=== PATIENT | female | born 1940 | race Caucasian/White ===

== ENCOUNTER 2020-02-16 11:28 | Inpatient (IN) | payer MEDICARE, OTHER ==
[2020-02-16] MEDS ORDERED: Sodium Chloride 0.9% 10 ML Syringe FLUSH PRN (12:08)
[2020-02-16] MEDS ORDERED: Ondansetron 4 MG/2 ML SDV IVPUSH ONE ×2 (12:08→14:30)
--- NOTE | 2020-02-16 12:13 | EDM.PDOC ---
ED HPI GENERAL MEDICAL PROBLEM - General Chief Complaint: Abdominal Pain Stated Complaint: DEHYDRATED Time Seen by Provider: 02/16/20 12:00 Source of Information: Reports: Patient History Limitations: Reports: No Limitations - History of Present Illness INITIAL COMMENTS - FREE TEXT/NARRATIVE: Patient is an 79-year-old female who presents with her daughter with complaints of nausea and vomiting. Patient was hospitalized and had surgery to remove her uterus and colon lesions at [facility] on 07 February. Per patient's report, the surgery was unsuccessful. She was discharged on 09 February. Daughter states that she had nausea and vomiting for couple days after surgery. She was okay for 1 day after getting home and then the nausea and vomiting returned on Thursday. She has not been able to keep her medications, food, or liquids down. She often has nausea and vomiting with anesthesia, however this is lasting longer than it normally does. She was discharged with Zofran which she took around 9:00 this morning. She complains of increased weakness, dizziness, and lightheadedness. She has had regular bowel movement since surgery. She does also have blood in her stool, however she states this has been an ongoing issue for her due to her colorectal cancer. She states that the blood in her stool has not worsened in any way. She does have mild lower abdominal pain in the area of the incision. Denies any fever, chills, or dysuria. Middle Abdomen Pain Score (Numeric/FACES): 4 - Related Data Allergies Allergy/AdvReac Type Severity Reaction Status Date / Time shellfish derived Allergy Rash Verified 02/16/20 11:44 Home Meds: Home Meds Acetaminophen 1,000 mg PO Q6HR PRN 02/16/20 [History] Apixaban [Eliquis] 5 mg PO BID 02/16/20 [History] Multivitamin [Daily Keri] 1 each PO DAILY 02/16/20 [History] Omeprazole 20 mg PO DAILY PRN 02/16/20 [History] Sennosides/Docusate Sodium [Sennosides-Docusate Sodium] 1 each PO BID PRN [History] Simethicone 80 mg PO QID PRN 02/16/20 [History] Simvastatin 5 mg PO BEDTIME 02/16/20 [History] traMADol [Ultram] 50 mg PO Q6H PRN 02/16/20 [History] Past Medical History HEENT History: Reports: Hard of Hearing Cardiovascular History: Reports: Blood Clots/VTE/DVT, High Cholesterol Respiratory History: Reports: None Gastrointestinal History: Reports: Chronic Constipation, GERD 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: Musculoskeletal History: Reports: None Neurological History: Reports: None Psychiatric History: Reports: None Endocrine/Metabolic History: Reports: Obesity/BMI 30+ Hematologic History: Reports: Anticoagulation Therapy, Blood Transfusion(s) Immunologic History: Reports: None Oncologic (Cancer) History: Reports: Colon, Ovarian Dermatologic History: Reports: None - Infectious Disease History Infectious Disease History: Reports: None - Past Surgical History GI Surgical History: Reports: Colonoscopy, Other (See Below) Other GI Surgeries/Procedures: Exploratory Laparotomy Female Surgical History: Reports: Other (See Below) Other Female Surgeries/Procedures: Ovaries Removed in 2006 Oncologic Surgical History: Reports: Biopsy of Breast Social & Family History - Tobacco Use Smoking Status *Q: Never Smoker - Caffeine Use Caffeine Use: Reports: Coffee - Recreational Drug Use Recreational Drug Use: No ED ROS GENERAL - Review of Systems Review Of Systems: See Below Constitutional: Reports: Weakness, Decreased Appetite. Denies: Fever, Chills HEENT: Reports: No Symptoms Respiratory: Reports: No Symptoms. Denies: Shortness of Breath, Cough Cardiovascular: Reports: Lightheadedness. Denies: Chest Pain, Dyspnea on Exertion, Syncope Endocrine: Reports: No Symptoms GI/Abdominal: Reports: Nausea, Vomiting. Denies: Abdominal Pain, Diarrhea : Reports: Hematuria. Denies: Dysuria, Flank Pain, Frequency Musculoskeletal: Reports: No Symptoms Skin: Reports: No Symptoms Neurological: Reports: No Symptoms Psychiatric: Reports: No Symptoms Hematologic/Lymphatic: Reports: No Symptoms Immunologic: Reports: No Symptoms ED EXAM, GI/ABD - Physical Exam Exam: See Below Exam Limited By: No Limitations General Appearance: Alert, WD/WN, No Apparent Distress Respiratory/Chest: No Respiratory Distress, Lungs Clear, Normal Breath Sounds, No Accessory Muscle Use, Chest Non-Tender Cardiovascular: Normal Peripheral Pulses, Regular Rate, Rhythm, No Edema, No Gallop, No JVD, No Murmur, No Rub GI/Abdominal Exam: Normal Bowel Sounds, Soft, No Organomegaly, No Distention, No Abnormal Bruit, No Mass, Pelvis Stable, Tender (mild lower abdominal tenderness around incision site), Other (lower abdominal midline incision. Well approximated. No redness, swelling, or drainage present.) Neurological: Alert, Oriented, CN II-XII Intact, Normal Cognition, Normal Gait, Normal Reflexes, No Motor/Sensory Deficits Psychiatric: Normal Affect, Normal Mood Skin Exam: Warm, Dry, Intact, Normal Color, No Rash Course - Vital Signs Last Recorded V/S: Last Vital Signs Temp 97.9 F 02/16/20 11:39 Pulse 88 02/16/20 11:39 Resp 15 02/16/20 11:39 BP 163/82 H 02/16/20 11:39 Pulse Ox 97 02/16/20 11:39 - Orders/Labs/Meds Orders: Active Orders 24 hr Category Date Time Status Patient Status [ADT] Routine ADT 02/16/20 16:01 Ordered Peripheral IV Care [RC] . DIRECTED Care 02/16/20 12:08 Active CULTURE BLOOD [BC] Stat Lab 02/16/20 15:18 Received CULTURE BLOOD [BC] Stat Lab 02/16/20 15:35 Received CULTURE URINE [RM] Stat Lab 02/16/20 14:30 Received LACTIC ACID [CHEM] Stat Lab 02/16/20 15:18 Received Sodium Chloride 0.9% [Normal Saline] 1,000 ml Med 02/16/20 12:15 Active IV ASDIRECTED Sodium Chloride 0.9% [Saline Flush] Med 02/16/20 12:08 Active 10 ml FLUSH ASDIRECTED PRN cefTRIAXone [Rocephin] 1 gm Med 02/16/20 14:45 Active Sodium Chloride 0.9% [Normal Saline] 100 ml IV Q24H Blood Culture x2 Reflex Set [OM.PC] Stat Oth 02/16/20 14:56 Ordered Peripheral IV Insertion Adult [OM.PC] Stat Oth 02/16/20 12:07 Ordered Medication Orders Sodium Chloride (Normal Saline) 1,000 mls @ 999 mls/hr IV ASDIRECTED CLIFF Last Admin: 02/16/20 12:18 Dose: 150 mls/hr Ceftriaxone Sodium 1 gm/ (Sodium Chloride) 100 mls @ 200 mls/hr IV Q24H CLIFF Last Admin: 02/16/20 15:42 Dose: 200 mls/hr Sodium Chloride (Saline Flush) 10 ml FLUSH ASDIRECTED PRN PRN Reason: Keep Vein Open Last Admin: 02/16/20 12:18 Dose: 10 ml Labs: Laboratory Tests 02/16/20 02/16/20 02/16/20 Range/Units 12:30 12:30 12:30 WBC 17.18 H (3.98-10.04) K/mm3 RBC 4.44 (3.98-5.22) M/mm3 Hgb 13.4 (11.2-15.7) gm/dl Hct 42.6 (34.1-44.9) % MCV 95.9 H (79.4-94.8) fl MCH 30.2 (25.6-32.2) pg MCHC 31.5 L (32.2-35.5) g/dl RDW Std Deviation 47.1 H (36.4-46.3) fL Plt Count 424 H (182-369) K/mm3 MPV 9.2 L (9.4-12.3) fl Neut % (Auto) 78.4 H (34.0-71.1) % Lymph % (Auto) 10.9 L (19.3-51.7) % [place] % (Auto) 9.2 (4.7-12.5) % Eos % (Auto) 0.4 L (0.7-5.8) Baso % (Auto) 0.2 (0.1-1.2) % Neut # (Auto) 13.48 H (1.56-6.13) K/mm3 Lymph # (Auto) 1.87 (1.18-3.74) K/mm3 [place] # (Auto) 1.58 H (0.24-0.36) K/mm3 Eos # (Auto) 0.07 (0.04-0.36) K/mm3 Baso # (Auto) 0.03 (0.01-0.08) K/mm3 Manual Slide Review Normal smear Sodium 142 (136-145) mEq/L Potassium 4.8 (3.5-5.1) mEq/L Chloride 104 (98-107) mEq/L Carbon Dioxide 25 (21-32) mEq/L Anion Gap 17.8 H (5-15) BUN 27 H (7-18) mg/dL Creatinine 1.3 H (0.55-1.02) mg/dL Est Cr Clr Drug Dosing 31.06 mL/min Estimated GFR (MDRD) 39 (>60) mL/min BUN/Creatinine Ratio 20.8 H (14-18) Glucose 103 (83-115) mg/dL Calcium 9.0 (8.5-10.1) mg/dL Total Bilirubin 0.6 (0.2-1.0) mg/dL AST 28 (15-37) U/L ALT 36 (14-59) U/L Alkaline Phosphatase 87 (46-116) U/L Troponin I < 0.017 (0.00-0.056) ng/mL C-Reactive Protein 5.3 H* (<1.0) mg/dL Total Protein 6.9 (6.4-8.2) g/dl Albumin 2.8 L (3.4-5.0) g/dl Globulin 4.1 gm/dL Albumin/Globulin Ratio 0.7 L (1-2) Urine Color (Yellow) Urine Appearance (Clear) Urine pH (5.0-8.0) Ur Specific [place] (1.005-1.030) Urine Protein (Negative) Urine Glucose (UA) (Negative) Urine Ketones (Negative) Urine Occult Blood (Negative) Urine Nitrite (Negative) Urine Bilirubin (Negative) Urine Urobilinogen (0.2-1.0) Ur Leukocyte Esterase (Negative) Urine RBC (0-5) /hpf Urine WBC (0-5) /hpf Ur Squamous Epith Cells (0-5) /hpf Urine Bacteria (FEW) /hpf Urine Mucus (FEW) /hpf 02/15/20 Range/Units 14:30 WBC (3.98-10.04) K/mm3 RBC (3.98-5.22) M/mm3 Hgb (11.2-15.7) gm/dl Hct (34.1-44.9) % MCV (79.4-94.8) fl MCH (25.6-32.2) pg MCHC (32.2-35.5) g/dl RDW Std Deviation (36.4-46.3) fL Plt Count (182-369) K/mm3 MPV (9.4-12.3) fl Neut % (Auto) (34.0-71.1) % Lymph % (Auto) (19.3-51.7) % [place] % (Auto) (4.7-12.5) % Eos % (Auto) (0.7-5.8) Baso % (Auto) (0.1-1.2) % Neut # (Auto) (1.56-6.13) K/mm3 Lymph # (Auto) (1.18-3.74) K/mm3 [place] # (Auto) (0.24-0.36) K/mm3 Eos # (Auto) (0.04-0.36) K/mm3 Baso # (Auto) (0.01-0.08) K/mm3 Manual Slide Review Sodium (136-145) mEq/L Potassium (3.5-5.1) mEq/L Chloride (98-107) mEq/L Carbon Dioxide (21-32) mEq/L Anion Gap (5-15) BUN (7-18) mg/dL Creatinine (0.55-1.02) mg/dL Est Cr Clr Drug Dosing mL/min Estimated GFR (MDRD) (>60) mL/min BUN/Creatinine Ratio (14-18) Glucose (83-115) mg/dL Calcium (8.5-10.1) mg/dL Total Bilirubin (0.2-1.0) mg/dL AST (15-37) U/L ALT (14-59) U/L Alkaline Phosphatase (46-116) U/L Troponin I (0.00-0.056) ng/mL C-Reactive Protein (<1.0) mg/dL Total Protein (6.4-8.2) g/dl Albumin (3.4-5.0) g/dl Globulin gm/dL Albumin/Globulin Ratio (1-2) Urine Color Kandi H (Yellow) Urine Appearance Cloudy H (Clear) Urine pH 6.0 (5.0-8.0) Ur Specific [place] > or = 1.030 (1.005-1.030) Urine Protein 2+ H (Negative) Urine Glucose (UA) Negative (Negative) Urine Ketones 2+ H (Negative) Urine Occult Blood 3+ H (Negative) Urine Nitrite Positive H (Negative) Urine Bilirubin 1+ H (Negative) Urine Urobilinogen 1.0 (0.2-1.0) Ur Leukocyte Esterase 1+ H (Negative) Urine RBC 40-50 H (0-5) /hpf Urine WBC >100 H (0-5) /hpf Ur Squamous Epith Cells 5-10 H (0-5) /hpf Urine Bacteria Moderate H (FEW) /hpf Urine Mucus Not seen (FEW) /hpf Meds: Medications Generic Name Dose Route Start Last Admin Trade Name Sanjiv PRN Reason Stop Dose Admin Sodium Chloride 1,000 mls @ 999 mls/hr 02/16/20 12:15 02/16/20 12:18 Normal Saline IV 150 mls/hr ASDIRECTED CLIFF Administration Ceftriaxone Sodium 1 gm/ 100 mls @ 200 mls/hr 02/16/20 14:45 02/16/20 15:42 Sodium Chloride IV 200 mls/hr Q24H CLIFF Administration Sodium Chloride 10 ml 02/16/20 12:08 02/16/20 12:18 Saline Flush FLUSH 10 ml ASDIRECTED PRN Administration Keep Vein Open Discontinued Medications Generic Name Dose Route Start Last Admin Trade Name Sanjiv PRN Reason Stop Dose Admin Al Hydroxide/Mg Hydroxide 30 ml 02/16/20 13:41 02/16/20 13:47 Mag-Al Plus PO 02/16/20 13:42 30 ml ONETIME ONE Administration Famotidine 20 mg 02/16/20 14:32 02/16/20 14:38 Pepcid IVPUSH 02/16/20 14:33 20 mg ONETIME ONE Administration Ondansetron HCl 4 mg 02/16/20 12:08 02/16/20 12:18 Zofran IVPUSH 02/16/20 12:09 4 mg ONETIME ONE Administration Ondansetron HCl 4 mg 02/16/20 14:30 02/16/20 14:38 Zofran IVPUSH 02/16/20 14:31 4 mg ONETIME ONE Administration - Re-Assessments/Exams Free Text/Narrative Re-Assessment/Exam: 02/16/20 1500 Hematology was significant for WBC elevated at 17.18, anion gap 17.8, BUN 27, creatinine 1.3, CRP 5.3. Urinalysis was grossly positive for urinary tract infection. I have ordered blood cultures and a lactic acid. Once he is a complete we will give Rocephin 1 g IV. I will call to speak with the hospitalist regarding admission. 02/16/20 16:[address] Louie. Patient will be admitted as inpatient for urinary tract infection. Departure - Departure Time of Disposition: 16:03 Disposition: Admitted As Inpatient 65 Condition: Fair Clinical Impression: Urinary tract infection Qualifiers: Urinary tract infection type: site unspecified Hematuria presence: with hematuria Qualified Code(s): N39.0 - Urinary tract infection, site not specified ; R31.9 - Hematuria, unspecified - Discharge Information Referrals: Terrie Meng MD [Primary Care Provider] - Forms: ED Department Discharge Sepsis Event Note - Evaluation Sepsis Screening Result: No Definite Risk - Focused Exam Vital Signs: Vital Signs Temp Pulse Resp BP Pulse Ox 02/16/20 11:39 97.9 F 88 15 163/82 H 97 Date Exam was Performed: 02/16/20 Time Exam was Performed: 16:03 - My Orders Last 24 Hours: My Active Orders 02/16/20 12:07 Peripheral IV Insertion Adult [OM.PC] Stat 02/16/20 12:08 Peripheral IV Care [RC] . DIRECTED Sodium Chloride 0.9% [Saline Flush] 10 ml FLUSH ASDIRECTED PRN 02/16/20 12:15 Sodium Chloride 0.9% [Normal Saline] 1,000 ml IV ASDIRECTED 02/16/20 14:30 CULTURE URINE [RM] Stat 02/16/20 14:45 cefTRIAXone [Rocephin] 1 gm Sodium Chloride 0.9% [Normal Saline] 100 ml IV Q24H 02/16/20 14:56 Blood Culture x2 Reflex Set [OM.PC] Stat 02/16/20 15:18 CULTURE BLOOD [BC] Stat LACTIC ACID [CHEM] Stat 02/16/20 15:35 CULTURE BLOOD [BC] Stat 02/16/20 16:01 Patient Status [ADT] Routine - Assessment/Plan Last 24 Hours: My Active Orders 02/16/20 12:07 Peripheral IV Insertion Adult [OM.PC] Stat 02/16/20 12:08 Peripheral IV Care [RC] . DIRECTED Sodium Chloride 0.9% [Saline Flush] 10 ml FLUSH ASDIRECTED PRN 02/16/20 12:15 Sodium Chloride 0.9% [Normal Saline] 1,000 ml IV ASDIRECTED 02/16/20 14:30 CULTURE URINE [RM] Stat 02/16/20 14:45 cefTRIAXone [Rocephin] 1 gm Sodium Chloride 0.9% [Normal Saline] 100 ml IV Q24H 02/16/20 14:56 Blood Culture x2 Reflex Set [OM.PC] Stat 02/16/20 15:18 CULTURE BLOOD [BC] Stat LACTIC ACID [CHEM] Stat 02/16/20 15:35 CULTURE BLOOD [BC] Stat 02/16/20 16:01 Patient Status [ADT] Routine
[2020-02-16] MEDS ORDERED: Sodium Chloride 0.9% 1,000 ML IV SCH ×2 (12:15→16:30)
[2020-02-16] MEDS ORDERED: Aluminum Hydroxide/Magnesium Hydroxide/Simethicone Susp 30 ML Cup PO ONE (13:41)
--- NOTE | 2020-02-16 14:12 | CR ---
Chest: 2 views of the chest were obtained. Comparison: No prior chest imaging. Heart size and mediastinum are normal. Lungs are clear with no acute parenchymal change. Bony structures are grossly intact. Impression: 1. Nothing acute is suspected on 2 view chest x-ray. Diagnostic code #1 This report was dictated in MDT
[2020-02-16] MEDS ORDERED: Famotidine 20 MG/2 ML SDV IVPUSH ONE (14:32)
[2020-02-16] MEDS: cefTRIAXone 1 GM in Sodium Chloride 0.9% 100 ML IV SCH (15:42)
[2020-02-16] MEDS ORDERED: Acetaminophen 325 MG Tab PO PRN (16:14)
--- NOTE | 2020-02-16 16:26 | PCM.HP.2 ---
H&P History of Present Illness - General Date of Service: 02/16/20 Admit Problem/Dx: Admission Diagnosis/Problem Admission Diagnosis/Problem Urinary tract infection Source of Information: Patient, Provider, RN, RN Notes Reviewed History Limitations: Reports: No Limitations - History of Present Illness Initial Comments - Free Text/Narative: Jesi Valencia is a 79 yo female who presents to ED on 02/16/2020 with nausea and vomiting. She states that she feels like she is dehydrated. She recently returned from [facility] in which she had a unsuccessful surgery to remove her uterus and colon lesions. This reportedly occurred on February 07 and she was discharged on February 09. Patient's daughter who accompanies her states that she had nausea and vomiting for couple days after surgery. She had one good day and then her symptoms returned this past Thursday. Reports has not been able to keep any medications food or liquid down. She has history of significant nausea and vomiting with anesthesia however this is been lasting much longer than normal. She has a prescription for p.o. Zofran which she took this morning , does not really helped. She reports additional increased weakness, dizziness , lightheadedness, and lower abdominal pain at her incision site. She reports she is had regular bowel movement since her surgery and states she does have blood in her stool. She reports this is been an ongoing issue with her colorectal cancer but has not worsened in any way. She denies any fever, chills , or urinary issues. In the ED temp was 97.9. Pulse 88. Respirations 15. Blood pressure 163/82. Pulse ox 97%. Labs are obtained with an elevated white count of 17.18. Hemoglobin is good at 13.4. Hematocrit 42.6. Platelets are high at 424,000. She is macrocytic. Neutrophils are elevated at 13.48. Anion gap is noted to be high at 17.8. Creatinine is 1.3. GFR is 39. BUN is 27. Glucose is normal at 103. Troponin is negative. Electrolytes otherwise look normal. CRP is elevated at 5.3. Albumin is low at 2.8. UA is obtained and is strongly positive and concentrated. 2+ protein, 2+ ketones, 3+ occult blood, positive nitrate, 1+ bilirubin, 1+ leukocyte esterase, 50 RBCs, greater than 100 WBCs, 5- 10 squamous epithelial cells, and moderate bacteria are noted. She is given a 1 L fluid bolus and started on 1 g of Rocephin. She is also given 20 mg of Pepcid and IV push Zofran for nausea. Lactic acid is normal at 1.1. Chest x- ray is obtained and shows nothing acute. Blood cultures were obtained and are pending. Urine culture is pending. She carries a history of: prior VTE, HLD, chronic constipation, GERD, obesity, colon and ovarian cancer, S/P oophorectomy in 2006. She was never smoker. Her PCP is Dr. Meng. She subsequently admitted to the medical floor for management of her intractable nausea and vomiting and UTI. Middle Abdomen Pain Score (Numeric/FACES): 4 - Related Data Allergies/Adverse Reactions: Allergies Allergy/AdvReac Type Severity Reaction Status Date / Time shellfish derived Allergy Rash Verified 02/16/20 17:00 Home Medications: Home Meds Acetaminophen 1,000 mg PO Q6HR PRN 02/16/20 [History] Apixaban [Eliquis] 5 mg PO BID 02/16/20 [History] Magnesium Hydroxide [Milk of Magnesia] 30 ml PO BID PRN 02/16/20 [History] Multivitamin [Daily Keri] 1 each PO DAILY 02/16/20 [History] Omeprazole 20 mg PO DAILY PRN 02/16/20 [History] Sennosides/Docusate Sodium [Sennosides-Docusate Sodium] 1 each PO BID PRN [History] Simethicone 80 mg PO QID PRN 02/16/20 [History] Simvastatin 5 mg PO BEDTIME 02/16/20 [History] traMADol [Ultram] 50 mg PO Q6H PRN 02/16/20 [History] Past Medical History HEENT History: Reports: Hard of Hearing Cardiovascular History: Reports: Blood Clots/VTE/DVT, High Cholesterol Respiratory History: Reports: None Gastrointestinal History: Reports: Chronic Constipation, GERD [employer] History: Reports: Musculoskeletal History: Reports: None Neurological History: Reports: None Psychiatric History: Reports: None Endocrine/Metabolic History: Reports: Obesity/BMI 30+ Hematologic History: Reports: Anticoagulation Therapy, Blood Transfusion(s) Immunologic History: Reports: None Oncologic (Cancer) History: Reports: Colon, Ovarian Dermatologic History: Reports: None - Infectious Disease History Infectious Disease History: Reports: None - Past Surgical History GI Surgical History: Reports: Colonoscopy, Other (See Below) Other GI Surgeries/Procedures: Exploratory Laparotomy Female Surgical History: Reports: Other (See Below) Other Female Surgeries/Procedures: Ovaries Removed in 2006 Oncologic Surgical History: Reports: Biopsy of Breast Social & Family History - Tobacco Use Smoking Status *Q: Never Smoker - Caffeine Use Caffeine Use: Reports: Coffee - Recreational Drug Use Recreational Drug Use: No H&P Review of Systems - Review of Systems: Review Of Systems: See Below General: Reports: Malaise, Weakness, Fatigue, Decreased Appetite. Denies: Fever , Chills HEENT: Reports: No Symptoms. Denies: Headaches, Sore Throat Pulmonary: Reports: No Symptoms. Denies: Shortness of Breath, Wheezing, Pleuritic Chest Pain, Cough, Sputum Cardiovascular: Reports: No Symptoms. Denies: Chest Pain, Palpitations, Dyspnea on Exertion, Syncope Gastrointestinal: Reports: Bloody Stool (chronic 2/2 colon cancer ), Nausea, Vomiting. Denies: Abdominal Pain, Constipation, Diarrhea Genitourinary: Reports: Hematuria. Denies: Frequency, Pain, Discharge Musculoskeletal: Reports: No Symptoms Skin: Reports: No Symptoms. Denies: Cyanosis Psychiatric: Reports: No Symptoms. Denies: Confusion Neurological: Reports: No Symptoms. Denies: Pre-Existing Deficit, Trouble Speaking, Difficulty Walking, Gait Disturbance Hematologic/Lymphatic: Reports: No Symptoms Immunologic: Reports: No Symptoms Exam - Exam Exam: See Below - Vital Signs Vital Signs: Last Vital Signs Temp 97.9 F 02/16/20 11:39 Pulse 88 02/16/20 11:39 Resp 15 02/16/20 11:39 BP 163/82 H 02/16/20 11:39 Pulse Ox 97 02/16/20 11:39 Weight: 232 lb - Exam Quality Assessment: DVT Prophylaxis General: Alert, Oriented, Cooperative, Mild Distress (looks uncomfortable ) HEENT: Conjunctiva Clear, EACs Clear, Hearing Intact, Mucosa Moist & [place], Nares Patent, Posterior Pharynx Clear, PERRLA Neck: Supple, Trachea Midline Lungs: Clear to Auscultation, Normal Respiratory Effort Cardiovascular: Regular Rate, Regular Rhythm GI/Abdominal Exam: Normal Bowel Sounds, Soft, No Distention, Tender (around incision site ) (Female) Exam: Deferred Rectal (Female) Exam: Deferred Back Exam: Normal Inspection, Full Range of Motion Extremities: Normal Inspection, Normal Range of Motion, Non-Tender, No Pedal Edema, Normal Capillary Refill Skin: Warm, Dry, Intact, Incision (midline lower abdominen - no signs of infection) Neurological: Cranial Nerves Intact (grossly ) Neuro Extensive - Mental Status: Alert, Oriented x3 - Patient Data Lab Results Last 24 hrs: Laboratory Results - last 24 hr 02/16/20 02/16/20 02/16/20 Range/Units 12:30 12:30 12:30 WBC 17.18 H (3.98-10.04) K/mm3 RBC 4.44 (3.98-5.22) M/mm3 Hgb 13.4 (11.2-15.7) gm/dl Hct 42.6 (34.1-44.9) % MCV 95.9 H (79.4-94.8) fl MCH 30.2 (25.6-32.2) pg MCHC 31.5 L (32.2-35.5) g/dl RDW Std Deviation 47.1 H (36.4-46.3) fL Plt Count 424 H (182-369) K/mm3 MPV 9.2 L (9.4-12.3) fl Neut % (Auto) 78.4 H (34.0-71.1) % Lymph % (Auto) 10.9 L (19.3-51.7) % Wheeler % (Auto) 9.2 (4.7-12.5) % Eos % (Auto) 0.4 L (0.7-5.8) Baso % (Auto) 0.2 (0.1-1.2) % Neut # (Auto) 13.48 H (1.56-6.13) K/mm3 Lymph # (Auto) 1.87 (1.18-3.74) K/mm3 Wheeler # (Auto) 1.58 H (0.24-0.36) K/mm3 Eos # (Auto) 0.07 (0.04-0.36) K/mm3 Baso # (Auto) 0.03 (0.01-0.08) K/mm3 Manual Slide Review Normal smear Sodium 142 (136-145) mEq/L Potassium 4.8 (3.5-5.1) mEq/L Chloride 104 (98-107) mEq/L Carbon Dioxide 25 (21-32) mEq/L Anion Gap 17.8 H (5-15) BUN 27 H (7-18) mg/dL Creatinine 1.3 H (0.55-1.02) mg/dL Est Cr Clr Drug Dosing 31.06 mL/min Estimated GFR (MDRD) 39 (>60) mL/min BUN/Creatinine Ratio 20.8 H (14-18) Glucose 103 (83-115) mg/dL Lactic Acid (0.4-2.0) mmol/L Calcium 9.0 (8.5-10.1) mg/dL Total Bilirubin 0.6 (0.2-1.0) mg/dL AST 28 (15-37) U/L ALT 36 (14-59) U/L Alkaline Phosphatase 87 (46-116) U/L Troponin I < 0.017 (0.00-0.056) ng/mL C-Reactive Protein 5.3 H* (<1.0) mg/dL Total Protein 6.9 (6.4-8.2) g/dl Albumin 2.8 L (3.4-5.0) g/dl Globulin 4.1 gm/dL Albumin/Globulin Ratio 0.7 L (1-2) Urine Color (Yellow) Urine Appearance (Clear) Urine pH (5.0-8.0) Ur Specific Baudette (1.005-1.030) Urine Protein (Negative) Urine Glucose (UA) (Negative) Urine Ketones (Negative) Urine Occult Blood (Negative) Urine Nitrite (Negative) Urine Bilirubin (Negative) Urine Urobilinogen (0.2-1.0) Ur Leukocyte Esterase (Negative) Urine RBC (0-5) /hpf Urine WBC (0-5) /hpf Ur Squamous Epith Cells (0-5) /hpf Urine Bacteria (FEW) /hpf Urine Mucus (FEW) /hpf 02/16/20 02/16/20 Range/Units 14:30 15:18 WBC (3.98-10.04) K/mm3 RBC (3.98-5.22) M/mm3 Hgb (11.2-15.7) gm/dl Hct (34.1-44.9) % MCV (79.4-94.8) fl MCH (25.6-32.2) pg MCHC (32.2-35.5) g/dl RDW Std Deviation (36.4-46.3) fL Plt Count (182-369) K/mm3 MPV (9.4-12.3) fl Neut % (Auto) (34.0-71.1) % Lymph % (Auto) (19.3-51.7) % Wheeler % (Auto) (4.7-12.5) % Eos % (Auto) (0.7-5.8) Baso % (Auto) (0.1-1.2) % Neut # (Auto) (1.56-6.13) K/mm3 Lymph # (Auto) (1.18-3.74) K/mm3 Wheeler # (Auto) (0.24-0.36) K/mm3 Eos # (Auto) (0.04-0.36) K/mm3 Baso # (Auto) (0.01-0.08) K/mm3 Manual Slide Review Sodium (136-145) mEq/L Potassium (3.5-5.1) mEq/L Chloride (98-107) mEq/L Carbon Dioxide (21-32) mEq/L Anion Gap (5-15) BUN (7-18) mg/dL Creatinine (0.55-1.02) mg/dL Est Cr Clr Drug Dosing mL/min Estimated GFR (MDRD) (>60) mL/min BUN/Creatinine Ratio (14-18) Glucose (83-115) mg/dL Lactic Acid 1.1 (0.4-2.0) mmol/L Calcium (8.5-10.1) mg/dL Total Bilirubin (0.2-1.0) mg/dL AST (15-37) U/L ALT (14-59) U/L Alkaline Phosphatase (46-116) U/L Troponin I (0.00-0.056) ng/mL C-Reactive Protein (<1.0) mg/dL Total Protein (6.4-8.2) g/dl Albumin (3.4-5.0) g/dl Globulin gm/dL Albumin/Globulin Ratio (1-2) Urine Color Kandi H (Yellow) Urine Appearance Cloudy H (Clear) Urine pH 6.0 (5.0-8.0) Ur Specific Baudette > or = 1.030 (1.005-1.030) Urine Protein 2+ H (Negative) Urine Glucose (UA) Negative (Negative) Urine Ketones 2+ H (Negative) Urine Occult Blood 3+ H (Negative) Urine Nitrite Positive H (Negative) Urine Bilirubin 1+ H (Negative) Urine Urobilinogen 1.0 (0.2-1.0) Ur Leukocyte Esterase 1+ H (Negative) Urine RBC 40-50 H (0-5) /hpf Urine WBC >100 H (0-5) /hpf Ur Squamous Epith Cells 5-10 H (0-5) /hpf Urine Bacteria Moderate H (FEW) /hpf Urine Mucus Not seen (FEW) /hpf Result Diagrams: 02/16/20 12:30 02/16/20 12:30 Sepsis Event Note - Evaluation Sepsis Screening Result: No Definite Risk - Focused Exam Vital Signs: Vital Signs Temp Pulse Resp BP Pulse Ox 02/16/20 11:39 97.9 F 88 15 163/82 H 97 Date Exam was Performed: 02/16/20 Time Exam was Performed: 18:34 - Problem List (1) Nausea and vomiting SNOMED Code(s): 35496774 ICD Code: R11.2 - NAUSEA WITH VOMITING, UNSPECIFIED Status: Acute Priority: High Current Visit: Yes Qualifiers: Vomiting type: unspecified Vomiting Intractability: intractable Qualified Code(s): R11.2 - Nausea with vomiting, unspecified (2) History of ovarian cancer Status: Chronic Priority: Medium Current Visit: No (3) Colon cancer SNOMED Code(s): 621810935 ICD Code: C18.9 - MALIGNANT NEOPLASM OF COLON, UNSPECIFIED Status: Acute Priority: High Current Visit: Yes Qualifiers: Colon location: unspecified part of colon Qualified Code(s): C18.9 - Malignant neoplasm of colon, unspecified (4) Leukocytosis SNOMED Code(s): 433602483, 330805442 ICD Code: D72.829 - ELEVATED WHITE BLOOD CELL COUNT, UNSPECIFIED Status: Acute Priority: High Current Visit: Yes Qualifiers: Leukocytosis type: unspecified Qualified Code(s): D72.829 - Elevated white blood cell count, unspecified (5) Acute renal injury SNOMED Code(s): 19583438, 97869153 ICD Code: N17.9 - ACUTE KIDNEY FAILURE, UNSPECIFIED Status: Acute Priority: High Current Visit: Yes (6) High anion gap metabolic acidosis SNOMED Code(s): 48777136 ICD Code: E87.2 - ACIDOSIS Status: Acute Priority: High Current Visit: Yes (7) History of venous thromboembolism SNOMED Code(s): 469540010 ICD Code: Z86.718 - PERSONAL HISTORY OF OTHER VENOUS THROMBOSIS AND EMBOLISM Status: Chronic Priority: Medium Current Visit: Yes (8) Chronic anticoagulation SNOMED Code(s): 421397236 ICD Code: Z79.01 - TUB WASHER (CURRENT) USE OF ANTICOAGULANTS Status: Chronic Priority: Low Current Visit: Yes (9) HLD (hyperlipidemia) SNOMED Code(s): 10167497 ICD Code: E78.5 - HYPERLIPIDEMIA, UNSPECIFIED Status: Chronic Priority: Low Current Visit: No Qualifiers: Hyperlipidemia type: unspecified Qualified Code(s): E78.5 - Hyperlipidemia , unspecified (10) GERD (gastroesophageal reflux disease) SNOMED Code(s): 119169222 ICD Code: K21.9 - GASTRO-ESOPHAGEAL REFLUX DISEASE WITHOUT ESOPHAGITIS Status: Chronic Priority: Medium Current Visit: No Qualifiers: Esophagitis presence: esophagitis presence not specified Qualified Code(s) : K21.9 - Gastro-esophageal reflux disease without esophagitis (11) Obesity SNOMED Code(s): 539872159, 556261289 ICD Code: E66.9 - OBESITY, UNSPECIFIED Status: Chronic Priority: Medium Current Visit: No Qualifiers: Obesity type: unspecified obesity type Obesity classification: adult class 2 (BMI 35 - 39.9) Body mass index: BMI 38.0-38.9 (12) Hematochezia SNOMED Code(s): 476007580 ICD Code: K92.1 - MELENA Status: Chronic Priority: Medium Current Visit : Yes (13) Urinary tract infection SNOMED Code(s): 43234950 ICD Code: N39.0 - URINARY TRACT INFECTION, SITE NOT SPECIFIED Status: Acute Priority: High Current Visit: Yes Qualifiers: Urinary tract infection type: site unspecified Hematuria presence: with hematuria Qualified Code(s): N39.0 - Urinary tract infection, site not specified; R31.9 - Hematuria, unspecified (14) S/P laparotomy SNOMED Code(s): 872533094, 998813272, 027040964 ICD Code: Z98.890 - OTHER SPECIFIED POSTPROCEDURAL STATES Status: Acute Priority: Medium Current Visit: Yes (15) Volume depletion SNOMED Code(s): 77067272 ICD Code: E86.9 - VOLUME DEPLETION, UNSPECIFIED Status: Acute Current Visit: Yes Problem List Initiated/Reviewed/Updated: Yes Orders Last 24hrs: Active Orders 24 hr Category Date Time Status Patient Status [ADT] Routine ADT 02/16/20 16:01 Active Height and Weight [RC] DAILY Care 02/16/20 16:14 Active Intake and Output [RC] QSHIFT Care 02/16/20 16:14 Active Oxygen Therapy [RC] PRN Care 02/16/20 16:14 Active Peripheral IV Care [RC] . DIRECTED Care 02/16/20 12:08 Active Pulse Oximetry [RC] PRN Care 02/16/20 16:14 Active Up With Assistance [RC] ASDIRECTED Care 02/16/20 16:14 Active VTE/DVT Education [RC] PER UNIT ROUTINE Care 02/16/20 16:14 Active Vital Signs [RC] Q4H Care 02/16/20 16:14 Active Consult to Case Management/Needle Board Repairer [CONS] Cons 02/16/20 16:14 Active Routine Consult to Electroplating Worker [CONS] Routine Cons 02/16/20 16:14 Active Consult to Spiritual Care [CONS] Routine Cons 02/16/20 16:14 Active OT Evaluation and Treatment [CONS] Routine Cons 02/16/20 16:14 Active PT Evaluation and Treatment [CONS] Routine Cons 02/16/20 16:14 Active Heart Healthy Diet [DIET] Diet 02/16/20 Lunch Active BASIC METABOLIC PANEL,BMP [CHEM] AM Lab 02/17/20 05:11 Ordered BASIC METABOLIC PANEL,BMP [CHEM] AM Lab 02/18/20 05:11 Ordered BASIC METABOLIC PANEL,BMP [CHEM] AM Lab 02/19/20 05:11 Ordered BASIC METABOLIC PANEL,BMP [CHEM] AM Lab 02/20/20 05:11 Ordered CBC WITH AUTO DIFF [HEME] AM Lab 02/17/20 05:11 Ordered CBC WITH AUTO DIFF [HEME] AM Lab 02/18/20 05:11 Ordered CBC WITH AUTO DIFF [HEME] AM Lab 02/19/20 05:11 Ordered CBC WITH AUTO DIFF [HEME] AM Lab 02/20/20 05:11 Ordered CULTURE BLOOD [BC] Stat Lab 02/16/20 15:18 Received CULTURE BLOOD [BC] Stat Lab 02/16/20 15:35 Received CULTURE URINE [RM] Stat Lab 02/16/20 14:30 Received MAGNESIUM [CHEM] AM Lab 02/17/20 05:11 Ordered MAGNESIUM [CHEM] AM Lab 02/18/20 05:11 Ordered MAGNESIUM [CHEM] AM Lab 02/19/20 05:11 Ordered MAGNESIUM [CHEM] AM Lab 02/20/20 05:11 Ordered Acetaminophen [Tylenol] Med 02/16/20 16:14 Active 650 mg PO Q4H PRN Apixaban [Eliquis] Med 02/16/20 21:00 Ordered 5 mg PO BID Docusate Sodium/Sennosides [Senna Plus] Med 02/16/20 16:20 Active 1 tab PO BID PRN Multivitamin Med 02/17/20 09:00 Ordered 1 each PO DAILY Ondansetron [Zofran] Med 02/16/20 16:14 Active 4 mg IV Q6H PRN Simethicone Med 02/16/20 16:20 Ordered 80 mg PO QID PRN Sodium Chloride 0.9% [Normal Saline] 1,000 ml Med 02/16/20 12:15 Active IV ASDIRECTED Sodium Chloride 0.9% [Normal Saline] 1,000 ml Med 02/16/20 16:30 Active IV ASDIRECTED Sodium Chloride 0.9% [Saline Flush] Med 02/16/20 12:08 Active 10 ml FLUSH ASDIRECTED PRN cefTRIAXone [Rocephin] 1 gm Med 02/16/20 14:45 Active Sodium Chloride 0.9% [Normal Saline] 100 ml IV Q24H traMADol [Ultram] Med 02/16/20 16:20 Ordered 50 mg PO Q6H PRN Blood Culture x2 Reflex Set [OM.PC] Stat Oth 02/16/20 14:56 Ordered Peripheral IV Insertion Adult [OM.PC] Stat Oth 02/16/20 12:07 Ordered Medication Orders Acetaminophen (Tylenol) 650 mg PO Q4H PRN PRN Reason: Pain (Mild 1-3)/fever Apixaban (Eliquis) 5 mg PO BID CLIFF Sodium Chloride (Normal Saline) 1,000 mls @ 999 mls/hr IV ASDIRECTED CLIFF Last Admin: 02/16/20 12:18 Dose: 150 mls/hr Ceftriaxone Sodium 1 gm/ (Sodium Chloride) 100 mls @ 200 mls/hr IV Q24H [facility] Last Admin: 02/16/20 15:42 Dose: 200 mls/hr Sodium Chloride (Normal Saline) 1,000 mls @ 75 mls/hr IV ASDIRECTED [facility] Stop: 02/17/20 05:49 Non-Formulary Medication (Multivitamin) 1 each PO DAILY [facility] Ondansetron HCl (Zofran) 4 mg IV Q6H PRN PRN Reason: Nausea/Vomiting Senna/Docusate Sodium (Senna Plus) 1 tab PO BID PRN PRN Reason: Constipation Simethicone (Simethicone) 80 mg PO QID PRN PRN Reason: flatulence Sodium Chloride (Saline Flush) 10 ml FLUSH ASDIRECTED PRN PRN Reason: Keep Vein Open Last Admin: 02/16/20 12:18 Dose: 10 ml Tramadol HCl (Ultram) 50 mg PO Q6H PRN PRN Reason: Pain Assessment/Plan Comment:: I/P: Acute: Urinary tract infection -Reports hematuria -Recently underwent surgery at [facility] - clinton catheter placed during procedure -Denies any fever -WBC 17.18 -CRP 5.3 -UA: Cloudy, concentrated, 2+ protein, 2+ ketones, 3+ occult blood, positive nitrite, 1+ bilirubin, 1+ leukocyte esterase, 40-50 RBC, greater than 100 WBCs, moderate bacteria. -Urine culture pending -Blood cultures pending -Sepsis criteria: -Apparent bacterial infection, No fever, WBC 17.18, No tachypnea, No tachycardia, Lactic acid 1.1 -Does not meet sepsis criteria at this point -Started on Rocephin 1gm in ED - continue -IV fluids as indicated Nausea and vomiting -Reports history of significant post-operative nausea and vomiting -Has had symptoms since return from surgery -Given IV fluids and zofran after discharge with minimal brief improvement of symptoms -Zofran in ED with minimal improvement -Start Phenergan PRN -Scopolamine patch -Monitor electrolytes - good so far -Last BM 02/15/20 S/P laparotomy 2/2 planned colon resection -Performed at [facility] -Daughter reports procedure aborted once she was opened due to significance of neoplasm -Planning chemotherapy in [place] -No signs of infection of surgical site -Continue to monitor Acute kidney injury -Likely 2/2 dehydration from vomiting -BUN 27 -Creatinine 1.3 -eGFR 39 -IV bolus given in ED -IV fluids as ordered Volume depletion -AARTI as above -Concentrated urine -Anion gap 17.8 -IV fluids as indicated Chronic: prior VTE HLD chronic constipation GERD obesity colon Hx/o ovarian cancer S/P oophorectomy in 2006 Plan: Admit to medical floor Routine AM labs Other orders as indicated above Review home medications PT/OT CM/SW for discharge planning Electroplating Worker consult DVT prophylaxis: Home Eliquis Code status: Full Code PCP: Dr. Meng - Mortality Measure Prognosis:: Poor (Overall poor prognosis given colon cancer; Good prognosis for UTI/Nausea episode)
[2020-02-16] MEDS ORDERED: Promethazine 25 MG in Sodium Chloride 0.9% 50 ML IV ONE (17:39)
[2020-02-16] MEDS ORDERED: Promethazine 25 MG in Sodium Chloride 0.9% 50 ML IV PRN (18:32)
[2020-02-16] MEDS ORDERED: Magnesium Hydroxide 400 MG/5 ML Susp 30 ML Cup PO PRN (18:33)
[2020-02-16] MEDS: Apixaban 5 MG Tab PO SCH (20:45)
[2020-02-16] MEDS: Scopolamine 1.5 MG Transdermal Patch TRDERM SCH (20:45)
--- NOTE | 2020-02-17 07:26 | PCM.PN ---
- General Info Date of Service: 02/17/20 Admission Dx/Problem (Free Text): Admission Diagnosis/Problem Admission Diagnosis/Problem Urinary tract infection Subjective Update: Destini is doing well. Her nausea has resolved. She has been up ambulating. No patient concerns. Functional Status: Reports: Pain Controlled, Tolerating Diet, Ambulating, Urinating. Denies: New Symptoms - Review of Systems General: Reports: No Symptoms. Denies: Fever, Weakness, Fatigue, Malaise HEENT: Reports: No Symptoms. Denies: Headaches, Sore Throat Pulmonary: Reports: No Symptoms. Denies: Shortness of Breath, Cough, Sputum Cardiovascular: Reports: No Symptoms. Denies: Chest Pain, Palpitations, Edema Gastrointestinal: Reports: No Symptoms. Denies: Abdominal Pain, Constipation, Diarrhea, Nausea, Vomiting Genitourinary: Reports: No Symptoms. Denies: Pain Musculoskeletal: Reports: No Symptoms Skin: Reports: No Symptoms. Denies: Cyanosis Neurological: Reports: No Symptoms. Denies: Confusion, Difficulty Walking, Gait Disturbance Psychiatric: Reports: No Symptoms - Patient Data Vitals - Most Recent: Last Vital Signs Temp 98.2 F 02/17/20 05:24 Pulse 81 02/17/20 05:24 Resp 20 02/17/20 05:24 BP 119/63 02/17/20 05:24 Pulse Ox 94 L 02/17/20 05:24 Weight - Most Recent: 232 lb 11.2 oz I&O - Last 24 Hours: Intake & Output 02/16/20 02/17/20 02/17/20 22:59 06:59 14:59 Intake Total 1200 Output Total 600 450 Balance -600 750 Lab Results Last 24 Hours: Laboratory Results - last 24 hr 02/16/20 02/16/20 02/16/20 Range/Units 12:30 12:30 12:30 WBC 17.18 H (3.98-10.04) K/mm3 RBC 4.44 (3.98-5.22) M/mm3 Hgb 13.4 (11.2-15.7) gm/dl Hct 42.6 (34.1-44.9) % MCV 95.9 H (79.4-94.8) fl MCH 30.2 (25.6-32.2) pg MCHC 31.5 L (32.2-35.5) g/dl RDW Std Deviation 47.1 H (36.4-46.3) fL Plt Count 424 H (182-369) K/mm3 MPV 9.2 L (9.4-12.3) fl Neut % (Auto) 78.4 H (34.0-71.1) % Lymph % (Auto) 10.9 L (19.3-51.7) % [place] % (Auto) 9.2 (4.7-12.5) % Eos % (Auto) 0.4 L (0.7-5.8) Baso % (Auto) 0.2 (0.1-1.2) % Neut # (Auto) 13.48 H (1.56-6.13) K/mm3 Lymph # (Auto) 1.87 (1.18-3.74) K/mm3 Loving # (Auto) 1.58 H (0.24-0.36) K/mm3 Eos # (Auto) 0.07 (0.04-0.36) K/mm3 Baso # (Auto) 0.03 (0.01-0.08) K/mm3 Manual Slide Review Normal smear Sodium 142 (136-145) mEq/L Potassium 4.8 (3.5-5.1) mEq/L Chloride 104 (98-107) mEq/L Carbon Dioxide 25 (21-32) mEq/L Anion Gap 17.8 H (5-15) BUN 27 H (7-18) mg/dL Creatinine 1.3 H (0.55-1.02) mg/dL Est Cr Clr Drug Dosing 31.06 mL/min Estimated GFR (MDRD) 39 (>60) mL/min BUN/Creatinine Ratio 20.8 H (14-18) Glucose 103 (83-115) mg/dL Lactic Acid (0.4-2.0) mmol/L Calcium 9.0 (8.5-10.1) mg/dL Magnesium (1.8-2.4) mg/dl Total Bilirubin 0.6 (0.2-1.0) mg/dL AST 28 (15-37) U/L ALT 36 (14-59) U/L Alkaline Phosphatase 87 (46-116) U/L Troponin I < 0.017 (0.00-0.056) ng/mL C-Reactive Protein 5.3 H* (<1.0) mg/dL Total Protein 6.9 (6.4-8.2) g/dl Albumin 2.8 L (3.4-5.0) g/dl Globulin 4.1 gm/dL Albumin/Globulin Ratio 0.7 L (1-2) Urine Color (Yellow) Urine Appearance (Clear) Urine pH (5.0-8.0) Ur Specific [place] (1.005-1.030) Urine Protein (Negative) Urine Glucose (UA) (Negative) Urine Ketones (Negative) Urine Occult Blood (Negative) Urine Nitrite (Negative) Urine Bilirubin (Negative) Urine Urobilinogen (0.2-1.0) Ur Leukocyte Esterase (Negative) Urine RBC (0-5) /hpf Urine WBC (0-5) /hpf Ur Squamous Epith Cells (0-5) /hpf Urine Bacteria (FEW) /hpf Urine Mucus (FEW) /hpf 02/16/20 02/16/20 02/17/20 Range/Units 14:30 15:18 04:38 WBC 13.51 H (3.98-10.04) K/mm3 RBC 3.93 L (3.98-5.22) M/mm3 Hgb 11.7 D (11.2-15.7) gm/dl Hct 38.3 (34.1-44.9) % MCV 97.5 H (79.4-94.8) fl MCH 29.8 (25.6-32.2) pg MCHC 30.5 L (32.2-35.5) g/dl RDW Std Deviation 47.8 H (36.4-46.3) fL Plt Count 412 H (182-369) K/mm3 MPV 9.9 (9.4-12.3) fl Neut % (Auto) 69.1 (34.0-71.1) % Lymph % (Auto) 15.8 L (19.3-51.7) % [place] % (Auto) 12.3 (4.7-12.5) % Eos % (Auto) 1.4 (0.7-5.8) Baso % (Auto) 0.4 (0.1-1.2) % Neut # (Auto) 9.35 H (1.56-6.13) K/mm3 Lymph # (Auto) 2.13 (1.18-3.74) K/mm3 Loving # (Auto) 1.66 H (0.24-0.36) K/mm3 Eos # (Auto) 0.19 (0.04-0.36) K/mm3 Baso # (Auto) 0.05 (0.01-0.08) K/mm3 Manual Slide Review Normal smear Sodium (136-145) mEq/L Potassium (3.5-5.1) mEq/L Chloride (98-107) mEq/L Carbon Dioxide (21-32) mEq/L Anion Gap (5-15) BUN (7-18) mg/dL Creatinine (0.55-1.02) mg/dL Est Cr Clr Drug Dosing mL/min Estimated GFR (MDRD) (>60) mL/min BUN/Creatinine Ratio (14-18) Glucose (83-115) mg/dL Lactic Acid 1.1 (0.4-2.0) mmol/L Calcium (8.5-10.1) mg/dL Magnesium (1.8-2.4) mg/dl Total Bilirubin (0.2-1.0) mg/dL AST (15-37) U/L ALT (14-59) U/L Alkaline Phosphatase (46-116) U/L Troponin I (0.00-0.056) ng/mL C-Reactive Protein (<1.0) mg/dL Total Protein (6.4-8.2) g/dl Albumin (3.4-5.0) g/dl Globulin gm/dL Albumin/Globulin Ratio (1-2) Urine Color Kandi H (Yellow) Urine Appearance Cloudy H (Clear) Urine pH 6.0 (5.0-8.0) Ur Specific [place] > or = 1.030 (1.005-1.030) Urine Protein 2+ H (Negative) Urine Glucose (UA) Negative (Negative) Urine Ketones 2+ H (Negative) Urine Occult Blood 3+ H (Negative) Urine Nitrite Positive H (Negative) Urine Bilirubin 1+ H (Negative) Urine Urobilinogen 1.0 (0.2-1.0) Ur Leukocyte Esterase 1+ H (Negative) Urine RBC 40-50 H (0-5) /hpf Urine WBC >100 H (0-5) /hpf Ur Squamous Epith Cells 5-10 H (0-5) /hpf Urine Bacteria Moderate H (FEW) /hpf Urine Mucus Not seen (FEW) /hpf 02/17/20 Range/Units 04:38 WBC (3.98-10.04) K/mm3 RBC (3.98-5.22) M/mm3 Hgb (11.2-15.7) gm/dl Hct (34.1-44.9) % MCV (79.4-94.8) fl MCH (25.6-32.2) pg MCHC (32.2-35.5) g/dl RDW Std Deviation (36.4-46.3) fL Plt Count (182-369) K/mm3 MPV (9.4-12.3) fl Neut % (Auto) (34.0-71.1) % Lymph % (Auto) (19.3-51.7) % [place]oving % (Auto) (4.7-12.5) % Eos % (Auto) (0.7-5.8) Baso % (Auto) (0.1-1.2) % Neut # (Auto) (1.56-6.13) K/mm3 Lymph # (Auto) (1.18-3.74) K/mm3 L[place] # (Auto) (0.24-0.36) K/mm3 Eos # (Auto) (0.04-0.36) K/mm3 Baso # (Auto) (0.01-0.08) K/mm3 Manual Slide Review Sodium 142 (136-145) mEq/L Potassium 4.4 (3.5-5.1) mEq/L Chloride 107 (98-107) mEq/L Carbon Dioxide 24 (21-32) mEq/L Anion Gap 15.4 H (5-15) BUN 27 H (7-18) mg/dL Creatinine 1.2 H (0.55-1.02) mg/dL Est Cr Clr Drug Dosing 33.65 mL/min Estimated GFR (MDRD) 43 (>60) mL/min BUN/Creatinine Ratio 22.5 H (14-18) Glucose 77 L (83-115) mg/dL Lactic Acid (0.4-2.0) mmol/L Calcium 8.4 L (8.5-10.1) mg/dL Magnesium 2.2 (1.8-2.4) mg/dl Total Bilirubin (0.2-1.0) mg/dL AST (15-37) U/L ALT (14-59) U/L Alkaline Phosphatase (46-116) U/L Troponin I (0.00-0.056) ng/mL C-Reactive Protein (<1.0) mg/dL Total Protein (6.4-8.2) g/dl Albumin (3.4-5.0) g/dl Globulin gm/dL Albumin/Globulin Ratio (1-2) Urine Color (Yellow) Urine Appearance (Clear) Urine pH (5.0-8.0) Ur Specific [place] (1.005-1.030) Urine Protein (Negative) Urine Glucose (UA) (Negative) Urine Ketones (Negative) Urine Occult Blood (Negative) Urine Nitrite (Negative) Urine Bilirubin (Negative) Urine Urobilinogen (0.2-1.0) Ur Leukocyte Esterase (Negative) Urine RBC (0-5) /hpf Urine WBC (0-5) /hpf Ur Squamous Epith Cells (0-5) /hpf Urine Bacteria (FEW) /hpf Urine Mucus (FEW) /hpf Arturo Results Last 24 Hours: Microbiology 02/16/20 14:30 Urine Culture - Preliminary Urine, Clean Catch Gram Negative Rods Med Orders - Current: Current Medications Acetaminophen (Tylenol) 650 mg PO Q4H PRN PRN Reason: Pain (Mild 1-3)/fever Apixaban (Eliquis) 5 mg PO BID [facility] Last Admin: 02/16/20 20:45 Dose: 5 mg Famotidine (Pepcid) 20 mg PO DAILY [facility] Ceftriaxone Sodium 1 gm/ (Sodium Chloride) 100 mls @ 200 mls/hr IV Q24H [facility] Last Admin: 02/16/20 15:42 Dose: 200 mls/hr Promethazine HCl 25 mg/ Sodium (Chloride) 51 mls @ 100 mls/hr IV Q6H PRN PRN Reason: Nausea/Vomiting Magnesium Hydroxide (Milk Of Magnesia) 30 ml PO BID PRN PRN Reason: Constipation Miscellaneous Information (Remove Patch) 1 ea TRDERM Q72H [facility] Multivitamins (Thera) 1 each PO DAILY [facility] Ondansetron HCl (Zofran) 4 mg IV Q6H PRN PRN Reason: Nausea/Vomiting Scopolamine (Transderm-Scop) 1.5 mg TRDERM Q72H [facility] Last Admin: 02/16/20 20:45 Dose: 1.5 mg Senna/Docusate Sodium (Senna Plus) 1 tab PO BID PRN PRN Reason: Constipation Simethicone (Simethicone) 80 mg PO QID PRN PRN Reason: flatulence Sodium Chloride (Saline Flush) 10 ml FLUSH ASDIRECTED PRN PRN Reason: Keep Vein Open Last Admin: 02/16/20 12:18 Dose: 10 ml Tramadol HCl (Ultram) 50 mg PO Q6H PRN PRN Reason: Pain Discontinued Medications Al Hydroxide/Mg Hydroxide (Mag-Al Plus) 30 ml PO ONETIME ONE Stop: 02/16/20 13:42 Last Admin: 02/16/20 13:47 Dose: 30 ml Famotidine (Pepcid) 20 mg IVPUSH ONETIME ONE Stop: 02/16/20 14:33 Last Admin: 02/16/20 14:38 Dose: 20 mg Sodium Chloride (Normal Saline) 1,000 mls @ 999 mls/hr IV ASDIRECTED [facility] Last Admin: 02/16/20 12:18 Dose: 150 mls/hr Sodium Chloride (Normal Saline) 1,000 mls @ 75 mls/hr IV ASDIRECTED [facility] Stop: 02/17/20 05:49 Last Admin: 02/16/20 16:47 Dose: 75 mls/hr Promethazine HCl 25 mg/ Sodium (Chloride) 51 mls @ 100 mls/hr IV ONETIME ONE Stop: 02/16/20 18:09 Last Admin: 02/16/20 18:32 Dose: 100 mls/hr Ondansetron HCl (Zofran) 4 mg IVPUSH ONETIME ONE Stop: 02/16/20 12:09 Last Admin: 02/16/20 12:18 Dose: 4 mg Ondansetron HCl (Zofran) 4 mg IVPUSH ONETIME ONE Stop: 02/16/20 14:31 Last Admin: 02/16/20 14:38 Dose: 4 mg - Exam Quality Assessment: DVT Prophylaxis General: Alert, Oriented, Cooperative, No Acute Distress HEENT: Pupils Equal, Pupils Reactive, Mucous Membr. Moist/[place] Neck: Supple, Trachea Midline Lungs: Clear to Auscultation, Normal Respiratory Effort Cardiovascular: Regular Rate, Regular Rhythm GI/Abdominal Exam: Normal Bowel Sounds, Soft, No Distention, Tender (around incision site ) (Female) Exam: Deferred Back Exam: Normal Inspection, Full Range of Motion Extremities: Normal Inspection, Normal Range of Motion, Non-Tender, Normal Capillary Refill Skin: Warm, Dry, Intact Wound/Incisions: Healing Well, No Drainage. No: Erythema Neurological: No New Focal Deficit Psy/Mental Status: Alert, Normal Affect, Normal Mood Sepsis Event Note - Evaluation Sepsis Screening Result: No Definite Risk - Focused Exam Vital Signs: Vital Signs Temp Pulse Resp BP Pulse Ox 02/17/20 05:24 98.2 F 81 20 119/63 94 L 02/17/20 00:09 88 118/69 94 L 02/17/20 00:08 97.7 F 92 20 99/69 94 L 02/16/20 19:30 98.6 F 99 18 148/56 H 98 Date Exam was Performed: 02/17/20 Time Exam was Performed: 12:33 - Problem List & Annotations (1) Nausea and vomiting SNOMED Code(s): 86448123 Code(s): R11.2 - NAUSEA WITH VOMITING, UNSPECIFIED Status: Resolved Priority: High Current Visit: Yes Qualifiers: Vomiting type: unspecified Vomiting Intractability: intractable Qualified Code(s): R11.2 - Nausea with vomiting, unspecified (2) History of ovarian cancer Status: Chronic Priority: Medium Current Visit: No (3) Colon cancer SNOMED Code(s): 005734239 Code(s): C18.9 - MALIGNANT NEOPLASM OF COLON, UNSPECIFIED Status: Acute Priority: High Current Visit: Yes Qualifiers: Colon location: unspecified part of colon Qualified Code(s): C18.9 - Malignant neoplasm of colon, unspecified (4) Leukocytosis SNOMED Code(s): 429271914, 008801605 Code(s): D72.829 - ELEVATED WHITE BLOOD CELL COUNT, UNSPECIFIED Status: Acute Priority: High Current Visit: Yes Qualifiers: Leukocytosis type: unspecified Qualified Code(s): D72.829 - Elevated white blood cell count, unspecified (5) Acute renal injury SNOMED Code(s): 16734064, 86693026 Code(s): N17.9 - ACUTE KIDNEY FAILURE, UNSPECIFIED Status: Acute Priority : High Current Visit: Yes (6) High anion gap metabolic acidosis SNOMED Code(s): 10602065 Code(s): E87.2 - ACIDOSIS Status: Acute Priority: High Current Visit: Yes (7) History of venous thromboembolism SNOMED Code(s): 874034949 Code(s): Z86.718 - PERSONAL HISTORY OF OTHER VENOUS THROMBOSIS AND EMBOLISM Status: Chronic Priority: Medium Current Visit: Yes (8) Chronic anticoagulation SNOMED Code(s): 171731183 Code(s): Z79.01 - CUSTODIAL (CURRENT) USE OF ANTICOAGULANTS Status: Chronic Priority: Low Current Visit: Yes (9) HLD (hyperlipidemia) SNOMED Code(s): 41410691 Code(s): E78.5 - HYPERLIPIDEMIA, UNSPECIFIED Status: Chronic Priority: Low Current Visit: No Qualifiers: Hyperlipidemia type: unspecified Qualified Code(s): E78.5 - Hyperlipidemia , unspecified (10) GERD (gastroesophageal reflux disease) SNOMED Code(s): 814579077 Code(s): K21.9 - GASTRO-ESOPHAGEAL REFLUX DISEASE WITHOUT ESOPHAGITIS Status: Chronic Priority: Medium Current Visit: No Qualifiers: Esophagitis presence: esophagitis presence not specified Qualified Code(s) : K21.9 - Gastro-esophageal reflux disease without esophagitis (11) Obesity SNOMED Code(s): 971001959, 695682146 Code(s): E66.9 - OBESITY, UNSPECIFIED Status: Chronic Priority: Medium Current Visit: No Qualifiers: Obesity type: unspecified obesity type Obesity classification: adult class 2 (BMI 35 - 39.9) Body mass index: BMI 38.0-38.9 (12) Hematochezia SNOMED Code(s): 552195575 Code(s): K92.1 - MELENA Status: Chronic Priority: Medium Current Visit : Yes (13) Urinary tract infection SNOMED Code(s): 36617264 Code(s): N39.0 - URINARY TRACT INFECTION, SITE NOT SPECIFIED Status: Acute Priority: High Current Visit: Yes Qualifiers: Urinary tract infection type: site unspecified Hematuria presence: with hematuria Qualified Code(s): N39.0 - Urinary tract infection, site not specified; R31.9 - Hematuria, unspecified (14) S/P laparotomy SNOMED Code(s): 318154883, 686553793, 071238751 Code(s): Z98.890 - OTHER SPECIFIED POSTPROCEDURAL STATES Status: Acute Priority: Medium Current Visit: Yes (15) Volume depletion SNOMED Code(s): 64180400 Code(s): E86.9 - VOLUME DEPLETION, UNSPECIFIED Status: Acute Current Visit: Yes - Problem List Review Problem List Initiated/Reviewed/Updated: Yes - My Orders Last 24 Hours: My Active Orders 02/16/20 16:14 Oxygen Therapy [RC] PRN Pulse Oximetry [RC] PRN VTE/DVT Education [RC] Vital Signs [RC] Q4HR Consult to Case Management/Hris Specialist [CONS] Routine Consult to Stock Replenisher [CONS] Routine Consult to Spiritual Care [CONS] Routine OT Evaluation and Treatment [CONS] Routine PT Evaluation and Treatment [CONS] Routine Acetaminophen [Tylenol] 650 mg PO Q4H PRN Ondansetron [Zofran] 4 mg IV Q6H PRN 02/16/20 16:20 Docusate Sodium/Sennosides [Senna Plus] 1 tab PO BID PRN Simethicone 80 mg PO QID PRN traMADol [Ultram] 50 mg PO Q6H PRN 02/16/20 18:32 Promethazine [Phenergan] 25 mg Sodium Chloride 0.9% [Normal Saline] 50 ml IV Q6H 02/16/20 18:33 Magnesium Hydroxide [Milk of Magnesia] 30 ml PO BID PRN 02/16/20 20:00 Scopolamine [Transderm-Scop] 1.5 mg TRDERM Q72H 02/16/20 21:00 Apixaban [Eliquis] 5 mg PO BID 02/16/20 Lunch Heart Healthy Diet [DIET] 02/17/20 09:00 Famotidine [Pepcid] 20 mg PO DAILY Multivitamins,Therapeutic [Thera] 1 each PO DAILY 02/18/20 05:11 BASIC METABOLIC PANEL,BMP [CHEM] AM CBC WITH AUTO DIFF [HEME] AM MAGNESIUM [CHEM] AM 02/19/20 05:11 BASIC METABOLIC PANEL,BMP [CHEM] AM CBC WITH AUTO DIFF [HEME] AM MAGNESIUM [CHEM] AM 02/20/20 05:11 BASIC METABOLIC PANEL,BMP [CHEM] AM CBC WITH AUTO DIFF [HEME] AM MAGNESIUM [CHEM] AM - Plan Plan:: I/P: Acute: Urinary tract infection -Reports hematuria -Recently underwent surgery at [facility] - [place] catheter placed during procedure -Denies any fever -WBC 17.18-->13.51 -CRP 5.3 -UA: Cloudy, concentrated, 2+ protein, 2+ ketones, 3+ occult blood, positive nitrite, 1+ bilirubin, 1+ leukocyte esterase, 40-50 RBC, greater than 100 WBCs, moderate bacteria. -Urine culture: Gram negative rods thus far -Blood cultures pending -Sepsis criteria: -Apparent bacterial infection, No fever, WBC 17.18, No tachypnea, No tachycardia, Lactic acid 1.1 -Does not meet sepsis criteria at this point -Started on Rocephin 1gm in ED - continue -IV fluids as indicated S/P Nausea and vomiting -Reports history of significant post-operative nausea and vomiting -Has had symptoms since return from surgery -Given IV fluids and zofran after discharge with minimal brief improvement of symptoms -Zofran in ED with minimal improvement -Start Phenergan PRN -Scopolamine patch -Monitor electrolytes - good so far -Last BM 02/15/20 S/P laparotomy 2/2 planned colon resection -Performed at [facility] -Daughter reports procedure aborted once she was opened due to significance of neoplasm -Planning chemotherapy in [place] -No signs of infection of surgical site -Continue to monitor Acute kidney injury, improving -Likely 2/2 dehydration from vomiting -BUN 27-->27 -Creatinine 1.3-->1.2 -eGFR 39-->43 -IV bolus given in ED -IV fluids as ordered Volume depletion, improving -AARTI as above -Concentrated urine -Anion gap 17.8-->15.4 -IV fluids as indicated Chronic: prior VTE HLD chronic constipation GERD obesity colon Hx/o ovarian cancer S/P oophorectomy in 2006 Plan: Admit to medical floor Routine AM labs Other orders as indicated above Review home medications PT/OT CM/SW for discharge planning Stock Replenisher consult DVT prophylaxis: Home Eliquis Code status: Full Code PCP: Dr. Meng Discharge plan: Likely discharge in 1-2 days pending urine culture and continued response to treatment.
[2020-02-17] MEDS: Multivitamins,Therapeutic Tab PO SCH (08:03)
[2020-02-17] MEDS: Apixaban 5 MG Tab PO SCH ×2 (08:03→20:25)
[2020-02-17] MEDS: Famotidine 20 MG Tab PO SCH (08:03)
[2020-02-17] MEDS: Sodium Chloride 0.9% 1,000 ML IV SCH ×2 (08:09→17:44)
[2020-02-17] MEDS: cefTRIAXone 1 GM in Sodium Chloride 0.9% 100 ML IV SCH (14:58)
[2020-02-18] MEDS: Multivitamins,Therapeutic Tab PO SCH (08:14)
[2020-02-18] MEDS: Apixaban 5 MG Tab PO SCH ×2 (08:14→20:39)
[2020-02-18] MEDS: Famotidine 20 MG Tab PO SCH ×2 (08:14→20:39)
--- NOTE | 2020-02-18 11:50 | PCM.PN ---
- General Info Date of Service: 02/18/20 Admission Dx/Problem (Free Text): Admission Diagnosis/Problem Admission Diagnosis/Problem Urinary tract infection Functional Status: Reports: Pain Controlled, Tolerating Diet, Ambulating, Urinating. Denies: New Symptoms - Review of Systems General: Reports: Weakness. Denies: Fever, Fatigue, Malaise, Chills HEENT: Denies: Headaches, Sore Throat Pulmonary: Denies: Shortness of Breath, Pleuritic Chest Pain, Cough, Sputum, Wheezing Cardiovascular: Denies: Chest Pain, Palpitations, Dyspnea on Exertion Gastrointestinal: Reports: Abdominal Pain (mild from surgical site ), Constipation, Decreased Appetite, Other (Feels bloated ). Denies: Diarrhea, Nausea, Vomiting Genitourinary: Reports: No Symptoms. Denies: Pain Musculoskeletal: Reports: No Symptoms Skin: Reports: No Symptoms Neurological: Reports: Difficulty Walking, Weakness. Denies: Gait Disturbance Psychiatric: Reports: No Symptoms - Patient Data Vitals - Most Recent: Last Vital Signs Temp 97.0 F 02/18/20 08:13 Pulse 91 02/18/20 08:13 Resp 18 02/18/20 08:13 BP 139/54 L 02/18/20 08:13 Pulse Ox 97 02/18/20 08:13 Weight - Most Recent: 235 lb 4.8 oz I&O - Last 24 Hours: Intake & Output 02/17/20 02/18/20 02/18/20 22:59 06:59 14:59 Intake Total 1786 1480 300 Output Total 200 400 Balance 1586 1080 300 Lab Results Last 24 Hours: Laboratory Results - last 24 hr 02/18/20 02/18/20 Range/Units 05:50 05:50 WBC 11.48 H (3.98-10.04) K/mm3 RBC 3.95 L (3.98-5.22) M/mm3 Hgb 11.7 (11.2-15.7) gm/dl Hct 38.3 (34.1-44.9) % MCV 97.0 H (79.4-94.8) fl MCH 29.6 (25.6-32.2) pg MCHC 30.5 L (32.2-35.5) g/dl RDW Std Deviation 47.4 H (36.4-46.3) fL Plt Count 445 H (182-369) K/mm3 MPV 9.6 (9.4-12.3) fl Neut % (Auto) 66.0 (34.0-71.1) % Lymph % (Auto) 16.4 L (19.3-51.7) % Bradford % (Auto) 13.7 H (4.7-12.5) % Eos % (Auto) 2.6 (0.7-5.8) Baso % (Auto) 0.3 (0.1-1.2) % Neut # (Auto) 7.57 H (1.56-6.13) K/mm3 Lymph # (Auto) 1.88 (1.18-3.74) K/mm3 Bradford # (Auto) 1.57 H (0.24-0.36) K/mm3 Eos # (Auto) 0.30 (0.04-0.36) K/mm3 Baso # (Auto) 0.04 (0.01-0.08) K/mm3 Manual Slide Review Normal smear Sodium 142 (136-145) mEq/L Potassium 4.1 (3.5-5.1) mEq/L Chloride 106 (98-107) mEq/L Carbon Dioxide 26 (21-32) mEq/L Anion Gap 14.1 (5-15) BUN 22 H (7-18) mg/dL Creatinine 1.2 H (0.55-1.02) mg/dL Est Cr Clr Drug Dosing 33.65 mL/min Estimated GFR (MDRD) 43 (>60) mL/min BUN/Creatinine Ratio 18.3 H (14-18) Glucose 94 (83-115) mg/dL Calcium 8.7 (8.5-10.1) mg/dL Magnesium 2.1 (1.8-2.4) mg/dl Arturo Results Last 24 Hours: Microbiology 02/16/20 14:30 Urine Culture - Final Urine, Clean Catch Klebsiella Oxytoca 02/16/20 15:18 Aerobic Blood Culture - Preliminary Blood - Venous NO GROWTH AFTER 1 DAY Anaerobic Blood Culture - Preliminary NO GROWTH AFTER 1 DAY 02/16/20 15:35 Aerobic Blood Culture - Preliminary Blood - Venous - Lab Draw NO GROWTH AFTER 1 DAY Anaerobic Blood Culture - Preliminary NO GROWTH AFTER 1 DAY Med Orders - Current: Current Medications Acetaminophen (Tylenol) 650 mg PO Q4H PRN PRN Reason: Pain (Mild 1-3)/fever Last Admin: 02/18/20 05:07 Dose: 650 mg Apixaban (Eliquis) 5 mg PO BID [facility] Last Admin: 02/18/20 08:14 Dose: 5 mg Famotidine (Pepcid) 20 mg PO DAILY [facility] Last Admin: 02/18/20 08:14 Dose: 20 mg Ceftriaxone Sodium 1 gm/ (Sodium Chloride) 100 mls @ 200 mls/hr IV Q24H [facility] Last Admin: 02/17/20 14:58 Dose: 200 mls/hr Promethazine HCl 25 mg/ Sodium (Chloride) 51 mls @ 100 mls/hr IV Q6H PRN PRN Reason: Nausea/Vomiting Sodium Chloride (Normal Saline) 1,000 mls @ 100 mls/hr IV ASDIRECTED [facility] Stop: 02/18/20 17:29 Last Admin: 02/17/20 17:44 Dose: 100 mls/hr Magnesium Hydroxide (Milk Of Magnesia) 30 ml PO BID PRN PRN Reason: Constipation Miscellaneous Information (Remove Patch) 1 ea TRDERM Q72H [facility] Multivitamins (Thera) 1 each PO DAILY [facility] Last Admin: 02/18/20 08:14 Dose: Not Given Ondansetron HCl (Zofran) 4 mg IV Q6H PRN PRN Reason: Nausea/Vomiting Scopolamine (Transderm-Scop) 1.5 mg TRDERM Q72H [facility] Last Admin: 02/16/20 20:45 Dose: 1.5 mg Senna/Docusate Sodium (Senna Plus) 1 tab PO BID PRN PRN Reason: Constipation Last Admin: 02/18/20 05:07 Dose: 1 tab Simethicone (Simethicone) 80 mg PO QID PRN PRN Reason: flatulence Sodium Chloride (Saline Flush) 10 ml FLUSH ASDIRECTED PRN PRN Reason: Keep Vein Open Last Admin: 02/16/20 12:18 Dose: 10 ml Tramadol HCl (Ultram) 50 mg PO Q6H PRN PRN Reason: Pain Discontinued Medications Al Hydroxide/Mg Hydroxide (Mag-Al Plus) 30 ml PO ONETIME ONE Stop: 02/16/20 13:42 Last Admin: 02/16/20 13:47 Dose: 30 ml Famotidine (Pepcid) 20 mg IVPUSH ONETIME ONE Stop: 02/16/20 14:33 Last Admin: 02/16/20 14:38 Dose: 20 mg Sodium Chloride (Normal Saline) 1,000 mls @ 999 mls/hr IV ASDIRECTED [facility] Last Admin: 02/16/20 12:18 Dose: 150 mls/hr Sodium Chloride (Normal Saline) 1,000 mls @ 75 mls/hr IV ASDIRECTED [facility] Stop: 02/17/20 05:49 Last Admin: 02/16/20 16:47 Dose: 75 mls/hr Promethazine HCl 25 mg/ Sodium (Chloride) 51 mls @ 100 mls/hr IV ONETIME ONE Stop: 02/16/20 18:09 Last Admin: 02/16/20 18:32 Dose: 100 mls/hr Ondansetron HCl (Zofran) 4 mg IVPUSH ONETIME ONE Stop: 02/16/20 12:09 Last Admin: 02/16/20 12:18 Dose: 4 mg Ondansetron HCl (Zofran) 4 mg IVPUSH ONETIME ONE Stop: 02/16/20 14:31 Last Admin: 02/16/20 14:38 Dose: 4 mg - Exam Quality Assessment: DVT Prophylaxis General: Alert, Oriented, Cooperative, No Acute Distress HEENT: Pupils Equal, Pupils Reactive, Mucous Membr. Moist/[place] Neck: Supple, Trachea Midline Lungs: Clear to Auscultation, Normal Respiratory Effort Cardiovascular: Regular Rate, Regular Rhythm GI/Abdominal Exam: Normal Bowel Sounds, Soft, Non-Tender, No Distention (Female) Exam: Deferred Back Exam: Normal Inspection, Full Range of Motion Extremities: Normal Inspection, Normal Range of Motion, Non-Tender, Normal Capillary Refill Skin: Warm, Dry, Intact Neurological: No New Focal Deficit Psy/Mental Status: Alert, Normal Affect, Normal Mood Sepsis Event Note - Evaluation Sepsis Screening Result: No Definite Risk - Focused Exam Vital Signs: Vital Signs Temp Pulse Resp BP Pulse Ox 02/18/20 08:13 97.0 F 91 18 139/54 L 97 02/18/20 03:47 97.3 F 83 20 138/82 95 02/18/20 00:04 98.2 F 87 16 117/71 92 L Date Exam was Performed: 02/18/20 Time Exam was Performed: 12:12 - Problem List & Annotations (1) Nausea and vomiting SNOMED Code(s): 06511821 Code(s): R11.2 - NAUSEA WITH VOMITING, UNSPECIFIED Status: Resolved Priority: High Current Visit: Yes Qualifiers: Vomiting type: unspecified Vomiting Intractability: intractable Qualified Code(s): R11.2 - Nausea with vomiting, unspecified (2) History of ovarian cancer Status: Chronic Priority: Medium Current Visit: No (3) Colon cancer SNOMED Code(s): 107889369 Code(s): C18.9 - MALIGNANT NEOPLASM OF COLON, UNSPECIFIED Status: Acute Priority: High Current Visit: Yes Qualifiers: Colon location: unspecified part of colon Qualified Code(s): C18.9 - Malignant neoplasm of colon, unspecified (4) Leukocytosis SNOMED Code(s): 175548346, 097350081 Code(s): D72.829 - ELEVATED WHITE BLOOD CELL COUNT, UNSPECIFIED Status: Acute Priority: High Current Visit: Yes Qualifiers: Leukocytosis type: unspecified Qualified Code(s): D72.829 - Elevated white blood cell count, unspecified (5) Acute renal injury SNOMED Code(s): 75130971, 09171500 Code(s): N17.9 - ACUTE KIDNEY FAILURE, UNSPECIFIED Status: Acute Priority : High Current Visit: Yes (6) High anion gap metabolic acidosis SNOMED Code(s): 03314975 Code(s): E87.2 - ACIDOSIS Status: Acute Priority: High Current Visit: Yes (7) History of venous thromboembolism SNOMED Code(s): 421396076 Code(s): Z86.718 - PERSONAL HISTORY OF OTHER VENOUS THROMBOSIS AND EMBOLISM Status: Chronic Priority: Medium Current Visit: Yes (8) Chronic anticoagulation SNOMED Code(s): 645566153 Code(s): Z79.01 - STORE 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 MERCHANDISER (CURRENT) USE OF ANTICOAGULANTS Status: Chronic Priority: Low Current Visit: Yes (9) HLD (hyperlipidemia) SNOMED Code(s): 88194563 Code(s): E78.5 - HYPERLIPIDEMIA, UNSPECIFIED Status: Chronic Priority: Low Current Visit: No Qualifiers: Hyperlipidemia type: unspecified Qualified Code(s): E78.5 - Hyperlipidemia , unspecified (10) GERD (gastroesophageal reflux disease) SNOMED Code(s): 256245720 Code(s): K21.9 - GASTRO-ESOPHAGEAL REFLUX DISEASE WITHOUT ESOPHAGITIS Status: Chronic Priority: Medium Current Visit: No Qualifiers: Esophagitis presence: esophagitis presence not specified Qualified Code(s) : K21.9 - Gastro-esophageal reflux disease without esophagitis (11) Obesity SNOMED Code(s): 351584008, 203008222 Code(s): E66.9 - OBESITY, UNSPECIFIED Status: Chronic Priority: Medium Current Visit: No Qualifiers: Obesity type: unspecified obesity type Obesity classification: adult class 2 (BMI 35 - 39.9) Body mass index: BMI 38.0-38.9 (12) Hematochezia SNOMED Code(s): 723688998 Code(s): K92.1 - MELENA Status: Chronic Priority: Medium Current Visit : Yes (13) Urinary tract infection SNOMED Code(s): 12645812 Code(s): N39.0 - URINARY TRACT INFECTION, SITE NOT SPECIFIED Status: Acute Priority: High Current Visit: Yes Qualifiers: Urinary tract infection type: site unspecified Hematuria presence: with hematuria Qualified Code(s): N39.0 - Urinary tract infection, site not specified; R31.9 - Hematuria, unspecified (14) S/P laparotomy SNOMED Code(s): 643431309, 603684384, 712936368 Code(s): Z98.890 - OTHER SPECIFIED POSTPROCEDURAL STATES Status: Acute Priority: Medium Current Visit: Yes (15) Volume depletion SNOMED Code(s): 62438682 Code(s): E86.9 - VOLUME DEPLETION, UNSPECIFIED Status: Acute Current Visit: Yes (16) Chronic constipation SNOMED Code(s): 444562247 Code(s): K59.09 - OTHER CONSTIPATION Status: Chronic Priority: High Current Visit: Yes - Problem List Review Problem List Initiated/Reviewed/Updated: Yes - My Orders Last 24 Hours: My Active Orders 02/17/20 Dinner Regular Diet [DIET] 02/19/20 05:11 BASIC METABOLIC PANEL,BMP [CHEM] AM CBC WITH AUTO DIFF [HEME] AM MAGNESIUM [CHEM] AM 02/20/20 05:11 BASIC METABOLIC PANEL,BMP [CHEM] AM CBC WITH AUTO DIFF [HEME] AM MAGNESIUM [CHEM] AM - Plan Plan:: I/P: Acute: Urinary tract infection -Reports hematuria -Recently underwent surgery at [facility] - clinton catheter placed during procedure -Denies any fever -WBC 17.18-->13.51-->11.48 -CRP 5.3 -UA: Cloudy, concentrated, 2+ protein, 2+ ketones, 3+ occult blood, positive nitrite, 1+ bilirubin, 1+ leukocyte esterase, 40-50 RBC, greater than 100 WBCs, moderate bacteria. -Urine culture: Whitney sensitive Klebsiella -Blood cultures negative -Sepsis criteria: -Apparent bacterial infection, No fever, WBC 17.18, No tachypnea, No tachycardia, Lactic acid 1.1 -Does not meet sepsis criteria at this point -Started on Rocephin 1gm in ED - Discontinue and switch to p.o. Omnicef today -IV fluids as indicated S/P Nausea and vomiting -Reports history of significant post-operative nausea and vomiting -Has had symptoms since return from surgery -Given IV fluids and zofran after discharge with minimal brief improvement of symptoms -Zofran in ED with minimal improvement -Start Phenergan PRN -> discontinue and schedule zofran -Scopolamine patch -Monitor electrolytes - good so far S/P laparotomy 2/2 planned colon resection -Performed at [facility] -Daughter reports procedure aborted once she was opened due to significance of neoplasm -Planning chemotherapy in [place] -No signs of infection of surgical site -Continue to monitor Acute kidney injury, improving -Likely 2/2 dehydration from vomiting -BUN 27-->27-->22 -Creatinine 1.3-->1.2-->1.2 -eGFR 39-->43-->1.3 -IV bolus given in ED -IV fluids as ordered Volume depletion, improving -AARTI as above -Concentrated urine -Anion gap 17.8-->15.4-->14.1 -IV fluids as indicated Acute on chronic constipation -Last BM 02/15/20 -Likely exacerbated by prior abdominal surgery -States she feels bloated -Start PO fiber pill -Scheduled senna -PRN simethicone for bloating -Ambulate Chronic: prior VTE HLD chronic constipation GERD obesity colon Hx/o ovarian cancer S/P oophorectomy in 2006 Plan: Admit to medical floor Routine AM labs Other orders as indicated above Review home medications PT/OT CM/SW for discharge planning Record Center Coordinator consult DVT prophylaxis: Home Eliquis Code status: Full Code PCP: Dr. Meng Discharge plan: Likely discharge tomorrow pending continued response to treatment.
[2020-02-18] MEDS: Simethicone 80 MG Tab.Chew PO PRN (12:12)
[2020-02-18] MEDS: Calcium Polycarbophil 625 MG Tab PO SCH (12:12)
[2020-02-18] MEDS: Cefdinir 300 MG Cap PO SCH ×2 (12:12→20:39)
[2020-02-18] MEDS: Ondansetron 4 MG Tab.DIS PO SCH (12:12)
[2020-02-18] MEDS: Melatonin 3 MG Tab PO PRN (20:48)
[2020-02-18] MEDS: traMADol 50 MG Tab PO PRN (20:49)
[2020-02-19] MEDS: Ondansetron 4 MG Tab.DIS PO SCH (00:47)
[2020-02-19] MEDS: Apixaban 5 MG Tab PO SCH (08:45)
[2020-02-19] MEDS: Cefdinir 300 MG Cap PO SCH (08:45)
[2020-02-19] MEDS: Famotidine 20 MG Tab PO SCH (08:45)
[2020-02-19] MEDS: Calcium Polycarbophil 625 MG Tab PO SCH (08:45)
[2020-02-19] MEDS: Multivitamins,Therapeutic Tab PO SCH (08:46)
[2020-02-19] MEDS: Simethicone 80 MG Tab.Chew PO PRN ×2 (08:58→22:37)
--- NOTE | 2020-02-19 09:35 | PCM.PN ---
- General Info Date of Service: 02/19/20 Admission Dx/Problem (Free Text): Admission Diagnosis/Problem Admission Diagnosis/Problem Urinary tract infection Functional Status: Reports: Pain Controlled, Ambulating, Urinating, New Symptoms. Denies: Tolerating Diet (NPO), Incentive Spirometry - Review of Systems General: Reports: Weakness. Denies: Fever, Fatigue, Malaise, Chills HEENT: Reports: No Symptoms. Denies: Headaches, Sore Throat Pulmonary: Reports: No Symptoms. Denies: Shortness of Breath, Cough, Sputum, Wheezing Cardiovascular: Reports: No Symptoms. Denies: Chest Pain, Palpitations, Dyspnea on Exertion Gastrointestinal: Reports: Abdominal Pain (mild), Constipation, Decreased Appetite. Denies: Diarrhea, Flatus, Nausea, Vomiting Genitourinary: Reports: No Symptoms Musculoskeletal: Reports: No Symptoms Skin: Reports: No Symptoms. Denies: Cyanosis Neurological: Reports: No Symptoms. Denies: Confusion Psychiatric: Reports: No Symptoms - Patient Data Vitals - Most Recent: Last Vital Signs Temp 97.9 F 02/19/20 08:43 Pulse 90 02/19/20 08:43 Resp 18 02/19/20 08:43 BP 129/89 02/19/20 08:43 Pulse Ox 95 02/19/20 08:43 Weight - Most Recent: 237 lb I&O - Last 24 Hours: Intake & Output 02/18/20 02/19/20 02/19/20 22:59 06:59 14:59 Intake Total 600 300 Output Total 400 300 Balance 200 0 Lab Results Last 24 Hours: Laboratory Results - last 24 hr 02/19/20 02/19/20 Range/Units 05:35 05:35 WBC 10.96 H (3.98-10.04) K/mm3 RBC 4.02 (3.98-5.22) M/mm3 Hgb 12.0 (11.2-15.7) gm/dl Hct 38.8 (34.1-44.9) % MCV 96.5 H (79.4-94.8) fl MCH 29.9 (25.6-32.2) pg MCHC 30.9 L (32.2-35.5) g/dl RDW Std Deviation 46.6 H (36.4-46.3) fL Plt Count 439 H (182-369) K/mm3 MPV 9.9 (9.4-12.3) fl Neut % (Auto) 61.7 (34.0-71.1) % Lymph % (Auto) 21.4 (19.3-51.7) % [place] % (Auto) 13.2 H (4.7-12.5) % Eos % (Auto) 2.4 (0.7-5.8) Baso % (Auto) 0.3 (0.1-1.2) % Neut # (Auto) 6.77 H (1.56-6.13) K/mm3 Lymph # (Auto) 2.34 (1.18-3.74) K/mm3 [place] # (Auto) 1.45 H (0.24-0.36) K/mm3 Eos # (Auto) 0.26 (0.04-0.36) K/mm3 Baso # (Auto) 0.03 (0.01-0.08) K/mm3 Manual Slide Review Normal smear Sodium 143 (136-145) mEq/L Potassium 4.1 (3.5-5.1) mEq/L Chloride 106 (98-107) mEq/L Carbon Dioxide 24 (21-32) mEq/L Anion Gap 17.1 H (5-15) BUN 20 H (7-18) mg/dL Creatinine 1.2 H (0.55-1.02) mg/dL Est Cr Clr Drug Dosing 33.65 mL/min Estimated GFR (MDRD) 43 (>60) mL/min BUN/Creatinine Ratio 16.7 (14-18) Glucose 99 (83-115) mg/dL Calcium 8.7 (8.5-10.1) mg/dL Magnesium 2.1 (1.8-2.4) mg/dl Arturo Results Last 24 Hours: Microbiology 02/16/20 15:18 Aerobic Blood Culture - Preliminary Blood - Venous NO GROWTH AFTER 2 DAYS Anaerobic Blood Culture - Preliminary NO GROWTH AFTER 2 DAYS 02/16/20 15:35 Aerobic Blood Culture - Preliminary Blood - Venous - Lab Draw NO GROWTH AFTER 2 DAYS Anaerobic Blood Culture - Preliminary NO GROWTH AFTER 2 DAYS 02/16/20 14:30 Urine Culture - Final Urine, Clean Catch Klebsiella Oxytoca Med Orders - Current: Current Medications Acetaminophen (Tylenol) 650 mg PO Q4H PRN PRN Reason: Pain (Mild 1-3)/fever Last Admin: 02/18/20 05:07 Dose: 650 mg Apixaban (Eliquis) 5 mg PO BID [facility] Last Admin: 02/19/20 08:45 Dose: 5 mg Calcium Polycarbophil (Fibercon) 1,250 mg PO DAILY [facility] Last Admin: 02/19/20 08:45 Dose: 1,250 mg Cefdinir (Omnicef) 300 mg PO BID [facility] Last Admin: 02/19/20 08:45 Dose: 300 mg Famotidine (Pepcid) 20 mg PO BID [facility] Last Admin: 02/19/20 08:45 Dose: 20 mg Magnesium Hydroxide (Milk Of Magnesia) 30 ml PO BID PRN PRN Reason: Constipation Last Admin: 02/19/20 05:17 Dose: 30 ml Melatonin (Melatonin) 6 mg PO BEDTIME PRN PRN Reason: Sleep Last Admin: 02/18/20 20:48 Dose: 6 mg Miscellaneous Information (Remove Patch) 1 ea TRDERM Q72H [facility] Multivitamins (Thera) 1 each PO DAILY [facility] Last Admin: 02/19/20 08:46 Dose: Not Given Ondansetron HCl (Zofran) 4 mg IV Q6H PRN PRN Reason: Nausea/Vomiting Ondansetron HCl (Zofran Odt) 4 mg PO Q12H [facility] Last Admin: 02/19/20 00:47 Dose: 4 mg Scopolamine (Transderm-Scop) 1.5 mg TRDERM Q72H [facility] Last Admin: 02/16/20 20:45 Dose: 1.5 mg Senna/Docusate Sodium (Senna Plus) 1 tab PO BID [facility] Last Admin: 02/19/20 08:45 Dose: 1 tab Simethicone (Simethicone) 80 mg PO QID PRN PRN Reason: bloating Last Admin: 02/19/20 08:58 Dose: 80 mg Sodium Chloride (Saline Flush) 10 ml FLUSH ASDIRECTED PRN PRN Reason: Keep Vein Open Last Admin: 02/16/20 12:18 Dose: 10 ml Tramadol HCl (Ultram) 50 mg PO Q6H PRN PRN Reason: Pain Last Admin: 02/18/20 20:49 Dose: 50 mg Discontinued Medications Al Hydroxide/Mg Hydroxide (Mag-Al Plus) 30 ml PO ONETIME ONE Stop: 03/26/20 13:42 Last Admin: 02/16/20 13:47 Dose: 30 ml Famotidine (Pepcid) 20 mg IVPUSH ONETIME ONE Stop: 02/16/20 14:33 Last Admin: 02/16/20 14:38 Dose: 20 mg Famotidine (Pepcid) 20 mg PO DAILY [facility] Last Admin: 02/18/20 08:14 Dose: 20 mg Sodium Chloride (Normal Saline) 1,000 mls @ 999 mls/hr IV ASDIRECTED [facility] Last Admin: 02/16/20 12:18 Dose: 150 mls/hr Ceftriaxone Sodium 1 gm/ (Sodium Chloride) 100 mls @ 200 mls/hr IV Q24H [facility] Last Admin: 02/17/20 14:58 Dose: 200 mls/hr Sodium Chloride (Normal Saline) 1,000 mls @ [facility] Stop: 02/17/20 05:49 Last Admin: 02/16/20 16:47 Dose: 75 mls/hr Promethazine HCl 25 mg/ Sodium (Chloride) 51 mls @ 100 mls/hr IV ONETIME ONE Stop: 02/16/20 18:09 Last Admin: 02/16/20 18:32 Dose: 100 mls/hr Promethazine HCl 25 mg/ Sodium (Chloride) 51 mls @ 100 mls/hr IV Q6H PRN PRN Reason: Nausea/Vomiting Sodium Chloride (Normal Saline) 1,000 mls @ 100 mls/hr IV ASDIRECTED [facility] Stop: 02/18/20 17:29 Last Admin: 02/17/20 17:44 Dose: 100 mls/hr Ondansetron HCl (Zofran) 4 mg IVPUSH ONETIME ONE Stop: 02/16/20 12:09 Last Admin: 02/16/20 12:18 Dose: 4 mg Ondansetron HCl (Zofran) 4 mg IVPUSH ONETIME ONE Stop: 02/16/20 14:31 Last Admin: 02/16/20 14:38 Dose: 4 mg Senna/Docusate Sodium (Senna Plus) 1 tab PO BID PRN PRN Reason: Constipation Last Admin: 02/18/20 05:07 Dose: 1 tab - Exam Quality Assessment: DVT Prophylaxis General: Alert, Oriented, Cooperative, No Acute Distress HEENT: Pupils Equal, Pupils Reactive, Mucous Membr. Moist/[place] Neck: Supple, Trachea Midline Lungs: Clear to Auscultation, Normal Respiratory Effort Cardiovascular: Regular Rate, Regular Rhythm GI/Abdominal Exam: Distended, Tender (Around surgical site and LUQ), Abnormal Bowel Sounds (absent ). No: Rigid (Female) Exam: Deferred Back Exam: Normal Inspection, Full Range of Motion Extremities: Normal Inspection, Normal Range of Motion, Non-Tender, No Pedal Edema, Normal Capillary Refill Skin: Warm, Dry, Intact Wound/Incisions: Healing Well, No Drainage. No: Erythema Neurological: No New Focal Deficit Psy/Mental Status: Alert Sepsis Event Note - Evaluation Sepsis Screening Result: No Definite Risk - Focused Exam Vital Signs: Vital Signs Temp Pulse Resp BP Pulse Ox 02/19/20 08:43 97.9 F 90 18 129/89 95 02/19/20 05:20 97.5 F 91 20 135/80 90 L 02/19/20 00:46 98.1 F 80 18 134/64 93 L Date Exam was Performed: 02/19/20 Time Exam was Performed: 12:27 - Problem List & Annotations (1) Nausea and vomiting SNOMED Code(s): 44733255 Code(s): R11.2 - NAUSEA WITH VOMITING, UNSPECIFIED Status: Resolved Priority: High Current Visit: Yes Qualifiers: Vomiting type: unspecified Vomiting Intractability: intractable Qualified Code(s): R11.2 - Nausea with vomiting, unspecified (2) History of ovarian cancer Status: Chronic Priority: Medium Current Visit: No (3) Colon cancer SNOMED Code(s): 766546277 Code(s): C18.9 - MALIGNANT NEOPLASM OF COLON, UNSPECIFIED Status: Acute Priority: High Current Visit: Yes Qualifiers: Colon location: unspecified part of colon Qualified Code(s): C18.9 - Malignant neoplasm of colon, unspecified (4) Leukocytosis SNOMED Code(s): 243730211, 565818136 Code(s): D72.829 - ELEVATED WHITE BLOOD CELL COUNT, UNSPECIFIED Status: Acute Priority: High Current Visit: Yes Qualifiers: Leukocytosis type: unspecified Qualified Code(s): D72.829 - Elevated white blood cell count, unspecified (5) Acute renal injury SNOMED Code(s): 57068992, 13462489 Code(s): N17.9 - ACUTE KIDNEY FAILURE, UNSPECIFIED Status: Acute Priority : High Current Visit: Yes (6) High anion gap metabolic acidosis SNOMED Code(s): 41251931 Code(s): E87.2 - ACIDOSIS Status: Acute Priority: High Current Visit: Yes (7) History of venous thromboembolism SNOMED Code(s): 935828319 Code(s): Z86.718 - PERSONAL HISTORY OF OTHER VENOUS THROMBOSIS AND EMBOLISM Status: Chronic Priority: Medium Current Visit: Yes (8) Chronic anticoagulation SNOMED Code(s): 370987598 Code(s): Z79.01 - ASSISTED (CURRENT) USE OF ANTICOAGULANTS Status: Chronic Priority: Low Current Visit: Yes (9) HLD (hyperlipidemia) SNOMED Code(s): 08405353 Code(s): E78.5 - HYPERLIPIDEMIA, UNSPECIFIED Status: Chronic Priority: Low Current Visit: No Qualifiers: Hyperlipidemia type: unspecified Qualified Code(s): E78.5 - Hyperlipidemia , unspecified (10) GERD (gastroesophageal reflux disease) SNOMED Code(s): 965060025 Code(s): K21.9 - GASTRO-ESOPHAGEAL REFLUX DISEASE WITHOUT ESOPHAGITIS Status: Chronic Priority: Medium Current Visit: No Qualifiers: Esophagitis presence: esophagitis presence not specified Qualified Code(s) : K21.9 - Gastro-esophageal reflux disease without esophagitis (11) Obesity SNOMED Code(s): 143493397, 386415999 Code(s): E66.9 - OBESITY, UNSPECIFIED Status: Chronic Priority: Medium Current Visit: No Qualifiers: Obesity type: unspecified obesity type Obesity classification: adult class 2 (BMI 35 - 39.9) Body mass index: BMI 38.0-38.9 (12) Hematochezia SNOMED Code(s): 285207423 Code(s): K92.1 - MELENA Status: Chronic Priority: Medium Current Visit : Yes (13) Urinary tract infection SNOMED Code(s): 88989543 Code(s): N39.0 - URINARY TRACT INFECTION, SITE NOT SPECIFIED Status: Acute Priority: High Current Visit: Yes Qualifiers: Urinary tract infection type: site unspecified Hematuria presence: with hematuria Qualified Code(s): N39.0 - Urinary tract infection, site not specified; R31.9 - Hematuria, unspecified (14) S/P laparotomy SNOMED Code(s): 303826239, 293107245, 199217226 Code(s): Z98.890 - OTHER SPECIFIED POSTPROCEDURAL STATES Status: Acute Priority: Medium Current Visit: Yes (15) Volume depletion SNOMED Code(s): 61555867 Code(s): E86.9 - VOLUME DEPLETION, UNSPECIFIED Status: Acute Current Visit: Yes (16) Chronic constipation SNOMED Code(s): 435110087 Code(s): K59.09 - OTHER CONSTIPATION Status: Chronic Priority: High Current Visit: Yes (17) Small bowel obstruction SNOMED Code(s): 526663672 Code(s): K56.609 - UNSP INTESTNL OBST, UNSP TO PARTIAL VERSUS COMPLETE OBST Status: Acute Priority: High Current Visit: Yes - Problem List Review Problem List Initiated/Reviewed/Updated: Yes - My Orders Last 24 Hours: My Active Orders 02/18/20 12:00 Cefdinir [Omnicef] 300 mg PO BID Ondansetron [Zofran ODT] 4 mg PO Q12H calcium polycarbophiL [Fibercon] 1,250 mg PO DAILY 02/18/20 12:11 Ambulate [RC] QID 02/18/20 14:27 Melatonin 6 mg PO BEDTIME PRN 02/18/20 21:00 Docusate Sodium/Sennosides [Senna Plus] 1 tab PO BID Famotidine [Pepcid] 20 mg PO BID 02/19/20 09:33 Abdomen 1V Flat [CR] Stat 02/20/20 05:11 BASIC METABOLIC PANEL,BMP [CHEM] AM CBC WITH AUTO DIFF [HEME] AM MAGNESIUM [CHEM] AM - Plan Plan:: I/P: Acute: SBO/Ileus -Last BM was 02/15/20 -History of chronic constipation, laparotomy on 02/08/20 and discharged on -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 cancer, ovarian primary -Reported N/V prior to coming to ED; Nausea and emesis returned 02/19/20 -Abdominal X-ray shows distended small bowel -NG tube placed -Low intermittent suction -NPO -Ambulate -Dr Barnhart, general surgeon consulted -IV fluids as ordered -Q6hr blood glucose checks Urinary tract infection -Reports hematuria -Recently underwent surgery at [facility] - clinton catheter placed during procedure -Denies any fever -WBC 17.18-->13.51-->11.48 -CRP 5.3 -UA: Cloudy, concentrated, 2+ protein, 2+ ketones, 3+ occult blood, positive nitrite, 1+ bilirubin, 1+ leukocyte esterase, 40-50 RBC, greater than 100 WBCs, moderate bacteria. -Urine culture: Whitney sensitive Klebsiella -Blood cultures negative -Sepsis criteria: -Apparent bacterial infection, No fever, WBC 17.18, No tachypnea, No tachycardia, Lactic acid 1.1 -Does not meet sepsis criteria at this point -Started on Rocephin 1gm in ED - Resume Rocephin today due to SBO -IV fluids as indicated Nausea and vomiting, 2/2 SBO -Reports history of significant post-operative nausea and vomiting -Has had symptoms since return from surgery -Given IV fluids and zofran after discharge with minimal brief improvement of symptoms -Zofran in ED with minimal improvement -Start Phenergan PRN -> discontinue, PRN zofran -Scopolamine patch -Monitor electrolytes - good so far -Vomited 02/19/20 S/P laparotomy 2/2 planned colon resection -Performed at [facility] -Daughter reports procedure aborted once she was opened due to significance of neoplasm -Planning chemotherapy in [place] -No signs of infection of surgical site -Continue to monitor Acute kidney injury, stable -Likely 2/2 dehydration from vomiting -BUN 27-->27-->22-->20 -Creatinine 1.3-->1.2-->1.2 -eGFR 39-->43 -IV bolus given in ED -IV fluids as ordered Volume depletion -AARTI as above -Concentrated urine -Anion gap 17.8-->15.4-->14.1-->17.1 -IV fluids as indicated Chronic: prior VTE HLD chronic constipation GERD obesity colon Hx/o ovarian cancer S/P oophorectomy in 2006 Plan: Admit to medical floor Routine AM labs Other orders as indicated above Review home medications PT/OT CM/SW for discharge planning Script Coordinator consult DVT prophylaxis: Home Eliquis Code status: Full Code PCP: Dr. Taqueria Discharge plan: LOS >96 Hr due to new onset SBO
--- NOTE | 2020-02-19 10:22 | CR ---
Abdomen: Supine view of the abdomen was obtained. Comparison: No prior abdominal imaging is available. Dilated air-filled loops of small bowel are noted within the mid and left upper abdomen. Inferior vena cava filter is noted. Bony structures are osteopenic. Mild scattered degenerative change is noted within the spine. Impression: 1. Dilated air-filled small bowel loops within the left mid and upper abdomen which is suspicious for proximal small bowel obstruction. 2. Other findings which are believed to be nonacute as noted above. Diagnostic code #3 Study was dictated in MDT
[2020-02-19] MEDS: Dextrose 5%-Lactated Ringers 1,000 ML IV SCH ×2 (10:57→18:12)
[2020-02-19] MEDS: cefTRIAXone 1 GM in Sodium Chloride 0.9% 100 ML IV SCH (12:18)
--- NOTE | 2020-02-19 12:33 | PCM.CONS ---
H&P History of Present Illness - General Date of Service: 02/19/20 Admit Problem/Dx: Admission Diagnosis/Problem Admission Diagnosis/Problem Urinary tract infection Source of Information: Patient, Provider - History of Present Illness Initial Comments - Free Text/Narative: The patient is an 79 y/o lady with metastatic ovarian cancer who recently underwent a laparotomy a [facility] for resection of tumor about 11 days ago. The surgery was unsuccessful for any resection, but she did have biopsies done. She had persistent nausea after her surgery at [facility], but she was not sure if this was as a result of anesthesia reaction. She has not had any bowel movement in the last 4 days. She has no history of any bowel obstructions. The patient presented to the hospital 3 days ago and began treatment for a UTI. She was improving with the nausea but worsened again. She then had an NGT placed. She has had a small amount of output since that time. Middle Abdomen Pain Score (Numeric/FACES): 4 - Related Data Allergies/Adverse Reactions: Allergies Allergy/AdvReac Type Severity Reaction Status Date / Time shellfish derived Allergy Rash Verified 02/16/20 17:00 Home Medications: Home Meds Acetaminophen 1,000 mg PO Q6HR PRN 02/16/20 [History] Apixaban [Eliquis] 5 mg PO BID 02/16/20 [History] Magnesium Hydroxide [Milk of Magnesia] 30 ml PO BID PRN 02/16/20 [History] Multivitamin [Daily Keri] 1 each PO DAILY 02/16/20 [History] Omeprazole 20 mg PO DAILY PRN 02/16/20 [History] Sennosides/Docusate Sodium [Sennosides-Docusate Sodium] 1 each PO BID PRN [History] Simethicone 80 mg PO QID PRN 02/16/20 [History] Simvastatin 5 mg PO BEDTIME 02/16/20 [History] traMADol [Ultram] 50 mg PO Q6H PRN 02/16/20 [History] Past Medical History HEENT History: Reports: Hard of Hearing Cardiovascular History: Reports: Blood Clots/VTE/DVT, High Cholesterol Respiratory History: Reports: None Gastrointestinal History: Reports: Chronic Constipation, GERD [employer] History: Reports: Musculoskeletal History: Reports: None Neurological History: Reports: None Psychiatric History: Reports: None Endocrine/Metabolic History: Reports: Obesity/BMI 30+ Hematologic History: Reports: Anticoagulation Therapy, Blood Transfusion(s) Immunologic History: Reports: None Oncologic (Cancer) History: Reports: Colon, Ovarian Dermatologic History: Reports: None - Infectious Disease History Infectious Disease History: Reports: None - Past Surgical History GI Surgical History: Reports: Colonoscopy, Other (See Below) Other GI Surgeries/Procedures: Exploratory Laparotomy Female Surgical History: Reports: Other (See Below) Other Female Surgeries/Procedures: Ovaries Removed in 2006 Oncologic Surgical History: Reports: Biopsy of Breast Social & Family History - Family History Oncologic: Reports: Ovarian (sister) - Tobacco Use Smoking Status *Q: Never Smoker Years of Tobacco use: 20 Packs/Tins Daily: 1 Used Tobacco, but Quit: Yes Month/Year Tobacco Last Used: Nov 1979 Second Hand Smoke Exposure: No - Caffeine Use Caffeine Use: Reports: Coffee - Recreational Drug Use Recreational Drug Use: No H&P Review of Systems - Review of Systems: Review Of Systems: See Below General: Reports: Malaise, Weakness, Fatigue. Denies: Fever, Chills HEENT: Reports: No Symptoms Pulmonary: Reports: No Symptoms Cardiovascular: Reports: No Symptoms Gastrointestinal: Reports: Bloody Stool, Nausea, Vomiting. Denies: Abdominal Pain Genitourinary: Reports: No Symptoms Musculoskeletal: Reports: No Symptoms Skin: Reports: Bruising (on abdomen) Hematologic/Lymphatic: Reports: No Symptoms Immunologic: Reports: No Symptoms Exam - Exam Exam: See Below - Vital Signs Vital Signs: Last Vital Signs Temp 36.6 C 02/19/20 08:43 Pulse 90 02/19/20 08:43 Resp 18 02/19/20 08:43 BP 129/89 02/19/20 08:43 Pulse Ox 95 02/19/20 08:43 Weight: 107.501 kg - Exam Quality Assessment: No: Supplemental Oxygen General: Alert, Oriented HEENT: Conjunctiva Clear, EOMI, Other (NGT in place) Neck: Supple Lungs: Clear to Auscultation, Normal Respiratory Effort Cardiovascular: Regular Rate, Regular Rhythm GI/Abdominal Exam: Soft, Distended (mild), Tender (in LUQ), Other (firm in LUQ) Extremities: Normal Inspection, No Pedal Edema Peripheral Pulses: 2+: Dorsalis Pedis (L), Dorsalis Pedis (R) Skin: Warm, Dry, Intact Neurological: Cranial Nerves Intact Neuro Extensive - Mental Status: Normal Mood/Affect - Patient Data Lab Results Last 24 hrs: Laboratory Results - last 24 hr 02/19/20 02/19/20 Range/Units 05:35 05:35 WBC 10.96 H (3.98-10.04) K/mm3 RBC 4.02 (3.98-5.22) M/mm3 Hgb 12.0 (11.2-15.7) gm/dl Hct 38.8 (34.1-44.9) % MCV 96.5 H (79.4-94.8) fl MCH 29.9 (25.6-32.2) pg MCHC 30.9 L (32.2-35.5) g/dl RDW Std Deviation 46.6 H (36.4-46.3) fL Plt Count 439 H (182-369) K/mm3 MPV 9.9 (9.4-12.3) fl Neut % (Auto) 61.7 (34.0-71.1) % Lymph % (Auto) 21.4 (19.3-51.7) % [place] % (Auto) 13.2 H (4.7-12.5) % Eos % (Auto) 2.4 (0.7-5.8) Baso % (Auto) 0.3 (0.1-1.2) % Neut # (Auto) 6.77 H (1.56-6.13) K/mm3 Lymph # (Auto) 2.34 (1.18-3.74) K/mm3 [place] # (Auto) 1.45 H (0.24-0.36) K/mm3 Eos # (Auto) 0.26 (0.04-0.36) K/mm3 Baso # (Auto) 0.03 (0.01-0.08) K/mm3 Manual Slide Review Normal smear Sodium 143 (136-145) mEq/L Potassium 4.1 (3.5-5.1) mEq/L Chloride 106 (98-107) mEq/L Carbon Dioxide 24 (21-32) mEq/L Anion Gap 17.1 H (5-15) BUN 20 H (7-18) mg/dL Creatinine 1.2 H (0.55-1.02) mg/dL Est Cr Clr Drug Dosing 33.65 mL/min Estimated GFR (MDRD) 43 (>60) mL/min BUN/Creatinine Ratio 16.7 (14-18) Glucose 99 (83-115) mg/dL Calcium 8.7 (8.5-10.1) mg/dL Magnesium 2.1 (1.8-2.4) mg/dl Result Diagrams: 02/19/20 05:35 02/19/20 05:35 Arturo Results Last 24 hrs: Microbiology 02/16/20 15:18 Aerobic Blood Culture - Preliminary Blood - Venous NO GROWTH AFTER 2 DAYS Anaerobic Blood Culture - Preliminary NO GROWTH AFTER 2 DAYS 02/16/20 15:35 Aerobic Blood Culture - Preliminary Blood - Venous - Lab Draw NO GROWTH AFTER 2 DAYS Anaerobic Blood Culture - Preliminary NO GROWTH AFTER 2 DAYS 02/16/20 14:30 Urine Culture - Final Urine, Clean Catch Klebsiella Oxytoca Sepsis Event Note - Evaluation Sepsis Screening Result: No Definite Risk - Focused Exam Vital Signs: Vital Signs Temp Pulse Resp BP Pulse Ox 02/19/20 08:43 36.6 C 90 18 129/89 95 02/19/20 05:20 36.4 C 91 20 135/80 90 L 02/19/20 00:46 36.7 C 80 18 134/64 93 L Date Exam was Performed: 02/19/20 Time Exam was Performed: 13:17 *Q Meaningful Use (ADM) - VTE Risk Assess *Q Each Risk Factor Represents 2 Points: Malignancy (present or previous), Major surgery greater than 45 minutes Total Score 2 Point Risk Factors: 4 Each Risk Factor Represents 3 Points: Age 75 Years or Greater, History of DVT/PE Total Score 3 Point Risk Factors: 6 Consult PN Assessment/Plan POD#: other (11) (1) S/P laparotomy SNOMED Code(s): 782550024, 901958216, 488762838 Code(s): Z98.890 - OTHER SPECIFIED POSTPROCEDURAL STATES Priority: Medium Current Visit: Yes (2) Small bowel obstruction SNOMED Code(s): 981722983 Code(s): K56.609 - UNSP INTESTNL OBST, UNSP TO PARTIAL VERSUS COMPLETE OBST Priority: High Current Visit: Yes (3) Urinary tract infection SNOMED Code(s): 32979122 Code(s): N39.0 - URINARY TRACT INFECTION, SITE NOT SPECIFIED Priority: High Current Visit: Yes Qualifiers: Urinary tract infection type: site unspecified Hematuria presence: with hematuria Qualified Code(s): N39.0 - Urinary tract infection, site not specified; R31.9 - Hematuria, unspecified Problem List Initiated/Reviewed/Updated: Yes My Orders Last 24 Hours: 79 y/o lady [place] NGT in place for postoperative SBO vs. malignant obstruction vs. ileus. Pt voiced desire to avoid more surgery if possible. - Continue NGT to LIS. May have lozenges for comfort - encourage ambulation 2-3 x per day (or more as pt desires) - Monitor daily BMP, mg and phos - AROBF - GI Ppx while NGT in place - medical management per primary Will follow Cindy Estrella MD General surgery Requesting Provider: PATRIC Levine Date Consult Requested: 02/19/20 Patient History Reviewed: Yes Admission H&P Reviewed: Yes Notified Requestor: Yes
[2020-02-19] MEDS ORDERED: Benzocaine/Cetylpyridinium/Menthol Lozenge MUCMEM PRN (13:28)
[2020-02-19] MEDS: REMOVE SCOPOLAMINE TRDERM SCH (20:00)
[2020-02-19] MEDS: Scopolamine 1.5 MG Transdermal Patch TRDERM SCH (20:00)
[2020-02-19] MEDS: Enoxaparin 120 MG/0.8 ML Syringe SUBCUT SCH (20:47)
[2020-02-19] MEDS: Melatonin 3 MG Tab PO PRN (20:51)
[2020-02-19] MEDS: traMADol 50 MG Tab PO PRN (20:52)
[2020-02-19] MEDS: Ondansetron 4 MG/2 ML SDV IV PRN (23:02)
[2020-02-20] MEDS: Dextrose 5%-Lactated Ringers 1,000 ML IV SCH ×2 (01:21→16:52)
[2020-02-20] MEDS ORDERED: Famotidine 20 MG/2 ML SDV IVPUSH SCH (09:00)
[2020-02-20] MEDS: Enoxaparin 120 MG/0.8 ML Syringe SUBCUT SCH ×2 (10:32→20:15)
[2020-02-20] MEDS: Famotidine 20 MG/2 ML SDV IVPUSH SCH (10:35)
--- NOTE | 2020-02-20 10:59 | PCM.CONSN ---
- General Info Date of Service: 02/20/20 Subjective Update: The patient reports no specific complaints this morning. Her nausea has resolved. No flatus or bowel movement - Patient Data Vitals - Most Recent: Last Vital Signs Temp 36.9 C 02/20/20 09:16 Pulse 86 02/20/20 09:16 Resp 20 02/20/20 09:16 BP 127/68 02/20/20 09:16 Pulse Ox 92 L 02/20/20 09:16 Weight - Most Recent: 108 kg I&O - Last 24 Hours: Intake & Output 02/19/20 02/20/20 02/20/20 22:59 06:59 14:59 Intake Total 755 1304 Output Total 1200 350 Balance -445 954 Lab Results Last 24 Hours: Laboratory Results - last 24 hr 02/19/20 02/19/20 02/19/20 Range/Units 12:59 18:23 23:47 WBC (3.98-10.04) K/mm3 RBC (3.98-5.22) M/mm3 Hgb (11.2-15.7) gm/dl Hct (34.1-44.9) % MCV (79.4-94.8) fl MCH (25.6-32.2) pg MCHC (32.2-35.5) g/dl RDW Std Deviation (36.4-46.3) fL Plt Count (182-369) K/mm3 MPV (9.4-12.3) fl Neut % (Auto) (34.0-71.1) % Lymph % (Auto) (19.3-51.7) % [place] % (Auto) (4.7-12.5) % Eos % (Auto) (0.7-5.8) Baso % (Auto) (0.1-1.2) % Neut # (Auto) (1.56-6.13) K/mm3 Lymph # (Auto) (1.18-3.74) K/mm3 [place] # (Auto) (0.24-0.36) K/mm3 Eos # (Auto) (0.04-0.36) K/mm3 Baso # (Auto) (0.01-0.08) K/mm3 Manual Slide Review Sodium (136-145) mEq/L Potassium (3.5-5.1) mEq/L Chloride (98-107) mEq/L Carbon Dioxide (21-32) mEq/L Anion Gap (5-15) BUN (7-18) mg/dL Creatinine (0.55-1.02) mg/dL Est Cr Clr Drug Dosing mL/min Estimated GFR (MDRD) (>60) mL/min BUN/Creatinine Ratio (14-18) Glucose (83-115) mg/dL POC Glucose 111 H 133 H 148 H (83-110) mg/dL Calcium (8.5-10.1) mg/dL Phosphorus (2.6-4.7) mg/dL Magnesium (1.8-2.4) mg/dl Total Bilirubin (0.2-1.0) mg/dL AST (15-37) U/L ALT (14-59) U/L Alkaline Phosphatase (46-116) U/L Total Protein (6.4-8.2) g/dl Albumin (3.4-5.0) g/dl Globulin gm/dL Albumin/Globulin Ratio (1-2) 02/20/20 02/20/20 02/20/20 Range/Units 05:40 05:40 05:40 WBC 10.69 H (3.98-10.04) K/mm3 RBC 3.94 L (3.98-5.22) M/mm3 Hgb 11.9 (11.2-15.7) gm/dl Hct 38.0 (34.1-44.9) % MCV 96.4 H (79.4-94.8) fl MCH 30.2 (25.6-32.2) pg MCHC 31.3 L (32.2-35.5) g/dl RDW Std Deviation 46.8 H (36.4-46.3) fL Plt Count 430 H (182-369) K/mm3 MPV 9.9 (9.4-12.3) fl Neut % (Auto) 68.0 (34.0-71.1) % Lymph % (Auto) 15.5 L (19.3-51.7) % [place] % (Auto) 13.4 H (4.7-12.5) % Eos % (Auto) 1.6 (0.7-5.8) Baso % (Auto) 0.5 (0.1-1.2) % Neut # (Auto) 7.27 H (1.56-6.13) K/mm3 Lymph # (Auto) 1.66 (1.18-3.74) K/mm3 [place] # (Auto) 1.43 H (0.24-0.36) K/mm3 Eos # (Auto) 0.17 (0.04-0.36) K/mm3 Baso # (Auto) 0.05 (0.01-0.08) K/mm3 Manual Slide Review Abnormal smear Sodium 143 (136-145) mEq/L Potassium 4.4 (3.5-5.1) mEq/L Chloride 106 (98-107) mEq/L Carbon Dioxide 27 (21-32) mEq/L Anion Gap 14.4 (5-15) BUN 16 (7-18) mg/dL Creatinine 1.2 H (0.55-1.02) mg/dL Est Cr Clr Drug Dosing 33.65 mL/min Estimated GFR (MDRD) 43 (>60) mL/min BUN/Creatinine Ratio 13.3 L (14-18) Glucose 112 (83-115) mg/dL POC Glucose (83-110) mg/dL Calcium 9.1 (8.5-10.1) mg/dL Phosphorus 4.2 (2.6-4.7) mg/dL Magnesium 2.1 (1.8-2.4) mg/dl Total Bilirubin 0.7 (0.2-1.0) mg/dL AST 180 H (15-37) U/L ALT 133 H (14-59) U/L Alkaline Phosphatase 95 (46-116) U/L Total Protein 6.3 L (6.4-8.2) g/dl Albumin 2.5 L (3.4-5.0) g/dl Globulin 3.8 gm/dL Albumin/Globulin Ratio 0.7 L (1-2) 02/19/ Range/Units 06:35 WBC (3.98-10.04) K/mm3 RBC (3.98-5.22) M/mm3 Hgb (11.2-15.7) gm/dl Hct (34.1-44.9) % MCV (79.4-94.8) fl MCH (25.6-32.2) pg MCHC (32.2-35.5) g/dl RDW Std Deviation (36.4-46.3) fL Plt Count (182-369) K/mm3 MPV (9.4-12.3) fl Neut % (Auto) (34.0-71.1) % Lymph % (Auto) (19.3-51.7) % [place] % (Auto) (4.7-12.5) % Eos % (Auto) (0.7-5.8) Baso % (Auto) (0.1-1.2) % Neut # (Auto) (1.56-6.13) K/mm3 Lymph # (Auto) (1.18-3.74) K/mm3 [place] # (Auto) (0.24-0.36) K/mm3 Eos # (Auto) (0.04-0.36) K/mm3 Baso # (Auto) (0.01-0.08) K/mm3 Manual Slide Review Sodium (136-145) mEq/L Potassium (3.5-5.1) mEq/L Chloride (98-107) mEq/L Carbon Dioxide (21-32) mEq/L Anion Gap (5-15) BUN (7-18) mg/dL Creatinine (0.55-1.02) mg/dL Est Cr Clr Drug Dosing mL/min Estimated GFR (MDRD) (>60) mL/min BUN/Creatinine Ratio (14-18) Glucose (83-115) mg/dL POC Glucose 100 (83-110) mg/dL Calcium (8.5-10.1) mg/dL Phosphorus (2.6-4.7) mg/dL Magnesium (1.8-2.4) mg/dl Total Bilirubin (0.2-1.0) mg/dL AST (15-37) U/L ALT (14-59) U/L Alkaline Phosphatase (46-116) U/L Total Protein (6.4-8.2) g/dl Albumin (3.4-5.0) g/dl Globulin gm/dL Albumin/Globulin Ratio (1-2) Arturo Results Last 24 Hours: Microbiology 02/16/20 15:18 Aerobic Blood Culture - Preliminary Blood - Venous NO GROWTH AFTER 3 DAYS Anaerobic Blood Culture - Preliminary NO GROWTH AFTER 3 DAYS 02/16/20 15:35 Aerobic Blood Culture - Preliminary Blood - Venous - Lab Draw NO GROWTH AFTER 3 DAYS Anaerobic Blood Culture - Preliminary NO GROWTH AFTER 3 DAYS Med Orders - Current: Current Medications Acetaminophen (Tylenol) 650 mg PO Q4H PRN PRN Reason: Pain (Mild 1-3)/fever Last Admin: 02/18/20 05:07 Dose: 650 mg Benzocaine/Menthol (Cepacol Sore Throat) 1 lozenge MUCMEM Q2HR PRN PRN Reason: Sore Throat Enoxaparin Sodium (Lovenox) 110 mg SUBCUT Q12H [facility] Last Admin: 02/20/20 10:32 Dose: 110 mg Famotidine (Pepcid) 20 mg IVPUSH DAILY [facility] Last Admin: 02/20/20 10:35 Dose: 20 mg Dextrose/Lactated Ringer's (Dextrose 5%-Lactated Ringers) 1,000 mls @ 150 mls/ hr IV ASDIRECTED [facility] Last Admin: 02/20/20 01:21 Dose: 150 mls/hr Ceftriaxone Sodium 1 gm/ (Sodium Chloride) 100 mls @ 200 mls/hr IV Q24H [facility] Last Admin: 02/19/20 12:18 Dose: 200 mls/hr Magnesium Hydroxide (Milk Of Magnesia) 30 ml PO BID PRN PRN Reason: Constipation Last Admin: 02/19/20 05:17 Dose: 30 ml Melatonin (Melatonin) 6 mg PO BEDTIME PRN PRN Reason: Sleep Last Admin: 02/19/20 20:51 Dose: 6 mg Miscellaneous Information (Remove Patch) 1 ea TRDERM Q72H [facility] Last Admin: 02/19/20 20:00 Dose: 1 ea Ondansetron HCl (Zofran) 4 mg IV Q6H PRN PRN Reason: Nausea/Vomiting Last Admin: 02/19/20 23:02 Dose: 4 mg Scopolamine (Transderm-Scop) 1.5 mg TRDERM Q72H [facility] Last Admin: 02/19/20 20:00 Dose: 1.5 mg Senna/Docusate Sodium (Senna Plus) 1 tab PO BID [facility] Last Admin: 02/20/20 10:30 Dose: 1 tab Simethicone (Simethicone) 80 mg PO QID PRN PRN Reason: bloating Last Admin: 02/19/20 22:37 Dose: 80 mg Sodium Chloride (Saline Flush) 10 ml FLUSH ASDIRECTED PRN PRN Reason: Keep Vein Open Last Admin: 02/16/20 12:18 Dose: 10 ml Tramadol HCl (Ultram) 50 mg PO Q6H PRN PRN Reason: Pain Last Admin: 02/19/20 20:52 Dose: 50 mg Discontinued Medications Al Hydroxide/Mg Hydroxide (Mag-Al Plus) 30 ml PO ONETIME ONE Stop: 02/16/20 13:42 Last Admin: 02/16/20 13:47 Dose: 30 ml Apixaban (Eliquis) 5 mg PO BID [facility] Last Admin: 02/19/20 08:45 Dose: 5 mg Calcium Polycarbophil (Fibercon) 1,250 mg PO DAILY [facility] Last Admin: 02/19/20 08:45 Dose: 1,250 mg Cefdinir (Omnicef) 300 mg PO BID [facility] Last Admin: 02/19/20 08:45 Dose: 300 mg Famotidine (Pepcid) 20 mg IVPUSH ONETIME ONE Stop: 02/16/20 14:33 Last Admin: 02/16/20 14:38 Dose: 20 mg Famotidine (Pepcid) 20 mg PO DAILY [facility] Last Admin: 02/18/20 08:14 Dose: 20 mg Famotidine (Pepcid) 20 mg PO BID [facility] Last Admin: 02/19/20 08:45 Dose: 20 mg Famotidine (Pepcid) 20 mg IVPUSH DAILY [facility] Sodium Chloride (Normal Saline) 1,000 mls @ 999 mls/hr IV ASDIRECTED [facility] Last Admin: 02/16/20 12:18 Dose: 150 mls/hr Ceftriaxone Sodium 1 gm/ (Sodium Chloride) 100 mls @ 200 mls/hr IV Q24H [facility] Last Admin: 02/17/20 14:58 Dose: 200 mls/hr Sodium Chloride (Normal Saline) 1,000 mls @ 75 mls/hr IV ASDIRECTED [facility] Stop: 02/17/20 05:49 Last Admin: 02/16/20 16:47 Dose: 75 mls/hr Promethazine HCl 25 mg/ Sodium (Chloride) 51 mls @ 100 mls/hr IV ONETIME ONE Stop: 02/16/20 18:09 Last Admin: 02/16/20 18:32 Dose: 100 mls/hr Promethazine HCl 25 mg/ Sodium (Chloride) 51 mls @ 100 mls/hr IV Q6H PRN PRN Reason: Nausea/Vomiting Sodium Chloride (Normal Saline) 1,000 mls @ 100 mls/hr IV ASDIRECTED [facility] Stop: 02/18/20 17:29 Last Admin: 02/17/20 17:44 Dose: 100 mls/hr Multivitamins (Thera) 1 each PO DAILY [facility] Last Admin: 02/19/20 08:46 Dose: Not Given Ondansetron HCl (Zofran) 4 mg IVPUSH ONETIME ONE Stop: 02/16/20 12:09 Last Admin: 02/16/20 12:18 Dose: 4 mg Ondansetron HCl (Zofran) 4 mg IVPUSH ONETIME ONE Stop: 02/16/20 14:31 Last Admin: 02/16/20 14:38 Dose: 4 mg Ondansetron HCl (Zofran Odt) 4 mg PO Q12H [facility] Last Admin: 02/19/20 00:47 Dose: 4 mg Senna/Docusate Sodium (Senna Plus) 1 tab PO BID PRN PRN Reason: Constipation Last Admin: 02/18/20 05:07 Dose: 1 tab - Exam Quality Assessment: No: Supplemental Oxygen General: Alert Lungs: Normal Respiratory Effort GI/Abdominal Exam: Soft, Non-Tender, Other (mild firmness in the LUQ) Sepsis Event Note - Evaluation Sepsis Screening Result: No Definite Risk - Focused Exam Vital Signs: Vital Signs Temp Pulse Resp BP Pulse Ox 02/20/20 09:16 36.9 C 86 20 127/68 92 L 02/20/20 03:14 36.7 C 88 18 138/68 95 02/19/20 23:43 36.6 C 86 16 134/60 96 Date Exam was Performed: 02/20/20 Time Exam was Performed: 10:56 Consult PN Assessment/Plan (1) S/P laparotomy SNOMED Code(s): 998559508, 317030842, 590308259 Code(s): Z98.890 - OTHER SPECIFIED POSTPROCEDURAL STATES Priority: Medium Current Visit: Yes (2) Small bowel obstruction SNOMED Code(s): 990463331 Code(s): K56.609 - UNSP INTESTNL OBST, UNSP TO PARTIAL VERSUS COMPLETE OBST Priority: High Current Visit: Yes (3) Urinary tract infection SNOMED Code(s): 83143296 Code(s): N39.0 - URINARY TRACT INFECTION, SITE NOT SPECIFIED Priority: High Current Visit: Yes Qualifiers: Urinary tract infection type: site unspecified Hematuria presence: with hematuria Qualified Code(s): N39.0 - Urinary tract infection, site not specified; R31.9 - Hematuria, unspecified Problem List Initiated/Reviewed/Updated: Yes My Orders Last 24 Hours: My Active Orders 02/19/20 13:28 Benzocaine/Cetylpyrd/Menthol [Cepacol Sore Throat] 1 lozenge MUCMEM Q2HR PRN 02/21/20 05:11 PHOSPHORUS [CHEM] AM 02/22/20 05:11 PHOSPHORUS [CHEM] AM 02/23/20 05:11 PHOSPHORUS [CHEM] AM Plan: - continue NGT to LIS - Daily BMP, Mg, Phos - ambulate TID - AROBF - medical management per primary Cindy Estrella MD General surgery
[2020-02-20] MEDS: Calcium Polycarbophil 625 MG Tab PO SCH (11:01)
[2020-02-20] MEDS: cefTRIAXone 1 GM in Sodium Chloride 0.9% 100 ML IV SCH (11:40)
--- NOTE | 2020-02-20 12:40 | PCM.PN ---
- General Info Date of Service: 02/20/20 Admission Dx/Problem (Free Text): Admission Diagnosis/Problem Admission Diagnosis/Problem Urinary tract infection Functional Status: Reports: Pain Controlled, Tolerating Diet, Ambulating, Urinating. Denies: New Symptoms - Review of Systems General: Denies: Fever, Weakness, Fatigue, Malaise, Chills HEENT: Reports: No Symptoms. Denies: Headaches, Sore Throat Pulmonary: Reports: No Symptoms. Denies: Shortness of Breath, Pleuritic Chest Pain, Cough, Sputum, Hemoptysis, Wheezing Cardiovascular: Reports: No Symptoms. Denies: Chest Pain, Palpitations, Dyspnea on Exertion Gastrointestinal: Reports: Constipation, Decreased Appetite. Denies: Abdominal Pain, Diarrhea, Flatus, Nausea, Vomiting Genitourinary: Reports: No Symptoms. Denies: Pain Musculoskeletal: Reports: No Symptoms Skin: Reports: No Symptoms Neurological: Reports: No Symptoms. Denies: Confusion Psychiatric: Reports: No Symptoms - Patient Data Vitals - Most Recent: Last Vital Signs Temp 98.4 F 02/20/20 09:16 Pulse 86 02/20/20 09:16 Resp 20 02/20/20 09:16 BP 127/68 02/20/20 09:16 Pulse Ox 92 L 02/20/20 09:16 Weight - Most Recent: 238 lb 1.6 oz I&O - Last 24 Hours: Intake & Output 02/19/20 02/20/20 02/20/20 22:59 06:59 14:59 Intake Total 755 1304 Output Total 1200 350 Balance -445 954 Lab Results Last 24 Hours: Laboratory Results - last 24 hr 02/19/20 02/19/20 02/19/20 Range/Units 12:59 18:23 23:47 WBC (3.98-10.04) K/mm3 RBC (3.98-5.22) M/mm3 Hgb (11.2-15.7) gm/dl Hct (34.1-44.9) % MCV (79.4-94.8) fl MCH (25.6-32.2) pg MCHC (32.2-35.5) g/dl RDW Std Deviation (36.4-46.3) fL Plt Count (182-369) K/mm3 MPV (9.4-12.3) fl Neut % (Auto) (34.0-71.1) % Lymph % (Auto) (19.3-51.7) % [place] % (Auto) (4.7-12.5) % Eos % (Auto) (0.7-5.8) Baso % (Auto) (0.1-1.2) % Neut # (Auto) (1.56-6.13) K/mm3 Lymph # (Auto) (1.18-3.74) K/mm3 [place] # (Auto) (0.24-0.36) K/mm3 Eos # (Auto) (0.04-0.36) K/mm3 Baso # (Auto) (0.01-0.08) K/mm3 Manual Slide Review Sodium (136-145) mEq/L Potassium (3.5-5.1) mEq/L Chloride (98-107) mEq/L Carbon Dioxide (21-32) mEq/L Anion Gap (5-15) BUN (7-18) mg/dL Creatinine (0.55-1.02) mg/dL Est Cr Clr Drug Dosing mL/min Estimated GFR (MDRD) (>60) mL/min BUN/Creatinine Ratio (14-18) Glucose (83-115) mg/dL POC Glucose 111 H 133 H 148 H (83-110) mg/dL Calcium (8.5-10.1) mg/dL Phosphorus (2.6-4.7) mg/dL Magnesium (1.8-2.4) mg/dl Total Bilirubin (0.2-1.0) mg/dL AST (15-37) U/L ALT (14-59) U/L Alkaline Phosphatase (46-116) U/L Total Protein (6.4-8.2) g/dl Albumin (3.4-5.0) g/dl Globulin gm/dL Albumin/Globulin Ratio (1-2) 02/20/20 02/20/20 02/20/20 Range/Units 05:40 05:40 05:40 WBC 10.69 H (3.98-10.04) K/mm3 RBC 3.94 L (3.98-5.22) M/mm3 Hgb 11.9 (11.2-15.7) gm/dl Hct 38.0 (34.1-44.9) % MCV 96.4 H (79.4-94.8) fl MCH 30.2 (25.6-32.2) pg MCHC 31.3 L (32.2-35.5) g/dl RDW Std Deviation 46.8 H (36.4-46.3) fL Plt Count 430 H (182-369) K/mm3 MPV 9.9 (9.4-12.3) fl Neut % (Auto) 68.0 (34.0-71.1) % Lymph % (Auto) 15.5 L (19.3-51.7) % [place] % (Auto) 13.4 H (4.7-12.5) % Eos % (Auto) 1.6 (0.7-5.8) Baso % (Auto) 0.5 (0.1-1.2) % Neut # (Auto) 7.27 H (1.56-6.13) K/mm3 Lymph # (Auto) 1.66 (1.18-3.74) K/mm3 [place] # (Auto) 1.43 H (0.24-0.36) K/mm3 Eos # (Auto) 0.17 (0.04-0.36) K/mm3 Baso # (Auto) 0.05 (0.01-0.08) K/mm3 Manual Slide Review Abnormal smear Sodium 143 (136-145) mEq/L Potassium 4.4 (3.5-5.1) mEq/L Chloride 106 (98-107) mEq/L Carbon Dioxide 27 (21-32) mEq/L Anion Gap 14.4 (5-15) BUN 16 (7-18) mg/dL Creatinine 1.2 H (0.55-1.02) mg/dL Est Cr Clr Drug Dosing 33.65 mL/min Estimated GFR (MDRD) 43 (>60) mL/min BUN/Creatinine Ratio 13.3 L (14-18) Glucose 112 (83-115) mg/dL POC Glucose (83-110) mg/dL Calcium 9.1 (8.5-10.1) mg/dL Phosphorus 4.2 (2.6-4.7) mg/dL Magnesium 2.1 (1.8-2.4) mg/dl Total Bilirubin 0.7 (0.2-1.0) mg/dL AST 180 H (15-37) U/L ALT 133 H (14-59) U/L Alkaline Phosphatase 95 (46-116) U/L Total Protein 6.3 L (6.4-8.2) g/dl Albumin 2.5 L (3.4-5.0) g/dl Globulin 3.8 gm/dL Albumin/Globulin Ratio 0.7 L (1-2) 30/20 Range/Units 06:35 WBC (3.98-10.04) K/mm3 RBC (3.98-5.22) M/mm3 Hgb (11.2-15.7) gm/dl Hct (34.1-44.9) % MCV (79.4-94.8) fl MCH (25.6-32.2) pg MCHC (32.2-35.5) g/dl RDW Std Deviation (36.4-46.3) fL Plt Count (182-369) K/mm3 MPV (9.4-12.3) fl Neut % (Auto) (34.0-71.1) % Lymph % (Auto) (19.3-51.7) % [place] % (Auto) (4.7-12.5) % Eos % (Auto) (0.7-5.8) Baso % (Auto) (0.1-1.2) % Neut # (Auto) (1.56-6.13) K/mm3 Lymph # (Auto) (1.18-3.74) K/mm3 [place] # (Auto) (0.24-0.36) K/mm3 Eos # (Auto) (0.04-0.36) K/mm3 Baso # (Auto) (0.01-0.08) K/mm3 Manual Slide Review Sodium (136-145) mEq/L Potassium (3.5-5.1) mEq/L Chloride (98-107) mEq/L Carbon Dioxide (21-32) mEq/L Anion Gap (5-15) BUN (7-18) mg/dL Creatinine (0.55-1.02) mg/dL Est Cr Clr Drug Dosing mL/min Estimated GFR (MDRD) (>60) mL/min BUN/Creatinine Ratio (14-18) Glucose (83-115) mg/dL POC Glucose 100 (83-110) mg/dL Calcium (8.5-10.1) mg/dL Phosphorus (2.6-4.7) mg/dL Magnesium (1.8-2.4) mg/dl Total Bilirubin (0.2-1.0) mg/dL AST (15-37) U/L ALT (14-59) U/L Alkaline Phosphatase (46-116) U/L Total Protein (6.4-8.2) g/dl Albumin (3.4-5.0) g/dl Globulin gm/dL Albumin/Globulin Ratio (1-2) Arturo Results Last 24 Hours: Microbiology 02/16/20 15:18 Aerobic Blood Culture - Preliminary Blood - Venous NO GROWTH AFTER 3 DAYS Anaerobic Blood Culture - Preliminary NO GROWTH AFTER 3 DAYS 02/16/20 15:35 Aerobic Blood Culture - Preliminary Blood - Venous - Lab Draw NO GROWTH AFTER 3 DAYS Anaerobic Blood Culture - Preliminary NO GROWTH AFTER 3 DAYS Med Orders - Current: Current Medications Acetaminophen (Tylenol) 650 mg PO Q4H PRN PRN Reason: Pain (Mild 1-3)/fever Last Admin: 02/18/20 05:07 Dose: 650 mg Benzocaine/Menthol (Cepacol Sore Throat) 1 lozenge MUCMEM Q2HR PRN PRN Reason: Sore Throat Enoxaparin Sodium (Lovenox) 110 mg SUBCUT Q12H [facility] Last Admin: 02/20/20 10:32 Dose: 110 mg Famotidine (Pepcid) 20 mg IVPUSH DAILY [facility] Last Admin: 02/20/20 10:35 Dose: 20 mg Dextrose/Lactated Ringer's (Dextrose 5%-Lactated Ringers) 1,000 mls @ 150 mls/ hr IV ASDIRECTED [facility] Last Admin: 02/20/20 01:21 Dose: 150 mls/hr Ceftriaxone Sodium 1 gm/ (Sodium Chloride) 100 mls @ 200 mls/hr IV Q24H [facility] Last Admin: 02/20/20 11:40 Dose: 200 mls/hr Magnesium Hydroxide (Milk Of Magnesia) 30 ml PO BID PRN PRN Reason: Constipation Last Admin: 02/19/20 05:17 Dose: 30 ml Melatonin (Melatonin) 6 mg PO BEDTIME PRN PRN Reason: Sleep Last Admin: 02/19/20 20:51 Dose: 6 mg Miscellaneous Information (Remove Patch) 1 ea TRDERM Q72H [facility] Last Admin: 02/19/20 20:00 Dose: 1 ea Ondansetron HCl (Zofran) 4 mg IV Q6H PRN PRN Reason: Nausea/Vomiting Last Admin: 02/19/20 23:02 Dose: 4 mg Scopolamine (Transderm-Scop) 1.5 mg TRDERM Q72H [facility] Last Admin: 02/19/20 20:00 Dose: 1.5 mg Senna/Docusate Sodium (Senna Plus) 1 tab PO BID [facility] Last Admin: 02/20/20 10:30 Dose: 1 tab Simethicone (Simethicone) 80 mg PO QID PRN PRN Reason: bloating Last Admin: 02/19/20 22:37 Dose: 80 mg Sodium Chloride (Saline Flush) 10 ml FLUSH ASDIRECTED PRN PRN Reason: Keep Vein Open Last Admin: 02/16/20 12:18 Dose: 10 ml Tramadol HCl (Ultram) 50 mg PO Q6H PRN PRN Reason: Pain Last Admin: 02/19/20 20:52 Dose: 50 mg Discontinued Medications Al Hydroxide/Mg Hydroxide (Mag-Al Plus) 30 ml PO ONETIME ONE Stop: 02/16/20 13:42 Last Admin: 02/16/20 13:47 Dose: 30 ml Apixaban (Eliquis) 5 mg PO BID [facility] Last Admin: 02/19/20 08:45 Dose: 5 mg Calcium Polycarbophil (Fibercon) 1,250 mg PO DAILY [facility] Last Admin: 02/20/20 11:01 Dose: Not Given Cefdinir (Omnicef) 300 mg PO BID [facility] Last Admin: 02/19/20 08:45 Dose: 300 mg Famotidine (Pepcid) 20 mg IVPUSH ONETIME ONE Stop: 02/16/20 14:33 Last Admin: 02/16/20 14:38 Dose: 20 mg Famotidine (Pepcid) 20 mg PO DAILY [facility] Last Admin: 02/18/20 08:14 Dose: 20 mg Famotidine (Pepcid) 20 mg PO BID [facility] Last Admin: 02/19/20 08:45 Dose: 20 mg Famotidine (Pepcid) 20 mg IVPUSH DAILY [facility] Sodium Chloride (Normal Saline) 1,000 mls @ 999 mls/hr IV ASDIRECTED [facility] Last Admin: 02/16/20 12:18 Dose: 150 mls/hr Ceftriaxone Sodium 1 gm/ (Sodium Chloride) 100 mls @ 200 mls/hr IV Q24H [facility] Last Admin: 02/17/20 14:58 Dose: 200 mls/hr Sodium Chloride (Normal Saline) 1,000 mls @ 75 mls/hr IV ASDIRECTED [facility] Stop: 02/17/20 05:49 Last Admin: 02/16/20 16:47 Dose: 75 mls/hr Promethazine HCl 25 mg/ Sodium (Chloride) 51 mls @ 100 mls/hr IV ONETIME ONE Stop: 02/16/20 18:09 Last Admin: 02/16/20 18:32 Dose: 100 mls/hr Promethazine HCl 25 mg/ Sodium (Chloride) 51 mls @ 100 mls/hr IV Q6H PRN PRN Reason: Nausea/Vomiting Sodium Chloride (Normal Saline) 1,000 mls @ 100 mls/hr IV ASDIRECTED [facility] Stop: 02/18/20 17:29 Last Admin: 02/17/20 17:44 Dose: 100 mls/hr Multivitamins (Thera) 1 each PO DAILY [facility] Last Admin: 02/19/20 08:46 Dose: Not Given Ondansetron HCl (Zofran) 4 mg IVPUSH ONETIME ONE Stop: 02/16/20 12:09 Last Admin: 02/16/20 12:18 Dose: 4 mg Ondansetron HCl (Zofran) 4 mg IVPUSH ONETIME ONE Stop: 02/16/20 14:31 Last Admin: 02/16/20 14:38 Dose: 4 mg Ondansetron HCl (Zofran Odt) 4 mg PO Q12H [facility] Last Admin: 02/19/20 00:47 Dose: 4 mg Senna/Docusate Sodium (Senna Plus) 1 tab PO BID PRN PRN Reason: Constipation Last Admin: 02/18/20 05:07 Dose: 1 tab - Exam Quality Assessment: DVT Prophylaxis General: Alert, Oriented, Cooperative, No Acute Distress HEENT: Pupils Equal, Pupils Reactive, Mucous Membr. Moist/[place] Neck: Supple, Trachea Midline Lungs: Clear to Auscultation, Normal Respiratory Effort Cardiovascular: Regular Rate, Regular Rhythm GI/Abdominal Exam: Soft, No Distention, Tender (LUQ - mild tenderness ), Abnormal Bowel Sounds (weak but present) (Female) Exam: Deferred Back Exam: Normal Inspection, Full Range of Motion Extremities: Normal Inspection, Normal Range of Motion, Non-Tender, No Pedal Edema, Normal Capillary Refill Peripheral Pulses: 2+: Radial (L), Radial (R), Dorsalis Pedis (L), Dorsalis Pedis (R) Skin: Warm, Dry, Intact Neurological: No New Focal Deficit Psy/Mental Status: Alert, Normal Affect, Normal Mood Sepsis Event Note - Evaluation Sepsis Screening Result: No Definite Risk - Focused Exam Vital Signs: Vital Signs Temp Pulse Resp BP Pulse Ox 02/20/20 09:16 98.4 F 86 20 127/68 92 L 02/20/20 03:14 98.1 F 88 18 138/68 95 Date Exam was Performed: 02/20/20 Time Exam was Performed: 12:37 - Problem List & Annotations (1) Nausea and vomiting SNOMED Code(s): 47924227 Code(s): R11.2 - NAUSEA WITH VOMITING, UNSPECIFIED Status: Resolved Priority: High Current Visit: Yes Qualifiers: Vomiting type: unspecified Vomiting Intractability: intractable Qualified Code(s): R11.2 - Nausea with vomiting, unspecified (2) History of ovarian cancer Status: Chronic Priority: Medium Current Visit: No (3) Colon cancer SNOMED Code(s): 322751374 Code(s): C18.9 - MALIGNANT NEOPLASM OF COLON, UNSPECIFIED Status: Acute Priority: High Current Visit: Yes Qualifiers: Colon location: unspecified part of colon Qualified Code(s): C18.9 - Malignant neoplasm of colon, unspecified (4) Leukocytosis SNOMED Code(s): 060670721, 107465751 Code(s): D72.829 - ELEVATED WHITE BLOOD CELL COUNT, UNSPECIFIED Status: Acute Priority: High Current Visit: Yes Qualifiers: Leukocytosis type: unspecified Qualified Code(s): D72.829 - Elevated white blood cell count, unspecified (5) Acute renal injury SNOMED Code(s): 32207216, 72275078 Code(s): N17.9 - ACUTE KIDNEY FAILURE, UNSPECIFIED Status: Acute Priority : High Current Visit: Yes (6) High anion gap metabolic acidosis SNOMED Code(s): 34418399 Code(s): E87.2 - ACIDOSIS Status: Acute Priority: High Current Visit: Yes (7) History of venous thromboembolism SNOMED Code(s): 873486435 Code(s): Z86.718 - PERSONAL HISTORY OF OTHER VENOUS THROMBOSIS AND EMBOLISM Status: Chronic Priority: Medium Current Visit: Yes (8) Chronic anticoagulation SNOMED Code(s): 438150999 Code(s): Z79.01 - [employer] (CURRENT) USE OF ANTICOAGULANTS Status: Chronic Priority: Low Current Visit: Yes (9) HLD (hyperlipidemia) SNOMED Code(s): 37352994 Code(s): E78.5 - HYPERLIPIDEMIA, UNSPECIFIED Status: Chronic Priority: Low Current Visit: No Qualifiers: Hyperlipidemia type: unspecified Qualified Code(s): E78.5 - Hyperlipidemia , unspecified (10) GERD (gastroesophageal reflux disease) SNOMED Code(s): 113078876 Code(s): K21.9 - GASTRO-ESOPHAGEAL REFLUX DISEASE WITHOUT ESOPHAGITIS Status: Chronic Priority: Medium Current Visit: No Qualifiers: Esophagitis presence: esophagitis presence not specified Qualified Code(s) : K21.9 - Gastro-esophageal reflux disease without esophagitis (11) Obesity SNOMED Code(s): 273393885, 051830991 Code(s): E66.9 - OBESITY, UNSPECIFIED Status: Chronic Priority: Medium Current Visit: No Qualifiers: Obesity type: unspecified obesity type Obesity classification: adult class 2 (BMI 35 - 39.9) Body mass index: BMI 38.0-38.9 (12) Hematochezia SNOMED Code(s): 516132555 Code(s): K92.1 - MELENA Status: Chronic Priority: Medium Current Visit : Yes (13) Urinary tract infection SNOMED Code(s): 82975805 Code(s): N39.0 - URINARY TRACT INFECTION, SITE NOT SPECIFIED Status: Acute Priority: High Current Visit: Yes Qualifiers: Urinary tract infection type: site unspecified Hematuria presence: with hematuria Qualified Code(s): N39.0 - Urinary tract infection, site not specified; R31.9 - Hematuria, unspecified (14) S/P laparotomy SNOMED Code(s): 134371200, 287984811, 554164168 Code(s): Z98.890 - OTHER SPECIFIED POSTPROCEDURAL STATES Status: Acute Priority: Medium Current Visit: Yes (15) Volume depletion SNOMED Code(s): 93379958 Code(s): E86.9 - VOLUME DEPLETION, UNSPECIFIED Status: Acute Current Visit: Yes (16) Chronic constipation SNOMED Code(s): 698425590 Code(s): K59.09 - OTHER CONSTIPATION Status: Chronic Priority: High Current Visit: Yes (17) Small bowel obstruction SNOMED Code(s): 244709295 Code(s): K56.609 - UNSP INTESTNL OBST, UNSP TO PARTIAL VERSUS COMPLETE OBST Status: Acute Priority: High Current Visit: Yes - Problem List Review Problem List Initiated/Reviewed/Updated: Yes - My Orders Last 24 Hours: My Active Orders 02/19/20 11:41 Blood Glucose Check, Bedside [RC] Q6HR 02/19/20 21:00 Enoxaparin [Lovenox] 110 mg SUBCUT Q12H 02/20/20 09:00 Famotidine [Pepcid] 20 mg IVPUSH DAILY 02/21/20 05:11 CBC WITH AUTO DIFF [HEME] AM CMP [COMPREHENSIVE METABOLIC PN,CMP] [CHEM] AM MAGNESIUM [CHEM] AM 02/22/20 05:11 CBC WITH AUTO DIFF [HEME] AM CMP [COMPREHENSIVE METABOLIC PN,CMP] [CHEM] AM MAGNESIUM [CHEM] AM 02/23/20 05:11 CBC WITH AUTO DIFF [HEME] AM CMP [COMPREHENSIVE METABOLIC PN,CMP] [CHEM] AM MAGNESIUM [CHEM] AM - Plan Plan:: I/P: Acute: SBO/Ileus -Last BM was 02/15/20 -History of chronic constipation, laparotomy on 02/08/20 and discharged on -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 cancer, ovarian primary -Reported N/V prior to coming to ED; Nausea and emesis returned 02/19/20 -Abdominal X-ray shows distended small bowel -NG tube placed -Low intermittent suction -NPO -Ambulate -Dr Barnhart, general surgeon consulted -IV fluids as ordered -Q6hr blood glucose checks Urinary tract infection -Reports hematuria -Recently underwent surgery at [facility] - clinton catheter placed during procedure -Denies any fever -WBC 17.18-->13.51-->11.48-->10.69 -CRP 5.3 -UA: Cloudy, concentrated, 2+ protein, 2+ ketones, 3+ occult blood, positive nitrite, 1+ bilirubin, 1+ leukocyte esterase, 40-50 RBC, greater than 100 WBCs, moderate bacteria. -Urine culture: Whitney sensitive Klebsiella -Blood cultures negative -Sepsis criteria: -Apparent bacterial infection, No fever, WBC 17.18, No tachypnea, No tachycardia, Lactic acid 1.1 -Does not meet sepsis criteria at this point -Started on Rocephin 1gm in ED - Resume Rocephin today due to SBO -IV fluids as indicated Nausea and vomiting, 2/2 SBO -Reports history of significant post-operative nausea and vomiting -Has had symptoms since return from surgery -Given IV fluids and zofran after discharge with minimal brief improvement of symptoms -Zofran in ED with minimal improvement -Start Phenergan PRN -> discontinue, PRN zofran -Scopolamine patch -Monitor electrolytes - good so far -Vomited 02/19/20 S/P laparotomy 2/2 planned colon resection -Performed at [facility] -Daughter reports procedure aborted once she was opened due to significance of neoplasm -Planning chemotherapy in [place] -No signs of infection of surgical site -Continue to monitor Acute kidney injury, stable -Likely 2/2 dehydration from vomiting -BUN 27-->27-->22-->20-->16 -Creatinine 1.3-->1.2-->1.2-->1.2 -eGFR 39-->43-->43-->43 -IV bolus given in ED -IV fluids as ordered Volume depletion -AARTI as above -Concentrated urine -Anion gap 17.8-->15.4-->14.1-->17.1-->14.4 -IV fluids as indicated Chronic: prior VTE HLD chronic constipation GERD obesity colon Hx/o ovarian cancer S/P oophorectomy in 2006 Plan: Admit to medical floor Routine AM labs Other orders as indicated above Review home medications PT/OT CM/SW for discharge planning Taxicab Dispatcher consult DVT prophylaxis: Home Eliquis Code status: Full Code PCP: Dr. Meng Discharge plan: LOS >96 Hr due to new onset SBO
[2020-02-20] MEDS: traMADol 50 MG Tab PO PRN (20:31)
[2020-02-20] MEDS: Melatonin 3 MG Tab PO PRN (20:32)
[2020-02-21] MEDS: Dextrose 5%-Lactated Ringers 1,000 ML IV SCH ×3 (00:41→18:49)
[2020-02-21] MEDS: traMADol 50 MG Tab PO PRN (02:07)
[2020-02-21] MEDS: Enoxaparin 120 MG/0.8 ML Syringe SUBCUT SCH ×2 (08:14→20:58)
[2020-02-21] MEDS: Famotidine 20 MG/2 ML SDV IVPUSH SCH (08:18)
--- NOTE | 2020-02-21 09:46 | PCM.PN ---
- General Info Date of Service: 02/21/20 Admission Dx/Problem (Free Text): Admission Diagnosis/Problem Admission Diagnosis/Problem Urinary tract infection Functional Status: Reports: Pain Controlled, Ambulating, Urinating. Denies: Tolerating Diet (NPO), New Symptoms - Review of Systems General: Reports: No Symptoms. Denies: Fever, Weakness, Fatigue, Malaise, Chills HEENT: Reports: No Symptoms. Denies: Headaches, Sore Throat Pulmonary: Reports: No Symptoms. Denies: Shortness of Breath, Cough, Sputum Cardiovascular: Reports: No Symptoms. Denies: Chest Pain, Palpitations, Dyspnea on Exertion Gastrointestinal: Reports: Other (Feels much less "Bloated" today ). Denies: Abdominal Pain, Constipation, Diarrhea, Flatus, Nausea, Vomiting Genitourinary: Reports: No Symptoms. Denies: Pain Musculoskeletal: Reports: No Symptoms Skin: Reports: No Symptoms. Denies: Cyanosis Neurological: Reports: No Symptoms. Denies: Confusion Psychiatric: Reports: No Symptoms - Patient Data Vitals - Most Recent: Last Vital Signs Temp 98.2 F 02/21/20 05:34 Pulse 80 02/21/20 05:34 Resp 16 02/21/20 05:34 BP 114/57 L 02/21/20 05:34 Pulse Ox 92 L 02/21/20 05:34 Weight - Most Recent: 240 lb 1.6 oz I&O - Last 24 Hours: Intake & Output 02/20/20 02/21/20 02/21/20 22:59 06:59 14:59 Intake Total 1077 1600 Output Total 400 1000 Balance 677 600 Lab Results Last 24 Hours: Laboratory Results - last 24 hr 02/20/20 02/20/20 02/20/20 Range/Units 13:23 18:20 22:59 WBC (3.98-10.04) K/mm3 RBC (3.98-5.22) M/mm3 Hgb (11.2-15.7) gm/dl Hct (34.1-44.9) % MCV (79.4-94.8) fl MCH (25.6-32.2) pg MCHC (32.2-35.5) g/dl RDW Std Deviation (36.4-46.3) fL Plt Count (182-369) K/mm3 MPV (9.4-12.3) fl Neut % (Auto) (34.0-71.1) % Lymph % (Auto) (19.3-51.7) % Cherry % (Auto) (4.7-12.5) % Eos % (Auto) (0.7-5.8) Baso % (Auto) (0.1-1.2) % Neut # (Auto) (1.56-6.13) K/mm3 Lymph # (Auto) (1.18-3.74) K/mm3 Cherry # (Auto) (0.24-0.36) K/mm3 Eos # (Auto) (0.04-0.36) K/mm3 Baso # (Auto) (0.01-0.08) K/mm3 Sodium (136-145) mEq/L Potassium (3.5-5.1) mEq/L Chloride (98-107) mEq/L Carbon Dioxide (21-32) mEq/L Anion Gap (5-15) BUN (7-18) mg/dL Creatinine (0.55-1.02) mg/dL Est Cr Clr Drug Dosing mL/min Estimated GFR (MDRD) (>60) mL/min BUN/Creatinine Ratio (14-18) Glucose (83-115) mg/dL POC Glucose 106 124 H 123 H (83-110) mg/dL Calcium (8.5-10.1) mg/dL Phosphorus (2.6-4.7) mg/dL Magnesium (1.8-2.4) mg/dl Total Bilirubin (0.2-1.0) mg/dL AST (15-37) U/L ALT (14-59) U/L Alkaline Phosphatase (46-116) U/L Total Protein (6.4-8.2) g/dl Albumin (3.4-5.0) g/dl Globulin gm/dL Albumin/Globulin Ratio (1-2) 02/21/20 02/21/20 02/21/20 Range/Units 05:30 05:30 05:30 WBC 11.14 H (3.98-10.04) K/mm3 RBC 3.61 L (3.98-5.22) M/mm3 Hgb 10.6 L (11.2-15.7) gm/dl Hct 35.0 (34.1-44.9) % MCV 97.0 H (79.4-94.8) fl MCH 29.4 (25.6-32.2) pg MCHC 30.3 L (32.2-35.5) g/dl RDW Std Deviation 46.8 H (36.4-46.3) fL Plt Count 399 H (182-369) K/mm3 MPV 9.9 (9.4-12.3) fl Neut % (Auto) 68.9 (34.0-71.1) % Lymph % (Auto) 15.6 L (19.3-51.7) % Cherry % (Auto) 12.3 (4.7-12.5) % Eos % (Auto) 2.2 (0.7-5.8) Baso % (Auto) 0.4 (0.1-1.2) % Neut # (Auto) 7.67 H (1.56-6.13) K/mm3 Lymph # (Auto) 1.74 (1.18-3.74) K/mm3 Cherry # (Auto) 1.37 H (0.24-0.36) K/mm3 Eos # (Auto) 0.25 (0.04-0.36) K/mm3 Baso # (Auto) 0.04 (0.01-0.08) K/mm3 Sodium 144 (136-145) mEq/L Potassium 4.0 (3.5-5.1) mEq/L Chloride 109 H (98-107) mEq/L Carbon Dioxide 26 (21-32) mEq/L Anion Gap 13.0 (5-15) BUN 16 (7-18) mg/dL Creatinine 1.1 H (0.55-1.02) mg/dL Est Cr Clr Drug Dosing 36.70 mL/min Estimated GFR (MDRD) 48 (>60) mL/min BUN/Creatinine Ratio 14.5 (14-18) Glucose 123 H (83-115) mg/dL POC Glucose 132 H (83-110) mg/dL Calcium 8.9 (8.5-10.1) mg/dL Phosphorus 3.5 (2.6-4.7) mg/dL Magnesium 2.1 (1.8-2.4) mg/dl Total Bilirubin 0.3 (0.2-1.0) mg/dL AST 96 H (15-37) U/L ALT 124 H (14-59) U/L Alkaline Phosphatase 92 (46-116) U/L Total Protein 5.4 L (6.4-8.2) g/dl Albumin 2.2 L (3.4-5.0) g/dl Globulin 3.2 gm/dL Albumin/Globulin Ratio 0.7 L (1-2) Arturo Results Last 24 Hours: Microbiology 02/16/20 15:18 Aerobic Blood Culture - Preliminary Blood - Venous Gram Variable Bacilli Anaerobic Blood Culture - Preliminary NO GROWTH AFTER 4 DAYS 02/16/20 15:35 Aerobic Blood Culture - Preliminary Blood - Venous - Lab Draw NO GROWTH AFTER 4 DAYS Anaerobic Blood Culture - Preliminary NO GROWTH AFTER 4 DAYS Med Orders - Current: Current Medications Acetaminophen (Tylenol) 650 mg PO Q4H PRN PRN Reason: Pain (Mild 1-3)/fever Last Admin: 02/18/20 05:07 Dose: 650 mg Benzocaine/Menthol (Cepacol Sore Throat) 1 lozenge MUCMEM Q2HR PRN PRN Reason: Sore Throat Enoxaparin Sodium (Lovenox) 110 mg SUBCUT Q12H [facility] Last Admin: 02/21/20 08:14 Dose: 110 mg Famotidine (Pepcid) 20 mg IVPUSH DAILY [facility] Last Admin: 02/21/20 08:18 Dose: 20 mg Dextrose/Lactated Ringer's (Dextrose 5%-Lactated Ringers) 1,000 mls @ 150 mls/ hr IV ASDIRECTED [facility] Last Admin: 02/21/20 07:30 Dose: 150 mls/hr Ceftriaxone Sodium 1 gm/ (Sodium Chloride) 100 mls @ 200 mls/hr IV Q24H [facility] Last Admin: 02/20/20 11:40 Dose: 200 mls/hr Magnesium Hydroxide (Milk Of Magnesia) 30 ml PO BID PRN PRN Reason: Constipation Last Admin: 02/19/20 05:17 Dose: 30 ml Melatonin (Melatonin) 6 mg PO BEDTIME PRN PRN Reason: Sleep Last Admin: 02/19/20 20:51 Dose: 6 mg Miscellaneous Information (Remove Patch) 1 ea TRDERM Q72H [facility] Last Admin: 02/19/20 20:00 Dose: 1 ea Ondansetron HCl (Zofran) 4 mg IV Q6H PRN PRN Reason: Nausea/Vomiting Last Admin: 02/19/20 23:02 Dose: 4 mg Scopolamine (Transderm-Scop) 1.5 mg TRDERM Q72H [facility] Last Admin: 02/19/20 20:00 Dose: 1.5 mg Senna/Docusate Sodium (Senna Plus) 1 tab PO BID [facility] Last Admin: 02/21/20 08:13 Dose: 1 tab Simethicone (Simethicone) 80 mg PO QID PRN PRN Reason: bloating Last Admin: 02/19/20 22:37 Dose: 80 mg Sodium Chloride (Saline Flush) 10 ml FLUSH ASDIRECTED PRN PRN Reason: Keep Vein Open Last Admin: 02/16/20 12:18 Dose: 10 ml Tramadol HCl (Ultram) 50 mg PO Q6H PRN PRN Reason: Pain Last Admin: 02/21/20 02:07 Dose: 50 mg Discontinued Medications Al Hydroxide/Mg Hydroxide (Mag-Al Plus) 30 ml PO ONETIME ONE Stop: 02/16/20 13:42 Last Admin: 02/16/20 13:47 Dose: 30 ml Apixaban (Eliquis) 5 mg PO BID [facility] Last Admin: 02/19/20 08:45 Dose: 5 mg Calcium Polycarbophil (Fibercon) 1,250 mg PO DAILY [facility] Last Admin: 02/20/20 11:01 Dose: Not Given Cefdinir (Omnicef) 300 mg PO BID [facility] Last Admin: 02/19/20 08:45 Dose: 300 mg Famotidine (Pepcid) 20 mg IVPUSH ONETIME ONE Stop: 02/16/20 14:33 Last Admin: 02/16/20 14:38 Dose: 20 mg Famotidine (Pepcid) 20 mg PO DAILY [facility] Last Admin: 02/18/20 08:14 Dose: 20 mg Famotidine (Pepcid) 20 mg PO BID [facility] Last Admin: 02/19/20 08:45 Dose: 20 mg Famotidine (Pepcid) 20 mg IVPUSH DAILY [facility] Sodium Chloride (Normal Saline) 1,000 mls @ 999 mls/hr IV ASDIRECTED [facility] Last Admin: 02/16/20 12:18 Dose: 150 mls/hr Ceftriaxone Sodium 1 gm/ (Sodium Chloride) 100 mls @ 200 mls/hr IV Q24H [facility] Last Admin: 02/17/20 14:58 Dose: 200 mls/hr Sodium Chloride (Normal Saline) 1,000 mls @ 75 mls/hr IV ASDIRECTED [facility] Stop: 02/17/20 05:49 Last Admin: 02/16/20 16:47 Dose: 75 mls/hr Promethazine HCl 25 mg/ Sodium (Chloride) 51 mls @ 100 mls/hr IV ONETIME ONE Stop: 02/16/20 18:09 Last Admin: 02/16/20 18:32 Dose: 100 mls/hr Promethazine HCl 25 mg/ Sodium (Chloride) 51 mls @ 100 mls/hr IV Q6H PRN PRN Reason: Nausea/Vomiting Sodium Chloride (Normal Saline) 1,000 mls @ 100 mls/hr IV ASDIRECTED [facility] Stop: 02/18/20 17:29 Last Admin: 02/17/20 17:44 Dose: 100 mls/hr Multivitamins (Thera) 1 each PO DAILY [facility] Last Admin: 02/19/20 08:46 Dose: Not Given Ondansetron HCl (Zofran) 4 mg IVPUSH ONETIME ONE Stop: 02/16/20 12:09 Last Admin: 02/16/20 12:18 Dose: 4 mg Ondansetron HCl (Zofran) 4 mg IVPUSH ONETIME ONE Stop: 02/16/20 14:31 Last Admin: 02/16/20 14:38 Dose: 4 mg Ondansetron HCl (Zofran Odt) 4 mg PO Q12H [facility] Last Admin: 02/19/20 00:47 Dose: 4 mg Senna/Docusate Sodium (Senna Plus) 1 tab PO BID PRN PRN Reason: Constipation Last Admin: 02/18/20 05:07 Dose: 1 tab - Exam Quality Assessment: DVT Prophylaxis General: Alert, Oriented, Cooperative, No Acute Distress HEENT: Pupils Equal, Pupils Reactive, Mucous Membr. Moist/[place] Neck: Supple, Trachea Midline Lungs: Clear to Auscultation, Normal Respiratory Effort Cardiovascular: Regular Rate, Regular Rhythm GI/Abdominal Exam: Soft, Non-Tender, No Distention, Abnormal Bowel Sounds ( hypoactive but present ) (Female) Exam: Deferred Back Exam: Normal Inspection, Full Range of Motion Extremities: Normal Inspection, Normal Range of Motion, Non-Tender, No Pedal Edema, Normal Capillary Refill Peripheral Pulses: 2+: Radial (L), Radial (R), Dorsalis Pedis (L), Dorsalis Pedis (R) Skin: Warm, Dry, Intact Neurological: No New Focal Deficit Psy/Mental Status: Alert, Normal Affect, Normal Mood Sepsis Event Note - Evaluation Sepsis Screening Result: No Definite Risk - Focused Exam Vital Signs: Vital Signs Temp Pulse Resp BP Pulse Ox 02/21/20 05:34 98.2 F 80 16 114/57 L 92 L 02/21/20 00:43 97.9 F 77 20 123/69 93 L Date Exam was Performed: 02/21/20 Time Exam was Performed: 16:27 - Problem List & Annotations (1) Nausea and vomiting SNOMED Code(s): 94853739 Code(s): R11.2 - NAUSEA WITH VOMITING, UNSPECIFIED Status: Resolved Priority: High Current Visit: Yes Qualifiers: Vomiting type: unspecified Vomiting Intractability: intractable Qualified Code(s): R11.2 - Nausea with vomiting, unspecified (2) History of ovarian cancer Status: Chronic Priority: Medium Current Visit: No (3) Colon cancer SNOMED Code(s): 537924691 Code(s): C18.9 - MALIGNANT NEOPLASM OF COLON, UNSPECIFIED Status: Acute Priority: High Current Visit: Yes Qualifiers: Colon location: unspecified part of colon Qualified Code(s): C18.9 - Malignant neoplasm of colon, unspecified (4) Leukocytosis SNOMED Code(s): 998674281, 719504775 Code(s): D72.829 - ELEVATED WHITE BLOOD CELL COUNT, UNSPECIFIED Status: Acute Priority: High Current Visit: Yes Qualifiers: Leukocytosis type: unspecified Qualified Code(s): D72.829 - Elevated white blood cell count, unspecified (5) Acute renal injury SNOMED Code(s): 67022694, 32683861 Code(s): N17.9 - ACUTE KIDNEY FAILURE, UNSPECIFIED Status: Acute Priority : High Current Visit: Yes (6) High anion gap metabolic acidosis SNOMED Code(s): 34821407 Code(s): E87.2 - ACIDOSIS Status: Acute Priority: High Current Visit: Yes (7) History of venous thromboembolism SNOMED Code(s): 052891205 Code(s): Z86.718 - PERSONAL HISTORY OF OTHER VENOUS THROMBOSIS AND EMBOLISM Status: Chronic Priority: Medium Current Visit: Yes (8) Chronic anticoagulation SNOMED Code(s): 806610807 Code(s): Z79.01 - REVIT DRAFTER (CURRENT) USE OF ANTICOAGULANTS Status: Chronic Priority: Low Current Visit: Yes (9) HLD (hyperlipidemia) SNOMED Code(s): 49432778 Code(s): E78.5 - HYPERLIPIDEMIA, UNSPECIFIED Status: Chronic Priority: Low Current Visit: No Qualifiers: Hyperlipidemia type: unspecified Qualified Code(s): E78.5 - Hyperlipidemia , unspecified (10) GERD (gastroesophageal reflux disease) SNOMED Code(s): 392638463 Code(s): K21.9 - GASTRO-ESOPHAGEAL REFLUX DISEASE WITHOUT ESOPHAGITIS Status: Chronic Priority: Medium Current Visit: No Qualifiers: Esophagitis presence: esophagitis presence not specified Qualified Code(s) : K21.9 - Gastro-esophageal reflux disease without esophagitis (11) Obesity SNOMED Code(s): 580222405, 776930452 Code(s): E66.9 - OBESITY, UNSPECIFIED Status: Chronic Priority: Medium Current Visit: No Qualifiers: Obesity type: unspecified obesity type Obesity classification: adult class 2 (BMI 35 - 39.9) Body mass index: BMI 38.0-38.9 (12) Hematochezia SNOMED Code(s): 056380785 Code(s): K92.1 - MELENA Status: Chronic Priority: Medium Current Visit : Yes (13) Urinary tract infection SNOMED Code(s): 41923537 Code(s): N39.0 - URINARY TRACT INFECTION, SITE NOT SPECIFIED Status: Acute Priority: High Current Visit: Yes Qualifiers: Urinary tract infection type: site unspecified Hematuria presence: with hematuria Qualified Code(s): N39.0 - Urinary tract infection, site not specified; R31.9 - Hematuria, unspecified (14) S/P laparotomy SNOMED Code(s): 253439756, 846346750, 510321441 Code(s): Z98.890 - OTHER SPECIFIED POSTPROCEDURAL STATES Status: Acute Priority: Medium Current Visit: Yes (15) Volume depletion SNOMED Code(s): 666952858 Code(s): E86.9 - VOLUME DEPLETION, UNSPECIFIED Status: Acute Current Visit: Yes (16) Chronic constipation SNOMED Code(s): 797832951 Code(s): K59.09 - OTHER CONSTIPATION Status: Chronic Priority: High Current Visit: Yes (17) Small bowel obstruction SNOMED Code(s): 237157690 Code(s): K56.609 - UNSP INTESTNL OBST, UNSP TO PARTIAL VERSUS COMPLETE OBST Status: Acute Priority: High Current Visit: Yes - Problem List Review Problem List Initiated/Reviewed/Updated: Yes - My Orders Last 24 Hours: My Active Orders 02/20/20 09:00 Famotidine [Pepcid] 20 mg IVPUSH DAILY 02/22/20 05:11 CMP [COMPREHENSIVE METABOLIC PN,CMP] [CHEM] AM - Plan Plan:: I/P: Acute: SBO/Ileus -Last BM was 02/15/20 -History of chronic constipation, laparotomy on 02/08/20 and discharged on -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 cancer, ovarian primary -Reported N/V prior to coming to ED; Nausea and emesis returned 02/19/20 -Abdominal X-ray shows distended small bowel -NG tube placed -Low intermittent suction -NPO -Ambulate -Dr Barnhart, general surgeon consulted -IV fluids as ordered -Q6hr blood glucose checks Urinary tract infection -Reports hematuria -Recently underwent surgery at [facility] - clinton catheter placed during procedure -Denies any fever -WBC 17.18-->13.51-->11.48-->10.69-->11.14 -CRP 5.3 -UA: Cloudy, concentrated, 2+ protein, 2+ ketones, 3+ occult blood, positive nitrite, 1+ bilirubin, 1+ leukocyte esterase, 40-50 RBC, greater than 100 WBCs, moderate bacteria. -Urine culture: Whitney sensitive Klebsiella -Blood cultures negative -Sepsis criteria: -Apparent bacterial infection, No fever, WBC 17.18, No tachypnea, No tachycardia, Lactic acid 1.1 -Does not meet sepsis criteria at this point -Started on Rocephin 1gm in ED - Resume Rocephin today due to SBO -IV fluids as indicated Nausea and vomiting, 2/2 SBO -Reports history of significant post-operative nausea and vomiting -Has had symptoms since return from surgery -Given IV fluids and zofran after discharge with minimal brief improvement of symptoms -Zofran in ED with minimal improvement -Start Phenergan PRN -> discontinue, PRN zofran -Scopolamine patch -Monitor electrolytes - good so far -Vomited 02/19/20 S/P laparotomy 2/2 planned colon resection -[facility]formed [facility] -Daughter reports procedure aborted once she was opened due to significance of neoplasm -Planning chemotherapy in [place] -No signs of infection of surgical site -Continue to monitor Acute kidney injury, stable -Likely 2/2 dehydration from vomiting -BUN 27-->27-->22-->20-->16-->16 -Creatinine 1.3-->1.2-->1.2-->1.2-->1.1 -eGFR 39-->43-->43-->43-->48 -IV bolus given in ED -IV fluids as ordered Volume depletion -AARTI as above -Concentrated urine -Anion gap 17.8-->15.4-->14.1-->17.1-->14.4-->13 -IV fluids as indicated Chronic: prior VTE HLD chronic constipation GERD obesity colon Hx/o ovarian cancer S/P oophorectomy in 2006 Plan: Admit to medical floor Routine AM labs Other orders as indicated above Review home medications PT/OT CM/SW for discharge planning Utility Worker consult DVT prophylaxis: Home Eliquis Code status: Full Code PCP: Dr. Meng Discharge plan: LOS >96 Hr due to new onset SBO Dr. Louie discussed case with patients [facility] surgeon. He suggested medical management and if unable to resolve symptoms, patient would be a very poor surgical candidate. He suggested palliative care if medical management fails.
[2020-02-21] MEDS: Lactated Ringers 1,000 ML IV SCH ×2 (11:35→17:32)
--- NOTE | 2020-02-21 13:11 | PCM.CONSN ---
- General Info Date of Service: 02/21/20 Subjective Update: The patient reports having an episode of emesis last night after taking her medications. The nausea is resolved. Pain is improved. No flatus or bowel movement - Patient Data Vitals - Most Recent: Last Vital Signs Temp 37.0 C 02/21/20 11:52 Pulse 81 02/21/20 11:52 Resp 18 02/21/20 11:52 BP 118/59 L 02/21/20 11:52 Pulse Ox 95 02/21/20 11:52 Weight - Most Recent: 108.908 kg I&O - Last 24 Hours: Intake & Output 02/20/20 02/21/20 02/21/20 22:59 06:59 14:59 Intake Total 1077 1600 Output Total 400 1000 Balance 677 600 Lab Results Last 24 Hours: Laboratory Results - last 24 hr 02/20/20 02/20/20 02/20/20 Range/Units 13:23 18:20 22:59 WBC (3.98-10.04) K/mm3 RBC (3.98-5.22) M/mm3 Hgb (11.2-15.7) gm/dl Hct (34.1-44.9) % MCV (79.4-94.8) fl MCH (25.6-32.2) pg MCHC (32.2-35.5) g/dl RDW Std Deviation (36.4-46.3) fL Plt Count (182-369) K/mm3 MPV (9.4-12.3) fl Neut % (Auto) (34.0-71.1) % Lymph % (Auto) (19.3-51.7) % Mchenry % (Auto) (4.7-12.5) % Eos % (Auto) (0.7-5.8) Baso % (Auto) (0.1-1.2) % Neut # (Auto) (1.56-6.13) K/mm3 Lymph # (Auto) (1.18-3.74) K/mm3 Mchenry # (Auto) (0.24-0.36) K/mm3 Eos # (Auto) (0.04-0.36) K/mm3 Baso # (Auto) (0.01-0.08) K/mm3 Sodium (136-145) mEq/L Potassium (3.5-5.1) mEq/L Chloride (98-107) mEq/L Carbon Dioxide (21-32) mEq/L Anion Gap (5-15) BUN (7-18) mg/dL Creatinine (0.55-1.02) mg/dL Est Cr Clr Drug Dosing mL/min Estimated GFR (MDRD) (>60) mL/min BUN/Creatinine Ratio (14-18) Glucose (83-115) mg/dL POC Glucose 106 124 H 123 H (83-110) mg/dL Calcium (8.5-10.1) mg/dL Phosphorus (2.6-4.7) mg/dL Magnesium (1.8-2.4) mg/dl Total Bilirubin (0.2-1.0) mg/dL AST (15-37) U/L ALT (14-59) U/L Alkaline Phosphatase (46-116) U/L Total Protein (6.4-8.2) g/dl Albumin (3.4-5.0) g/dl Globulin gm/dL Albumin/Globulin Ratio (1-2) 02/21/20 02/21/20 02/21/20 Range/Units 05:30 05:30 05:30 WBC 11.14 H (3.98-10.04) K/mm3 RBC 3.61 L (3.98-5.22) M/mm3 Hgb 10.6 L (11.2-15.7) gm/dl Hct 35.0 (34.1-44.9) % MCV 97.0 H (79.4-94.8) fl MCH 29.4 (25.6-32.2) pg MCHC 30.3 L (32.2-35.5) g/dl RDW Std Deviation 46.8 H (36.4-46.3) fL Plt Count 399 H (182-369) K/mm3 MPV 9.9 (9.4-12.3) fl Neut % (Auto) 68.9 (34.0-71.1) % Lymph % (Auto) 15.6 L (19.3-51.7) % Mchenry % (Auto) 12.3 (4.7-12.5) % Eos % (Auto) 2.2 (0.7-5.8) Baso % (Auto) 0.4 (0.1-1.2) % Neut # (Auto) 7.67 H (1.56-6.13) K/mm3 Lymph # (Auto) 1.74 (1.18-3.74) K/mm3 Mchenry # (Auto) 1.37 H (0.24-0.36) K/mm3 Eos # (Auto) 0.25 (0.04-0.36) K/mm3 Baso # (Auto) 0.04 (0.01-0.08) K/mm3 Sodium 144 (136-145) mEq/L Potassium 4.0 (3.5-5.1) mEq/L Chloride 109 H (98-107) mEq/L Carbon Dioxide 26 (21-32) mEq/L Anion Gap 13.0 (5-15) BUN 16 (7-18) mg/dL Creatinine 1.1 H (0.55-1.02) mg/dL Est Cr Clr Drug Dosing 36.70 mL/min Estimated GFR (MDRD) 48 (>60) mL/min BUN/Creatinine Ratio 14.5 (14-18) Glucose 123 H (83-115) mg/dL POC Glucose 132 H (83-110) mg/dL Calcium 8.9 (8.5-10.1) mg/dL Phosphorus 3.5 (2.6-4.7) mg/dL Magnesium 2.1 (1.8-2.4) mg/dl Total Bilirubin 0.3 (0.2-1.0) mg/dL AST 96 H (15-37) U/L ALT 124 H (14-59) U/L Alkaline Phosphatase 92 (46-116) U/L Total Protein 5.4 L (6.4-8.2) g/dl Albumin 2.2 L (3.4-5.0) g/dl Globulin 3.2 gm/dL Albumin/Globulin Ratio 0.7 L (1-2) 02/21/20 Range/Units 11:39 WBC (3.98-10.04) K/mm3 RBC (3.98-5.22) M/mm3 Hgb (11.2-15.7) gm/dl Hct (34.1-44.9) % MCV (79.4-94.8) fl MCH (25.6-32.2) pg MCHC (32.2-35.5) g/dl RDW Std Deviation (36.4-46.3) fL Plt Count (182-369) K/mm3 MPV (9.4-12.3) fl Neut % (Auto) (34.0-71.1) % Lymph % (Auto) (19.3-51.7) % Mchenry % (Auto) (4.7-12.5) % Eos % (Auto) (0.7-5.8) Baso % (Auto) (0.1-1.2) % Neut # (Auto) (1.56-6.13) K/mm3 Lymph # (Auto) (1.18-3.74) K/mm3 Mchenry # (Auto) (0.24-0.36) K/mm3 Eos # (Auto) (0.04-0.36) K/mm3 Baso # (Auto) (0.01-0.08) K/mm3 Sodium (136-145) mEq/L Potassium (3.5-5.1) mEq/L Chloride (98-107) mEq/L Carbon Dioxide (21-32) mEq/L Anion Gap (5-15) BUN (7-18) mg/dL Creatinine (0.55-1.02) mg/dL Est Cr Clr Drug Dosing mL/min Estimated GFR (MDRD) (>60) mL/min BUN/Creatinine Ratio (14-18) Glucose (83-115) mg/dL POC Glucose 117 H (83-110) mg/dL Calcium (8.5-10.1) mg/dL Phosphorus (2.6-4.7) mg/dL Magnesium (1.8-2.4) mg/dl Total Bilirubin (0.2-1.0) mg/dL AST (15-37) U/L ALT (14-59) U/L Alkaline Phosphatase (46-116) U/L Total Protein (6.4-8.2) g/dl Albumin (3.4-5.0) g/dl Globulin gm/dL Albumin/Globulin Ratio (1-2) Arturo Results Last 24 Hours: Microbiology 02/16/20 15:18 Aerobic Blood Culture - Preliminary Blood - Venous Gram Variable Bacilli Anaerobic Blood Culture - Preliminary NO GROWTH AFTER 4 DAYS 02/16/20 15:35 Aerobic Blood Culture - Preliminary Blood - Venous - Lab Draw NO GROWTH AFTER 4 DAYS Anaerobic Blood Culture - Preliminary NO GROWTH AFTER 4 DAYS Med Orders - Current: Current Medications Acetaminophen (Tylenol) 650 mg PO Q4H PRN PRN Reason: Pain (Mild 1-3)/fever Last Admin: 02/18/20 05:07 Dose: 650 mg Benzocaine/Menthol (Cepacol Sore Throat) 1 lozenge MUCMEM Q2HR PRN PRN Reason: Sore Throat Enoxaparin Sodium (Lovenox) 110 mg SUBCUT Q12H [facility] Last Admin: 02/21/20 08:14 Dose: 110 mg Famotidine (Pepcid) 20 mg IVPUSH DAILY [facility] Last Admin: 02/21/20 08:18 Dose: 20 mg Lactated Ringer's (Ringers, Lactated) 1,000 mls @ 150 mls/hr IV ASDIRECTED [facility] Last Admin: 02/21/20 11:35 Dose: 150 mls/hr Magnesium Hydroxide (Milk Of Magnesia) 30 ml PO BID PRN PRN Reason: Constipation Last Admin: 02/19/20 05:17 Dose: 30 ml Melatonin (Melatonin) 6 mg PO BEDTIME PRN PRN Reason: Sleep Last Admin: 02/19/20 20:51 Dose: 6 mg Miscellaneous Information (Remove Patch) 1 ea TRDERM Q72H [facility] Last Admin: 02/19/20 20:00 Dose: 1 ea Ondansetron HCl (Zofran) 4 mg IV Q6H PRN PRN Reason: Nausea/Vomiting Last Admin: 02/19/20 23:02 Dose: 4 mg Scopolamine (Transderm-Scop) 1.5 mg TRDERM Q72H [facility] Last Admin: 02/19/20 20:00 Dose: 1.5 mg Senna/Docusate Sodium (Senna Plus) 1 tab PO BID [facility] Last Admin: 02/21/20 08:13 Dose: 1 tab Simethicone (Simethicone) 80 mg PO QID PRN PRN Reason: bloating Last Admin: 02/19/20 22:37 Dose: 80 mg Sodium Chloride (Saline Flush) 10 ml FLUSH ASDIRECTED PRN PRN Reason: Keep Vein Open Last Admin: 02/16/20 12:18 Dose: 10 ml Tramadol HCl (Ultram) 50 mg PO Q6H PRN PRN Reason: Pain Last Admin: 02/21/20 02:07 Dose: 50 mg Discontinued Medications Al Hydroxide/Mg Hydroxide (Mag-Al Plus) 30 ml PO ONETIME ONE Stop: 02/16/20 13:42 Last Admin: 02/16/20 13:47 Dose: 30 ml Apixaban (Eliquis) 5 mg PO BID [facility] Last Admin: 02/19/20 08:45 Dose: 5 mg Calcium Polycarbophil (Fibercon) 1,250 mg PO DAILY [facility] Last Admin: 02/20/20 11:01 Dose: Not Given Cefdinir (Omnicef) 300 mg PO BID [facility] Last Admin: 02/19/20 08:45 Dose: 300 mg Famotidine (Pepcid) 20 mg IVPUSH ONETIME ONE Stop: 02/16/20 14:33 Last Admin: 02/16/20 14:38 Dose: 20 mg Famotidine (Pepcid) 20 mg PO DAILY [facility] Last Admin: 02/18/20 08:14 Dose: 20 mg Famotidine (Pepcid) 20 mg PO BID [facility] Last Admin: 02/19/20 08:45 Dose: 20 mg Famotidine (Pepcid) 20 mg IVPUSH DAILY [facility] Sodium Chloride (Normal Saline) 1,000 mls @ 999 mls/hr IV ASDIRECTED [facility] Last Admin: 02/16/20 12:18 Dose: 150 mls/hr Ceftriaxone Sodium 1 gm/ (Sodium Chloride) 100 mls @ 200 mls/hr IV Q24H [facility] Last Admin: 02/17/20 14:58 Dose: 200 mls/hr Sodium Chloride (Normal Saline) 1,000 mls @ 75 mls/hr IV ASDIRECTED [facility] Stop: 02/17/20 05:49 Last Admin: 02/16/20 16:47 Dose: 75 mls/hr Promethazine HCl 25 mg/ Sodium (Chloride) 51 mls @ 100 mls/hr IV ONETIME ONE Stop: 02/16/20 18:09 Last Admin: 02/16/20 18:32 Dose: 100 mls/hr Promethazine HCl 25 mg/ Sodium (Chloride) 51 mls @ 100 mls/hr IV Q6H PRN PRN Reason: Nausea/Vomiting Sodium Chloride (Normal Saline) 1,000 mls @ 100 mls/hr IV ASDIRECTED [facility] Stop: 02/18/20 17:29 Last Admin: 02/17/20 17:44 Dose: 100 mls/hr Dextrose/Lactated Ringer's (Dextrose 5%-Lactated Ringers) 1,000 mls @ 150 mls/ hr IV ASDIRECTED [facility] Last Admin: 02/21/20 07:30 Dose: 150 mls/hr Ceftriaxone Sodium 1 gm/ (Sodium Chloride) 100 mls @ 200 mls/hr IV Q24H [facility] Last Admin: 02/20/20 11:40 Dose: 200 mls/hr Multivitamins (Thera) 1 each PO DAILY [facility] Last Admin: 02/19/20 08:46 Dose: Not Given Ondansetron HCl (Zofran) 4 mg IVPUSH ONETIME ONE Stop: 02/16/20 12:09 Last Admin: 02/16/20 12:18 Dose: 4 mg Ondansetron HCl (Zofran) 4 mg IVPUSH ONETIME ONE Stop: 02/16/20 14:31 Last Admin: 02/16/20 14:38 Dose: 4 mg Ondansetron HCl (Zofran Odt) 4 mg PO Q12H [facility] Last Admin: 02/19/20 00:47 Dose: 4 mg Senna/Docusate Sodium (Senna Plus) 1 tab PO BID PRN PRN Reason: Constipation Last Admin: 02/18/20 05:07 Dose: 1 tab - Exam Quality Assessment: No: Supplemental Oxygen General: Alert, Oriented HEENT: EOMI Lungs: Normal Respiratory Effort GI/Abdominal Exam: Soft, Non-Tender, Other (decreased firmness in LUQ) Sepsis Event Note - Evaluation Sepsis Screening Result: No Definite Risk - Focused Exam Vital Signs: Vital Signs Temp Temp Pulse Pulse Resp BP BP 02/21/20 11:52 37.0 C 81 18 118/59 L 02/21/20 11:50 37.0 C 81 18 118/59 L 02/21/20 08:24 36.7 C 84 20 126/71 02/21/20 05:34 36.8 C 80 16 114/57 L Pulse Ox 02/21/20 11:52 95 02/21/20 11:50 95 02/21/20 08:24 93 L 02/21/20 05:34 92 L Date Exam was Performed: 02/21/20 Time Exam was Performed: 16:41 Consult PN Assessment/Plan (1) S/P laparotomy SNOMED Code(s): 593999831, 146951088, 602715967 Code(s): Z98.890 - OTHER SPECIFIED POSTPROCEDURAL STATES Priority: Medium Current Visit: Yes (2) Small bowel obstruction SNOMED Code(s): 351453390 Code(s): K56.609 - UNSP INTESTNL OBST, UNSP TO PARTIAL VERSUS COMPLETE OBST Priority: High Current Visit: Yes (3) Urinary tract infection SNOMED Code(s): 81652124 Code(s): N39.0 - URINARY TRACT INFECTION, SITE NOT SPECIFIED Priority: High Current Visit: Yes Qualifiers: Urinary tract infection type: site unspecified Hematuria presence: with hematuria Qualified Code(s): N39.0 - Urinary tract infection, site not specified; R31.9 - Hematuria, unspecified Problem List Initiated/Reviewed/Updated: Yes My Orders Last 24 Hours: My Active Orders 02/22/20 05:11 PHOSPHORUS [CHEM] AM 02/23/20 05:11 PHOSPHORUS [CHEM] AM Plan: - continue NGT to LIS. Pt is a very poor surgical candidate at this time. The current window after surgery is such that she will have dense adhesions not amenable to adhesiolysis with a high risk of enterotomy and complication. - Daily BMP, Mg, Phos - ambulate TID - AROBF - If NGT is in place tomorrow, consider supplementing with TPN since pt will be on HOD 8. Recommend PICC for administration of TPN if pt should need this. - medical management per primary If patient desires only palliation, may be a candidate for venting gastrostomy tube if the SBO does not resolve. We will need records from [facility] about intraoperative findings to make this determination. Cindy Estrella MD General surgery
[2020-02-21] MEDS ORDERED: Benzocaine 20% Oral Spray 59.2 ML Canister MUCMEM PRN (14:48)
[2020-02-21] MEDS ORDERED: 50% Dextrose in Water 50 ML Syringe IVPUSH PRN (19:47)
[2020-02-21] MEDS: Simethicone 80 MG Tab.Chew PO PRN (20:54)
[2020-02-21] MEDS: Melatonin 3 MG Tab PO PRN (20:54)
[2020-02-22] MEDS: Dextrose 5%-Lactated Ringers 1,000 ML IV SCH ×4 (00:27→20:52)
--- NOTE | 2020-02-22 08:29 | PCM.PN ---
- General Info Date of Service: 02/22/20 Admission Dx/Problem (Free Text): Admission Diagnosis/Problem Admission Diagnosis/Problem Urinary tract infection Subjective Update: Jesi continues to do ok. She is pain free. Functional Status: Reports: Pain Controlled, Ambulating, Urinating. Denies: Tolerating Diet (NPO), New Symptoms - Review of Systems General: Reports: No Symptoms. Denies: Fever, Weakness, Fatigue, Malaise, Chills HEENT: Reports: No Symptoms. Denies: Headaches, Sore Throat Pulmonary: Reports: No Symptoms. Denies: Shortness of Breath, Cough, Sputum, Hemoptysis, Wheezing Cardiovascular: Reports: No Symptoms. Denies: Chest Pain, Palpitations Gastrointestinal: Reports: Constipation, Other (refusing bowel regimine ). Denies: Abdominal Pain, Diarrhea, Nausea, Vomiting Genitourinary: Reports: No Symptoms. Denies: Pain Musculoskeletal: Reports: No Symptoms Skin: Reports: No Symptoms. Denies: Cyanosis Neurological: Reports: No Symptoms. Denies: Confusion, Difficulty Walking, Gait Disturbance Psychiatric: Reports: No Symptoms - Patient Data Vitals - Most Recent: Last Vital Signs Temp 97.9 F 02/22/20 05:50 Pulse 73 02/22/20 05:50 Resp 20 02/22/20 05:50 BP 113/67 02/22/20 05:50 Pulse Ox 96 02/22/20 05:50 Weight - Most Recent: 244 lb 1.6 oz I&O - Last 24 Hours: Intake & Output 02/21/20 02/22/20 02/22/20 22:59 06:59 14:59 Intake Total 1634 1869 Output Total 850 950 Balance 784 919 Lab Results Last 24 Hours: Laboratory Results - last 24 hr 02/21/20 02/21/20 02/21/20 Range/Units 11:39 17:31 18:28 Sodium (136-145) mEq/L Potassium (3.5-5.1) mEq/L Chloride (98-107) mEq/L Carbon Dioxide (21-32) mEq/L Anion Gap (5-15) BUN (7-18) mg/dL Creatinine (0.55-1.02) mg/dL Est Cr Clr Drug Dosing mL/min Estimated GFR (MDRD) (>60) mL/min BUN/Creatinine Ratio (14-18) Glucose (83-115) mg/dL POC Glucose 117 H 83 90 (83-110) mg/dL Calcium (8.5-10.1) mg/dL Phosphorus (2.6-4.7) mg/dL Total Bilirubin (0.2-1.0) mg/dL AST (15-37) U/L ALT (14-59) U/L Alkaline Phosphatase (46-116) U/L Total Protein (6.4-8.2) g/dl Albumin (3.4-5.0) g/dl Globulin gm/dL Albumin/Globulin Ratio (1-2) 02/22/20 02/22/20 Range/Units 00:19 05:32 Sodium 145 (136-145) mEq/L Potassium 4.0 (3.5-5.1) mEq/L Chloride 109 H (98-107) mEq/L Carbon Dioxide 29 (21-32) mEq/L Anion Gap 11.0 (5-15) BUN 12 (7-18) mg/dL Creatinine 1.1 H (0.55-1.02) mg/dL Est Cr Clr Drug Dosing 36.70 mL/min Estimated GFR (MDRD) 48 (>60) mL/min BUN/Creatinine Ratio 10.9 L (14-18) Glucose 109 (83-115) mg/dL POC Glucose 107 (83-110) mg/dL Calcium 8.8 (8.5-10.1) mg/dL Phosphorus 3.3 (2.6-4.7) mg/dL Total Bilirubin 0.3 (0.2-1.0) mg/dL AST 53 H (15-37) U/L ALT 90 H (14-59) U/L Alkaline Phosphatase 89 (46-116) U/L Total Protein 5.7 L (6.4-8.2) g/dl Albumin 2.2 L (3.4-5.0) g/dl Globulin 3.5 gm/dL Albumin/Globulin Ratio 0.6 L (1-2) Arturo Results Last 24 Hours: Microbiology 02/16/20 15:18 Aerobic Blood Culture - Preliminary Blood - Venous Gram Variable Bacilli Anaerobic Blood Culture - Preliminary NO GROWTH AFTER 5 DAYS 02/16/20 15:35 Aerobic Blood Culture - Preliminary Blood - Venous - Lab Draw NO GROWTH AFTER 5 DAYS Anaerobic Blood Culture - Preliminary NO GROWTH AFTER 5 DAYS Med Orders - Current: Current Medications Acetaminophen (Tylenol) 650 mg PO Q4H PRN PRN Reason: Pain (Mild 1-3)/fever Last Admin: 02/18/20 05:07 Dose: 650 mg Benzocaine (Hurricaine 20% [place]) 0 ml MUCMEM Q2H PRN PRN Reason: Sore Throat Last Admin: 02/21/20 15:19 Dose: 1 spray Benzocaine/Menthol (Cepacol Sore Throat) 1 lozenge MUCMEM Q2HR PRN PRN Reason: Sore Throat Dextrose/Water (Dextrose 50% In Water) 50 ml IVPUSH ASDIRECTED PRN PRN Reason: Hypoglycemia Enoxaparin Sodium (Lovenox) 110 mg SUBCUT Q12H [facility] Last Admin: 02/21/20 20:58 Dose: 110 mg Famotidine (Pepcid) 20 mg IVPUSH DAILY [facility] Last Admin: 02/21/20 08:18 Dose: 20 mg Dextrose/Lactated Ringer's (Dextrose 5%-Lactated Ringers) 1,000 mls @ 150 mls/ hr IV ASDIRECTED [facility] Last Admin: 02/22/20 06:58 Dose: 150 mls/hr Magnesium Hydroxide (Milk Of Magnesia) 30 ml PO BID PRN PRN Reason: Constipation Last Admin: 02/19/20 05:17 Dose: 30 ml Melatonin (Melatonin) 6 mg PO BEDTIME PRN PRN Reason: Sleep Last Admin: 02/21/20 20:54 Dose: 6 mg Miscellaneous Information (Remove Patch) 1 ea TRDERM Q72H [facility] Last Admin: 02/19/20 20:00 Dose: 1 ea Ondansetron HCl (Zofran) 4 mg IV Q6H PRN PRN Reason: Nausea/Vomiting Last Admin: 02/19/20 23:02 Dose: 4 mg Scopolamine (Transderm-Scop) 1.5 mg TRDERM Q72H [facility] Last Admin: 02/19/20 20:00 Dose: 1.5 mg Senna/Docusate Sodium (Senna Plus) 1 tab PO BID [facility] Last Admin: 02/21/20 20:54 Dose: 1 tab Simethicone (Simethicone) 80 mg PO QID PRN PRN Reason: bloating Last Admin: 02/21/20 20:54 Dose: 80 mg Sodium Chloride (Saline Flush) 10 ml FLUSH ASDIRECTED PRN PRN Reason: Keep Vein Open Last Admin: 02/16/20 12:18 Dose: 10 ml Tramadol HCl (Ultram) 50 mg PO Q6H PRN PRN Reason: Pain Last Admin: 02/21/20 02:07 Dose: 50 mg Discontinued Medications Al Hydroxide/Mg Hydroxide (Mag-Al Plus) 30 ml PO ONETIME ONE Stop: 02/16/20 13:42 Last Admin: 02/16/20 13:47 Dose: 30 ml Apixaban (Eliquis) 5 mg PO BID [facility] Last Admin: 02/19/20 08:45 Dose: 5 mg Calcium Polycarbophil (Fibercon) 1,250 mg PO DAILY [facility] Last Admin: 02/20/20 11:01 Dose: Not Given Cefdinir (Omnicef) 300 mg PO BID [facility] Last Admin: 02/19/20 08:45 Dose: 300 mg Famotidine (Pepcid) 20 mg IVPUSH ONETIME ONE Stop: 02/16/20 14:33 Last Admin: 02/16/20 14:38 Dose: 20 mg Famotidine (Pepcid) 20 mg PO DAILY [facility] Last Admin: 02/18/20 08:14 Dose: 20 mg Famotidine (Pepcid) 20 mg PO BID [facility] Last Admin: 02/19/20 08:45 Dose: 20 mg Famotidine (Pepcid) 20 mg IVPUSH DAILY [facility] Sodium Chloride (Normal Saline) 1,000 mls @ 999 mls/hr IV ASDIRECTED [facility] Last Admin: 02/16/20 12:18 Dose: 150 mls/hr Ceftriaxone Sodium 1 gm/ (Sodium Chloride) 100 mls @ 200 mls/hr IV Q24H [facility] Last Admin: 02/17/20 14:58 Dose: 200 mls/hr Sodium Chloride (Normal Saline) 1,000 mls @ 75 mls/hr IV ASDIRECTED [facility] Stop: 02/17/20 05:49 Last Admin: 02/16/20 16:47 Dose: 75 mls/hr Promethazine HCl 25 mg/ Sodium (Chloride) 51 mls @ 100 mls/hr IV ONETIME ONE Stop: 02/16/20 18:09 Last Admin: 02/16/20 18:32 Dose: 100 mls/hr Promethazine HCl 25 mg/ Sodium (Chloride) 51 mls @ 100 mls/hr IV Q6H PRN PRN Reason: Nausea/Vomiting Sodium Chloride (Normal Saline) 1,000 mls @ 100 mls/hr IV ASDIRECTED [facility] Stop: 02/18/20 17:29 Last Admin: 02/17/20 17:44 Dose: 100 mls/hr Dextrose/Lactated Ringer's (Dextrose 5%-Lactated Ringers) 1,000 mls @ 150 mls/ hr IV ASDIRECTED [facility] Last Admin: 02/21/20 07:30 Dose: 150 mls/hr Ceftriaxone Sodium 1 gm/ (Sodium Chloride) 100 mls @ 200 mls/hr IV Q24H [facility] Last Admin: 02/20/20 11:40 Dose: 200 mls/hr Lactated Ringer's (Ringers, Lactated) 1,000 mls @ [facility] Admin: 02/21/20 17:32 Dose: 150 mls/hr Multivitamins (Thera) 1 each PO DAILY [facility] Last Admin: 02/19/20 08:46 Dose: Not Given Ondansetron HCl (Zofran) 4 mg IVPUSH ONETIME ONE Stop: 02/16/20 12:09 Last Admin: 02/16/20 12:18 Dose: 4 mg Ondansetron HCl (Zofran) 4 mg IVPUSH ONETIME ONE Stop: 02/16/20 14:31 Last Admin: 02/16/20 14:38 Dose: 4 mg Ondansetron HCl (Zofran Odt) 4 mg PO Q12H [facility] Last Admin: 02/19/20 00:47 Dose: 4 mg Senna/Docusate Sodium (Senna Plus) 1 tab PO BID PRN PRN Reason: Constipation Last Admin: 02/18/20 05:07 Dose: 1 tab - Exam Quality Assessment: DVT Prophylaxis General: Alert, Oriented, Cooperative, No Acute Distress HEENT: Pupils Equal, Pupils Reactive, Mucous Membr. Moist/[place] Neck: Supple, Trachea Midline Lungs: Clear to Auscultation, Normal Respiratory Effort Cardiovascular: Regular Rate, Regular Rhythm GI/Abdominal Exam: Non-Tender, No Distention, Abnormal Bowel Sounds (Absent ) (Female) Exam: Deferred Back Exam: Normal Inspection, Full Range of Motion Extremities: Normal Inspection, Normal Range of Motion, Non-Tender, No Pedal Edema, Normal Capillary Refill Peripheral Pulses: 2+: Radial (L), Radial (R), Dorsalis Pedis (L), Dorsalis Pedis (R) Skin: Warm, Dry, Intact Wound/Incisions: Healing Well. No: Erythema Neurological: No New Focal Deficit Psy/Mental Status: Alert Sepsis Event Note - Evaluation Sepsis Screening Result: No Definite Risk - Focused Exam Vital Signs: Vital Signs Temp Pulse Resp BP Pulse Ox 02/22/20 05:50 97.9 F 73 20 113/67 96 02/22/20 00:23 98.1 F 80 18 119/69 96 Date Exam was Performed: 02/22/20 Time Exam was Performed: 14:49 - Problem List & Annotations (1) Nausea and vomiting SNOMED Code(s): 23395920 Code(s): R11.2 - NAUSEA WITH VOMITING, UNSPECIFIED Status: Resolved Priority: High Current Visit: Yes Qualifiers: Vomiting type: unspecified Vomiting Intractability: intractable Qualified Code(s): R11.2 - Nausea with vomiting, unspecified (2) History of ovarian cancer Status: Chronic Priority: Medium Current Visit: No (3) Colon cancer SNOMED Code(s): 980663543 Code(s): C18.9 - MALIGNANT NEOPLASM OF COLON, UNSPECIFIED Status: Acute Priority: High Current Visit: Yes Qualifiers: Colon location: unspecified part of colon Qualified Code(s): C18.9 - Malignant neoplasm of colon, unspecified (4) Leukocytosis SNOMED Code(s): 118685476, 395928103 Code(s): D72.829 - ELEVATED WHITE BLOOD CELL COUNT, UNSPECIFIED Status: Acute Priority: High Current Visit: Yes Qualifiers: Leukocytosis type: unspecified Qualified Code(s): D72.829 - Elevated white blood cell count, unspecified (5) Acute renal injury SNOMED Code(s): 28455815, 42461521 Code(s): N17.9 - ACUTE KIDNEY FAILURE, UNSPECIFIED Status: Acute Priority : High Current Visit: Yes (6) High anion gap metabolic acidosis SNOMED Code(s): 88983726 Code(s): E87.2 - ACIDOSIS Status: Acute Priority: High Current Visit: Yes (7) History of venous thromboembolism SNOMED Code(s): 458122063 Code(s): Z86.718 - PERSONAL HISTORY OF OTHER VENOUS THROMBOSIS AND EMBOLISM Status: Chronic Priority: Medium Current Visit: Yes (8) Chronic anticoagulation SNOMED Code(s): 539358353 Code(s): Z79.01 - MEDIA RELATIONS DIRECTOR (CURRENT) USE OF ANTICOAGULANTS Status: Chronic Priority: Low Current Visit: Yes (9) HLD (hyperlipidemia) SNOMED Code(s): 06281115 Code(s): E78.5 - HYPERLIPIDEMIA, UNSPECIFIED Status: Chronic Priority: Low Current Visit: No Qualifiers: Hyperlipidemia type: unspecified Qualified Code(s): E78.5 - Hyperlipidemia , unspecified (10) GERD (gastroesophageal reflux disease) SNOMED Code(s): 597389562 Code(s): K21.9 - GASTRO-ESOPHAGEAL REFLUX DISEASE WITHOUT ESOPHAGITIS Status: Chronic Priority: Medium Current Visit: No Qualifiers: Esophagitis presence: esophagitis presence not specified Qualified Code(s) : K21.9 - Gastro-esophageal reflux disease without esophagitis (11) Obesity SNOMED Code(s): 803425894, 883205301 Code(s): E66.9 - OBESITY, UNSPECIFIED Status: Chronic Priority: Medium Current Visit: No Qualifiers: Obesity type: unspecified obesity type Obesity classification: adult class 2 (BMI 35 - 39.9) Body mass index: BMI 38.0-38.9 (12) Hematochezia SNOMED Code(s): 859816497 Code(s): K92.1 - MELENA Status: Chronic Priority: Medium Current Visit : Yes (13) Urinary tract infection SNOMED Code(s): 13324422 Code(s): N39.0 - URINARY TRACT INFECTION, SITE NOT SPECIFIED Status: Acute Priority: High Current Visit: Yes Qualifiers: Urinary tract infection type: site unspecified Hematuria presence: with hematuria Qualified Code(s): N39.0 - Urinary tract infection, site not specified; R31.9 - Hematuria, unspecified (14) S/P laparotomy SNOMED Code(s): 153044663, 788065951, 086748738 Code(s): Z98.890 - OTHER SPECIFIED POSTPROCEDURAL STATES Status: Acute Priority: Medium Current Visit: Yes (15) Volume depletion SNOMED Code(s): 886425676 Code(s): E86.9 - VOLUME DEPLETION, UNSPECIFIED Status: Acute Current Visit: Yes (16) Chronic constipation SNOMED Code(s): 740136966 Code(s): K59.09 - OTHER CONSTIPATION Status: Chronic Priority: High Current Visit: Yes (17) Small bowel obstruction SNOMED Code(s): 294586343 Code(s): K56.609 - UNSP INTESTNL OBST, UNSP TO PARTIAL VERSUS COMPLETE OBST Status: Acute Priority: High Current Visit: Yes - Problem List Review Problem List Initiated/Reviewed/Updated: Yes - My Orders Last 24 Hours: My Active Orders 02/21/20 14:48 Benzocaine [Hurricaine 20% [place]] 0 ml MUCMEM Q2H PRN 02/21/20 18:45 Dextrose 5%-Lactated Ringers 1,000 ml IV ASDIRECTED - Plan Plan:: I/P: Acute: SBO/Ileus -Last BM was 02/15/20 -History of chronic constipation, laparotomy on 02/08/20 and discharged on -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 cancer, ovarian primary -Reported N/V prior to coming to ED; Nausea and emesis returned 02/19/20 -Abdominal X-ray shows distended small bowel -NG tube placed -Low intermittent suction -NPO -Ambulate -Dr Barnhart, general surgeon consulted -> Signed off due to nothing surgical to offer -IV fluids as ordered -Q6hr blood glucose checks -Scheduled Phenergan x3 doses -Consider starting TPN Urinary tract infection -Reports hematuria -Recently underwent surgery at [facility] - cl[place] catheter placed during procedure -Denies any fever -WBC 17.18-->13.51-->11.48-->10.69-->11.14 -CRP 5.3 -UA: Cloudy, concentrated, 2+ protein, 2+ ketones, 3+ occult blood, positive nitrite, 1+ bilirubin, 1+ leukocyte esterase, 40-50 RBC, greater than 100 WBCs, moderate bacteria. -Urine culture: Whitney sensitive Klebsiella -Blood cultures negative -Sepsis criteria: -Apparent bacterial infection, No fever, WBC 17.18, No tachypnea, No tachycardia, Lactic acid 1.1 -Does not meet sepsis criteria at this point -Started on Rocephin 1gm in ED - Briefly switched to PO then resumed Rocephin due to SBO -IV fluids as indicated Nausea and vomiting, 2/2 SBO -Reports history of significant post-operative nausea and vomiting -Has had symptoms since return from surgery -Given IV fluids and zofran after discharge with minimal brief improvement of symptoms -Zofran in ED with minimal improvement -Start Phenergan PRN -> discontinue, PRN zofran -Scopolamine patch -Monitor electrolytes - good so far -Vomited 02/19/20 S/P laparotomy 2/2 planned colon resection -Performed at [facility] -Daughter reports procedure aborted once she was opened due to significance of neoplasm -Planning chemotherapy in [place] -No signs of infection of surgical site -Continue to monitor Acute kidney injury, stable -Likely 2/2 dehydration from vomiting -BUN 27-->27-->22-->20-->16-->16-->12 -Creatinine 1.3-->1.2-->1.2-->1.2-->1.1-->1.1 -eGFR 39-->43-->43-->43-->48-->48 -IV bolus given in ED -IV fluids as ordered Volume depletion -AARTI as above -Concentrated urine -Anion gap 17.8-->15.4-->14.1-->17.1-->14.4-->13-->11 -IV fluids as indicated Chronic: prior VTE HLD chronic constipation GERD obesity colon Hx/o ovarian cancer S/P oophorectomy in 2006 Plan: Admit to medical floor Routine AM labs Other orders as indicated above Review home medications PT/OT CM/SW for discharge planning 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 Meng Discharge plan: LOS >96 Hr due to new onset SBO Dr. Louie discussed case with patients [facility] surgeon and patients oncologist in [place]. They suggested medical management and if unable to resolve symptoms, patient would be a very poor surgical candidate. Also suggested patient would not be candidate for chemotherapy. Suggested palliative care if medical management fails. Discussed this with family. Also discussed TPN supplementation. Patient and family will discuss these options and let us know plan.
[2020-02-22] MEDS ORDERED: Metoclopramide 10 MG/2 ML SDV IVPUSH SCH (09:15)
[2020-02-22] MEDS: Famotidine 20 MG/2 ML SDV IVPUSH SCH (09:25)
[2020-02-22] MEDS: Enoxaparin 120 MG/0.8 ML Syringe SUBCUT SCH ×2 (09:26→20:53)
[2020-02-22] MEDS: Metoclopramide 10 MG/2 ML SDV IVPUSH SCH ×3 (12:12→23:15)
[2020-02-22] MEDS: Bisacodyl 10 MG Supp RECTAL ONE ×2 (12:12→16:35)
--- NOTE | 2020-02-22 12:36 | PCM.CONSN ---
- General Info Date of Service: 02/22/20 Subjective Update: Pt reports not having any nausea or any more episodes of vomiting. No flatus or bowel movement - Patient Data Vitals - Most Recent: Last Vital Signs Temp 36.8 C 02/22/20 08:52 Pulse 80 02/22/20 08:52 Resp 20 02/22/20 08:52 BP 137/66 02/22/20 08:52 Pulse Ox 95 02/22/20 08:52 Weight - Most Recent: 110.722 kg I&O - Last 24 Hours: Intake & Output 02/21/20 02/22/20 02/22/20 22:59 06:59 14:59 Intake Total 1634 1869 Output Total 850 950 Balance 784 919 Lab Results Last 24 Hours: Laboratory Results - last 24 hr 02/21/20 02/21/20 02/22/20 Range/Units 17:31 18:28 00:19 Sodium (136-145) mEq/L Potassium (3.5-5.1) mEq/L Chloride (98-107) mEq/L Carbon Dioxide (21-32) mEq/L Anion Gap (5-15) BUN (7-18) mg/dL Creatinine (0.55-1.02) mg/dL Est Cr Clr Drug Dosing mL/min Estimated GFR (MDRD) (>60) mL/min BUN/Creatinine Ratio (14-18) Glucose (83-115) mg/dL POC Glucose 83 90 107 (83-110) mg/dL Calcium (8.5-10.1) mg/dL Phosphorus (2.6-4.7) mg/dL Total Bilirubin (0.2-1.0) mg/dL AST (15-37) U/L ALT (14-59) U/L Alkaline Phosphatase (46-116) U/L Total Protein (6.4-8.2) g/dl Albumin (3.4-5.0) g/dl Globulin gm/dL Albumin/Globulin Ratio (1-2) 02/22/20 Range/Units 05:32 Sodium 145 (136-145) mEq/L Potassium 4.0 (3.5-5.1) mEq/L Chloride 109 H (98-107) mEq/L Carbon Dioxide 29 (21-32) mEq/L Anion Gap 11.0 (5-15) BUN 12 (7-18) mg/dL Creatinine 1.1 H (0.55-1.02) mg/dL Est Cr Clr Drug Dosing 36.70 mL/min Estimated GFR (MDRD) 48 (>60) mL/min BUN/Creatinine Ratio 10.9 L (14-18) Glucose 109 (83-115) mg/dL POC Glucose (83-110) mg/dL Calcium 8.8 (8.5-10.1) mg/dL Phosphorus 3.3 (2.6-4.7) mg/dL Total Bilirubin 0.3 (0.2-1.0) mg/dL AST 53 H (15-37) U/L ALT 90 H (14-59) U/L Alkaline Phosphatase 89 (46-116) U/L Total Protein 5.7 L (6.4-8.2) g/dl Albumin 2.2 L (3.4-5.0) g/dl Globulin 3.5 gm/dL Albumin/Globulin Ratio 0.6 L (1-2) Arturo Results Last 24 Hours: Microbiology 02/16/20 15:18 Aerobic Blood Culture - Preliminary Blood - Venous Probable Capnocytophaga Specie Anaerobic Blood Culture - Preliminary NO GROWTH AFTER 5 DAYS 02/16/20 15:35 Aerobic Blood Culture - Preliminary Blood - Venous - Lab Draw NO GROWTH AFTER 5 DAYS Anaerobic Blood Culture - Preliminary NO GROWTH AFTER 5 DAYS Med Orders - Current: Current Medications Acetaminophen (Tylenol) 650 mg PO Q4H PRN PRN Reason: Pain (Mild 1-3)/fever Last Admin: 02/18/20 05:07 Dose: 650 mg Benzocaine (Hurricaine 20% [place]) 0 ml MUCMEM Q2H PRN PRN Reason: Sore Throat Last Admin: 02/21/20 15:19 Dose: 1 spray Benzocaine/Menthol (Cepacol Sore Throat) 1 lozenge MUCMEM Q2HR PRN PRN Reason: Sore Throat Dextrose/Water (Dextrose 50% In Water) 50 ml IVPUSH ASDIRECTED PRN PRN Reason: Hypoglycemia Enoxaparin Sodium (Lovenox) 110 mg SUBCUT Q12H [facility] Last Admin: 02/22/20 09:26 Dose: 110 mg Famotidine (Pepcid) 20 mg IVPUSH DAILY [facility] Last Admin: 04/01/20 09:25 Dose: 20 mg Dextrose/Lactated Ringer's (Dextrose 5%-Lactated Ringers) 1,000 mls @ 150 mls/ hr IV ASDIRECTED [facility] Last Admin: 02/22/20 06:58 Dose: 150 mls/hr Magnesium Hydroxide (Milk Of Magnesia) 30 ml PO BID PRN PRN Reason: Constipation Last Admin: 02/19/20 05:17 Dose: 30 ml Melatonin (Melatonin) 6 mg PO BEDTIME PRN PRN Reason: Sleep Last Admin: 02/21/20 20:54 Dose: 6 mg Metoclopramide HCl (Reglan) 10 mg IVPUSH Q6H [facility] Stop: 02/22/20 23:01 Last Admin: 02/22/20 12:12 Dose: 10 mg Miscellaneous Information (Remove Patch) 1 ea TRDERM Q72H [facility] Last Admin: 02/19/20 20:00 Dose: 1 ea Ondansetron HCl (Zofran) 4 mg IV Q6H PRN PRN Reason: Nausea/Vomiting Last Admin: 02/19/20 23:02 Dose: 4 mg Scopolamine (Transderm-Scop) 1.5 mg TRDERM Q72H [facility] Last Admin: 02/19/20 20:00 Dose: 1.5 mg Senna/Docusate Sodium (Senna Plus) 1 tab PO BID [facility] Last Admin: 02/22/20 09:26 Dose: Not Given Simethicone (Simethicone) 80 mg PO QID PRN PRN Reason: bloating Last Admin: 02/21/20 20:54 Dose: 80 mg Sodium Chloride (Saline Flush) 10 ml FLUSH ASDIRECTED PRN PRN Reason: Keep Vein Open Last Admin: 02/16/20 12:18 Dose: 10 ml Tramadol HCl (Ultram) 50 mg PO Q6H PRN PRN Reason: Pain Last Admin: 02/21/20 02:07 Dose: 50 mg Discontinued Medications Al Hydroxide/Mg Hydroxide (Mag-Al Plus) 30 ml PO ONETIME ONE Stop: 02/16/20 13:42 Last Admin: 02/16/20 13:47 Dose: 30 ml Apixaban (Eliquis) 5 mg PO BID [facility] Last Admin: 02/19/20 08:45 Dose: 5 mg Bisacodyl (Dulcolax) 10 mg RECTAL ONETIME ONE Stop: 02/22/20 11:55 Calcium Polycarbophil (Fibercon) 1,250 mg PO DAILY [facility] Last Admin: 02/20/20 11:01 Dose: Not Given Cefdinir (Omnicef) 300 mg PO BID [facility] Last Admin: 02/19/20 08:45 Dose: 300 mg Famotidine (Pepcid) 20 mg IVPUSH ONETIME ONE Stop: 02/16/20 14:33 Last Admin: 02/16/20 14:38 Dose: 20 mg Famotidine (Pepcid) 20 mg PO DAILY [facility] Last Admin: 02/18/20 08:14 Dose: 20 mg Famotidine (Pepcid) 20 mg PO BID [facility] Last Admin: 02/19/20 08:45 Dose: 20 mg Famotidine (Pepcid) 20 mg IVPUSH DAILY [facility] Sodium Chloride (Normal Saline) 1,000 mls @ 999 mls[facility] Last Admin: 02/16/20 12:18 Dose: 150 mls/hr Ceftriaxone Sodium 1 gm/ (Sodium Chloride) 100 mls @ 200 mls/hr IV Q24H [facility] Last Admin: 02/17/20 14:58 Dose: 200 mls/hr Sodium Chloride (Normal Saline) 1,000 mls @ 75 mls/hr IV ASDIRECTED [facility] Stop: 02/17/20 05:49 Last Admin: 02/16/20 16:47 Dose: 75 mls/hr Promethazine HCl 25 mg/ Sodium (Chloride) 51 mls @ 100 mls/hr IV ONETIME ONE Stop: 02/16/20 18:09 Last Admin: 02/16/20 18:32 Dose: 100 mls/hr Promethazine HCl 25 mg/ Sodium (Chloride) 51 mls @ 100 mls/hr IV Q6H PRN PRN Reason: Nausea/Vomiting Sodium Chloride (Normal Saline) 1,000 mls @ 100 mls/hr IV ASDIRECTED [facility] Stop: 02/18/20 17:29 Last Admin: 02/17/20 17:44 Dose: 100 mls/hr Dextrose/Lactated Ringer's (Dextrose 5%-Lactated Ringers) 1,000 mls @ 150 mls/ hr IV ASDIRECTED [facility] Last Admin: 02/21/20 07:30 Dose: 150 mls/hr Ceftriaxone Sodium 1 gm/ (Sodium Chloride) 100 mls @ 200 mls/hr IV Q24H [facility] Last Admin: 02/20/20 11:40 Dose: 200 mls/hr Lactated Ringer's (Ringers, Lactated) 1,000 mls @ 150 mls/hr IV ASDIRECTED [facility] Last Admin: 02/21/20 17:32 Dose: 150 mls/hr Metoclopramide HCl (Reglan) 10 mg IVPUSH Q6H [facility] Stop: 02/22/20 21:16 Last Admin: 02/22/20 12:12 Dose: Not Given Multivitamins (Thera) 1 each PO DAILY [facility] Last Admin: 02/19/20 08:46 Dose: Not Given Ondansetron HCl (Zofran) 4 mg IVPUSH ONETIME ONE Stop: 02/16/20 12:09 Last Admin: 02/16/20 12:18 Dose: 4 mg Ondansetron HCl (Zofran) 4 mg IVPUSH ONETIME ONE Stop: 02/16/20 14:31 Last Admin: 02/16/20 14:38 Dose: 4 mg Ondansetron HCl (Zofran Odt) 4 mg PO Q12H [facility] Last Admin: 02/19/20 00:47 Dose: 4 mg Senna/Docusate Sodium (Senna Plus) 1 tab PO BID PRN PRN Reason: Constipation Last Admin: 02/18/20 05:07 Dose: 1 tab - Exam Quality Assessment: No: Supplemental Oxygen General: Alert, Oriented HEENT: Other (NGT in place) Neck: Supple Lungs: Normal Respiratory Effort Sepsis Event Note - Evaluation Sepsis Screening Result: No Definite Risk - Focused Exam Vital Signs: Vital Signs Temp Pulse Resp BP Pulse Ox 02/22/20 08:52 36.8 C 80 20 137/66 95 02/22/20 05:50 36.6 C 73 20 113/67 96 Date Exam was Performed: 02/22/20 Time Exam was Performed: 12:30 Consult PN Assessment/Plan (1) S/P laparotomy SNOMED Code(s): 862760483, 563964719, 243290050 Code(s): Z98.890 - OTHER SPECIFIED POSTPROCEDURAL STATES Priority: Medium Current Visit: Yes (2) Small bowel obstruction SNOMED Code(s): 403777229 Code(s): K56.609 - UNSP INTESTNL OBST, UNSP TO PARTIAL VERSUS COMPLETE OBST Priority: High Current Visit: Yes (3) Urinary tract infection SNOMED Code(s): 85014204 Code(s): N39.0 - URINARY TRACT INFECTION, SITE NOT SPECIFIED Priority: High Current Visit: Yes Qualifiers: Urinary tract infection type: site unspecified Hematuria presence: with hematuria Qualified Code(s): N39.0 - Urinary tract infection, site not specified; R31.9 - Hematuria, unspecified Problem List Initiated/Reviewed/Updated: Yes My Orders Last 24 Hours: My Active Orders 02/23/20 05:11 PHOSPHORUS [CHEM] AM Plan: - continue NGT to LIS. Pt is a very poor surgical candidate at this time. The current window after surgery is such that she will have dense adhesions not amenable to adhesiolysis with a high risk of enterotomy and complication. Also discussed with Dr. Louie surgical findings from the surgeon at [facility]. per the report, pt has tumor studding throughout the abdomen and no further surgical options are available at this time. Also no further chemotherapy options. I discussed the possibility of a venting gastrostomy placed percutaneously, but that this has risks if the abdomen is frozen with tumor. Pt and family do not wish for her to have any more surgery since she has significant nausea and vomiting from the anesthetic and surgical procedures. - Daily BMP, Mg, Phos while in the hospital - ambulate TID - AROBF - medical management per primary Pt is not sure what her goals are at this time. Would like to discuss with family. Since she is not desiring surgery, will sign off. Please call back with any new surgical questions or concerns. Cindy Estrella MD General surgery
[2020-02-22] MEDS: traMADol 50 MG Tab PO PRN (20:55)
[2020-02-22] MEDS: REMOVE SCOPOLAMINE TRDERM SCH (20:56)
[2020-02-22] MEDS: Melatonin 3 MG Tab PO PRN (20:58)
[2020-02-22] MEDS: Scopolamine 1.5 MG Transdermal Patch TRDERM SCH (20:58)
[2020-02-23] MEDS ORDERED: Furosemide 20 MG/2 ML VIAL IVPUSH ONE (08:02)
[2020-02-23] MEDS ORDERED: Bisacodyl 10 MG Supp RECTAL ONE (08:17)
--- NOTE | 2020-02-23 08:30 | CR ---
Abdomen: Supine view of the abdomen was obtained. Comparison: Prior abdominal x-ray of 02/19/20. Gas dilated small bowel loops are seen within the upper abdomen. Nasogastric tube is in place with tip lying within the expected region of the stomach. Bony structures are grossly intact. Inferior vena cava filter is noted. Impression: 1. Continuing gas dilated loops of small bowel within the upper abdomen. No change is appreciated from previous study. 2. Nasogastric tube is noted. Diagnostic code #3 Study was dictated in MDT
[2020-02-23] MEDS: Enoxaparin 120 MG/0.8 ML Syringe SUBCUT SCH ×2 (08:32→21:05)
[2020-02-23] MEDS: Famotidine 20 MG/2 ML SDV IVPUSH SCH (08:37)
[2020-02-23] MEDS: Dextrose 5%-Lactated Ringers 1,000 ML IV SCH (12:12)
--- NOTE | 2020-02-23 15:43 | PCM.PN ---
- General Info Date of Service: 02/23/20 Subjective Update: Slept OK No complaints - Patient Data Vitals - Most Recent: Last Vital Signs Temp 97.9 F 02/23/20 12:17 Pulse 86 02/23/20 12:17 Resp 16 02/23/20 12:17 BP 134/68 02/23/20 12:17 Pulse Ox 97 02/23/20 12:17 Weight - Most Recent: 112.763 kg - Exam Physical Findings Comments:: General: Alert, Oriented, Cooperative, No Acute Distress HEENT: Pupils Equal, Pupils Reactive, Mucous Membr. Moist/[place] Neck: Supple, Trachea Midline Lungs: Clear to Auscultation, Normal Respiratory Effort Cardiovascular: Regular Rate, Regular Rhythm GI/Abdominal Exam: Non-Tender, No Distention, Abnormal Bowel Sounds (Absent ) (Female) Exam: Deferred Back Exam: Normal Inspection, Full Range of Motion Extremities: Normal Inspection, Normal Range of Motion, Non-Tender, No Pedal Edema, Normal Capillary Refill Peripheral Pulses: 2+: Radial (L), Radial (R), Dorsalis Pedis (L), Dorsalis Pedis (R) Skin: Warm, Dry, Intact Wound/Incisions: Healing Well. No: Erythema Neurological: No New Focal Deficit Psy/Mental Status: Alert Sepsis Event Note - Evaluation Sepsis Screening Result: No Definite Risk - Focused Exam Vital Signs: Vital Signs Temp Pulse Resp BP Pulse Ox 02/23/20 12:17 97.9 F 86 16 134/68 97 02/23/20 08:29 98.1 F 82 18 116/60 94 L 02/23/20 04:18 98.1 F 76 18 108/59 L 97 Date Exam was Performed: 02/24/20 Time Exam was Performed: 13:09 - Problem List & Annotations (1) Ovarian cancer SNOMED Code(s): 845601540 Code(s): C56.9 - MALIGNANT NEOPLASM OF UNSPECIFIED OVARY Status: Acute Current Visit: Yes (2) Acute renal injury SNOMED Code(s): 22908463, 17305572 Code(s): N17.9 - ACUTE KIDNEY FAILURE, UNSPECIFIED Status: Acute Priority : High Current Visit: Yes (3) Chronic anticoagulation SNOMED Code(s): 800136170 Code(s): Z79.01 - PROFESSOR OF ART HISTORY (CURRENT) USE OF ANTICOAGULANTS Status: Chronic Priority: Low Current Visit: Yes (4) Chronic constipation SNOMED Code(s): 739748030 Code(s): K59.09 - OTHER CONSTIPATION Status: Chronic Priority: High Current Visit: Yes (5) Colon cancer SNOMED Code(s): 472042874 Code(s): C18.9 - MALIGNANT NEOPLASM OF COLON, UNSPECIFIED Status: Acute Priority: High Current Visit: Yes Qualifiers: Colon location: unspecified part of colon Qualified Code(s): C18.9 - Malignant neoplasm of colon, unspecified (6) GERD (gastroesophageal reflux disease) SNOMED Code(s): 349201059 Code(s): K21.9 - GASTRO-ESOPHAGEAL REFLUX DISEASE WITHOUT ESOPHAGITIS Status: Chronic Priority: Medium Current Visit: No Qualifiers: Esophagitis presence: esophagitis presence not specified Qualified Code(s) : K21.9 - Gastro-esophageal reflux disease without esophagitis (7) Hematochezia SNOMED Code(s): 433388900 Code(s): K92.1 - MELENA Status: Chronic Priority: Medium Current Visit : Yes (8) High anion gap metabolic acidosis SNOMED Code(s): 24367125 Code(s): E87.2 - ACIDOSIS Status: Acute Priority: High Current Visit: Yes (9) History of ovarian cancer Status: Chronic Priority: Medium Current Visit: No (10) History of venous thromboembolism SNOMED Code(s): 902585617 Code(s): Z86.718 - PERSONAL HISTORY OF OTHER VENOUS THROMBOSIS AND EMBOLISM Status: Chronic Priority: Medium Current Visit: Yes (11) HLD (hyperlipidemia) SNOMED Code(s): 63611597 Code(s): E78.5 - HYPERLIPIDEMIA, UNSPECIFIED Status: Chronic Priority: Low Current Visit: No Qualifiers: Hyperlipidemia type: unspecified Qualified Code(s): E78.5 - Hyperlipidemia , unspecified (12) Leukocytosis SNOMED Code(s): 126329769, 622928948 Code(s): D72.829 - ELEVATED WHITE BLOOD CELL COUNT, UNSPECIFIED Status: Acute Priority: High Current Visit: Yes Qualifiers: Leukocytosis type: unspecified Qualified Code(s): D72.829 - Elevated white blood cell count, unspecified (13) Nausea and vomiting SNOMED Code(s): 94770491 Code(s): R11.2 - NAUSEA WITH VOMITING, UNSPECIFIED Status: Resolved Priority: High Current Visit: Yes Qualifiers: Vomiting type: unspecified Vomiting Intractability: intractable Qualified Code(s): R11.2 - Nausea with vomiting, unspecified (14) Obesity SNOMED Code(s): 325726329, 288255698 Code(s): E66.9 - OBESITY, UNSPECIFIED Status: Chronic Priority: Medium Current Visit: No Qualifiers: Obesity type: unspecified obesity type Obesity classification: adult class 2 (BMI 35 - 39.9) Body mass index: BMI 38.0-38.9 (15) S/P laparotomy SNOMED Code(s): 673686075, 051505426, 940240850 Code(s): Z98.890 - OTHER SPECIFIED POSTPROCEDURAL STATES Status: Acute Priority: Medium Current Visit: Yes (16) Small bowel obstruction SNOMED Code(s): 589105826 Code(s): K56.609 - UNSP INTESTNL OBST, UNSP TO PARTIAL VERSUS COMPLETE OBST Status: Acute Priority: High Current Visit: Yes (17) Urinary tract infection SNOMED Code(s): 37420229 Code(s): N39.0 - URINARY TRACT INFECTION, SITE NOT SPECIFIED Status: Acute Priority: High Current Visit: Yes Qualifiers: Urinary tract infection type: site unspecified Hematuria presence: with hematuria Qualified Code(s): N39.0 - Urinary tract infection, site not specified; R31.9 - Hematuria, unspecified (18) Volume depletion SNOMED Code(s): 844832764 Code(s): E86.9 - VOLUME DEPLETION, UNSPECIFIED Status: Acute Current Visit: Yes - Problem List Review Problem List Initiated/Reviewed/Updated: Yes - Plan Plan:: I/P: Acute: SBO/Ileus -Last BM was 02/15/20 -History of chronic constipation, laparotomy on 02/08/20 and discharged on -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 cancer, ovarian primary -Reported N/V prior to coming to ED; Nausea and emesis returned 02/19/20 -Abdominal X-ray shows distended small bowel -NG tube placed at low intermittent suction on admission --> output 1,703mL in 24 hours -NPO day 4 -Ambulate -Dr Barnhart, general surgeon consulted -> Signed off due to nothing surgical to offer -IV fluids as ordered -Q6hr blood glucose checks -Scheduled Phenergan x3 doses --> resolved nausea -Consider starting TPN, pending discussion with family -Start Octreotide Urinary tract infection--> completed treatment -Reports hematuria on admission --> Recently underwent surgery at [facility] - clinton catheter placed during procedure -Denies any fever, Tmax 98.4 -Pathologic UA + Leukocytosis on admission + elevated CRP --> No sepsis criteria on admission -Urine culture: Whitney sensitive Klebsiella--> completed treatment -Blood cultures negative -Started on Rocephin, completed 5 days Nausea and vomiting, 2/2 SBO -Reports history of significant post-operative nausea and vomiting since surgery -IVF and zofran--> minimal improvement--> TID phenergan resolved symptoms -Scopolamine patch -Monitor electrolytes - good so far -Vomited 02/19/20 S/P laparotomy 2/2 planned colon resection -Performed at [facility] -Daughter reports procedure aborted once she was opened due to significance of neoplasm -Planning chemotherapy in [place] -No signs of infection of surgical site -Continue to monitor Acute kidney injury, stable -Likely 2/2 dehydration from vomiting -BUN 27-->27-->22-->20-->16-->16-->12 -Creatinine 1.3-->1.2-->1.2-->1.2-->1.1-->1.1 -eGFR 39-->43-->43-->43-->48-->48 -IV bolus given in ED -IV fluids as ordered Volume depletion -AARTI as above -Concentrated urine -Anion gap 17.8-->15.4-->14.1-->17.1-->14.4-->13-->11 -IV fluids as indicated Chronic: prior VTE HLD chronic constipation GERD obesity colon Hx/o ovarian cancer S/P oophorectomy in 2006 Plan: Admit to medical floor Routine AM labs Other orders as indicated above Review home medications PT/OT CM/SW for discharge planning Membership Correspondent consult DVT prophylaxis: Home Eliquis Code status: Full Code PCP: Dr. Meng Discharge plan: LOS >96 Hr due to new onset SBO Dr. Louie discussed case with patients [facility] surgeon and patients oncologist in [place]. They suggested medical management and if unable to resolve symptoms, patient would be a very poor surgical candidate. Also suggested patient would not be candidate for chemotherapy. Suggested palliative care if medical management fails. Discussed this with family. Also discussed TPN supplementation. Patient and family will discuss these options and let us know plan.
[2020-02-23] MEDS: traMADol 50 MG Tab PO PRN (21:06)
[2020-02-23] MEDS: Melatonin 3 MG Tab PO PRN (21:06)
[2020-02-24] MEDS: Dextrose 5%-Lactated Ringers 1,000 ML IV SCH (05:16)
[2020-02-24] MEDS: Enoxaparin 120 MG/0.8 ML Syringe SUBCUT SCH ×2 (08:49→20:53)
[2020-02-24] MEDS: Famotidine 20 MG/2 ML SDV IVPUSH SCH (08:49)
[2020-02-24] MEDS ORDERED: Furosemide 40 MG/4 ML VIAL IVPUSH ONE (10:15)
--- NOTE | 2020-02-24 19:37 | PCM.PN ---
- General Info Date of Service: 02/24/20 Admission Dx/Problem (Free Text): Admission Diagnosis/Problem Admission Diagnosis/Problem Urinary tract infection 79 year old female admitted on 02/16/2020 with complaints of abdominal pain after she was hospitalized and had surgery to remove her uterus and colon lesions at [facility] on 02/08/2020 Subjective Update: She slept well through the night She is NPO She has a NG tube placed She is walking with a walker as tolerated x1 assist Discussed that she is allowed to have ice chips Explained octreotide to her since she was refusing because she didn't understand it Discussed getting labs of CMP, Mag, and Phos Functional Status: Reports: Pain Controlled - Review of Systems General: Reports: Weakness HEENT: Reports: No Symptoms, Glasses Pulmonary: Reports: No Symptoms Cardiovascular: Reports: No Symptoms Gastrointestinal: Reports: No Symptoms Genitourinary: Reports: No Symptoms Musculoskeletal: Reports: No Symptoms Skin: Reports: No Symptoms Neurological: Reports: Weakness Psychiatric: Reports: No Symptoms - Patient Data Vitals - Most Recent: Last Vital Signs Temp 97.9 F 02/24/20 15:40 Pulse 97 02/24/20 15:40 Resp 16 02/24/20 15:40 BP 119/93 H 02/24/20 15:40 Pulse Ox 96 02/24/20 16:00 Weight - Most Recent: 112.763 kg I&O - Last 24 Hours: Intake & Output 02/24/20 02/24/20 02/24/20 06:59 14:59 22:59 Intake Total 703 467 Output Total 1050 Balance 703 -583 Lab Results Last 24 Hours: Laboratory Results - last 24 hr 02/23/20 02/24/20 02/24/20 Range/Units 23:22 05:29 10:53 POC Glucose 99 96 105 (83-110) mg/dL Arturo Results Last 24 Hours: Microbiology 02/16/20 15:18 Aerobic Blood Culture - Preliminary Blood - Venous Probable Capnocytophaga Specie Anaerobic Blood Culture - Final NO GROWTH AFTER 7 DAYS 02/16/20 15:35 Aerobic Blood Culture - Final Blood - Venous - Lab Draw NO GROWTH AFTER 7 DAYS Anaerobic Blood Culture - Final NO GROWTH AFTER 7 DAYS Med Orders - Current: Current Medications Acetaminophen (Tylenol) 650 mg PO Q4H PRN PRN Reason: Pain (Mild 1-3)/fever Last Admin: 02/18/20 05:07 Dose: 650 mg Benzocaine (Hurricaine 20% [place]) 0 ml MUCMEM Q2H PRN PRN Reason: Sore Throat Last Admin: 02/21/20 15:19 Dose: 1 spray Benzocaine/Menthol (Cepacol Sore Throat) 1 lozenge MUCMEM Q2HR PRN PRN Reason: Sore Throat Dextrose/Water (Dextrose 50% In Water) 50 ml IVPUSH ASDIRECTED PRN PRN Reason: Hypoglycemia Enoxaparin Sodium (Lovenox) 110 mg SUBCUT Q12H [facility] Last Admin: 02/24/20 08:49 Dose: 110 mg Dextrose/Lactated Ringer's (Dextrose 5%-Lactated Ringers) 1,000 mls @ 50 mls/ hr IV ASDIRECTED [facility] Last Admin: 02/24/20 05:16 Dose: 50 mls/hr Magnesium Hydroxide (Milk Of Magnesia) 30 ml PO BID PRN PRN Reason: Constipation Last Admin: 02/19/20 05:17 Dose: 30 ml Melatonin (Melatonin) 6 mg PO BEDTIME PRN PRN Reason: Sleep Last Admin: 02/23/20 21:06 Dose: 6 mg Miscellaneous Information (Remove Patch) 1 ea TRDERM Q72H [facility] Last Admin: 02/22/20 20:56 Dose: Not Given Octreotide Acetate (Octreotide) 100 mcg SUBCUT TID [facility] Last Admin: 02/24/20 15:46 Dose: 100 mcg Ondansetron HCl (Zofran) 4 mg IV Q6H PRN PRN Reason: Nausea/Vomiting Last Admin: 02/19/20 23:02 Dose: 4 mg Scopolamine (Transderm-Scop) 1.5 mg TRDERM Q72H [facility] Last Admin: 02/22/20 20:58 Dose: 1.5 mg Senna/Docusate Sodium (Senna Plus) 1 tab PO BID [facility] Last Admin: 02/24/20 08:49 Dose: 1 tab Simethicone (Simethicone) 80 mg PO QID PRN PRN Reason: bloating Last Admin: 02/21/20 20:54 Dose: 80 mg Sodium Chloride (Saline Flush) 10 ml FLUSH ASDIRECTED PRN PRN Reason: Keep Vein Open Last Admin: 02/16/20 12:18 Dose: 10 ml Tramadol HCl (Ultram) 50 mg PO Q6H PRN PRN Reason: Pain Last Admin: 02/23/20 21:06 Dose: 50 mg Discontinued Medications Al Hydroxide/Mg Hydroxide (Mag-Al Plus) 30 ml PO ONETIME ONE Stop: 02/16/20 13:42 Last Admin: 02/16/20 13:47 Dose: 30 ml Apixaban (Eliquis) 5 mg PO BID [facility] Last Admin: 02/19/20 08:45 Dose: 5 mg Bisacodyl (Dulcolax) 10 mg RECTAL ONETIME ONE Stop: 02/22/20 11:55 Last Admin: 02/22/20 16:35 Dose: Not Given Bisacodyl (Dulcolax) 10 mg RECTAL ONETIME ONE Stop: 02/23/20 08:18 Last Admin: 02/23/20 09:58 Dose: 10 mg Calcium Polycarbophil (Fibercon) 1,250 mg PO DAILY [facility] Last Admin: 02/20/20 11:01 Dose: Not Given Cefdinir (Omnicef) 300 mg PO BID [facility] Last Admin: 02/19/20 08:45 Dose: 300 mg Famotidine (Pepcid) 20 mg IVPUSH ONETIME ONE Stop: 02/16/20 14:33 Last Admin: 02/16/20 14:38 Dose: 20 mg Famotidine (Pepcid) 20 mg PO DAILY [facility] Last Admin: 02/18/20 08:14 Dose: 20 mg Famotidine (Pepcid) 20 mg PO BID [facility] Last Admin: 02/19/20 08:45 Dose: 20 mg Famotidine (Pepcid) 20 mg IVPUSH DAILY [facility] Famotidine (Pepcid) 20 mg IVPUSH DAILY [facility] Last Admin: 02/24/20 08:49 Dose: 20 mg Furosemide (Lasix) 20 mg IVPUSH NOW ONE Stop: 02/23/20 08:03 Last Admin: 02/23/20 08:34 Dose: 10 mg Furosemide (Lasix) 40 mg IVPUSH NOW ONE Stop: 02/24/20 10:16 Last Admin: 02/24/20 10:38 Dose: 40 mg Sodium Chloride (Normal Saline) 1,000 mls @ 999 mls/hr IV ASDIRECTED [facility] Last Admin: 02/16/20 12:18 Dose: 150 mls/hr Ceftriaxone Sodium 1 gm/ (Sodium Chloride) 100 mls @ 200 mls/hr IV Q24H [facility] Last Admin: 02/17/20 14:58 Dose: 200 mls/hr Sodium Chloride (Normal Saline) 1,000 mls @ 75 mls/hr IV ASDIRECTED [facility] Stop: 02/17/20 05:49 Last Admin: 02/16/20 16:47 Dose: 75 mls/hr Promethazine HCl 25 mg/ Sodium (Chloride) 51 mls @ 100 mls/hr IV ONETIME ONE Stop: 02/16/20 18:09 Last Admin: 02/16/20 18:32 Dose: 100 mls/hr Promethazine HCl 25 mg/ Sodium (Chloride) 51 mls @ 100 mls/hr IV Q6H PRN PRN Reason: Nausea/Vomiting Sodium Chloride (Normal Saline) 1,000 mls @ 100 mls/hr IV ASDIRECTED [facility] Stop: 02/18/20 17:29 Last Admin: 02/17/20 17:44 Dose: 100 mls/hr Dextrose/Lactated Ringer's (Dextrose 5%-Lactated Ringers) 1,000 mls @ 150 mls/ hr IV ASDIRECTED [facility] Last Admin: 02/21/20 07:30 Dose: 150 mls/hr Ceftriaxone Sodium 1 gm/ (Sodium Chloride) 100 mls @ 200 mls/hr IV Q24H [facility] Last Admin: 02/20/20 11:40 Dose: 200 mls/hr Lactated Ringer's (Ringers, Lactated) 1,000 mls @ 150 mls/hr IV ASDIRECTED [facility] Last Admin: 02/21/20 17:32 Dose: 150 mls/hr Dextrose/Lactated Ringer's (Dextrose 5%-Lactated Ringers) 1,000 mls @ 150 mls/ hr IV ASDIRECTED [facility] Last Admin: 02/22/20 20:52 Dose: 150 mls/hr Metoclopramide HCl (Reglan) 10 mg IVPUSH Q6H [facility] Stop: 02/22/20 21:16 Last Admin: 02/22/20 12:12 Dose: Not Given Metoclopramide HCl (Reglan) 10 mg IVPUSH Q6H [facility] Stop: 02/22/20 23:01 Last Admin: 02/22/20 23:15 Dose: 10 mg Multivitamins (Thera) 1 each PO DAILY [facility] Last Admin: 02/19/20 08:46 Dose: Not Given Ondansetron HCl (Zofran) 4 mg IVPUSH ONETIME ONE Stop: 02/16/20 12:09 Last Admin: 02/16/20 12:18 Dose: 4 mg Ondansetron HCl (Zofran) 4 mg IVPUSH ONETIME ONE Stop: 02/16/20 14:31 Last Admin: 02/16/20 14:38 Dose: 4 mg Ondansetron HCl (Zofran Odt) 4 mg PO Q12H [facility] Last Admin: 02/19/20 00:47 Dose: 4 mg Senna/Docusate Sodium (Senna Plus) 1 tab PO BID PRN PRN Reason: Constipation Last Admin: 02/18/20 05:07 Dose: 1 tab - Exam General: Alert, Oriented HEENT: Pupils Equal, Pupils Reactive, EOMI, Mucous Membr. Moist/[place] Neck: Supple Lungs: Clear to Auscultation, Normal Respiratory Effort Cardiovascular: Regular Rate, Regular Rhythm GI/Abdominal Exam: Soft, Non-Tender, No Organomegaly, No Distention, No Abnormal Bruit, No Mass, Pelvis Stable, Abnormal Bowel Sounds (no bowel sounds) (Female) Exam: Normal External Exam, Normal Speculum Exam, Normal Bimanual Exam Back Exam: Normal Inspection, Full Range of Motion Extremities: Normal Inspection, Normal Range of Motion, Non-Tender, No Pedal Edema, Normal Capillary Refill Skin: Warm, Dry, Intact Wound/Incisions: Healing Well Neurological: No New Focal Deficit Psy/Mental Status: Alert, Normal Affect, Normal Mood Sepsis Event Note - Evaluation Sepsis Screening Result: No Definite Risk - Focused Exam Vital Signs: Vital Signs Temp Temp Pulse Pulse Resp BP BP 02/24/20 16:00 02/24/20 15:40 97.9 F 97 16 119/93 H 02/24/20 13:23 98.2 F 93 16 108/62 02/24/20 12:00 97 F 87 16 117/48 L 02/24/20 07:09 97.0 F 84 16 126/60 Pulse Ox Pulse Ox 02/24/20 16:00 96 96 02/24/20 15:40 96 02/24/20 13:23 90 L 02/24/20 12:00 92 L 02/24/20 07:09 95 Date Exam was Performed: 02/24/20 Time Exam was Performed: 19:32 - Problem List & Annotations (1) Ovarian cancer SNOMED Code(s): 090944505 Code(s): C56.9 - MALIGNANT NEOPLASM OF UNSPECIFIED OVARY Status: Acute Priority: High Current Visit: Yes Onset Date: 02/21/20 Qualifiers: Laterality: unspecified laterality Qualified Code(s): C56.9 - Malignant neoplasm of unspecified ovary (2) S/P laparotomy SNOMED Code(s): 783415423, 291578311, 298590054 Code(s): Z98.890 - OTHER SPECIFIED POSTPROCEDURAL STATES Status: Acute Priority: Medium Current Visit: Yes Onset Date: 02/21/20 Annotation/ Comment:: ileus not resolving and will start octreotide and cont reglan today (3) Small bowel obstruction SNOMED Code(s): 814345911 Code(s): K56.609 - UNSP INTESTNL OBST, UNSP TO PARTIAL VERSUS COMPLETE OBST Status: Acute Priority: High Current Visit: Yes Onset Date: Annotation/Comment:: discussed with herself and family and minimal abd pain and cont cons. treatment add octreotide.n.g and iv both decreased / i/os neg 1000 (4) Urinary tract infection SNOMED Code(s): 10013209 Code(s): N39.0 - URINARY TRACT INFECTION, SITE NOT SPECIFIED Status: Acute Priority: Low Current Visit: Yes Onset Date: 02/21/20 Qualifiers: Urinary tract infection type: site unspecified Hematuria presence: with hematuria Qualified Code(s): N39.0 - Urinary tract infection, site not specified; R31.9 - Hematuria, unspecified Annotation/Comment:: klebsiella on day 3 treatment - Problem List Review Problem List Initiated/Reviewed/Updated: Yes - My Orders Last 24 Hours: My Active Orders 02/25/20 05:00 CMP [COMPREHENSIVE METABOLIC PN,CMP] [CHEM] Routine MAGNESIUM [CHEM] Routine PHOSPHORUS [CHEM] Routine - Assessment Assessment:: 02/24/2020 She slept well through the night She is NPO She has a NG tube placed She is walking with a walker as tolerated x1 assist Discussed that she is allowed to have ice chips Explained octreotide to her since she was refusing because she didn't understand it Discussed getting labs of CMP, Mag, and Phos - Plan Plan:: 02/24/2020 She slept well through the night She is NPO She has a NG tube placed She is walking with a walker as tolerated x1 assist Discussed that she is allowed to have ice chips Explained octreotide to her since she was refusing because she didn't understand it Discussed getting labs of CMP, Mag, and Phos
[2020-02-24] MEDS: Melatonin 3 MG Tab PO PRN (20:56)
[2020-02-24] MEDS: traMADol 50 MG Tab PO PRN (20:56)
[2020-02-25] MEDS: Dextrose 5%-Lactated Ringers 1,000 ML IV SCH (02:56)
[2020-02-25] MEDS: Enoxaparin 120 MG/0.8 ML Syringe SUBCUT SCH ×2 (09:03→20:28)
--- NOTE | 2020-02-25 13:27 | PCM.PN ---
- General Info Date of Service: 02/25/20 Admission Dx/Problem (Free Text): Admission Diagnosis/Problem Admission Diagnosis/Problem Urinary tract infection 79 year old female admitted on 02/16/2020 with complaints of abdominal pain after she was hospitalized and had surgery to remove her uterus and colon lesions at [facility] on 02/08/2020 Subjective Update: 02/25/20 afebrile vss ng output 250 cc last 12 hours. no abd pain unless moving and achey .passing little gas . no b.m p.e. unchanged and no tenderness and clear greenish fluid in n.g. tube . lab mild elavation of lfts with stable creatinine. cbc unchanged. kub persistant ileus partially resolved. no air fluid levels . minimal tenderness or none. assess: 1) ileus continues but slow improvement over 6 days of n.g suction. will clamp tube every 2 hours and see if she tolerates. on octratide and reglan and tolerating well. 2)ovarian cancer widely metastatic and patient desires to go home . home suction devices being sought by family . 3) npo x 6 days and will need to consider tpn for chronic nutrition needs and she is discussing that with family . would need a waqar cath placed and she is not sure she wants to do that or tpn. supportive care and hospice brought up as options as well .]\chemo therapy options discussed over phone with oncology and they do not think she can tolerate but would see her back to discuss in further detail . no plans for chemo emergantly as she has incision to heal up . functionally doing well and incision looks good / abd pain minmal and walking and control of bowels and bladder good. no signs infection or cardiac issues but she is obese. boh Functional Status: Reports: Pain Controlled - Review of Systems General: Reports: No Symptoms HEENT: Reports: No Symptoms Pulmonary: Reports: No Symptoms Cardiovascular: Reports: No Symptoms Gastrointestinal: Reports: No Symptoms, Abdominal Pain, Decreased Appetite, Nausea, Vomiting Genitourinary: Reports: No Symptoms Musculoskeletal: Reports: No Symptoms Skin: Reports: No Symptoms Neurological: Reports: No Symptoms Psychiatric: Reports: No Symptoms - Patient Data Vitals - Most Recent: Last Vital Signs Temp 36.8 C 02/25/20 12:04 Pulse 74 02/25/20 12:04 Resp 18 02/25/20 12:04 BP 97/66 02/25/20 12:04 Pulse Ox 95 02/25/20 12:04 Weight - Most Recent: 111.402 kg I&O - Last 24 Hours: Intake & Output 02/24/20 02/25/20 02/25/20 22:59 06:59 14:59 Intake Total 467 658 Output Total 1050 650 Balance -583 8 Lab Results Last 24 Hours: Laboratory Results - last 24 hr 02/24/20 02/24/20 02/25/20 Range/Units 18:37 23:40 05:07 Sodium 146 H (136-145) mEq/L Potassium 3.8 (3.5-5.1) mEq/L Chloride 108 H (98-107) mEq/L Carbon Dioxide 28 (21-32) mEq/L Anion Gap 13.8 (5-15) BUN 11 (7-18) mg/dL Creatinine 1.2 H (0.55-1.02) mg/dL Est Cr Clr Drug Dosing 33.65 mL/min Estimated GFR (MDRD) 43 (>60) mL/min BUN/Creatinine Ratio 9.2 L (14-18) Glucose 126 H (83-115) mg/dL POC Glucose 127 H 146 H (83-110) mg/dL Calcium 8.3 L (8.5-10.1) mg/dL Phosphorus 3.8 (2.6-4.7) mg/dL Magnesium 1.9 (1.8-2.4) mg/dl Total Bilirubin 0.4 (0.2-1.0) mg/dL AST 47 H (15-37) U/L ALT 65 H (14-59) U/L Alkaline Phosphatase 97 (46-116) U/L Total Protein 6.2 L (6.4-8.2) g/dl Albumin 2.3 L (3.4-5.0) g/dl Globulin 3.9 gm/dL Albumin/Globulin Ratio 0.6 L (1-2) 02/25/20 02/25/20 Range/Units 06:38 12:36 Sodium (136-145) mEq/L Potassium (3.5-5.1) mEq/L Chloride (98-107) mEq/L Carbon Dioxide (21-32) mEq/L Anion Gap (5-15) BUN (7-18) mg/dL Creatinine (0.55-1.02) mg/dL Est Cr Clr Drug Dosing mL/min Estimated GFR (MDRD) (>60) mL/min BUN/Creatinine Ratio (14-18) Glucose (83-115) mg/dL POC Glucose 129 H 132 H (83-110) mg/dL Calcium (8.5-10.1) mg/dL Phosphorus (2.6-4.7) mg/dL Magnesium (1.8-2.4) mg/dl Total Bilirubin (0.2-1.0) mg/dL AST (15-37) U/L ALT (14-59) U/L Alkaline Phosphatase (46-116) U/L Total Protein (6.4-8.2) g/dl Albumin (3.4-5.0) g/dl Globulin gm/dL Albumin/Globulin Ratio (1-2) Med Orders - Current: Current Medications Acetaminophen (Tylenol) 650 mg PO Q4H PRN PRN Reason: Pain (Mild 1-3)/fever Last Admin: 02/18/20 05:07 Dose: 650 mg Benzocaine (Hurricaine 20% [place]) 0 ml MUCMEM Q2H PRN PRN Reason: Sore Throat Last Admin: 02/21/20 15:19 Dose: 1 spray Benzocaine/Menthol (Cepacol Sore Throat) 1 lozenge MUCMEM Q2HR PRN PRN Reason: Sore Throat Dextrose/Water (Dextrose 50% In Water) 50 ml IVPUSH ASDIRECTED PRN PRN Reason: Hypoglycemia Enoxaparin Sodium (Lovenox) 110 mg SUBCUT Q12H [facility] Last Admin: 02/25/20 09:03 Dose: 110 mg Dextrose/Lactated Ringer's (Dextrose 5%-Lactated Ringers) 1,000 mls @ 50 mls/ hr IV ASDIRECTED [facility] Last Admin: 02/25/20 02:56 Dose: 50 mls/hr Magnesium Hydroxide (Milk Of Magnesia) 30 ml PO BID PRN PRN Reason: Constipation Last Admin: 02/19/20 05:17 Dose: 30 ml Melatonin (Melatonin) 6 mg PO BEDTIME PRN PRN Reason: Sleep Last Admin: 02/24/20 20:56 Dose: 6 mg Miscellaneous Information (Remove Patch) 1 ea TRDERM Q72H [facility] Last Admin: 02/22/20 20:56 Dose: Not Given Octreotide Acetate (Octreotide) 100 mcg SUBCUT TID [facility] Last Admin: 02/25/20 09:02 Dose: 100 mcg Ondansetron HCl (Zofran) 4 mg IV Q6H PRN PRN Reason: Nausea/Vomiting Last Admin: 02/19/20 23:02 Dose: 4 mg Scopolamine (Transderm-Scop) 1.5 mg TRDERM Q72H [facility] Last Admin: 02/22/20 20:58 Dose: 1.5 mg Senna/Docusate Sodium (Senna Plus) 1 tab PO BID [facility] Last Admin: 02/25/20 09:02 Dose: 1 tab Simethicone (Simethicone) 80 mg PO QID PRN PRN Reason: bloating Last Admin: 02/21/20 20:54 Dose: 80 mg Sodium Chloride (Saline Flush) 10 ml FLUSH ASDIRECTED PRN PRN Reason: Keep Vein Open Last Admin: 02/16/20 12:18 Dose: 10 ml Tramadol HCl (Ultram) 50 mg PO Q6H PRN PRN Reason: Pain Last Admin: 02/24/20 20:56 Dose: 50 mg Discontinued Medications Al Hydroxide/Mg Hydroxide (Mag-Al Plus) 30 ml PO ONETIME ONE Stop: 02/16/20 13:42 Last Admin: 02/16/20 13:47 Dose: 30 ml Apixaban (Eliquis) 5 mg PO BID [facility] Last Admin: 02/19/20 08:45 Dose: 5 mg Bisacodyl (Dulcolax) 10 mg RECTAL ONETIME ONE Stop: 02/22/20 11:55 Last Admin: 02/22/20 16:35 Dose: Not Given Bisacodyl (Dulcolax) 10 mg RECTAL ONETIME ONE Stop: 02/23/20 08:18 Last Admin: 02/23/20 09:58 Dose: 10 mg Calcium Polycarbophil (Fibercon) 1,250 mg PO DAILY [facility] Last Admin: 02/20/20 11:01 Dose: Not Given Cefdinir (Omnicef) 300 mg PO BID [facility] Last Admin: 02/19/20 08:45 Dose: 300 mg Famotidine (Pepcid) 20 mg IVPUSH ONETIME ONE Stop: 02/16/20 14:33 Last Admin: 02/16/20 14:38 Dose: 20 mg Famotidine (Pepcid) 20 mg PO DAILY [facility] Last Admin: 02/18/20 08:14 Dose: 20 mg Famotidine (Pepcid) 20 mg PO BID [facility] Last Admin: 02/19/20 08:45 Dose: 20 mg Famotidine (Pepcid) 20 mg IVPUSH DAILY [facility] Famotidine (Pepcid) 20 mg IVPUSH DAILY [facility] Last Admin: 02/24/20 08:49 Dose: 20 mg Furosemide (Lasix) 20 mg IVPUSH NOW ONE Stop: 02/23/20 08:03 Last Admin: 02/23/20 08:34 Dose: 10 mg Furosemide (Lasix) 40 mg IVPUSH NOW ONE Stop: 02/24/20 10:16 Last Admin: 02/24/20 10:38 Dose: 40 mg Sodium Chloride (Normal Saline) 1,000 mls @ 999 [facility] Last Admin: 02/16/20 12:18 Dose: 150 mls/hr Ceftriaxone Sodium 1 gm/ (Sodium Chloride) 100 mls @ 200 mls/hr IV Q24H [facility] Last Admin: 02/17/20 14:58 Dose: 200 mls/hr Sodium Chloride (Normal Saline) 1,000 mls @ 75 mls/hr IV ASDIRECTED [facility] Stop: 02/17/20 05:49 Last Admin: 02/16/20 16:47 Dose: 75 mls/hr Promethazine HCl 25 mg/ Sodium (Chloride) 51 mls @ 100 mls/hr IV ONETIME ONE Stop: 02/16/20 18:09 Last Admin: 02/16/20 18:32 Dose: 100 mls/hr Promethazine HCl 25 mg/ Sodium (Chloride) 51 mls @ 100 mls/hr IV Q6H PRN PRN Reason: Nausea/Vomiting Sodium Chloride (Normal Saline) 1,000 mls @ 100 mls/hr IV ASDIRECTED [facility] Stop: 02/18/20 17:29 Last Admin: 02/17/20 17:44 Dose: 100 mls/hr Dextrose/Lactated Ringer's (Dextrose 5%-Lactated Ringers) 1,000 mls @ 150 mls/ hr IV ASDIRECTED [facility] Last Admin: 02/21/20 07:30 Dose: 150 mls/hr Ceftriaxone Sodium 1 gm/ (Sodium Chloride) 100 mls @ 200 mls/hr IV Q24H [facility] Last Admin: 02/20/20 11:40 Dose: 200 mls/hr Lactated Ringer's (Ringers, Lactated) 1,000 mls @ 150 mls/hr IV ASDIRECTED [facility] Last Admin: 02/21/20 17:32 Dose: 150 mls/hr Dextrose/Lactated Ringer's (Dextrose 5%-Lactated Ringers) 1,000 mls @ 150 mls/ hr IV ASDIRECTED [facility] Last Admin: 02/22/20 20:52 Dose: 150 mls/hr Metoclopramide HCl (Reglan) 10 mg IVPUSH Q6H [facility] Stop: 02/22/20 21:16 Last Admin: 02/22/20 12:12 Dose: Not Given Metoclopramide HCl (Reglan) 10 mg IVPUSH Q6H [facility] Stop: 02/22/20 23:01 Last Admin: 02/22/20 23:15 Dose: 10 mg Multivitamins (Thera) 1 each PO DAILY [facility] Last Admin: 02/19/20 08:46 Dose: Not Given Ondansetron HCl (Zofran) 4 mg IVPUSH ONETIME ONE Stop: 02/16/20 12:09 Last Admin: 02/16/20 12:18 Dose: 4 mg Ondansetron HCl (Zofran) 4 mg IVPUSH ONETIME ONE Stop: 02/16/20 14:31 Last Admin: 02/16/20 14:38 Dose: 4 mg Ondansetron HCl (Zofran Odt) 4 mg PO Q12H [facility] Last Admin: 02/19/20 00:47 Dose: 4 mg Senna/Docusate Sodium (Senna Plus) 1 tab PO BID PRN PRN Reason: Constipation Last Admin: 02/18/20 05:07 Dose: 1 tab - Exam General: Alert, Oriented HEENT: Pupils Equal, Pupils Reactive, EOMI, Mucous Membr. Moist/[place] Neck: Supple Lungs: Clear to Auscultation, Normal Respiratory Effort Cardiovascular: Regular Rate, Regular Rhythm GI/Abdominal Exam: Normal Bowel Sounds, Soft, Non-Tender, No Organomegaly, No Distention, No Abnormal Bruit, No Mass, Pelvis Stable (Female) Exam: Normal External Exam, Normal Speculum Exam, Normal Bimanual Exam Back Exam: Normal Inspection, Full Range of Motion Extremities: Normal Inspection, Normal Range of Motion, Non-Tender, No Pedal Edema, Normal Capillary Refill Skin: Warm, Dry, Intact Wound/Incisions: Healing Well Neurological: No New Focal Deficit Psy/Mental Status: Alert, Normal Affect, Normal Mood Sepsis Event Note - Evaluation Sepsis Screening Result: No Definite Risk - Focused Exam Vital Signs: Vital Signs Temp Pulse Resp BP Pulse Ox 02/25/20 12:04 36.8 C 74 18 97/66 95 02/25/20 07:58 37.0 C 79 18 121/80 90 L 02/25/20 05:02 37.0 C 78 18 110/68 91 L Date Exam was Performed: 02/25/20 Time Exam was Performed: 13:14 - Problem List & Annotations (1) Ovarian cancer SNOMED Code(s): 718425249 Code(s): C56.9 - MALIGNANT NEOPLASM OF UNSPECIFIED OVARY Status: Acute Priority: High Current Visit: Yes Onset Date: 02/21/20 Qualifiers: Laterality: unspecified laterality Qualified Code(s): C56.9 - Malignant neoplasm of unspecified ovary (2) S/P laparotomy SNOMED Code(s): 135796679, 238765594, 607826393 Code(s): Z98.890 - OTHER SPECIFIED POSTPROCEDURAL STATES Status: Acute Priority: Medium Current Visit: Yes Onset Date: 02/21/20 Annotation/ Comment:: ileus not resolving and will start octreotide and cont reglan today . 02/25/20 doing well tolerating meds but little improvemtn other than n.g output less. (3) Small bowel obstruction SNOMED Code(s): 608879056 Code(s): K56.609 - UNSP INTESTNL OBST, UNSP TO PARTIAL VERSUS COMPLETE OBST Status: Acute Priority: High Current Visit: Yes Onset Date: Annotation/Comment:: discussed with herself and family and minimal abd pain and cont cons. treatment add octreotide.n.g and iv both decreased / i/os neg 1000 (4) Urinary tract infection SNOMED Code(s): 94433871 Code(s): N39.0 - URINARY TRACT INFECTION, SITE NOT SPECIFIED Status: Acute Priority: Low Current Visit: Yes Onset Date: 02/21/20 Qualifiers: Urinary tract infection type: site unspecified Hematuria presence: with hematuria Qualified Code(s): N39.0 - Urinary tract infection, site not specified; R31.9 - Hematuria, unspecified Annotation/Comment:: klebsiella on day 3 treatment. 02/25/20 day 4 and no symptoms .no catheter - Problem List Review Problem List Initiated/Reviewed/Updated: Yes - My Orders Last 24 Hours: My Active Orders 02/25/20 12:55 Communication Order [RC] ASDIRECTED - Assessment Assessment:: 02/24/2020 She slept well through the night She is NPO She has a NG tube placed She is walking with a walker as tolerated x1 assist Discussed that she is allowed to have ice chips Explained octreotide to her since she was refusing because she didn't understand it Discussed getting labs of CMP, Mag, and Phos02/25/20 afebrile vss ng output 250 cc last 12 hours. no abd pain unless moving and achey .passing little gas . no b.m p.e. unchanged and no tenderness and clear greenish fluid in n.g. tube . lab mild elavation of lfts with stable creatinine. cbc unchanged. kub persistant ileus partially resolved. no air fluid levels . minimal tenderness or none. assess: 1) ileus continues but slow improvement over 6 days of n.g suction. will clamp tube every 2 hours and see if she tolerates. on octratide and reglan and tolerating well. 2)ovarian cancer widely metastatic and patient desires to go home . home suction devices being sought by family . 3) npo x 6 days and will need to consider tpn for chronic nutrition needs and she is discussing that with family . would need a waqar cath placed and she is not sure she wants to do that or tpn. supportive care and hospice brought up as options as well .]\chemo therapy options discussed over phone with oncology and they do not think she can tolerate but would see her back to discuss in further detail . no plans for chemo emergantly as she has incision to heal up . functionally doing well and incision looks good / abd pain minmal and walking and control of bowels and bladder good. no signs infection or cardiac issues but she is obese. boh - Plan Plan:: 02/24/2020 She slept well through the night She is NPO She has a NG tube placed She is walking with a walker as tolerated x1 assist Discussed that she is allowed to have ice chips Explained octreotide to her since she was refusing because she didn't understand it Discussed getting labs of CMP, Mag, and Phos02/25/20 afebrile vss ng output 250 cc last 12 hours. no abd pain unless moving and achey .passing little gas . no b.m p.e. unchanged and no tenderness and clear greenish fluid in n.g. tube . lab mild elavation of lfts with stable creatinine. cbc unchanged. kub persistant ileus partially resolved. no air fluid levels . minimal tenderness or none. assess: 1) ileus continues but slow improvement over 6 days of n.g suction. will clamp tube every 2 hours and see if she tolerates. on octratide and reglan and tolerating well. 2)ovarian cancer widely metastatic and patient desires to go home . home suction devices being sought by family . 3) npo x 6 days and will need to consider tpn for chronic nutrition needs and she is discussing that with family . would need a waqar cath placed and she is not sure she wants to do that or tpn. supportive care and hospice brought up as options as well .]\chemo therapy options discussed over phone with oncology and they do not think she can tolerate but would see her back to discuss in further detail . no plans for chemo emergantly as she has incision to heal up . functionally doing well and incision looks good / abd pain minmal and walking and control of bowels and bladder good. no signs infection or cardiac issues but she is obese. boh
[2020-02-25] MEDS ORDERED: Dextrose 5%-0.45% NaCl 1,000 ML IV SCH (19:45)
[2020-02-25] MEDS ORDERED: Potassium Chloride 100 ML IV SCH (20:15)
[2020-02-25] MEDS: Scopolamine 1.5 MG Transdermal Patch TRDERM SCH (20:27)
[2020-02-25] MEDS: Melatonin 3 MG Tab PO PRN (20:38)
[2020-02-25] MEDS: traMADol 50 MG Tab PO PRN (20:38)
[2020-02-25] MEDS ORDERED: POTASSIUM CHLORIDE IV SCH ×6 (23:02→23:30)
[2020-02-25] MEDS ORDERED: DEXTROSE 10% IV SCH ×6 (23:02→23:30)
[2020-02-25] MEDS ORDERED: SODIUM CHLORIDE IV SCH ×6 (23:02→23:30)
[2020-02-25] MEDS ORDERED: [UNRECOGNIZED DRUG - OTHER] IV SCH ×6 (23:02→23:30)
[2020-02-25] MEDS: REMOVE SCOPOLAMINE TRDERM SCH (23:44)
[2020-02-25] MEDS: [UNRECOGNIZED DRUG - OTHER] IV SCH ×3 (23:44)
[2020-02-25] MEDS: DEXTROSE 10% IV SCH ×3 (23:44)
[2020-02-25] MEDS: POTASSIUM CHLORIDE IV SCH ×3 (23:44)
[2020-02-25] MEDS: SODIUM CHLORIDE IV SCH ×3 (23:44)
[2020-02-26] MEDS: Enoxaparin 120 MG/0.8 ML Syringe SUBCUT SCH ×2 (08:24→20:47)
[2020-02-26] MEDS: SODIUM CHLORIDE IV SCH ×3 (10:27)
[2020-02-26] MEDS: POTASSIUM CHLORIDE IV SCH ×3 (10:27)
[2020-02-26] MEDS: [UNRECOGNIZED DRUG - OTHER] IV SCH ×3 (10:27)
[2020-02-26] MEDS: DEXTROSE 10% IV SCH ×3 (10:27)
[2020-02-26] MEDS ORDERED: Insulin Glarg,Human.Rec.Analog 100 Unit/ML SUBCUT SCH (11:00)
[2020-02-26] MEDS: Ondansetron 4 MG/2 ML SDV IV PRN (12:10)
--- NOTE | 2020-02-26 13:57 | PCM.PN ---
- General Info Date of Service: 02/26/20 Admission Dx/Problem (Free Text): Admission Diagnosis/Problem Admission Diagnosis/Problem Urinary tract infection 79 year old female admitted on 02/16/2020 with complaints of abdominal pain after she was hospitalized and had surgery to remove her uterus and colon lesions at [facility] on 02/08/2020 Subjective Update: 02/25/20 afebrile vss ng output 250 cc last 12 hours. no abd pain unless moving and achey .passing little gas . no b.m p.e. unchanged and no tenderness and clear greenish fluid in n.g. tube . lab mild elavation of lfts with stable creatinine. cbc unchanged. kub persistant ileus partially resolved. no air fluid levels . minimal tenderness or none. assess: 1) ileus continues but slow improvement over 6 days of n.g suction. will clamp tube every 2 hours and see if she tolerates. on octreotide and reglan and tolerating well. 2)ovarian cancer widely metastatic and patient desires to go home . home suction devices being sought by family . 3) npo x 6 days and will need to consider tpn for chronic nutrition needs and she is discussing that with family . would need a waqar cath placed and she is not sure she wants to do that or tpn. supportive care and hospice brought up as options as well .]\chemo therapy options discussed over phone with oncology and they do not think she can tolerate but would see her back to discuss in further detail . no plans for chemo emergantly as she has incision to heal up . functionally doing well and incision looks good / abd pain minmal and walking and control of bowels and bladder good. no signs infection or cardiac issues but she is obese. boh 02/26/20 afebrile vss/ vomiting this am with grossly greenish chochlate colored emisis. suction turned back on and immediately felt better. on octreotide and reglan p.o . n.g output 550 before emesis/ i/os balanced . b.s elavated 160. p.e. unchanged other than low b.s heard . no tenderness . ambulating well and will try to maximize reglan and trial of rectal tube discussed . she agrees . taking tramadol p.o and known to slow gastric empting, but sbo obstruction considered main problem. pain control good and will try to decrease dose further lab positive aenerobic bact. 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 suspected pathologic mouth organism and rarely a contaminant. kleibsiella in urine treated with rocephin x one dose on 02/18 . surgical consult recommends pic line instead of central line at this time. oncology o.p. follow up with detailed discussion about chemo options pending resolution of ileus . discussed with family and options for home n.g . suctioning intermittantly not known , but consulting home health and family willing in order to get her home. boh Functional Status: Reports: Pain Controlled - Review of Systems General: Reports: No Symptoms HEENT: Reports: No Symptoms Pulmonary: Reports: No Symptoms Cardiovascular: Reports: No Symptoms Gastrointestinal: Reports: No Symptoms, Abdominal Pain, Constipation, Vomiting, Other (obstruction) Genitourinary: Reports: No Symptoms Musculoskeletal: Reports: No Symptoms Skin: Reports: No Symptoms Neurological: Reports: No Symptoms Psychiatric: Reports: No Symptoms - Patient Data Vitals - Most Recent: Last Vital Signs Temp 36.4 C 02/26/20 12:16 Pulse 84 02/26/20 12:16 Resp 16 02/26/20 12:16 BP 135/71 02/26/20 12:16 Pulse Ox 96 02/26/20 12:16 Weight - Most Recent: 112.037 kg I&O - Last 24 Hours: Intake & Output 02/25/20 02/26/20 02/26/20 22:59 06:59 14:59 Intake Total 568 940 Output Total 320 450 Balance 248 490 Lab Results Last 24 Hours: Laboratory Results - last 24 hr 02/25/20 02/25/20 02/26/20 Range/Units 18:03 23:54 05:50 WBC 9.43 (3.98-10.04) K/mm3 RBC 3.95 L (3.98-5.22) M/mm3 Hgb 11.7 (11.2-15.7) gm/dl Hct 38.6 (34.1-44.9) % MCV 97.7 H (79.4-94.8) fl MCH 29.6 (25.6-32.2) pg MCHC 30.3 L (32.2-35.5) g/dl RDW Std Deviation 47.0 H (36.4-46.3) fL Plt Count 419 H (182-369) K/mm3 MPV 10.7 (9.4-12.3) fl Neut % (Auto) 56.7 (34.0-71.1) % Lymph % (Auto) 24.0 (19.3-51.7) % [place] % (Auto) 14.8 H (4.7-12.5) % Eos % (Auto) 3.8 (0.7-5.8) Baso % (Auto) 0.4 (0.1-1.2) % Neut # (Auto) 5.34 (1.56-6.13) K/mm3 Lymph # (Auto) 2.26 (1.18-3.74) K/mm3 [place] # (Auto) 1.40 H (0.24-0.36) K/mm3 Eos # (Auto) 0.36 (0.04-0.36) K/mm3 Baso # (Auto) 0.04 (0.01-0.08) K/mm3 Sodium (136-145) mEq/L Potassium (3.5-5.1) mEq/L Chloride (98-107) mEq/L Carbon Dioxide (21-32) mEq/L Anion Gap (5-15) BUN (7-18) mg/dL Creatinine (0.55-1.02) mg/dL Est Cr Clr Drug Dosing mL/min Estimated GFR (MDRD) (>60) mL/min BUN/Creatinine Ratio (14-18) Glucose (83-115) mg/dL POC Glucose 131 H 127 H (83-110) mg/dL Calcium (8.5-10.1) mg/dL Phosphorus (2.6-4.7) mg/dL Magnesium (1.8-2.4) mg/dl Total Bilirubin (0.2-1.0) mg/dL AST (15-37) U/L ALT (14-59) U/L Alkaline Phosphatase (46-116) U/L Total Protein (6.4-8.2) g/dl Albumin (3.4-5.0) g/dl Globulin gm/dL Albumin/Globulin Ratio (1-2) 02/26/20 02/26/20 02/26/20 Range/Units 05:50 06:14 12:03 WBC (3.98-10.04) K/mm3 RBC (3.98-5.22) M/mm3 Hgb (11.2-15.7) gm/dl Hct (34.1-44.9) % MCV (79.4-94.8) fl MCH (25.6-32.2) pg MCHC (32.2-35.5) g/dl RDW Std Deviation (36.4-46.3) fL Plt Count (182-369) K/mm3 MPV (9.4-12.3) fl Neut % (Auto) (34.0-71.1) % Lymph % (Auto) (19.3-51.7) % [place] % (Auto) (4.7-12.5) % Eos % (Auto) (0.7-5.8) Baso % (Auto) (0.1-1.2) % Neut # (Auto) (1.56-6.13) K/mm3 Lymph # (Auto) (1.18-3.74) K/mm3 [place] # (Auto) (0.24-0.36) K/mm3 Eos # (Auto) (0.04-0.36) K/mm3 Baso # (Auto) (0.01-0.08) K/mm3 Sodium 146 H (136-145) mEq/L Potassium 3.8 (3.5-5.1) mEq/L Chloride 109 H (98-107) mEq/L Carbon Dioxide 27 (21-32) mEq/L Anion Gap 13.8 (5-15) BUN 12 (7-18) mg/dL Creatinine 1.2 H (0.55-1.02) mg/dL Est Cr Clr Drug Dosing 33.65 mL/min Estimated GFR (MDRD) 43 (>60) mL/min BUN/Creatinine Ratio 10.0 L (14-18) Glucose 161 H (83-115) mg/dL POC Glucose 163 H 172 H (83-110) mg/dL Calcium 8.5 (8.5-10.1) mg/dL Phosphorus 3.0 (2.6-4.7) mg/dL Magnesium 1.9 (1.8-2.4) mg/dl Total Bilirubin 0.3 (0.2-1.0) mg/dL AST 40 H (15-37) U/L ALT 58 (14-59) U/L Alkaline Phosphatase 104 (46-116) U/L Total Protein 6.2 L (6.4-8.2) g/dl Albumin 2.5 L (3.4-5.0) g/dl Globulin 3.7 gm/dL Albumin/Globulin Ratio 0.7 L (1-2) Med Orders - Current: Current Medications Acetaminophen (Tylenol) 650 mg PO Q4H PRN PRN Reason: Pain (Mild 1-3)/fever Last Admin: 02/18/20 05:07 Dose: 650 mg Benzocaine (Hurricaine 20% [place]) 0 ml MUCMEM Q2H PRN PRN Reason: Sore Throat Last Admin: 02/21/20 15:19 Dose: 1 spray Benzocaine/Menthol (Cepacol Sore Throat) 1 lozenge MUCMEM Q2HR PRN PRN Reason: Sore Throat Dextrose/Water (Dextrose 50% In Water) 50 ml IVPUSH ASDIRECTED PRN PRN Reason: Hypoglycemia Enoxaparin Sodium (Lovenox) 110 mg SUBCUT Q12H [facility] Last Admin: 02/26/20 08:24 Dose: 110 mg Sodium Chloride 76.8 meq/Potassium Chloride 20 meq/Dextrose/Water 1,029.2 mls @ 100 mls/hr IV .[id number] [facility] Last Admin: 02/26/20 10:27 Dose: 100 mls/hr Insulin Glargine (Lantus) 25 unit SUBCUT DAILY [facility] Last Admin: 02/26/20 12:00 Dose: 25 units Magnesium Hydroxide (Milk Of Magnesia) 30 ml PO BID PRN PRN Reason: Constipation Last Admin: 02/19/20 05:17 Dose: 30 ml Melatonin (Melatonin) 6 mg PO BEDTIME PRN PRN Reason: Sleep Last Admin: 02/25/20 20:38 Dose: 6 mg Miscellaneous Information (Remove Patch) 1 ea TRDERM Q72H [facility] Last Admin: 02/25/20 23:44 Dose: 1 ea Octreotide Acetate (Octreotide) 100 mcg SUBCUT TID [facility] Last Admin: 02/26/20 08:24 Dose: 100 mcg Ondansetron HCl (Zofran) 4 mg IV Q6H PRN PRN Reason: Nausea/Vomiting Last Admin: 02/26/20 12:10 Dose: 4 mg Scopolamine (Transderm-Scop) 1.5 mg TRDERM Q72H [facility] Last Admin: 02/25/20 20:27 Dose: 1.5 mg Senna/Docusate Sodium (Senna Plus) 1 tab PO BID [facility] Last Admin: 02/26/20 08:24 Dose: 1 tab Simethicone (Simethicone) 80 mg PO QID PRN PRN Reason: bloating Last Admin: 02/21/20 20:54 Dose: 80 mg Sodium Chloride (Saline Flush) 10 ml FLUSH ASDIRECTED PRN PRN Reason: Keep Vein Open Last Admin: 02/16/20 12:18 Dose: 10 ml Tramadol HCl (Ultram) 50 mg PO Q6H PRN PRN Reason: Pain Last Admin: 02/25/20 20:38 Dose: 50 mg Discontinued Medications Al Hydroxide/Mg Hydroxide (Mag-Al Plus) 30 ml PO ONETIME ONE Stop: 02/16/20 13:42 Last Admin: 02/16/20 13:47 Dose: 30 ml Apixaban (Eliquis) 5 mg PO BID [facility] Last Admin: 02/19/20 08:45 Dose: 5 mg Bisacodyl (Dulcolax) 10 mg RECTAL ONETIME ONE Stop: 02/22/20 11:55 Last Admin: 02/22/20 16:35 Dose: Not Given Bisacodyl (Dulcolax) 10 mg RECTAL ONETIME ONE Stop: 02/23/20 08:18 Last Admin: 02/23/20 09:58 Dose: 10 mg Calcium Polycarbophil (Fibercon) 1,250 mg PO DAILY [facility] Last Admin: 02/20/20 11:01 Dose: Not Given Cefdinir (Omnicef) 300 mg PO BID [facility] Last Admin: 02/19/20 08:45 Dose: 300 mg Famotidine (Pepcid) 20 mg IVPUSH ONETIME ONE Stop: 02/16/20 14:33 Last Admin: 02/16/20 14:38 Dose: 20 mg Famotidine (Pepcid) 20 mg PO DAILY [facility] Last Admin: 02/18/20 08:14 Dose: 20 mg Famotidine (Pepcid) 20 mg PO BID [facility] Last Admin: 02/19/20 08:45 Dose: 20 mg Famotidine (Pepcid) 20 mg IVPUSH DAILY [facility] Famotidine (Pepcid) 20 mg IVPUSH DAILY [facility] Last Admin: 02/24/20 08:49 Dose: 20 mg Furosemide (Lasix) 20 mg IVPUSH NOW ONE Stop: 02/23/20 08:03 Last Admin: 02/23/20 08:34 Dose: 10 mg Furosemide (Lasix) 40 mg IVPUSH NOW ONE Stop: 02/24/20 10:16 Last Admin: 02/24/20 10:38 Dose: 40 mg Sodium Chloride (Normal Saline) 1,000 mls @ 999 mls/hr IV ASDIRECTED [facility] Last Admin: 02/16/20 12:18 Dose: 150 mls/hr Ceftriaxone Sodium 1 gm/ (Sodium Chloride) 100 mls @ 200 mls/hr IV Q24H [facility] Last Admin: 02/17/20 14:58 Dose: 200 mls/hr Sodium Chloride (Normal Saline) 1,000 mls @ 75 mls/hr IV ASDIRECTED [facility] Stop: 02/17/20 05:49 Last Admin: 02/16/20 16:47 Dose: 75 mls/hr Promethazine HCl 25 mg/ Sodium (Chloride) 51 mls @ 100 mls/hr IV ONETIME ONE Stop: 02/16/20 18:09 Last Admin: 02/16/20 18:32 Dose: 100 mls/hr Promethazine HCl 25 mg/ Sodium (Chloride) 51 mls @ 100 mls/hr IV Q6H PRN PRN Reason: Nausea/Vomiting Sodium Chloride (Normal Saline) 1,000 mls @ 100 mls/hr IV ASDIRECTED [facility] Stop: 02/18/20 17:29 Last Admin: 02/17/20 17:44 Dose: 100 mls/hr Dextrose/Lactated Ringer's (Dextrose 5%-Lactated Ringers) 1,000 mls @ 150 mls/ hr IV ASDIRECTED [facility] Last Admin: 02/21/20 07:30 Dose: 150 mls/hr Ceftriaxone Sodium 1 gm/ (Sodium Chloride) 100 mls @ 200 mls/hr IV Q24H [facility] Last Admin: 02/20/20 11:40 Dose: 200 mls/hr Lactated Ringer's (Ringers, Lactated) 1,000 mls @ 150 mls/hr IV ASDIRECTED [facility] Last Admin: 02/21/20 17:32 Dose: 150 mls/hr Dextrose/Lactated Ringer's (Dextrose 5%-Lactated Ringers) 1,000 mls @ 150 mls/ hr IV ASDIRECTED [facility] Last Admin: 02/22/20 20:52 Dose: 150 mls/hr Dextrose/Lactated Ringer's (Dextrose 5%-Lactated Ringers) 1,000 mls @ 50 mls/ hr IV ASDIRECTED [facility] Last Admin: 02/25/20 02:56 Dose: 50 mls/hr Sodium Chloride 38.4 meq/ (Dextrose/Water) 509.6 mls @ 80 mls/hr IV ASDIRECTED [facility] Sodium Chloride 76.8 meq/Potassium Chloride 20 meq/Dextrose/Water 1,029.2 mls @ 100 mls/hr IV ASDIRECTED [facility] Metoclopramide HCl (Reglan) 10 mg IVPUSH Q6H [facility] Stop: 02/22/20 21:16 Last Admin: 02/22/20 12:12 Dose: Not Given Metoclopramide HCl (Reglan) 10 mg IVPUSH Q6H [facility] Stop: 02/22/20 23:01 Last Admin: 02/22/20 23:15 Dose: 10 mg Multivitamins (Thera) 1 each PO DAILY [facility] Last Admin: 02/19/20 08:46 Dose: Not Given Ondansetron HCl (Zofran) 4 mg IVPUSH ONETIME ONE Stop: 02/16/20 12:09 Last Admin: 02/16/20 12:18 Dose: 4 mg Ondansetron HCl (Zofran) 4 mg IVPUSH ONETIME ONE Stop: 02/16/20 14:31 Last Admin: 02/16/20 14:38 Dose: 4 mg Ondansetron HCl (Zofran Odt) 4 mg PO Q12H [facility] Last Admin: 02/19/20 00:47 Dose: 4 mg Pharmacy Consult (Consult To Pharmacy) 1 each .XX ASDIRECTED [facility] Senna/Docusate Sodium (Senna Plus) 1 tab PO BID PRN PRN Reason: Constipation Last Admin: 02/18/20 05:07 Dose: 1 tab Comments:: pos blood culture form 02/17/20 - Exam General: Alert, Oriented HEENT: Pupils Equal, Pupils Reactive, EOMI, Mucous Membr. Moist/[place] Neck: Supple Lungs: Clear to Auscultation, Normal Respiratory Effort Cardiovascular: Regular Rate, Regular Rhythm GI/Abdominal Exam: Normal Bowel Sounds, Soft, Non-Tender, No Organomegaly, No Distention, No Abnormal Bruit, No Mass, Pelvis Stable (Female) Exam: Normal External Exam, Normal Speculum Exam, Normal Bimanual Exam Back Exam: Normal Inspection, Full Range of Motion Extremities: Normal Inspection, Normal Range of Motion, Non-Tender, No Pedal Edema, Normal Capillary Refill Skin: Warm, Dry, Intact Wound/Incisions: Healing Well Neurological: No New Focal Deficit Psy/Mental Status: Alert, Normal Affect, Normal Mood Sepsis Event Note - Evaluation Sepsis Screening Result: No Definite Risk - Focused Exam Vital Signs: Vital Signs Temp Pulse Resp BP Pulse Ox 02/26/20 12:16 36.4 C 84 16 135/71 96 02/26/20 08:25 36.6 C 79 16 126/56 L 93 L 02/26/20 03:32 36.8 C 73 20 111/63 94 L Date Exam was Performed: 02/26/20 Time Exam was Performed: 14:21 - Problem List & Annotations (1) Ovarian cancer SNOMED Code(s): 496831552 Code(s): C56.9 - MALIGNANT NEOPLASM OF UNSPECIFIED OVARY Status: Acute Priority: High Current Visit: Yes Onset Date: 02/21/20 Qualifiers: Laterality: unspecified laterality Qualified Code(s): C56.9 - Malignant neoplasm of unspecified ovary (2) S/P laparotomy SNOMED Code(s): 817162849, 141134829, 540202793 Code(s): Z98.890 - OTHER SPECIFIED POSTPROCEDURAL STATES Status: Acute Priority: Medium Current Visit: Yes Onset Date: 02/21/20 Annotation/ Comment:: ileus not resolving and will start octreotide and cont reglan today . 02/25/20 doing well tolerating meds but little improvemtn other than n.g output less. 02/26/20 obstruction not resolving but will increase reglan and try rectal tube. decrease tramidol (3) Small bowel obstruction SNOMED Code(s): 058065216 Code(s): K56.609 - UNSP INTESTNL OBST, UNSP TO PARTIAL VERSUS COMPLETE OBST Status: Acute Priority: High Current Visit: Yes Onset Date: Annotation/Comment:: discussed with herself and family and minimal abd pain and cont cons. treatment add octreotide.n.g and iv both decreased / i/os neg 1000 (4) Urinary tract infection SNOMED Code(s): 25251707 Code(s): N39.0 - URINARY TRACT INFECTION, SITE NOT SPECIFIED Status: Acute Priority: Low Current Visit: Yes Onset Date: 02/21/20 Qualifiers: Urinary tract infection type: site unspecified Hematuria presence: with hematuria Qualified Code(s): N39.0 - Urinary tract infection, site not specified; R31.9 - Hematuria, unspecified Annotation/Comment:: klebsiella treated with single dose rocephin and not continued . 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 on blood culture 11/24. will reculture and consider emperic antibiotic treatment - Problem List Review Problem List Initiated/Reviewed/Updated: Yes - My Orders Last 24 Hours: My Active Orders 02/25/20 12:55 Communication Order [RC] ASDIRECTED 02/25/20 19:31 Consult to Physician [CONS] Routine 02/25/20 19:32 Notify Provider Consults [RC] ASDIRECTED 02/25/20 19:39 POC Glucose [Blood Glucose Check, Bedside] [RC] QID 02/25/20 23:30 Dextrose 10% in Water 1,000 ml Sodium Chloride 23.4% 76.8 meq Potassium Chloride 20 meq IV 100 mls/hr 02/26/20 11:00 Insulin Glarg,Human.Rec.Analog [LantUS] 25 unit SUBCUT DAILY 02/26/20 13:00 Rectal Tube Insertion [OM.PC] Routine 02/26/20 13:34 CULTURE BLOOD [BC] Stat CULTURE BLOOD [BC] Stat Blood Culture x2 Reflex Set [OM.PC] Stat - Assessment Assessment:: 02/24/2020 She slept well through the night She is NPO She has a NG tube placed She is walking with a walker as tolerated x1 assist Discussed that she is allowed to have ice chips Explained octreotide to her since she was refusing because she didn't understand it Discussed getting labs of CMP, Mag, and Phos02/25/20 afebrile vss ng output 250 cc last 12 hours. no abd pain unless moving and achey .passing little gas . no b.m p.e. unchanged and no tenderness and clear greenish fluid in n.g. tube . lab mild elavation of lfts with stable creatinine. cbc unchanged. kub persistant ileus partially resolved. no air fluid levels . minimal tenderness or none. assess: 1) ileus continues but slow improvement over 6 days of n.g suction. will clamp tube every 2 hours and see if she tolerates. on octratide and reglan and tolerating well. 2)ovarian cancer widely metastatic and patient desires to go home . home suction devices being sought by family . 3) npo x 6 days and will need to consider tpn for chronic nutrition needs and she is discussing that with family . would need a waqar cath placed and she is not sure she wants to do that or tpn. supportive care and hospice brought up as options as well .]\chemo therapy options discussed over phone with oncology and they do not think she can tolerate but would see her back to discuss in further detail . no plans for chemo emergantly as she has incision to heal up . functionally doing well and incision looks good / abd pain minmal and walking and control of bowels and bladder good. no signs infection or cardiac issues but she is obese. boh - Plan Plan:: 02/24/2020 She slept well through the night She is NPO She has a NG tube placed She is walking with a walker as tolerated x1 assist Discussed that she is allowed to have ice chips Explained octreotide to her since she was refusing because she didn't understand it Discussed getting labs of CMP, Mag, and Phos4/03/12 afebrile vss ng output 250 cc last 12 hours. no abd pain unless moving and achey .passing little gas . no b.m p.e. unchanged and no tenderness and clear greenish fluid in n.g. tube . lab mild elavation of lfts with stable creatinine. cbc unchanged. kub persistant ileus partially resolved. no air fluid levels . minimal tenderness or none. assess: 1) ileus continues but slow improvement over 6 days of n.g suction. will clamp tube every 2 hours and see if she tolerates. on octratide and reglan and tolerating well. 2)ovarian cancer widely metastatic and patient desires to go home . home suction devices being sought by family . 3) npo x 6 days and will need to consider tpn for chronic nutrition needs and she is discussing that with family . would need a waqar cath placed and she is not sure she wants to do that or tpn. supportive care and hospice brought up as options as well .]\chemo therapy options discussed over phone with oncology and they do not think she can tolerate but would see her back to discuss in further detail . no plans for chemo emergantly as she has incision to heal up . functionally doing well and incision looks good / abd pain minmal and walking and control of bowels and bladder good. no signs infection or cardiac issues but she is obese. boh
[2020-02-26] MEDS ORDERED: cefTRIAXone 2 GM in Sodium Chloride 0.9% 100 ML IV SCH ×2 (14:00→14:30)
[2020-02-26] MEDS ORDERED: Metoclopramide 10 MG Tab PO SCH (14:00)
[2020-02-26] MEDS ORDERED: Ondansetron 4 MG/2 ML SDV IVPUSH ONE (14:59)
[2020-02-26] MEDS ORDERED: Promethazine 50 MG in Sodium Chloride 0.9% 50 ML IV SCH (16:45)
[2020-02-26] MEDS ORDERED: LORazepam 2 MG/ML SDV IVPUSH ONE ×2 (18:03→20:00)
--- NOTE | 2020-02-26 18:29 | PCM.SN ---
- Free Text/Narrative Note: p.m note called because of decreased arousal and increased confusion . has been started on phenergan i.v one hour ago sec to continued nausea and vomiting. patient alerta nd confused and minimal rt eye droop without fascial droop. speech clear yes /no but is picking at lines and wants to move around. lung sounds mildly congested and occasional wheeze. no jvd. cor rate 135 . abd silent b.s . minimal tenderness . ng brackish output 140 cc in past 2 hours. 3 emisis since this noon time. i.v d10 1/4 n.s. at 100 cc hour . pupils equal and reactive. pulses good. edema 2plus. no pronator drift and no weakness . assess : 1) adverse reaction to high dose phenergan or interaction with reglan . 2)somatomedin not able to reverse ileus . 3) continued retching a nd nausea . increasing edema . 4) plan: lab ativan and reassess. hold meds for ileus. boh
[2020-02-26] MEDS: Dextrose 5%-0.45% NaCl 1,000 ML IV SCH (19:25)
--- NOTE | 2020-02-26 19:38 | CR ---
Abdomen: Supine portable view of the abdomen was obtained. Comparison: Prior abdominal x-ray of 02/23/20. Several loops of slightly prominent small bowel gas noted within the upper abdomen. Findings are minimally improved from previous exam. Previous nasogastric tube is again seen. Scattered degenerative change is noted within the spine. Impression: 1. Slightly prominent gas-filled small bowel loops of the upper abdomen which is minimally improved from previous exam. 2. Stable nasogastric tube. 3. Other findings believed to be incidental. Diagnostic code #3 This report was dictated in MDT
[2020-02-26] MEDS ORDERED: Dexamethasone 4 MG/ML SDV IVPUSH ONE (21:09)
[2020-02-26] MEDS ORDERED: LORazepam 2 MG/ML SDV IVPUSH PRN (21:11)
[2020-02-26] MEDS ORDERED: Promethazine 12.5 MG in Sodium Chloride 0.9% 50 ML IV PRN (21:13)
[2020-02-27] MEDS: Morphine 2 MG/ML Syringe IVPUSH PRN ×2 (00:19→04:17)
[2020-02-27] MEDS: Dextrose 5%-0.45% NaCl 1,000 ML IV SCH ×2 (02:18→08:58)
--- NOTE | 2020-02-27 08:56 | PCM.PN ---
- General Info Date of Service: 02/27/20 Admission Dx/Problem (Free Text): Admission Diagnosis/Problem Admission Diagnosis/Problem Urinary tract infection 79 year old female admitted on 02/16/2020 with complaints of abdominal pain after she was hospitalized and had surgery to remove her uterus and colon lesions at [facility] on 02/08/2020 Functional Status: Reports: Pain Controlled, Ambulating, Urinating. Denies: Tolerating Diet (NPO with pleasure feeds ), New Symptoms - Review of Systems General: Reports: No Symptoms, Weakness, Fatigue. Denies: Fever, Malaise, Chills HEENT: Reports: Sore Throat (2/2 NG tube ). Denies: Headaches Pulmonary: Reports: No Symptoms. Denies: Shortness of Breath, Pleuritic Chest Pain, Cough, Sputum, Wheezing Cardiovascular: Reports: No Symptoms Gastrointestinal: Reports: Constipation, Decreased Appetite. Denies: Abdominal Pain, Diarrhea, Flatus, Nausea, Vomiting Genitourinary: Reports: No Symptoms. Denies: Pain Musculoskeletal: Reports: No Symptoms Skin: Reports: No Symptoms. Denies: Cyanosis Neurological: Reports: No Symptoms. Denies: Confusion, Difficulty Walking, Gait Disturbance Psychiatric: Reports: No Symptoms - Patient Data Vitals - Most Recent: Last Vital Signs Temp 98.1 F 02/27/20 07:31 Pulse 98 02/27/20 07:38 Resp 20 02/27/20 07:31 BP 121/51 L 02/27/20 07:31 Pulse Ox 97 02/27/20 07:38 Weight - Most Recent: 248 lb I&O - Last 24 Hours: Intake & Output 02/26/20 02/27/20 02/27/20 22:59 06:59 14:59 Intake Total 1220 1411 Output Total 1050 1800 Balance 170 -389 Lab Results Last 24 Hours: Laboratory Results - last 24 hr 02/26/20 02/26/20 02/26/20 Range/Units 12:03 17:13 17:51 WBC (3.98-10.04) K/mm3 RBC (3.98-5.22) M/mm3 Hgb (11.2-15.7) gm/dl Hct (34.1-44.9) % MCV (79.4-94.8) fl MCH (25.6-32.2) pg MCHC (32.2-35.5) g/dl RDW Std Deviation (36.4-46.3) fL Plt Count (182-369) K/mm3 MPV (9.4-12.3) fl Neut % (Auto) (34.0-71.1) % Lymph % (Auto) (19.3-51.7) % [place] % (Auto) (4.7-12.5) % Eos % (Auto) (0.7-5.8) Baso % (Auto) (0.1-1.2) % Neut # (Auto) (1.56-6.13) K/mm3 Lymph # (Auto) (1.18-3.74) K/mm3 [place] # (Auto) (0.24-0.36) K/mm3 Eos # (Auto) (0.04-0.36) K/mm3 Baso # (Auto) (0.01-0.08) K/mm3 Manual Slide Review Sodium (136-145) mEq/L Potassium (3.5-5.1) mEq/L Chloride (98-107) mEq/L Carbon Dioxide (21-32) mEq/L Anion Gap (5-15) BUN (7-18) mg/dL Creatinine (0.55-1.02) mg/dL Est Cr Clr Drug Dosing mL/min Estimated GFR (MDRD) (>60) mL/min BUN/Creatinine Ratio (14-18) Glucose (83-115) mg/dL POC Glucose 172 H 158 H 165 H (83-110) mg/dL Calcium (8.5-10.1) mg/dL Total Bilirubin (0.2-1.0) mg/dL AST (15-37) U/L ALT (14-59) U/L Alkaline Phosphatase (46-116) U/L Total Protein (6.4-8.2) g/dl Albumin (3.4-5.0) g/dl Globulin gm/dL Albumin/Globulin Ratio (1-2) Amylase (20-160) U/L 02/26/20 02/26/20 02/27/20 Range/Units 18:16 18:16 00:37 WBC 13.08 H (3.98-10.04) K/mm3 RBC 4.26 (3.98-5.22) M/mm3 Hgb 12.7 (11.2-15.7) gm/dl Hct 41.6 (34.1-44.9) % MCV 97.7 H (79.4-94.8) fl MCH 29.8 (25.6-32.2) pg MCHC 30.5 L (32.2-35.5) g/dl RDW Std Deviation 47.2 H (36.4-46.3) fL Plt Count 397 H (182-369) K/mm3 MPV 10.0 (9.4-12.3) fl Neut % (Auto) 74.3 H (34.0-71.1) % Lymph % (Auto) 10.0 L (19.3-51.7) % [place] % (Auto) 15.1 H (4.7-12.5) % Eos % (Auto) 0.2 L (0.7-5.8) Baso % (Auto) 0.2 (0.1-1.2) % Neut # (Auto) 9.73 H (1.56-6.13) K/mm3 Lymph # (Auto) 1.31 (1.18-3.74) K/mm3 [place] # (Auto) 1.98 H (0.24-0.36) K/mm3 Eos # (Auto) 0.02 L (0.04-0.36) K/mm3 Baso # (Auto) 0.02 (0.01-0.08) K/mm3 Manual Slide Review Normal smear Sodium 145 (136-145) mEq/L Potassium 4.2 (3.5-5.1) mEq/L Chloride 108 H (98-107) mEq/L Carbon Dioxide 27 (21-32) mEq/L Anion Gap 14.2 (5-15) BUN 14 (7-18) mg/dL Creatinine 1.2 H (0.55-1.02) mg/dL Est Cr Clr Drug Dosing 33.65 mL/min Estimated GFR (MDRD) 43 (>60) mL/min BUN/Creatinine Ratio 11.7 L (14-18) Glucose 171 H (83-115) mg/dL POC Glucose 144 H (83-110) mg/dL Calcium 8.5 (8.5-10.1) mg/dL Total Bilirubin 0.3 (0.2-1.0) mg/dL AST 61 H (15-37) U/L ALT 67 H (14-59) U/L Alkaline Phosphatase 112 (46-116) U/L Total Protein 6.3 L (6.4-8.2) g/dl Albumin 2.5 L (3.4-5.0) g/dl Globulin 3.8 gm/dL Albumin/Globulin Ratio 0.7 L (1-2) Amylase 33 (20-160) U/L 02/27/20 Range/Units 06:12 WBC (3.98-10.04) K/mm3 RBC (3.98-5.22) M/mm3 Hgb (11.2-15.7) gm/dl Hct (34.1-44.9) % MCV (79.4-94.8) fl MCH (25.6-32.2) pg MCHC (32.2-35.5) g/dl RDW Std Deviation (36.4-46.3) fL Plt Count (182-369) K/mm3 MPV (9.4-12.3) fl Neut % (Auto) (34.0-71.1) % Lymph % (Auto) (19.3-51.7) % [place] % (Auto) (4.7-12.5) % Eos % (Auto) (0.7-5.8) Baso % (Auto) (0.1-1.2) % Neut # (Auto) (1.56-6.13) K/mm3 Lymph # (Auto) (1.18-3.74) K/mm3 [place] # (Auto) (0.24-0.36) K/mm3 Eos # (Auto) (0.04-0.36) K/mm3 Baso # (Auto) (0.01-0.08) K/mm3 Manual Slide Review Sodium (136-145) mEq/L Potassium (3.5-5.1) mEq/L Chloride (98-107) mEq/L Carbon Dioxide (21-32) mEq/L Anion Gap (5-15) BUN (7-18) mg/dL Creatinine (0.55-1.02) mg/dL Est Cr Clr Drug Dosing mL/min Estimated GFR (MDRD) (>60) mL/min BUN/Creatinine Ratio (14-18) Glucose (83-115) mg/dL POC Glucose 156 H (83-110) mg/dL Calcium (8.5-10.1) mg/dL Total Bilirubin (0.2-1.0) mg/dL AST (15-37) U/L ALT (14-59) U/L Alkaline Phosphatase (46-116) U/L Total Protein (6.4-8.2) g/dl Albumin (3.4-5.0) g/dl Globulin gm/dL Albumin/Globulin Ratio (1-2) Amylase (20-160) U/L Med Orders - Current: Current Medications Dextrose/Water (Dextrose 50% In Water) 50 ml IVPUSH ASDIRECTED PRN PRN Reason: Hypoglycemia Dextrose/Sodium Chloride (Dextrose 5%-1/2 Ns) 1,000 mls @ 150 mls/hr IV ASDIRECTED [facility] Last Admin: 02/27/20 02:18 Dose: 150 mls/hr Promethazine HCl 12.5 mg/ (Sodium Chloride) 50.5 mls @ 100 mls/hr IV Q4H PRN PRN Reason: Nausea Miscellaneous Information (Remove Patch) 1 ea TRDERM Q72H [facility] Last Admin: 02/25/20 23:44 Dose: 1 ea Morphine Sulfate (Morphine) 2 mg IVPUSH Q4H PRN PRN Reason: Pain Last Admin: 02/27/20 04:17 Dose: 2 mg Scopolamine (Transderm-Scop) 1.5 mg TRDERM Q72H [facility] Last Admin: 02/25/20 20:27 Dose: 1.5 mg Sodium Chloride (Saline Flush) 10 ml FLUSH ASDIRECTED PRN PRN Reason: Keep Vein Open Last Admin: 02/16/20 12:18 Dose: 10 ml Discontinued Medications Acetaminophen (Tylenol) 650 mg PO Q4H PRN PRN Reason: Pain (Mild 1-3)/fever Last Admin: 02/18/20 05:07 Dose: 650 mg Al Hydroxide/Mg Hydroxide (Mag-Al Plus) 30 ml PO ONETIME ONE Stop: 02/16/20 13:42 Last Admin: 02/16/20 13:47 Dose: 30 ml Apixaban (Eliquis) 5 mg PO BID [facility] Last Admin: 02/19/20 08:45 Dose: 5 mg Benzocaine (Hurricaine 20% [place]) 0 ml MUCMEM Q2H PRN PRN Reason: Sore Throat Last Admin: 02/21/20 15:19 Dose: 1 spray Benzocaine/Menthol (Cepacol Sore Throat) 1 lozenge MUCMEM Q2HR PRN PRN Reason: Sore Throat Bisacodyl (Dulcolax) 10 mg RECTAL ONETIME ONE Stop: 02/22/20 11:55 Last Admin: 02/22/20 16:35 Dose: Not Given Bisacodyl (Dulcolax) 10 mg RECTAL ONETIME ONE Stop: 02/23/20 08:18 Last Admin: 02/23/20 09:58 Dose: 10 mg Calcium Polycarbophil (Fibercon) 1,250 mg PO DAILY [facility] Last Admin: 02/20/20 11:01 Dose: Not Given Cefdinir (Omnicef) 300 mg PO BID [facility] Last Admin: 02/19/20 08:45 Dose: 300 mg Dexamethasone (Dexamethasone) 2 mg IVPUSH ONETIME ONE Stop: 02/26/20 21:10 Last Admin: 02/27/20 07:45 Dose: Not Given Enoxaparin Sodium (Lovenox) 110 mg SUBCUT Q12H [facility] Last Admin: 02/26/20 20:47 Dose: 110 mg Famotidine (Pepcid) 20 mg IVPUSH ONETIME ONE Stop: 02/16/20 14:33 Last Admin: 02/16/20 14:38 Dose: 20 mg Famotidine (Pepcid) 20 mg PO DAILY [facility] Last Admin: 02/18/20 08:14 Dose: 20 mg Famotidine (Pepcid) 20 mg PO BID [facility] Last Admin: 02/19/20 08:45 Dose: 20 mg Famotidine (Pepcid) 20 mg IVPUSH DAILY [facility] Famotidine (Pepcid) 20 mg IVPUSH DAILY [facility] Last Admin: 02/24/20 08:49 Dose: 20 mg Furosemide (Lasix) 20 mg IVPUSH NOW ONE Stop: 02/23/20 08:03 Last Admin: 02/23/20 08:34 Dose: 10 mg Furosemide (Lasix) 40 mg IVPUSH NOW ONE Stop: 02/24/20 10:16 Last Admin: 02/24/20 10:38 Dose: 40 mg Sodium Chloride (Normal Saline) 1,000 mls @ 999 mls/hr IV ASDIRECTED [facility] Last Admin: 02/16/20 12:18 Dose: 150 mls/hr Ceftriaxone Sodium 1 gm/ (Sodium Chloride) 100 mls @ 200 mls/hr IV Q24H [facility] Last Admin: 02/17/20 14:58 Dose: 200 mls/hr Sodium Chloride (Normal Saline) 1,000 mls @ 75 mls/hr IV ASDIRECTED [facility] Stop: 02/17/20 05:49 Last Admin: 02/16/20 16:47 Dose: 75 mls/hr Promethazine HCl 25 mg/ Sodium (Chloride) 51 mls @ 100 mls/hr IV ONETIME ONE Stop: 02/16/20 18:09 Last Admin: 02/16/20 18:32 Dose: 100 mls/hr Promethazine HCl 25 mg/ Sodium (Chloride) 51 mls @ 100 mls/hr IV Q6H PRN PRN Reason: Nausea/Vomiting Sodium Chloride (Normal Saline) 1,000 mls @ [facility] Stop: 02/18/20 17:29 Last Admin: 02/17/20 17:44 Dose: 100 mls/hr Dextrose/Lactated Ringer's (Dextrose 5%-Lactated Ringers) 1,000 mls @ 150 mls/ hr IV ASDIRECTED [facility] Last Admin: 02/21/20 07:30 Dose: 150 mls/hr Ceftriaxone Sodium 1 gm/ (Sodium Chloride) 100 mls @ 200 mls/hr IV Q24H [facility] Last Admin: 02/20/20 11:40 Dose: 200 mls/hr Lactated Ringer's (Ringers, Lactated) 1,000 mls @ 150 mls/hr IV ASDIRECTED [facility] Last Admin: 02/21/20 17:32 Dose: 150 mls/hr Dextrose/Lactated Ringer's (Dextrose 5%-Lactated Ringers) 1,000 mls @ 150 mls/ hr IV ASDIRECTED [facility] Last Admin: 02/22/20 20:52 Dose: 150 mls/hr Dextrose/Lactated Ringer's (Dextrose 5%-Lactated Ringers) 1,000 mls @ 50 mls/ hr IV ASDIRECTED [facility] Last Admin: 02/25/20 02:56 Dose: 50 mls/hr Sodium Chloride 38.4 meq/ (Dextrose/Water) 509.6 mls @ 80 mls/hr IV ASDIRECTED [facility] Sodium Chloride 76.8 meq/Potassium Chloride 20 meq/Dextrose/Water 1,029.2 mls @ 100 mls/hr IV ASDIRECTED [facility] Sodium Chloride 76.8 meq/Potassium Chloride 20 meq/Dextrose/Water 1,029.2 mls @ 100 mls/hr IV .[id number] [facility] Last Admin: 02/26/20 10:27 Dose: 100 mls/hr Ceftriaxone Sodium 2 gm/ (Sodium Chloride) 100 mls @ 200 mls/hr IV Q24H [facility] Last Admin: 02/26/20 15:04 Dose: Not Given Ceftriaxone Sodium 2 gm/ (Sodium Chloride) 100 mls @ 200 mls/hr IV Q24H [facility] Last Admin: 02/26/20 14:53 Dose: 200 mls/hr Promethazine HCl 50 mg/ Sodium (Chloride) 52 mls @ 100 mls/hr IV Q6H [facility] Stop: 02/27/20 16:45 Last Admin: 02/26/20 17:04 Dose: 100 mls/hr Insulin Glargine (Lantus) 25 unit SUBCUT DAILY [facility] Last Admin: 02/26/20 12:00 Dose: 25 units Lorazepam (Ativan) 0.5 mg IVPUSH ONETIME ONE Stop: 02/26/20 18:04 Last Admin: 02/26/20 18:00 Dose: Not Given Lorazepam (Ativan) 0.5 mg IVPUSH ONETIME ONE Stop: 02/26/20 20:01 Last Admin: 02/26/20 20:50 Dose: 0.5 mg Lorazepam (Ativan) 0.5 mg IVPUSH Q4H PRN PRN Reason: restlessness Magnesium Hydroxide (Milk Of Magnesia) 30 ml PO BID PRN PRN Reason: Constipation Last Admin: 02/19/20 05:17 Dose: 30 ml Melatonin (Melatonin) 6 mg PO BEDTIME PRN PRN Reason: Sleep Last Admin: 02/25/20 20:38 Dose: 6 mg Metoclopramide HCl (Reglan) 10 mg IVPUSH Q6H [facility] Stop: 02/22/20 21:16 Last Admin: 02/22/20 12:12 Dose: Not Given Metoclopramide HCl (Reglan) 10 mg IVPUSH Q6H [facility] Stop: 02/22/20 23:01 Last Admin: 02/22/20 23:15 Dose: 10 mg Metoclopramide HCl (Reglan) 10 mg PO Q8H [facility] Last Admin: 02/26/20 14:52 Dose: 10 mg Multivitamins (Thera) 1 each PO DAILY [facility] Last Admin: 02/19/20 08:46 Dose: Not Given Octreotide Acetate (Octreotide) 100 mcg SUBCUT TID [facility] Last Admin: 02/26/20 08:24 Dose: 100 mcg Octreotide Acetate (Octreotide) 100 mcg SUBCUT QID [facility] Last Admin: 02/26/20 20:49 Dose: 100 mcg Ondansetron HCl (Zofran) 4 mg IVPUSH ONETIME ONE Stop: 02/16/20 12:09 Last Admin: 02/16/20 12:18 Dose: 4 mg Ondansetron HCl (Zofran) 4 mg IVPUSH ONETIME ONE Stop: 02/16/20 14:31 Last Admin: 02/16/20 14:38 Dose: 4 mg Ondansetron HCl (Zofran) 4 mg IV Q6H PRN PRN Reason: Nausea/Vomiting Last Admin: 02/26/20 12:10 Dose: 4 mg Ondansetron HCl (Zofran Odt) 4 mg PO Q12H [facility] Last Admin: 02/19/20 00:47 Dose: 4 mg Ondansetron HCl (Zofran) 4 mg IVPUSH ONETIME ONE Stop: 02/26/20 15:00 Last Admin: 02/26/20 15:13 Dose: 4 mg Pharmacy Consult (Consult To Pharmacy) 1 each .XX ASDIRECTED [facility] Senna/Docusate Sodium (Senna Plus) 1 tab PO BID PRN PRN Reason: Constipation Last Admin: 02/18/20 05:07 Dose: 1 tab Senna/Docusate Sodium (Senna Plus) 1 tab PO BID [facility] Last Admin: 02/27/20 07:44 Dose: Not Given Simethicone (Simethicone) 80 mg PO QID PRN PRN Reason: bloating Last Admin: 02/21/20 20:54 Dose: 80 mg Tramadol HCl (Ultram) 50 mg PO Q6H PRN PRN Reason: Pain Last Admin: 02/25/20 20:38 Dose: 50 mg - Exam Quality Assessment: Urine Catheter. No: DVT Prophylaxis General: Alert, Oriented, Cooperative, No Acute Distress HEENT: Pupils Equal, Pupils Reactive, Mucous Membr. Moist/[place] Neck: Supple, Trachea Midline Lungs: Clear to Auscultation, Normal Respiratory Effort, Decreased Breath Sounds Cardiovascular: Regular Rate, Regular Rhythm GI/Abdominal Exam: Soft, Non-Tender, No Distention, Abnormal Bowel Sounds ( Absent ) (Female) Exam: Deferred Extremities: Normal Inspection, Normal Range of Motion, Non-Tender, No Pedal Edema, Normal Capillary Refill Skin: Warm, Dry, Intact Wound/Incisions: Healing Well. No: Erythema Neurological: No New Focal Deficit Psy/Mental Status: Alert Sepsis Event Note - Evaluation Sepsis Screening Result: No Definite Risk - Focused Exam Vital Signs: Vital Signs Temp Pulse Pulse Resp BP Pulse Ox 02/27/20 07:38 98 97 02/27/20 07:31 98.1 F 20 121/51 L 02/27/20 03:16 99.0 F 104 H 22 H 126/80 100 Date Exam was Performed: 02/27/20 Time Exam was Performed: 18:08 - Problem List & Annotations (1) Nausea and vomiting SNOMED Code(s): 76247609 Code(s): R11.2 - NAUSEA WITH VOMITING, UNSPECIFIED Status: Resolved Priority: High Current Visit: Yes Qualifiers: Vomiting type: unspecified Vomiting Intractability: intractable Qualified Code(s): R11.2 - Nausea with vomiting, unspecified (2) History of ovarian cancer Status: Chronic Priority: Medium Current Visit: No (3) Colon cancer SNOMED Code(s): 999531441 Code(s): C18.9 - MALIGNANT NEOPLASM OF COLON, UNSPECIFIED Status: Acute Priority: High Current Visit: Yes Qualifiers: Colon location: unspecified part of colon Qualified Code(s): C18.9 - Malignant neoplasm of colon, unspecified (4) Leukocytosis SNOMED Code(s): 263179710, 831728955 Code(s): D72.829 - ELEVATED WHITE BLOOD CELL COUNT, UNSPECIFIED Status: Acute Priority: High Current Visit: Yes Qualifiers: Leukocytosis type: unspecified Qualified Code(s): D72.829 - Elevated white blood cell count, unspecified (5) Acute renal injury SNOMED Code(s): 45410957, 83008332 Code(s): N17.9 - ACUTE KIDNEY FAILURE, UNSPECIFIED Status: Acute Priority : High Current Visit: Yes (6) High anion gap metabolic acidosis SNOMED Code(s): 27784949 Code(s): E87.2 - ACIDOSIS Status: Acute Priority: High Current Visit: Yes (7) History of venous thromboembolism SNOMED Code(s): 681195273 Code(s): Z86.718 - PERSONAL HISTORY OF OTHER VENOUS THROMBOSIS AND EMBOLISM Status: Chronic Priority: Medium Current Visit: Yes (8) Chronic anticoagulation SNOMED Code(s): 958846245 Code(s): Z79.01 - DIRECTOR BANKING (CURRENT) USE OF ANTICOAGULANTS Status: Chronic Priority: Low Current Visit: Yes (9) HLD (hyperlipidemia) SNOMED Code(s): 05486274 Code(s): E78.5 - HYPERLIPIDEMIA, UNSPECIFIED Status: Chronic Priority: Low Current Visit: No Qualifiers: Hyperlipidemia type: unspecified Qualified Code(s): E78.5 - Hyperlipidemia , unspecified (10) GERD (gastroesophageal reflux disease) SNOMED Code(s): 249385548 Code(s): K21.9 - GASTRO-ESOPHAGEAL REFLUX DISEASE WITHOUT ESOPHAGITIS Status: Chronic Priority: Medium Current Visit: No Qualifiers: Esophagitis presence: esophagitis presence not specified Qualified Code(s) : K21.9 - Gastro-esophageal reflux disease without esophagitis (11) Obesity SNOMED Code(s): 029220491, 449454910 Code(s): E66.9 - OBESITY, UNSPECIFIED Status: Chronic Priority: Medium Current Visit: No Qualifiers: Obesity type: unspecified obesity type Obesity classification: adult class 2 (BMI 35 - 39.9) Body mass index: BMI 38.0-38.9 (12) Hematochezia SNOMED Code(s): 548540576 Code(s): K92.1 - MELENA Status: Chronic Priority: Medium Current Visit : Yes (13) Urinary tract infection SNOMED Code(s): 33910842 Code(s): N39.0 - URINARY TRACT INFECTION, SITE NOT SPECIFIED Status: Acute Priority: Low Current Visit: Yes Onset Date: 02/21/20 Qualifiers: Urinary tract infection type: site unspecified Hematuria presence: with hematuria Qualified Code(s): N39.0 - Urinary tract infection, site not specified; R31.9 - Hematuria, unspecified Annotation/Comment:: klebsiella treated with single dose rocephin and not continued . 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 on blood culture 11/24. will reculture and consider emperic antibiotic treatment (14) S/P laparotomy SNOMED Code(s): 254950703, 084051846, 437671690 Code(s): Z98.890 - OTHER SPECIFIED POSTPROCEDURAL STATES Status: Acute Priority: Medium Current Visit: Yes Onset Date: 02/21/20 Annotation/ Comment:: ileus not resolving and will start octreotide and cont reglan today . 02/25/20 doing well tolerating meds but little improvemtn other than n.g output less. 02/26/20 obstruction not resolving but will increase reglan and try rectal tube. decrease tramidol (15) Volume depletion SNOMED Code(s): 318562983 Code(s): E86.9 - VOLUME DEPLETION, UNSPECIFIED Status: Acute Current Visit: Yes (16) Chronic constipation SNOMED Code(s): 763354063 Code(s): K59.09 - OTHER CONSTIPATION Status: Chronic Priority: High Current Visit: Yes (17) Small bowel obstruction SNOMED Code(s): 927634596 Code(s): K56.609 - UNSP INTESTNL OBST, UNSP TO PARTIAL VERSUS COMPLETE OBST Status: Acute Priority: High Current Visit: Yes Onset Date: Annotation/Comment:: discussed with herself and family and minimal abd pain and cont cons. treatment add octreotide.n.g and iv both decreased / i/os neg 1000 (18) Ovarian cancer SNOMED Code(s): 224843362 Code(s): C56.9 - MALIGNANT NEOPLASM OF UNSPECIFIED OVARY Status: Acute Priority: High Current Visit: Yes Onset Date: 02/21/20 Qualifiers: Laterality: unspecified laterality Qualified Code(s): C56.9 - Malignant neoplasm of unspecified ovary - Problem List Review Problem List Initiated/Reviewed/Updated: Yes - Plan Plan:: 02/24/2020 She slept well through the night She is NPO She has a NG tube placed She is walking with a walker as tolerated x1 assist Discussed that she is allowed to have ice chips Explained octreotide to her since she was refusing because she didn't understand it Discussed getting labs of CMP, Mag, and Phos02/25/20 afebrile vss ng output 250 cc last 12 hours. no abd pain unless moving and achey .passing little gas . no b.m p.e. unchanged and no tenderness and clear greenish fluid in n.g. tube . lab mild elavation of lfts with stable creatinine. cbc unchanged. kub persistant ileus partially resolved. no air fluid levels . minimal tenderness or none. assess: 1) ileus continues but slow improvement over 6 days of n.g suction. will clamp tube every 2 hours and see if she tolerates. on octratide and reglan and tolerating well. 2)ovarian cancer widely metastatic and patient desires to go home . home suction devices being sought by family . 3) npo x 6 days and will need to consider tpn for chronic nutrition needs and she is discussing that with family . would need a waqar cath placed and she is not sure she wants to do that or tpn. supportive care and hospice brought up as options as well .]\chemo therapy options discussed over phone with oncology and they do not think she can tolerate but would see her back to discuss in further detail . no plans for chemo emergantly as she has incision to heal up . functionally doing well and incision looks good / abd pain minmal and walking and control of bowels and bladder good. no signs infection or cardiac issues but she is obese. 02/25/20 afebrile vss ng output 250 cc last 12 hours. no abd pain unless moving and achey .passing little gas . no b.m p.e. unchanged and no tenderness and clear greenish fluid in n.g. tube . lab mild elavation of lfts with stable creatinine. cbc unchanged. kub persistant ileus partially resolved. no air fluid levels . minimal tenderness or none. assess: 1) ileus continues but slow improvement over 6 days of n.g suction. will clamp tube every 2 hours and see if she tolerates. on octreotide and reglan and tolerating well. 2)ovarian cancer widely metastatic and patient desires to go home . home suction devices being sought by family . 3) npo x 6 days and will need to consider tpn for chronic nutrition needs and she is discussing that with family . would need a waqar cath placed and she is not sure she wants to do that or tpn. supportive care and hospice brought up as options as well .]\chemo therapy options discussed over phone with oncology and they do not think she can tolerate but would see her back to discuss in further detail . no plans for chemo emergantly as she has incision to heal up . functionally doing well and incision looks good / abd pain minmal and walking and control of bowels and bladder good. no signs infection or cardiac issues but she is obese. [facility] 02/26/20 afebrile vss/ vomiting this am with grossly greenish chochlate colored emisis. suction turned back on and immediately felt better. on octreotide and reglan p.o . n.g output 550 before emesis/ i/os balanced . b.s elavated 160. p.e. unchanged other than low b.s heard . no tenderness . ambulating well and will try to maximize reglan and trial of rectal tube discussed . she agrees . taking tramadol p.o and known to slow gastric empting, but sbo obstruction considered main problem. pain control good and will try to decrease dose further lab positive aenerobic bact. 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 suspected pathologic mouth organism and rarely a contaminant. kleibsiella in urine treated with rocephin x one dose on 02/18 . surgical consult recommends pic line instead of central line at this time. oncology o.p. follow up with detailed discussion about chemo options pending resolution of ileus . discussed with family and options for home n.g . suctioning intermittantly not known , but consulting home health and family willing in order to get her home. [facility] 02/27/20 History of ovarian cancer with Mets On comfort care at this point Vomiting resolved NPO--> advanced to pleasure feeds Bowel sounds wax and wane Abdominal x-ray today shows no real improvement 1100ml output through NG tube Ambulating Rectal tube placed and removed yesterday after patient discomfort Home health unable to care for NG tube at home [facility] no way for home suctioning Family wants patient to return home, however after last night they admit they cannot possibly take care of her Repeat blood cultures negative x1 day Mental status improved Last BM was 01/14/20 Plan: 1) Continue NG tube 2) Discontinued lovenox 3) Pleasure feeds but caution with plugging NG tube 4) Consider PICC line/TNP/Lipids - family will discuss and get back to us 5) Stop abx while on comfort care 6) Resume octreotide 7) Confirmed with patient and family comfort care status, No lab draws, No further surgical procedures, Meds to keep comfortable 8) Family and patient agree to explore placement. Will need ability for NG tube and possibly TPN/Lipids. SW aware and looking into options
[2020-02-27] MEDS ORDERED: Metoclopramide 10 MG/2 ML SDV IVPUSH PRN (10:26)
[2020-02-27] MEDS ORDERED: Acetaminophen 325 MG Tab PO PRN (10:26)
[2020-02-27] MEDS ORDERED: Haloperidol Lactate 5 MG/ML SDV IVPUSH PRN (10:26)
[2020-02-27] MEDS ORDERED: Metoclopramide 10 MG Tab PO PRN (10:26)
[2020-02-27] MEDS ORDERED: Carboxymethylcellulose Sodium 1% Ophth Gel 15 ML Bottle EYEBOTH PRN (10:26)
[2020-02-27] MEDS ORDERED: Haloperidol 1 MG Tab PO PRN (10:26)
[2020-02-27] MEDS ORDERED: LORazepam 2 MG/ML SDV SUBCUT PRN (10:26)
[2020-02-27] MEDS ORDERED: LORazepam 1 MG Tab PO PRN (10:26)
[2020-02-27] MEDS ORDERED: Albuterol 0.083% 2.5 MG/3 ML Neb Soln NEB PRN (10:26)
[2020-02-27] MEDS ORDERED: Morphine 2 MG/ML Syringe SUBCUT PRN (10:26)
[2020-02-27] MEDS ORDERED: LORazepam 2 MG/ML SDV IVPUSH PRN (10:26)
--- NOTE | 2020-02-27 10:26 | CR ---
Chest: AP view of the chest was obtained. Comparison: Prior chest x-ray of 02/16/20. Central lung markings slightly increased possibly due to mild bronchitis. Slight atelectasis is also felt to be present within the left lung base. Lungs otherwise are clear. Nasogastric tube courses through the mediastinum. Tip lies below the inferior edge of the film. Bony structures are grossly intact. Impression: 1. Mild atelectasis within the left lung base. 2. Mild increased central lung markings most likely due to bronchitis. Diagnostic code #3 This report was dictated in [facility]
--- NOTE | 2020-02-27 10:26 | CR ---
Abdomen: Supine view of the abdomen was obtained. Comparison: Prior abdominal x-ray of 02/26/20. Slightly dilated air-filled loop of small bowel within the upper abdomen. Findings continue to show minimal improvement. Tip of nasogastric tube lies within the stomach. Inferior vena cava filter is noted. Slight degenerative change scattered within the spine. Impression: 1. Slightly dilated loops of small bowel within the upper abdomen. Findings continue to minimally improved. 2. Stable position of nasogastric tube. Diagnostic code #3 This report was dictated in MDT
[2020-02-27] MEDS ORDERED: Haloperidol 0.5 MG Tab PO PRN (11:00)
[2020-02-27] MEDS ORDERED: cefTRIAXone 2 GM in Sodium Chloride 0.9% 100 ML IV SCH (15:00)
[2020-02-28] MEDS: Morphine 2 MG/ML Syringe IVPUSH PRN (02:24)
[2020-02-28] MEDS ORDERED: Benzocaine/Cetylpyridinium/Menthol Lozenge MUCMEM PRN (07:38)
--- NOTE | 2020-02-28 07:57 | PCM.PN ---
- General Info Date of Service: 02/28/20 Admission Dx/Problem (Free Text): Admission Diagnosis/Problem Admission Diagnosis/Problem Urinary tract infection 79 year old female admitted on 02/16/2020 with complaints of abdominal pain after she was hospitalized and had surgery to remove her uterus and colon lesions at [facility] on 02/08/2020 Functional Status: Reports: Pain Controlled, Ambulating, Urinating. Denies: Tolerating Diet (NPO), New Symptoms - Review of Systems General: Reports: Fatigue. Denies: Fever, Weakness, Malaise, Chills HEENT: Reports: No Symptoms, Sore Throat (2/2 NG Tube ), Other (NG Tube in place to LIS). Denies: Headaches Pulmonary: Reports: No Symptoms. Denies: Shortness of Breath, Pleuritic Chest Pain, Cough, Wheezing Cardiovascular: Reports: No Symptoms. Denies: Chest Pain, Palpitations, Dyspnea on Exertion Gastrointestinal: Reports: Constipation, Decreased Appetite. Denies: Abdominal Pain, Diarrhea, Flatus, Nausea, Vomiting Genitourinary: Reports: No Symptoms. Denies: Pain Musculoskeletal: Reports: No Symptoms Skin: Reports: No Symptoms. Denies: Cyanosis Neurological: Denies: Confusion, Pre-Existing Deficit, Difficulty Walking, Gait Disturbance Psychiatric: Reports: No Symptoms - Patient Data Vitals - Most Recent: Last Vital Signs Temp 98.1 F 02/27/20 20:08 Pulse 92 02/27/20 20:08 Resp 20 02/27/20 20:08 BP 133/72 02/27/20 20:08 Pulse Ox 95 02/27/20 20:08 Weight - Most Recent: 248 lb 3.2 oz I&O - Last 24 Hours: Intake & Output 02/27/20 02/28/20 02/28/20 22:59 06:59 14:59 Intake Total 665 60 Output Total 1400 1000 Balance -575 940 Lab Results Last 24 Hours: Laboratory Results - last 24 hr 02/27/20 02/27/20 02/28/20 Range/Units 09:26 09:26 00:10 WBC 6.85 (3.98-10.04) K/mm3 RBC 4.10 (3.98-5.22) M/mm3 Hgb 12.1 (11.2-15.7) gm/dl Hct 39.7 (34.1-44.9) % MCV 96.8 H (79.4-94.8) fl MCH 29.5 (25.6-32.2) pg MCHC 30.5 L (32.2-35.5) g/dl RDW Std Deviation 46.8 H (36.4-46.3) fL Plt Count 374 H (182-369) K/mm3 MPV 10.3 (9.4-12.3) fl Neut % (Auto) 62.3 (34.0-71.1) % Lymph % (Auto) 16.4 L (19.3-51.7) % Warren % (Auto) 20.0 H (4.7-12.5) % Eos % (Auto) 0.9 (0.7-5.8) Baso % (Auto) 0.3 (0.1-1.2) % Neut # (Auto) 4.27 (1.56-6.13) K/mm3 Lymph # (Auto) 1.12 L (1.18-3.74) K/mm3 Warren # (Auto) 1.37 H (0.24-0.36) K/mm3 Eos # (Auto) 0.06 (0.04-0.36) K/mm3 Baso # (Auto) 0.02 (0.01-0.08) K/mm3 Sodium 143 (136-145) mEq/L Potassium 3.8 (3.5-5.1) mEq/L Chloride 107 (98-107) mEq/L Carbon Dioxide 27 (21-32) mEq/L Anion Gap 12.8 (5-15) BUN 19 H (7-18) mg/dL Creatinine 1.3 H (0.55-1.02) mg/dL Est Cr Clr Drug Dosing 31.06 mL/min Estimated GFR (MDRD) 39 (>60) mL/min BUN/Creatinine Ratio 14.6 (14-18) Glucose 140 H (83-115) mg/dL POC Glucose 83 (83-110) mg/dL Calcium 8.1 L (8.5-10.1) mg/dL Phosphorus 2.9 (2.6-4.7) mg/dL Magnesium 1.8 (1.8-2.4) mg/dl Total Bilirubin 0.3 (0.2-1.0) mg/dL AST 43 H (15-37) U/L ALT 61 H (14-59) U/L Alkaline Phosphatase 101 (46-116) U/L Total Protein 5.9 L (6.4-8.2) g/dl Albumin 2.2 L (3.4-5.0) g/dl Globulin 3.7 gm/dL Albumin/Globulin Ratio 0.6 L (1-2) 02/28/20 Range/Units 05:39 WBC (3.98-10.04) K/mm3 RBC (3.98-5.22) M/mm3 Hgb (11.2-15.7) gm/dl Hct (34.1-44.9) % MCV (79.4-94.8) fl MCH (25.6-32.2) pg MCHC (32.2-35.5) g/dl RDW Std Deviation (36.4-46.3) fL Plt Count (182-369) K/mm3 MPV (9.4-12.3) fl Neut % (Auto) (34.0-71.1) % Lymph % (Auto) (19.3-51.7) % Warren % (Auto) (4.7-12.5) % Eos % (Auto) (0.7-5.8) Baso % (Auto) (0.1-1.2) % Neut # (Auto) (1.56-6.13) K/mm3 Lymph # (Auto) (1.18-3.74) K/mm3 Warren # (Auto) (0.24-0.36) K/mm3 Eos # (Auto) (0.04-0.36) K/mm3 Baso # (Auto) (0.01-0.08) K/mm3 Sodium (136-145) mEq/L Potassium (3.5-5.1) mEq/L Chloride (98-107) mEq/L Carbon Dioxide (21-32) mEq/L Anion Gap (5-15) BUN (7-18) mg/dL Creatinine (0.55-1.02) mg/dL Est Cr Clr Drug Dosing mL/min Estimated GFR (MDRD) (>60) mL/min BUN/Creatinine Ratio (14-18) Glucose (83-115) mg/dL POC Glucose 80 L (83-110) mg/dL Calcium (8.5-10.1) mg/dL Phosphorus (2.6-4.7) mg/dL Magnesium (1.8-2.4) mg/dl Total Bilirubin (0.2-1.0) mg/dL AST (15-37) U/L ALT (14-59) U/L Alkaline Phosphatase (46-116) U/L Total Protein (6.4-8.2) g/dl Albumin (3.4-5.0) g/dl Globulin gm/dL Albumin/Globulin Ratio (1-2) Arturo Results Last 24 Hours: Microbiology 02/26/20 13:48 Aerobic Blood Culture - Preliminary Blood - Venous - Lab Draw NO GROWTH AFTER 1 DAY Anaerobic Blood Culture - Preliminary NO GROWTH AFTER 1 DAY 02/26/20 14:03 Aerobic Blood Culture - Preliminary Blood - Venous NO GROWTH AFTER 1 DAY Anaerobic Blood Culture - Preliminary NO GROWTH AFTER 1 DAY Med Orders - Current: Current Medications Acetaminophen (Tylenol) 650 mg PO Q4H PRN PRN Reason: Pain/Fever Albuterol (Proventil Neb Soln) 2.5 mg NEB Q15M PRN PRN Reason: Shortness of Breath Artificial Tears (Refresh Liquigel 1%) 1 - 2 ml EYEBOTH QID PRN; Protocol PRN Reason: Dry Eyes Benzocaine/Menthol (Cepacol Sore Throat) 1 lozenge MUCMEM Q2H PRN PRN Reason: Sore throat Dextrose/Water (Dextrose 50% In Water) 50 ml IVPUSH ASDIRECTED PRN PRN Reason: Hypoglycemia Haloperidol (Haldol) 1 mg PO Q1H PRN PRN Reason: delirium or restlessness Haloperidol Lactate (Haldol) 1 mg IVPUSH Q1H PRN PRN Reason: delirium or restlessness Metoclopramide HCl (Reglan) 10 mg PO Q6H PRN PRN Reason: Nausea Metoclopramide HCl (Reglan) 10 mg IVPUSH Q6H PRN PRN Reason: Nausea Miscellaneous Information (Remove Patch) 1 ea TRDERM Q72H [facility] Last Admin: 02/25/20 23:44 Dose: 1 ea Morphine Sulfate (Morphine) 2 mg SUBCUT Q30M PRN PRN Reason: Pain or Shortness of breath Morphine Sulfate (Morphine) 2 mg IVPUSH Q30M PRN PRN Reason: Pain or Shortness of breath Last Admin: 02/28/20 02:24 Dose: 2 mg Octreotide Acetate (Octreotide) 100 mcg SUBCUT QID [facility] Last Admin: 02/27/20 20:11 Dose: 100 mcg Scopolamine (Transderm-Scop) 1.5 mg TRDERM Q72H [facility] Last Admin: 02/25/20 20:27 Dose: 1.5 mg Sodium Chloride (Saline Flush) 10 ml FLUSH ASDIRECTED PRN PRN Reason: Keep Vein Open Last Admin: 02/16/20 12:18 Dose: 10 ml Discontinued Medications Acetaminophen (Tylenol) 650 mg PO Q4H PRN PRN Reason: Pain (Mild 1-3)/fever Last Admin: 02/18/20 05:07 Dose: 650 mg Al Hydroxide/Mg Hydroxide (Mag-Al Plus) 30 ml PO ONETIME ONE Stop: 02/16/20 13:42 Last Admin: 02/16/20 13:47 Dose: 30 ml Apixaban (Eliquis) 5 mg PO BID [facility] Last Admin: 02/19/20 08:45 Dose: 5 mg Benzocaine (Hurricaine 20% [place]) 0 ml MUCMEM Q2H PRN PRN Reason: Sore Throat Last Admin: 02/21/20 15:19 Dose: 1 spray Benzocaine/Menthol (Cepacol Sore Throat) 1 lozenge MUCMEM Q2HR PRN PRN Reason: Sore Throat Bisacodyl (Dulcolax) 10 mg RECTAL ONETIME ONE Stop: 02/22/20 11:55 Last Admin: 02/22/20 16:35 Dose: Not Given Bisacodyl (Dulcolax) 10 mg RECTAL ONETIME ONE Stop: 02/23/20 08:18 Last Admin: 02/23/20 09:58 Dose: 10 mg Calcium Polycarbophil (Fibercon) 1,250 mg PO DAILY [facility] Last Admin: 02/20/20 11:01 Dose: Not Given Cefdinir (Omnicef) 300 mg PO BID [facility] Last Admin: 02/19/20 08:45 Dose: 300 mg Dexamethasone (Dexamethasone) 2 mg IVPUSH ONETIME ONE Stop: 02/26/20 21:10 Last Admin: 02/27/20 07:45 Dose: Not Given Enoxaparin Sodium (Lovenox) 110 mg SUBCUT Q12H [facility] Last Admin: 02/26/20 20:47 Dose: 110 mg Famotidine (Pepcid) 20 mg IVPUSH ONETIME ONE Stop: 02/16/20 14:33 Last Admin: 02/16/20 14:38 Dose: 20 mg Famotidine (Pepcid) 20 mg PO DAILY [facility] Last Admin: 02/18/20 08:14 Dose: 20 mg Famotidine (Pepcid) 20 mg PO BID [facility] Last Admin: 02/19/20 08:45 Dose: 20 mg Famotidine (Pepcid) 20 mg IVPUSH DAILY [facility] Famotidine (Pepcid) 20 mg IVPUSH DAILY [facility] Last Admin: 02/24/20 08:49 Dose: 20 mg Furosemide (Lasix) 20 mg IVPUSH NOW ONE Stop: 02/23/20 08:03 Last Admin: 02/23/20 08:34 Dose: 10 mg Furosemide (Lasix) 40 mg IVPUSH NOW ONE Stop: 02/24/20 10:16 Last Admin: 02/24/20 10:38 Dose: 40 mg Haloperidol (Haldol) 1 mg PO Q1H PRN PRN Reason: delirium or restlessness Sodium Chloride (Normal Saline) 1,000 mls @ 999 [facility]ls[facility] Admin: 02/16/20 12:18 Dose: 150 mls/hr Ceftriaxone Sodium 1 gm/ (Sodium Chloride) 100 mls @ 200 mls/hr IV Q24H [facility] Last Admin: 02/17/20 14:58 Dose: 200 mls/hr Sodium Chloride (Normal Saline) 1,000 mls @ 75 mls[facility]hr [facility] Stop: 02/17/20 05:49 Last Admin: 02/16/20 16:47 Dose: 75 mls/hr Promethazine HCl 25 mg/ Sodium (Chloride) 51 mls @ 100 mls/hr IV ONETIME ONE Stop: 02/16/20 18:09 Last Admin: 02/16/20 18:32 Dose: 100 mls/hr Promethazine HCl 25 mg/ Sodium (Chloride) 51 mls @ 100 mls/hr IV Q6H PRN PRN Reason: Nausea/Vomiting Sodium Chloride (Normal Saline) 1,000 mls @ 100 mls[facility] Stop: 02/18/20 17:29 Last Admin: 02/17/20 17:44 Dose: 100 mls/hr Dextrose/Lactated Ringer's (Dextrose 5%-Lactated Ringers) 1,000 mls @ 150 mls/ hr IV ASDIRECTED [place] Last Admin: 02/21/20 07:30 Dose: 150 mls/hr Ceftriaxone Sodium 1 gm/ (Sodium Chloride) 100 mls @ 200 mls/hr IV Q24H [facility] Last Admin: 02/20/20 11:40 Dose: 200 mls/hr Lactated Ringer's (Ringers, Lactated) 1,000 mls @ 150 mls/hr IV ASDIRECTED [facility] Last Admin: 02/21/20 17:32 Dose: 150 mls/hr Dextrose/Lactated Ringer's (Dextrose 5%-Lactated Ringers) 1,000 mls @ 150 mls/ hr IV ASDIRECTED [facility] Last Admin: 02/22/20 20:52 Dose: 150 mls/hr Dextrose/Lactated Ringer's (Dextrose 5%-Lactated Ringers) 1,000 mls @ 50 mls/ hr IV ASDIRECTED [facility] Last Admin: 02/25/20 02:56 Dose: 50 mls/hr Sodium Chloride 38.4 meq/ (Dextrose/Water) 509.6 mls @ 80 mls/hr IV ASDIRECTED [facility] Sodium Chloride 76.8 meq/Potassium Chloride 20 meq/Dextrose/Water 1,029.2 mls @ 100 mls/hr IV ASDIRECTED [facility] Sodium Chloride 76.8 meq/Potassium Chloride 20 meq/Dextrose/Water 1,029.2 mls @ 100 mls/hr IV .[id number] [facility] Last Admin: 02/26/20 10:27 Dose: 100 mls/hr Ceftriaxone Sodium 2 gm/ (Sodium Chloride) 100 mls @ 200 mls/hr IV Q24H [facility] Last Admin: 02/26/20 15:04 Dose: Not Given Ceftriaxone Sodium 2 gm/ (Sodium Chloride) 100 mls @ 200 mls/hr IV Q24H [facility] Last Admin: 02/26/20 14:53 Dose: 200 mls/hr Promethazine HCl 50 mg/ Sodium (Chloride) 52 mls @ 100 mls/hr IV Q6H [facility] Stop: 02/27/20 16:45 Last Admin: 02/26/20 17:04 Dose: 100 mls/hr Dextrose/Sodium Chloride (Dextrose 5%-1/2 Ns) 1,000 mls @ 150 mls/hr IV ASDIRECTED [facility] Last Admin: 02/27/20 08:58 Dose: 150 mls/hr Promethazine HCl 12.5 mg/ (Sodium Chloride) 50.5 mls @ 100 mls/hr IV Q4H PRN PRN Reason: Nausea Ceftriaxone Sodium 2 gm/ (Sodium Chloride) 100 mls @ 200 mls/hr IV Q24H [facility] Insulin Glargine (Lantus) 25 unit SUBCUT DAILY [facility] Last Admin: 02/26/20 12:00 Dose: 25 units Lorazepam (Ativan) 0.5 mg IVPUSH ONETIME ONE Stop: 02/26/20 18:04 Last Admin: 02/26/20 18:00 Dose: Not Given Lorazepam (Ativan) 0.5 mg IVPUSH ONETIME ONE Stop: 02/26/20 20:01 Last Admin: 02/26/20 20:50 Dose: 0.5 mg Lorazepam (Ativan) 0.5 mg IVPUSH Q4H PRN PRN Reason: restlessness Lorazepam (Ativan) 1 mg SUBCUT Q30M PRN PRN Reason: Anxiety Lorazepam (Ativan) 1 mg IVPUSH Q15M PRN PRN Reason: Anxiety Lorazepam (Ativan) 1 mg PO Q30M PRN PRN Reason: Anxiety Magnesium Hydroxide (Milk Of Magnesia) 30 ml PO BID PRN PRN Reason: Constipation Last Admin: 02/19/20 05:17 Dose: 30 ml Melatonin (Melatonin) 6 mg PO BEDTIME PRN PRN Reason: Sleep Last Admin: 02/25/20 20:38 Dose: 6 mg Metoclopramide HCl (Reglan) 10 mg IVPUSH Q6H [facility] Stop: 02/22/20 21:16 Last Admin: 02/22/20 12:12 Dose: Not Given Metoclopramide HCl (Reglan) 10 mg IVPUSH Q6H [facility] Stop: 02/22/20 23:01 Last Admin: 02/22/20 23:15 Dose: 10 mg Metoclopramide HCl (Reglan) 10 mg PO Q8H [facility] Last Admin: 02/26/20 14:52 Dose: 10 mg Morphine Sulfate (Morphine) 2 mg IVPUSH Q4H PRN PRN Reason: Pain Last Admin: 02/27/20 04:17 Dose: 2 mg Multivitamins (Thera) 1 each PO DAILY [facility] Last Admin: 02/19/20 08:46 Dose: Not Given Octreotide Acetate (Octreotide) 100 mcg SUBCUT TID [facility] Last Admin: 02/26/20 08:24 Dose: 100 mcg Octreotide Acetate (Octreotide) 100 mcg SUBCUT QID [facility] Last Admin: 02/26/20 20:49 Dose: 100 mcg Ondansetron HCl (Zofran) 4 mg IVPUSH ONETIME ONE Stop: 02/16/20 12:09 Last Admin: 02/16/20 12:18 Dose: 4 mg Ondansetron HCl (Zofran) 4 mg IVPUSH ONETIME ONE Stop: 02/16/20 14:31 Last Admin: 02/16/20 14:38 Dose: 4 mg Ondansetron HCl (Zofran) 4 mg IV Q6H PRN PRN Reason: Nausea/Vomiting Last Admin: 02/26/20 12:10 Dose: 4 mg Ondansetron HCl (Zofran Odt) 4 mg PO Q12H [facility] Last Admin: 02/19/20 00:47 Dose: 4 mg Ondansetron HCl (Zofran) 4 mg IVPUSH ONETIME ONE Stop: 02/26/20 15:00 Last Admin: 02/26/20 15:13 Dose: 4 mg Pharmacy Consult (Consult To Pharmacy) 1 each .XX ASDIRECTED [facility] Senna/Docusate Sodium (Senna Plus) 1 tab PO BID PRN PRN Reason: Constipation Last Admin: 02/18/20 05:07 Dose: 1 tab Senna/Docusate Sodium (Senna Plus) 1 tab PO BID [facility] Last Admin: 02/27/20 07:44 Dose: Not Given Simethicone (Simethicone) 80 mg PO QID PRN PRN Reason: bloating Last Admin: 02/21/20 20:54 Dose: 80 mg Tramadol HCl (Ultram) 50 mg PO Q6H PRN PRN Reason: Pain Last Admin: 02/25/20 20:38 Dose: 50 mg - Exam Quality Assessment: Supplemental Oxygen, Urine Catheter, DVT Prophylaxis General: Alert, Oriented, Cooperative, No Acute Distress HEENT: Pupils Equal, Pupils Reactive, Mucous Membr. Moist/Momence Neck: Supple, Trachea Midline Lungs: Clear to Auscultation, Normal Respiratory Effort Cardiovascular: Regular Rate, Regular Rhythm GI/Abdominal Exam: Soft, Non-Tender, No Distention, Abnormal Bowel Sounds ( Absent ) (Female) Exam: Deferred Extremities: Normal Inspection, Normal Range of Motion, Pedal Edema (1+) Skin: Warm, Dry, Intact Wound/Incisions: Healing Well. No: Erythema Neurological: No New Focal Deficit Psy/Mental Status: Alert Sepsis Event Note - Evaluation Sepsis Screening Result: No Definite Risk - Focused Exam Vital Signs: Vital Signs Temp Pulse Resp BP Pulse Ox 02/27/20 20:08 98.1 F 92 20 133/72 95 Date Exam was Performed: 02/28/20 Time Exam was Performed: 14:33 - Problem List & Annotations (1) Nausea and vomiting SNOMED Code(s): 62219691 Code(s): R11.2 - NAUSEA WITH VOMITING, UNSPECIFIED Status: Resolved Priority: High Current Visit: Yes Qualifiers: Vomiting type: unspecified Vomiting Intractability: intractable Qualified Code(s): R11.2 - Nausea with vomiting, unspecified (2) History of ovarian cancer Status: Chronic Priority: Medium Current Visit: No (3) Colon cancer SNOMED Code(s): 331132765 Code(s): C18.9 - MALIGNANT NEOPLASM OF COLON, UNSPECIFIED Status: Acute Priority: High Current Visit: Yes Qualifiers: Colon location: unspecified part of colon Qualified Code(s): C18.9 - Malignant neoplasm of colon, unspecified (4) Leukocytosis SNOMED Code(s): 205565965, 948569254 Code(s): D72.829 - ELEVATED WHITE BLOOD CELL COUNT, UNSPECIFIED Status: Acute Priority: High Current Visit: Yes Qualifiers: Leukocytosis type: unspecified Qualified Code(s): D72.829 - Elevated white blood cell count, unspecified (5) Acute renal injury SNOMED Code(s): 32516537, 95350012 Code(s): N17.9 - ACUTE KIDNEY FAILURE, UNSPECIFIED Status: Acute Priority : High Current Visit: Yes (6) High anion gap metabolic acidosis SNOMED Code(s): 43108600 Code(s): E87.2 - ACIDOSIS Status: Acute Priority: High Current Visit: Yes (7) History of venous thromboembolism SNOMED Code(s): 883568060 Code(s): Z86.718 - PERSONAL HISTORY OF OTHER VENOUS THROMBOSIS AND EMBOLISM Status: Chronic Priority: Medium Current Visit: Yes (8) Chronic anticoagulation SNOMED Code(s): 495074025 Code(s): Z79.01 - FORENSIC NURSE (CURRENT) USE OF ANTICOAGULANTS Status: Chronic Priority: Low Current Visit: Yes (9) HLD (hyperlipidemia) SNOMED Code(s): 51201427 Code(s): E78.5 - HYPERLIPIDEMIA, UNSPECIFIED Status: Chronic Priority: Low Current Visit: No Qualifiers: Hyperlipidemia type: unspecified Qualified Code(s): E78.5 - Hyperlipidemia , unspecified (10) GERD (gastroesophageal reflux disease) SNOMED Code(s): 470036288 Code(s): K21.9 - GASTRO-ESOPHAGEAL REFLUX DISEASE WITHOUT ESOPHAGITIS Status: Chronic Priority: Medium Current Visit: No Qualifiers: Esophagitis presence: esophagitis presence not specified Qualified Code(s) : K21.9 - Gastro-esophageal reflux disease without esophagitis (11) Obesity SNOMED Code(s): 414619708, 043670937 Code(s): E66.9 - OBESITY, UNSPECIFIED Status: Chronic Priority: Medium Current Visit: No Qualifiers: Obesity type: unspecified obesity type Obesity classification: adult class 2 (BMI 35 - 39.9) Body mass index: BMI 38.0-38.9 (12) Hematochezia SNOMED Code(s): 749536703 Code(s): K92.1 - MELENA Status: Chronic Priority: Medium Current Visit : Yes (13) Urinary tract infection SNOMED Code(s): 10855369 Code(s): N39.0 - URINARY TRACT INFECTION, SITE NOT SPECIFIED Status: Acute Priority: Low Current Visit: Yes Onset Date: 02/21/20 Qualifiers: Urinary tract infection type: site unspecified Hematuria presence: with hematuria Qualified Code(s): N39.0 - Urinary tract infection, site not specified; R31.9 - Hematuria, unspecified Annotation/Comment:: klebsiella treated with single dose rocephin and not continued . 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 on blood culture 11/24. will reculture and consider emperic antibiotic treatment (14) S/P laparotomy SNOMED Code(s): 180182463, 810741223, 291495092 Code(s): Z98.890 - OTHER SPECIFIED POSTPROCEDURAL STATES Status: Acute Priority: Medium Current Visit: Yes Onset Date: 02/21/20 Annotation/ Comment:: ileus not resolving and will start octreotide and cont reglan today . 02/25/20 doing well tolerating meds but little improvemtn other than n.g output less. 02/26/20 obstruction not resolving but will increase reglan and try rectal tube. decrease tramidol (15) Volume depletion SNOMED Code(s): 013616402 Code(s): E86.9 - VOLUME DEPLETION, UNSPECIFIED Status: Acute Current Visit: Yes (16) Chronic constipation SNOMED Code(s): 751325694 Code(s): K59.09 - OTHER CONSTIPATION Status: Chronic Priority: High Current Visit: Yes (17) Small bowel obstruction SNOMED Code(s): 982142987 Code(s): K56.609 - UNSP INTESTNL OBST, UNSP TO PARTIAL VERSUS COMPLETE OBST Status: Acute Priority: High Current Visit: Yes Onset Date: Annotation/Comment:: discussed with herself and family and minimal abd pain and cont cons. treatment add octreotide.n.g and iv both decreased / i/os neg 1000 (18) Ovarian cancer SNOMED Code(s): 852206210 Code(s): C56.9 - MALIGNANT NEOPLASM OF UNSPECIFIED OVARY Status: Acute Priority: High Current Visit: Yes Onset Date: 02/21/20 Qualifiers: Laterality: unspecified laterality Qualified Code(s): C56.9 - Malignant neoplasm of unspecified ovary (19) Need for comfort care SNOMED Code(s): 197641018, 852255703 Code(s): SDE1497 - Status: Acute Priority: High Current Visit: Yes - Problem List Review Problem List Initiated/Reviewed/Updated: Yes - My Orders Last 24 Hours: My Active Orders 02/28/20 07:38 Benzocaine/Cetylpyrd/Menthol [Cepacol Sore Throat] 1 lozenge MUCMEM Q2H PRN - Assessment Assessment:: 02/24/2020 She slept well through the night She is NPO She has a NG tube placed She is walking with a walker as tolerated x1 assist Discussed that she is allowed to have ice chips Explained octreotide to her since she was refusing because she didn't understand it Discussed getting labs of CMP, Mag, and Phos4/20 afebrile vss ng output 250 cc last 12 hours. no abd pain unless moving and achey .passing little gas . no b.m p.e. unchanged and no tenderness and clear greenish fluid in n.g. tube . lab mild elavation of lfts with stable creatinine. cbc unchanged. kub persistant ileus partially resolved. no air fluid levels . minimal tenderness or none. assess: 1) ileus continues but slow improvement over 6 days of n.g suction. will clamp tube every 2 hours and see if she tolerates. on octratide and reglan and tolerating well. 2)ovarian cancer widely metastatic and patient desires to go home . home suction devices being sought by family . 3) npo x 6 days and will need to consider tpn for chronic nutrition needs and she is discussing that with family . would need a waqar cath placed and she is not sure she wants to do that or tpn. supportive care and hospice brought up as options as well .]\chemo therapy options discussed over phone with oncology and they do not think she can tolerate but would see her back to discuss in further detail . no plans for chemo emergantly as she has incision to heal up . functionally doing well and incision looks good / abd pain minmal and walking and control of bowels and bladder good. no signs infection or cardiac issues but she is obese. boh - Plan Plan:: 02/24/2020 She slept well through the night She is NPO She has a NG tube placed She is walking with a walker as tolerated x1 assist Discussed that she is allowed to have ice chips Explained octreotide to her since she was refusing because she didn't understand it Discussed getting labs of CMP, Mag, and Phos4/20 afebrile vss ng output 250 cc last 12 hours. no abd pain unless moving and achey .passing little gas . no b.m p.e. unchanged and no tenderness and clear greenish fluid in n.g. tube . lab mild elavation of lfts with stable creatinine. cbc unchanged. kub persistant ileus partially resolved. no air fluid levels . minimal tenderness or none. assess: 1) ileus continues but slow improvement over 6 days of n.g suction. will clamp tube every 2 hours and see if she tolerates. on octratide and reglan and tolerating well. 2)ovarian cancer widely metastatic and patient desires to go home . home suction devices being sought by family . 3) npo x 6 days and will need to consider tpn for chronic nutrition needs and she is discussing that with family . would need a waqar cath placed and she is not sure she wants to do that or tpn. supportive care and hospice brought up as options as well .]\chemo therapy options discussed over phone with oncology and they do not think she can tolerate but would see her back to discuss in further detail . no plans for chemo emergantly as she has incision to heal up . functionally doing well and incision looks good / abd pain minmal and walking and control of bowels and bladder good. no signs infection or cardiac issues but she is obese. 02/25/20 afebrile vss ng output 250 cc last 12 hours. no abd pain unless moving and achey .passing little gas . no b.m p.e. unchanged and no tenderness and clear greenish fluid in n.g. tube . lab mild elavation of lfts with stable creatinine. cbc unchanged. kub persistant ileus partially resolved. no air fluid levels . minimal tenderness or none. assess: 1) ileus continues but slow improvement over 6 days of n.g suction. will clamp tube every 2 hours and see if she tolerates. on octreotide and reglan and tolerating well. 2)ovarian cancer widely metastatic and patient desires to go home . home suction devices being sought by family . 3) npo x 6 days and will need to consider tpn for chronic nutrition needs and she is discussing that with family . would need a waqar cath placed and she is not sure she wants to do that or tpn. supportive care and hospice brought up as options as well .]\chemo therapy options discussed over phone with oncology and they do not think she can tolerate but would see her back to discuss in further detail . no plans for chemo emergantly as she has incision to heal up . functionally doing well and incision looks good / abd pain minmal and walking and control of bowels and bladder good. no signs infection or cardiac issues but she is obese. boh 02/26/20 afebrile vss/ vomiting this am with grossly greenish chochlate colored emisis. suction turned back on and immediately felt better. on octreotide and reglan p.o . n.g output 550 before emesis/ i/os balanced . b.s elavated 160. p.e. unchanged other than low b.s heard . no tenderness . ambulating well and will try to maximize reglan and trial of rectal tube discussed . she agrees . taking tramadol p.o and known to slow gastric empting, but sbo obstruction considered main problem. pain control good and will try to decrease dose further lab positive aenerobic bact. 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 suspected pathologic mouth organism and rarely a contaminant. kleibsiella in urine treated with rocephin x one dose on 02/18 . surgical consult recommends pic line instead of central line at this time. oncology o.p. follow up with detailed discussion about chemo options pending resolution of ileus . discussed with family and options for home n.g . suctioning intermittantly not known , but consulting home health and family willing in order to get her home. boh 02/27/20 History of ovarian cancer with Mets On comfort care at this point Vomiting resolved NPO--> advanced to pleasure feeds Bowel sounds wax and wane Abdominal x-ray today shows no real improvement 1100ml output through NG tube Ambulating Rectal tube placed and removed yesterday after patient discomfort Home health unable to care for NG tube at home [facility] reports no way for home suctioning Family wants patient to return home, however after last night they admit they cannot possibly take care of her Repeat blood cultures negative x1 day Mental status improved Last BM was 01/14/20 Plan: 1) Continue NG tube 2) Discontinued lovenox 3) Pleasure feeds but caution with plugging NG tube 4) Consider PICC line/TNP/Lipids - family will discuss and get back to us 5) Stop abx while on comfort care 6) Resume octreotide 7) Confirmed with patient and family comfort care status, No lab draws, No further surgical procedures, Meds to keep comfortable 8) Family and patient agree to explore placement. Will need ability for NG tube and possibly TPN/Lipids. SW aware and looking into options Discussed plan with patient and family - wished for us to discuss with Dr. Altamirano, Oncology with [facility] again Dr. Altamirano contacted. Agrees nothing more to offer patient. Believes risk outweigh benefits of chemotherapy. Recommends comfort care or Hospice. Discussed TPN/Lipids with patient and family. All are in agreement they do not want at this point Absent bowel sounds No nausea or vomiting Continued normal mental status No BMs or Flatus Plan: 1) Continue NG tube to LIS 2) Continue Lovenox 3) QShift vital signs 4) Continue Octreotide for secretion control 5) Home lozenges for throat irritation from NG tube 6) Family would like placement at [facility] - SW working on this 7) Patient requesting clinton catheter remain for comfort care - Nursing OK to remove if patient changes mind 8) No parenteral feeding per patient 9) Discharge on comfort care once placement arranged
[2020-02-28] MEDS: Scopolamine 1.5 MG Transdermal Patch TRDERM SCH (20:52)
[2020-02-28] MEDS: REMOVE SCOPOLAMINE TRDERM SCH (20:53)
[2020-02-29] MEDS: Morphine 2 MG/ML Syringe IVPUSH PRN (01:16)
--- NOTE | 2020-02-29 12:39 | PCM.PN ---
- General Info Date of Service: 02/29/20 Admission Dx/Problem (Free Text): Admission Diagnosis/Problem Admission Diagnosis/Problem Urinary tract infection 79 year old female admitted on 02/16/2020 with complaints of abdominal pain after she was hospitalized and had surgery to remove her uterus and colon lesions at [facility] on 02/08/2020 Functional Status: Reports: Pain Controlled, Urinating. Denies: Tolerating Diet (NPO), Ambulating, New Symptoms - Review of Systems General: Reports: Weakness, Fatigue, Malaise. Denies: Fever, Chills HEENT: Reports: No Symptoms. Denies: Headaches, Sore Throat Pulmonary: Reports: No Symptoms. Denies: Shortness of Breath, Pleuritic Chest Pain, Cough, Sputum, Wheezing Cardiovascular: Reports: No Symptoms. Denies: Chest Pain, Palpitations Gastrointestinal: Reports: Constipation, Decreased Appetite. Denies: Abdominal Pain, Diarrhea, Flatus, Nausea, Vomiting Genitourinary: Reports: No Symptoms. Denies: Pain Musculoskeletal: Reports: No Symptoms Skin: Reports: No Symptoms. Denies: Cyanosis Neurological: Reports: No Symptoms. Denies: Confusion Psychiatric: Reports: No Symptoms - Patient Data Vitals - Most Recent: Last Vital Signs Temp 97.5 F 02/29/20 09:27 Pulse 79 02/29/20 09:27 Resp 16 02/29/20 09:27 BP 116/48 L 02/29/20 09:27 Pulse Ox 96 02/29/20 09:27 Weight - Most Recent: 248 lb 3.2 oz I&O - Last 24 Hours: Intake & Output 02/28/20 02/29/20 02/29/20 22:59 06:59 14:59 Intake Total 60 140 Output Total 425 650 Balance -365 -510 Arturo Results Last 24 Hours: Microbiology 02/16/20 15:18 Aerobic Blood Culture - Final Blood - Venous Capnoctyophaga Gingivalis Anaerobic Blood Culture - Final NO GROWTH AFTER 7 DAYS 02/26/20 13:48 Aerobic Blood Culture - Preliminary Blood - Venous - Lab Draw NO GROWTH AFTER 2 DAYS Anaerobic Blood Culture - Preliminary NO GROWTH AFTER 2 DAYS 02/26/20 14:03 Aerobic Blood Culture - Preliminary Blood - Venous NO GROWTH AFTER 2 DAYS Anaerobic Blood Culture - Preliminary NO GROWTH AFTER 2 DAYS Med Orders - Current: Current Medications Acetaminophen (Tylenol) 650 mg PO Q4H PRN PRN Reason: Pain/Fever Albuterol (Proventil Neb Soln) 2.5 mg NEB Q15M PRN PRN Reason: Shortness of Breath Artificial Tears (Refresh Liquigel 1%) 1 - 2 ml EYEBOTH QID PRN; Protocol PRN Reason: Dry Eyes Benzocaine/Menthol (Cepacol Sore Throat) 1 lozenge MUCMEM Q2H PRN PRN Reason: Sore throat Haloperidol (Haldol) 1 mg PO Q1H PRN PRN Reason: delirium or restlessness Haloperidol Lactate (Haldol) 1 mg IVPUSH Q1H PRN PRN Reason: delirium or restlessness Metoclopramide HCl (Reglan) 10 mg PO Q6H PRN PRN Reason: Nausea Metoclopramide HCl (Reglan) 10 mg IVPUSH Q6H PRN PRN Reason: Nausea Miscellaneous Information (Remove Patch) 1 ea TRDERM Q72H [facility] Last Admin: 02/28/20 20:53 Dose: Not Given Morphine Sulfate (Morphine) 2 mg SUBCUT Q30M PRN PRN Reason: Pain or Shortness of breath Morphine Sulfate (Morphine) 2 mg IVPUSH Q30M PRN PRN Reason: Pain or Shortness of breath Last Admin: 02/29/20 01:16 Dose: 2 mg Octreotide Acetate (Octreotide) 100 mcg SUBCUT QID [facility] Last Admin: 02/29/20 09:28 Dose: 100 mcg Scopolamine (Transderm-Scop) 1.5 mg TRDERM Q72H [facility] Last Admin: 02/28/20 20:52 Dose: 1.5 mg Sodium Chloride (Saline Flush) 10 ml FLUSH ASDIRECTED PRN PRN Reason: Keep Vein Open Last Admin: 02/16/20 12:18 Dose: 10 ml Discontinued Medications Acetaminophen (Tylenol) 650 mg PO Q4H PRN PRN Reason: Pain (Mild 1-3)/fever Last Admin: 02/18/20 05:07 Dose: 650 mg Al Hydroxide/Mg Hydroxide (Mag-Al Plus) 30 ml PO ONETIME ONE Stop: 02/16/20 13:42 Last Admin: 02/16/20 13:47 Dose: 30 ml Apixaban (Eliquis) 5 mg PO BID [facility] Last Admin: 02/19/20 08:45 Dose: 5 mg Benzocaine (Hurricaine 20% [place]) 0 ml MUCMEM Q2H PRN PRN Reason: Sore Throat Last Admin: 02/21/20 15:19 Dose: 1 spray Benzocaine/Menthol (Cepacol Sore Throat) 1 lozenge MUCMEM Q2HR PRN PRN Reason: Sore Throat Bisacodyl (Dulcolax) 10 mg RECTAL ONETIME ONE Stop: 02/22/20 11:55 Last Admin: 02/22/20 16:35 Dose: Not Given Bisacodyl (Dulcolax) 10 mg RECTAL ONETIME ONE Stop: 02/23/20 08:18 Last Admin: 02/23/20 09:58 Dose: 10 mg Calcium Polycarbophil (Fibercon) 1,250 mg PO DAILY [facility] Last Admin: 02/20/20 11:01 Dose: Not Given Cefdinir (Omnicef) 300 mg PO BID [facility] Last Admin: 02/19/20 08:45 Dose: 300 mg Dexamethasone (Dexamethasone) 2 mg IVPUSH ONETIME ONE Stop: 02/26/20 21:10 Last Admin: 02/27/20 07:45 Dose: Not Given Dextrose/Water (Dextrose 50% In Water) 50 ml IVPUSH ASDIRECTED PRN PRN Reason: Hypoglycemia Enoxaparin Sodium (Lovenox) 110 mg SUBCUT Q12H [facility] Last Admin: 02/26/20 20:47 Dose: 110 mg Famotidine (Pepcid) 20 mg IVPUSH ONETIME ONE Stop: 02/16/20 14:33 Last Admin: 02/16/20 14:38 Dose: 20 mg Famotidine (Pepcid) 20 mg PO DAILY [facility] Last Admin: 02/18/20 08:14 Dose: 20 mg Famotidine (Pepcid) 20 mg PO BID [facility] Last Admin: 02/19/20 08:45 Dose: 20 mg Famotidine (Pepcid) 20 mg IVPUSH DAILY [facility] Famotidine (Pepcid) 20 mg IVPUSH DAILY [facility] Last Admin: 02/24/20 08:49 Dose: 20 mg Furosemide (Lasix) 20 mg IVPUSH NOW ONE Stop: 02/23/20 08:03 Last Admin: 02/23/20 08:34 Dose: 10 mg Furosemide (Lasix) 40 mg IVPUSH NOW ONE Stop: 02/24/20 10:16 Last Admin: 02/24/20 10:38 Dose: 40 mg Haloperidol (Haldol) 1 mg PO Q1H PRN PRN Reason: delirium or restlessness Sodium Chloride (Normal Saline) 1,000 mls @ 999 [facility]ls[facility] Last Admin: 02/16/20 12:18 Dose: 150 mls/hr Ceftriaxone Sodium 1 gm/ (Sodium Chloride) 100 mls @ 200 mls/hr IV Q24H [facility] Last Admin: 02/17/20 14:58 Dose: 200 mls/hr Sodium Chloride (Normal Saline) 1,000 mls @ 75 mls[facility]hr [facility] Stop: 02/17/20 05:49 Last Admin: 02/16/20 16:47 Dose: 75 mls/hr Promethazine HCl 25 mg/ Sodium (Chloride) 51 mls @ 100 mls/hr IV ONETIME ONE Stop: 02/16/20 18:09 Last Admin: 02/16/20 18:32 Dose: 100 mls/hr Promethazine HCl 25 mg/ Sodium (Chloride) 51 mls @ 100 mls/hr IV Q6H PRN PRN Reason: Nausea/Vomiting Sodium Chloride (Normal Saline) 1,000 mls @ 100 mls[facility]hr [facility] Stop: 02/18/20 17:29 Last Admin: 02/17/20 17:44 Dose: 100 mls/hr Dextrose/Lactated Ringer's (Dextrose 5%-Lactated Ringers) 1,000 mls @ 150 [facility]ls[facility] Last Admin: 02/21/20 07:30 Dose: 150 mls/hr Ceftriaxone Sodium 1 gm/ (Sodium Chloride) 100 mls @ 200 mls/hr IV Q24H [facility] Last Admin: 02/20/20 11:40 Dose: 200 mls/hr Lactated Ringer's (Ringers, Lactated) 1,000 mls @ 150 [facility]ls[facility] Last Admin: 02/21/20 17:32 Dose: 150 mls/hr Dextrose/Lactated Ringer's (Dextrose 5%-Lactated Ringers) 1,000 mls @ 150 mls/ [facility] Last Admin: 02/22/20 20:52 Dose: 150 mls/hr Dextrose/Lactated Ringer's (Dextrose 5%-Lactated Ringers) 1,000 mls @ 50 mls/ hr IV ASDIRECTED [facility] Last Admin: 02/25/20 02:56 Dose: 50 mls/hr Sodium Chloride 38.4 meq/ (Dextrose/Water) 509.6 mls @ 80 mls/hr IV ASDIRECTED [facility] Sodium Chloride 76.8 meq/Potassium Chloride 20 meq/Dextrose/Water 1,029.2 mls @ 100 mls/hr IV ASDIRECTED [facility] Sodium Chloride 76.8 meq/Potassium Chloride 20 meq/Dextrose/Water 1,029.2 mls @ 100 mls/hr IV .[id number] [facility] Last Admin: 02/26/20 10:27 Dose: 100 mls/hr Ceftriaxone Sodium 2 gm/ (Sodium Chloride) 100 mls @ 200 mls/hr IV Q24H [facility] Last Admin: 02/26/20 15:04 Dose: Not Given Ceftriaxone Sodium 2 gm/ (Sodium Chloride) 100 mls @ 200 mls/hr IV Q24H [facility] Last Admin: 02/26/20 14:53 Dose: 200 mls/hr Promethazine HCl 50 mg/ Sodium (Chloride) 52 mls @ 100 mls/hr IV Q6H [facility] Stop: 02/27/20 16:45 Last Admin: 02/26/20 17:04 Dose: 100 mls/hr Dextrose/Sodium Chloride (Dextrose 5%-1/2 Ns) 1,000 mls @ 150 mls/hr IV ASDIRECTED [facility] Last Admin: 02/27/20 08:58 Dose: 150 mls/hr Promethazine HCl 12.5 mg/ (Sodium Chloride) 50.5 mls @ 100 mls/hr IV Q4H PRN PRN Reason: Nausea Ceftriaxone Sodium 2 gm/ (Sodium Chloride) 100 mls @ 200 mls/hr IV Q24H [facility] Insulin Glargine (Lantus) 25 unit SUBCUT DAILY [facility] Last Admin: 02/26/20 12:00 Dose: 25 units Lorazepam (Ativan) 0.5 mg IVPUSH ONETIME ONE Stop: 02/26/20 18:04 Last Admin: 02/26/20 18:00 Dose: Not Given Lorazepam (Ativan) 0.5 mg IVPUSH ONETIME ONE Stop: 02/26/20 20:01 Last Admin: 02/26/20 20:50 Dose: 0.5 mg Lorazepam (Ativan) 0.5 mg IVPUSH Q4H PRN PRN Reason: restlessness Lorazepam (Ativan) 1 mg SUBCUT Q30M PRN PRN Reason: Anxiety Lorazepam (Ativan) 1 mg IVPUSH Q15M PRN PRN Reason: Anxiety Lorazepam (Ativan) 1 mg PO Q30M PRN PRN Reason: Anxiety Magnesium Hydroxide (Milk Of Magnesia) 30 ml PO BID PRN PRN Reason: Constipation Last Admin: 02/19/20 05:17 Dose: 30 ml Melatonin (Melatonin) 6 mg PO BEDTIME PRN PRN Reason: Sleep Last Admin: 02/25/20 20:38 Dose: 6 mg Metoclopramide HCl (Reglan) 10 mg IVPUSH Q6H [facility] Stop: 02/22/20 21:16 Last Admin: 02/22/20 12:12 Dose: Not Given Metoclopramide HCl (Reglan) 10 mg IVPUSH Q6H [facility] Stop: 02/22/20 23:01 Last Admin: 02/22/20 23:15 Dose: 10 mg Metoclopramide HCl (Reglan) 10 mg PO Q8H [facility] Last Admin: 02/26/20 14:52 Dose: 10 mg Morphine Sulfate (Morphine) 2 mg IVPUSH Q4H PRN PRN Reason: Pain Last Admin: 02/27/20 04:17 Dose: 2 mg Multivitamins (Thera) 1 each PO DAILY [facility] Last Admin: 02/19/20 08:46 Dose: Not Given Octreotide Acetate (Octreotide) 100 mcg SUBCUT TID [facility] Last Admin: 02/26/20 08:24 Dose: 100 mcg Octreotide Acetate (Octreotide) 100 mcg SUBCUT QID [facility] Last Admin: 02/26/20 20:49 Dose: 100 mcg Ondansetron HCl (Zofran) 4 mg IVPUSH ONETIME ONE Stop: 02/16/20 12:09 Last Admin: 02/16/20 12:18 Dose: 4 mg Ondansetron HCl (Zofran) 4 mg IVPUSH ONETIME ONE Stop: 02/16/20 14:31 Last Admin: 02/16/20 14:38 Dose: 4 mg Ondansetron HCl (Zofran) 4 mg IV Q6H PRN PRN Reason: Nausea/Vomiting Last Admin: 02/26/20 12:10 Dose: 4 mg Ondansetron HCl (Zofran Odt) 4 mg PO Q12H [facility] Last Admin: 02/19/20 00:47 Dose: 4 mg Ondansetron HCl (Zofran) 4 mg IVPUSH ONETIME ONE Stop: 02/26/20 15:00 Last Admin: 02/26/20 15:13 Dose: 4 mg Pharmacy Consult (Consult To Pharmacy) 1 each .XX ASDIRECTED [facility] Senna/Docusate Sodium (Senna Plus) 1 tab PO BID PRN PRN Reason: Constipation Last Admin: 02/18/20 05:07 Dose: 1 tab Senna/Docusate Sodium (Senna Plus) 1 tab PO BID [facility] Last Admin: 02/27/20 07:44 Dose: Not Given Simethicone (Simethicone) 80 mg PO QID PRN PRN Reason: bloating Last Admin: 02/21/20 20:54 Dose: 80 mg Tramadol HCl (Ultram) 50 mg PO Q6H PRN PRN Reason: Pain Last Admin: 02/25/20 20:38 Dose: 50 mg - Exam Quality Assessment: Supplemental Oxygen (2L), Urine Catheter (Comfort care ) General: Alert, Oriented, Cooperative, No Acute Distress HEENT: Pupils Equal, Pupils Reactive. No: Mucous Membr. Moist/[place] (dry) Neck: Supple, Trachea Midline Lungs: Clear to Auscultation, Normal Respiratory Effort Cardiovascular: Regular Rate, Regular Rhythm GI/Abdominal Exam: Soft, Non-Tender, Abnormal Bowel Sounds (absent ) (Female) Exam: Deferred Extremities: Normal Inspection, Normal Range of Motion, Non-Tender, Normal Capillary Refill, Pedal Edema Skin: Warm, Dry, Intact Wound/Incisions: Healing Well, No Drainage. No: Erythema Neurological: No New Focal Deficit Psy/Mental Status: Alert Sepsis Event Note - Evaluation Sepsis Screening Result: No Definite Risk - Focused Exam Vital Signs: Vital Signs Temp Pulse Resp BP Pulse Ox 02/29/20 09:27 97.5 F 79 16 116/48 L 96 Date Exam was Performed: 02/29/20 Time Exam was Performed: 13:31 - Problem List & Annotations (1) Nausea and vomiting SNOMED Code(s): 70174671 Code(s): R11.2 - NAUSEA WITH VOMITING, UNSPECIFIED Status: Resolved Priority: High Current Visit: Yes Qualifiers: Vomiting type: unspecified Vomiting Intractability: intractable Qualified Code(s): R11.2 - Nausea with vomiting, unspecified (2) History of ovarian cancer Status: Chronic Priority: Medium Current Visit: No (3) Colon cancer SNOMED Code(s): 002940212 Code(s): C18.9 - MALIGNANT NEOPLASM OF COLON, UNSPECIFIED Status: Acute Priority: High Current Visit: Yes Qualifiers: Colon location: unspecified part of colon Qualified Code(s): C18.9 - Malignant neoplasm of colon, unspecified (4) Leukocytosis SNOMED Code(s): 764003685, 981703525 Code(s): D72.829 - ELEVATED WHITE BLOOD CELL COUNT, UNSPECIFIED Status: Acute Priority: High Current Visit: Yes Qualifiers: Leukocytosis type: unspecified Qualified Code(s): D72.829 - Elevated white blood cell count, unspecified (5) Acute renal injury SNOMED Code(s): 53220496, 12239829 Code(s): N17.9 - ACUTE KIDNEY FAILURE, UNSPECIFIED Status: Acute Priority : High Current Visit: Yes (6) High anion gap metabolic acidosis SNOMED Code(s): 90207569 Code(s): E87.2 - ACIDOSIS Status: Acute Priority: High Current Visit: Yes (7) History of venous thromboembolism SNOMED Code(s): 026105052 Code(s): Z86.718 - PERSONAL HISTORY OF OTHER VENOUS THROMBOSIS AND EMBOLISM Status: Chronic Priority: Medium Current Visit: Yes (8) Chronic anticoagulation SNOMED Code(s): 265304061 Code(s): Z79.01 - PRISON (CURRENT) USE OF ANTICOAGULANTS Status: Chronic Priority: Low Current Visit: Yes (9) HLD (hyperlipidemia) SNOMED Code(s): 83923537 Code(s): E78.5 - HYPERLIPIDEMIA, UNSPECIFIED Status: Chronic Priority: Low Current Visit: No Qualifiers: Hyperlipidemia type: unspecified Qualified Code(s): E78.5 - Hyperlipidemia , unspecified (10) GERD (gastroesophageal reflux disease) SNOMED Code(s): 215023149 Code(s): K21.9 - GASTRO-ESOPHAGEAL REFLUX DISEASE WITHOUT ESOPHAGITIS Status: Chronic Priority: Medium Current Visit: No Qualifiers: Esophagitis presence: esophagitis presence not specified Qualified Code(s) : K21.9 - Gastro-esophageal reflux disease without esophagitis (11) Obesity SNOMED Code(s): 431231087, 881252275 Code(s): E66.9 - OBESITY, UNSPECIFIED Status: Chronic Priority: Medium Current Visit: No Qualifiers: Obesity type: unspecified obesity type Obesity classification: adult class 2 (BMI 35 - 39.9) Body mass index: BMI 38.0-38.9 (12) Hematochezia SNOMED Code(s): 610819437 Code(s): K92.1 - MELENA Status: Chronic Priority: Medium Current Visit : Yes (13) Urinary tract infection SNOMED Code(s): 55193597 Code(s): N39.0 - URINARY TRACT INFECTION, SITE NOT SPECIFIED Status: Acute Priority: Low Current Visit: Yes Onset Date: 02/21/20 Qualifiers: Urinary tract infection type: site unspecified Hematuria presence: with hematuria Qualified Code(s): N39.0 - Urinary tract infection, site not specified; R31.9 - Hematuria, unspecified Annotation/Comment:: klebsiella treated with single dose rocephin and not continued . 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 on blood culture 11/24. will reculture and consider emperic antibiotic treatment (14) S/P laparotomy SNOMED Code(s): 361137288, 526899487, 181000567 Code(s): Z98.890 - OTHER SPECIFIED POSTPROCEDURAL STATES Status: Acute Priority: Medium Current Visit: Yes Onset Date: 02/21/20 Annotation/ Comment:: ileus not resolving and will start octreotide and cont reglan today . 02/25/20 doing well tolerating meds but little improvemtn other than n.g output less. 02/26/20 obstruction not resolving but will increase reglan and try rectal tube. decrease tramidol (15) Volume depletion SNOMED Code(s): 989707872 Code(s): E86.9 - VOLUME DEPLETION, UNSPECIFIED Status: Acute Current Visit: Yes (16) Chronic constipation SNOMED Code(s): 974846520 Code(s): K59.09 - OTHER CONSTIPATION Status: Chronic Priority: High Current Visit: Yes (17) Small bowel obstruction SNOMED Code(s): 258330089 Code(s): K56.609 - UNSP INTESTNL OBST, UNSP TO PARTIAL VERSUS COMPLETE OBST Status: Acute Priority: High Current Visit: Yes Onset Date: Annotation/Comment:: discussed with herself and family and minimal abd pain and cont cons. treatment add octreotide.n.g and iv both decreased / i/os neg 1000 (18) Ovarian cancer SNOMED Code(s): 744895085 Code(s): C56.9 - MALIGNANT NEOPLASM OF UNSPECIFIED OVARY Status: Acute Priority: High Current Visit: Yes Onset Date: 02/21/20 Qualifiers: Laterality: unspecified laterality Qualified Code(s): C56.9 - Malignant neoplasm of unspecified ovary (19) Need for comfort care SNOMED Code(s): 429976100, 363876572 Code(s): MTA1908 - Status: Acute Priority: High Current Visit: Yes - Problem List Review Problem List Initiated/Reviewed/Updated: Yes - My Orders Last 24 Hours: My Active Orders 02/28/20 14:43 Communication Order [RC] ASDIRECTED 02/28/20 14:44 Communication Order [RC] ROUTINE - Assessment Assessment:: 02/24/2020 She slept well through the night She is NPO She has a NG tube placed She is walking with a walker as tolerated x1 assist Discussed that she is allowed to have ice chips Explained octreotide to her since she was refusing because she didn't understand it Discussed getting labs of CMP, Mag, and Phos/03/12 afebrile vss ng output 250 cc last 12 hours. no abd pain unless moving and achey .passing little gas . no b.m p.e. unchanged and no tenderness and clear greenish fluid in n.g. tube . lab mild elavation of lfts with stable creatinine. cbc unchanged. kub persistant ileus partially resolved. no air fluid levels . minimal tenderness or none. assess: 1) ileus continues but slow improvement over 6 days of n.g suction. will clamp tube every 2 hours and see if she tolerates. on octratide and reglan and tolerating well. 2)ovarian cancer widely metastatic and patient desires to go home . home suction devices being sought by family . 3) npo x 6 days and will need to consider tpn for chronic nutrition needs and she is discussing that with family . would need a waqar cath placed and she is not sure she wants to do that or tpn. supportive care and hospice brought up as options as well .]\chemo therapy options discussed over phone with oncology and they do not think she can tolerate but would see her back to discuss in further detail . no plans for chemo emergantly as she has incision to heal up . functionally doing well and incision looks good / abd pain minmal and walking and control of bowels and bladder good. no signs infection or cardiac issues but she is obese. boh - Plan Plan:: 02/24/2020 She slept well through the night She is NPO She has a NG tube placed She is walking with a walker as tolerated x1 assist Discussed that she is allowed to have ice chips Explained octreotide to her since she was refusing because she didn't understand it Discussed getting labs of CMP, Mag, and Phos02/25/20 afebrile vss ng output 250 cc last 12 hours. no abd pain unless moving and achey .passing little gas . no b.m p.e. unchanged and no tenderness and clear greenish fluid in n.g. tube . lab mild elavation of lfts with stable creatinine. cbc unchanged. kub persistant ileus partially resolved. no air fluid levels . minimal tenderness or none. assess: 1) ileus continues but slow improvement over 6 days of n.g suction. will clamp tube every 2 hours and see if she tolerates. on octratide and reglan and tolerating well. 2)ovarian cancer widely metastatic and patient desires to go home . home suction devices being sought by family . 3) npo x 6 days and will need to consider tpn for chronic nutrition needs and she is discussing that with family . would need a waqar cath placed and she is not sure she wants to do that or tpn. supportive care and hospice brought up as options as well .]\chemo therapy options discussed over phone with oncology and they do not think she can tolerate but would see her back to discuss in further detail . no plans for chemo emergantly as she has incision to heal up . functionally doing well and incision looks good / abd pain minmal and walking and control of bowels and bladder good. no signs infection or cardiac issues but she is obese. 02/25/20 afebrile vss ng output 250 cc last 12 hours. no abd pain unless moving and achey .passing little gas . no b.m p.e. unchanged and no tenderness and clear greenish fluid in n.g. tube . lab mild elavation of lfts with stable creatinine. cbc unchanged. kub persistant ileus partially resolved. no air fluid levels . minimal tenderness or none. assess: 1) ileus continues but slow improvement over 6 days of n.g suction. will clamp tube every 2 hours and see if she tolerates. on octreotide and reglan and tolerating well. 2)ovarian cancer widely metastatic and patient desires to go home . home suction devices being sought by family . 3) npo x 6 days and will need to consider tpn for chronic nutrition needs and she is discussing that with family . would need a waqar cath placed and she is not sure she wants to do that or tpn. supportive care and hospice brought up as options as well .]\chemo therapy options discussed over phone with oncology and they do not think she can tolerate but would see her back to discuss in further detail . no plans for chemo emergantly as she has incision to heal up . functionally doing well and incision looks good / abd pain minmal and walking and control of bowels and bladder good. no signs infection or cardiac issues but she is obese. boh 02/26/20 afebrile vss/ vomiting this am with grossly greenish chochlate colored emisis. suction turned back on and immediately felt better. on octreotide and reglan p.o . n.g output 550 before emesis/ i/os balanced . b.s elavated 160. p.e. unchanged other than low b.s heard . no tenderness . ambulating well and will try to maximize reglan and trial of rectal tube discussed . she agrees . taking tramadol p.o and known to slow gastric empting, but sbo obstruction considered main problem. pain control good and will try to decrease dose further lab positive aenerobic bact. 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 suspected pathologic mouth organism and rarely a contaminant. kleibsiella in urine treated with rocephin x one dose on 02/18 . surgical consult recommends pic line instead of central line at this time. oncology o.p. follow up with detailed discussion about chemo options pending resolution of ileus . discussed with family and options for home n.g . suctioning intermittantly not known , but consulting home health and family willing in order to get her home. boh 02/27/20 History of ovarian cancer with Mets On comfort care at this point Vomiting resolved NPO--> advanced to pleasure feeds Bowel sounds wax and wane Abdominal x-ray today shows no real improvement 1100ml output through NG tube Ambulating Rectal tube placed and removed yesterday after patient discomfort Home health unable to care for NG tube at home [facility] reports no way for home suctioning Family wants patient to return home, however after last night they admit they cannot possibly take care of her Repeat blood cultures negative x1 day Mental status improved Last BM was 01/14/20 Plan: 1) Continue NG tube 2) Discontinued lovenox 3) Pleasure feeds but caution with plugging NG tube 4) Consider PICC line/TNP/Lipids - family will discuss and get back to us 5) Stop abx while on comfort care 6) Resume octreotide 7) Confirmed with patient and family comfort care status, No lab draws, No further surgical procedures, Meds to keep comfortable 8) Family and patient agree to explore placement. Will need ability for NG tube and possibly TPN/Lipids. SW aware and looking into options 02/28/20 Discussed plan with patient and family - wished for us to discuss with Dr. Altamirano, Oncology with [facility] again Dr. Altamirano contacted. Agrees nothing more to offer patient. Believes risk outweigh benefits of chemotherapy. Recommends comfort care or Hospice. Discussed TPN/Lipids with patient and family. All are in agreement they do not want at this point Absent bowel sounds No nausea or vomiting Continued normal mental status No BMs or Flatus Plan: 1) Continue NG tube to LIS 2) QShift vital signs 3) Continue Octreotide for secretion control 4) Home lozenges for throat irritation from NG tube 5) Family would like placement at [facility] - working on this 6) Patient requesting clinton catheter remain for comfort care - Nursing OK to remove if patient changes mind 7) No parenteral feeding per patient 8) Discharge on comfort care once placement arranged 02/29/20 Continues comfort care Continues to request clinton remain in place No new patient concerns Due to COVID-19 restrictions, family is visiting with patient through the window. No nausea, vomiting, or pain Plan: 1) Continue NG tube to LIS 2) Continue Qshift vital signs 3) Continue home lozenges for throat irritation 4) NPO although may have water and ice chips for comfort 5) Continue clinton catheter at patient request for comfort care 6) Accepted at [facility] 7) Discharge tomorrow (03/01/20) on comfort care.
[2020-03-01] MEDS: Morphine 2 MG/ML Syringe IVPUSH PRN ×3 (00:07→11:00)
--- NOTE | 2020-03-01 14:52 | PCM.DCSUM1 ---
Discharge Summary - Hospital Course HPI Initial Comments: Jesi Valencia is a 79 yo female who presents to ED on 02/16/2020 with nausea and vomiting. She states that she feels like she is dehydrated. She recently returned from [facility] in which she had a unsuccessful surgery to remove her uterus and colon lesions. This reportedly occurred on February 07 and she was discharged on February 09. Patient's daughter who accompanies her states that she had nausea and vomiting for couple days after surgery. She had one good day and then her symptoms returned this past Thursday. Reports has not been able to keep any medications food or liquid down. She has history of significant nausea and vomiting with anesthesia however this is been lasting much longer than normal. She has a prescription for p.o. Zofran which she took this morning , does not really helped. She reports additional increased weakness, dizziness , lightheadedness, and lower abdominal pain at her incision site. She reports she is had regular bowel movement since her surgery and states she does have blood in her stool. She reports this is been an ongoing issue with her colorectal cancer but has not worsened in any way. She denies any fever, chills , or urinary issues. In the ED temp was 97.9. Pulse 88. Respirations 15. Blood pressure 163/82. Pulse ox 97%. Labs are obtained with an elevated white count of 17.18. Hemoglobin is good at 13.4. Hematocrit 42.6. Platelets are high at 424,000. She is macrocytic. Neutrophils are elevated at 13.48. Anion gap is noted to be high at 17.8. Creatinine is 1.3. GFR is 39. BUN is 27. Glucose is normal at 103. Troponin is negative. Electrolytes otherwise look normal. CRP is elevated at 5.3. Albumin is low at 2.8. UA is obtained and is strongly positive and concentrated. 2+ protein, 2+ ketones, 3+ occult blood, positive nitrate, 1+ bilirubin, 1+ leukocyte esterase, 50 RBCs, greater than 100 WBCs, 5- 10 squamous epithelial cells, and moderate bacteria are noted. She is given a 1 L fluid bolus and started on 1 g of Rocephin. She is also given 20 mg of Pepcid and IV push Zofran for nausea. Lactic acid is normal at 1.1. Chest x- ray is obtained and shows nothing acute. Blood cultures were obtained and are pending. Urine culture is pending. She carries a history of: prior VTE, HLD, chronic constipation, GERD, obesity, colon and ovarian cancer, S/P oophorectomy in 2006. She was never smoker. Her PCP is Dr. Meng. She subsequently admitted to the medical floor for management of her intractable nausea and vomiting and UTI. Diagnosis: Stroke: No - Discharge Data Discharge Date: 03/01/20 (Admit date: 02/16/20) Discharge Disposition: DC/Tfer W/I Hosp To Swing [facility] Condition: Poor - Referral to Home Health Primary Care Physician: Terrie Meng MD - Discharge Diagnosis/Problem(s) (1) Nausea and vomiting SNOMED Code(s): 20791323 ICD Code: R11.2 - NAUSEA WITH VOMITING, UNSPECIFIED Status: Resolved Priority: High Qualifiers: Vomiting type: unspecified Vomiting Intractability: intractable Qualified Code(s): R11.2 - Nausea with vomiting, unspecified (2) History of ovarian cancer Status: Chronic Priority: Medium (3) Colon cancer SNOMED Code(s): 472067226 ICD Code: C18.9 - MALIGNANT NEOPLASM OF COLON, UNSPECIFIED Status: Acute Priority: High Qualifiers: Colon location: unspecified part of colon Qualified Code(s): C18.9 - Malignant neoplasm of colon, unspecified (4) Leukocytosis SNOMED Code(s): 038316771, 043146908 ICD Code: D72.829 - ELEVATED WHITE BLOOD CELL COUNT, UNSPECIFIED Status: Acute Priority: High Qualifiers: Leukocytosis type: unspecified Qualified Code(s): D72.829 - Elevated white blood cell count, unspecified (5) Acute renal injury SNOMED Code(s): 40953497, 04545295 ICD Code: N17.9 - ACUTE KIDNEY FAILURE, UNSPECIFIED Status: Acute Priority: High (6) High anion gap metabolic acidosis SNOMED Code(s): 35478392 ICD Code: E87.2 - ACIDOSIS Status: Acute Priority: High (7) History of venous thromboembolism SNOMED Code(s): 369673974 ICD Code: Z86.718 - PERSONAL HISTORY OF OTHER VENOUS THROMBOSIS AND EMBOLISM Status: Chronic Priority: Medium (8) Chronic anticoagulation SNOMED Code(s): 986928578 ICD Code: Z79.01 - DATABASES COMPUTER CONSULTANT (CURRENT) USE OF ANTICOAGULANTS Status: Chronic Priority: Low (9) HLD (hyperlipidemia) SNOMED Code(s): 17079521 ICD Code: E78.5 - HYPERLIPIDEMIA, UNSPECIFIED Status: Chronic Priority: Low Qualifiers: Hyperlipidemia type: unspecified Qualified Code(s): E78.5 - Hyperlipidemia , unspecified (10) GERD (gastroesophageal reflux disease) SNOMED Code(s): 780115282 ICD Code: K21.9 - GASTRO-ESOPHAGEAL REFLUX DISEASE WITHOUT ESOPHAGITIS Status: Chronic Priority: Medium Qualifiers: Esophagitis presence: esophagitis presence not specified Qualified Code(s) : K21.9 - Gastro-esophageal reflux disease without esophagitis (11) Obesity SNOMED Code(s): 361742788, 992839758 ICD Code: E66.9 - OBESITY, UNSPECIFIED Status: Chronic Priority: Medium Qualifiers: Obesity type: unspecified obesity type Obesity classification: adult class 2 (BMI 35 - 39.9) Body mass index: BMI 38.0-38.9 (12) Hematochezia SNOMED Code(s): 604314801 ICD Code: K92.1 - MELENA Status: Chronic Priority: Medium (13) Urinary tract infection SNOMED Code(s): 07252239 ICD Code: N39.0 - URINARY TRACT INFECTION, SITE NOT SPECIFIED Status: Acute Priority: Low Onset Date: 02/21/20 Problem Details: klebsiella treated with single dose rocephin and not continued . 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 on blood culture 1/2. will reculture and consider emperic antibiotic treatment Qualifiers: Urinary tract infection type: site unspecified Hematuria presence: with hematuria Qualified Code(s): N39.0 - Urinary tract infection, site not specified; R31.9 - Hematuria, unspecified (14) S/P laparotomy SNOMED Code(s): 102569505, 345590298, 607819637 ICD Code: Z98.890 - OTHER SPECIFIED POSTPROCEDURAL STATES Status: Acute Priority: Medium Onset Date: 02/21/20 Problem Details: ileus not resolving and will start octreotide and cont reglan today . 02/25/20 doing well tolerating meds but little improvemtn other than n.g output less. 02/26/20 obstruction not resolving but will increase reglan and try rectal tube. decrease tramidol (15) Volume depletion SNOMED Code(s): 699639524 ICD Code: E86.9 - VOLUME DEPLETION, UNSPECIFIED Status: Acute (16) Chronic constipation SNOMED Code(s): 710992071 ICD Code: K59.09 - OTHER CONSTIPATION Status: Chronic Priority: High (17) Small bowel obstruction SNOMED Code(s): 369150738 ICD Code: K56.609 - UNSP INTESTNL OBST, UNSP TO PARTIAL VERSUS COMPLETE OBST Status: Acute Priority: High Onset Date: 02/21/20 Problem Details: discussed with herself and family and minimal abd pain and cont cons. treatment add octreotide.n.g and iv both decreased / i/os neg 1000 (18) Ovarian cancer SNOMED Code(s): 383092533 ICD Code: C56.9 - MALIGNANT NEOPLASM OF UNSPECIFIED OVARY Status: Acute Priority: High Onset Date: 02/21/20 Qualifiers: Laterality: unspecified laterality Qualified Code(s): C56.9 - Malignant neoplasm of unspecified ovary (19) Need for comfort care SNOMED Code(s): 849841554, 698773444 ICD Code: [id number] - Status: Acute Priority: High - Patient Summary/Data Consults: Consultations 02/16/20 16:14 Consult to Case Management/Le[employer]el [employer]aster [CONS] Routine Consult to Spiritual Care [CONS] Routine Labs Pending at D/C: None Recommended Follow-up Testing/Procedures: Follow-up as needed for comfort care Hospital Course: Jesi was admitted to the hospital floor due to intractable nausea and vomiting believed to be secondary to UTI. As noted in the initial H&P, she had just returned from [facility] after undergoing a laparotomy. Plan was to perform a bowel resection due to a tumor, however once they were inside the cancer was noted to be quite significant and incision was closed after biopsies were obtained. Reports are that this was a ovarian cancer, for which she has a history of and underwent a oophorectomy many years prior. Plan at that time was for the patient to return home and undergo chemotherapy. In the hospital blood cultures grew out Klebsiella. She was started on IV Rocephin, 1gm. One out of 3 blood culture bottles grew out Capnoctyophaga gingivalis. After admission patient's abdomen was noted to be somewhat tender and she did undergo another episode of significant nausea and vomiting. Abdominal x-ray was obtained showing a small bowel obstruction. Patient's oncologist, Dr. Altamirano was contacted who stated that if this is in fact a small bowel obstruction due to the cancer progress that prognosis would be very poor. He recommended standard management and to follow-up with him. NG tube was placed and applied to low intermittent suction. Patient attempted to ambulate multiple times. General surgery was brought on board and offered a venting gastrostomy, however the patient and family ultimately refused. TPN and lipids were discussed and the patient ultimately refused these as well. Unfortunately with treatment patient's symptoms did not resolve or improve. Bowel sounds remained active at times, however they were also more often absent. Dr. Altamirano was again contacted at the request of the family who agreed that there is nothing more to offer the patient. He recommended patient be placed on hospice care. Initially family was hoping to take patient home however due to need for continued NG tube this was not a option. No local nursing facilities were equipped to handle the NG tube. Patient agreed to continue NG tube, as without it she would have significant nausea and vomiting. Patient requested Clinton catheter remain in place for comfort care. All treatment options were discontinued by the patient. She ultimately was accepted at [facility] after discussion with the family. She was discharged today and transferred there by [place] [facility]. - Patient Instructions Diet: NPO Diet, Other: Ice chips and water PRN for comfort care Activity: As Tolerated, Bedrest Other/Special Instructions: Discharged on comfort care. Continue NG tube with LIS. - Discharge Plan *PRESCRIPTION DRUG MONITORING PROGRAM REVIEWED*: No *COPY OF PRESCRIPTION DRUG MONITORING REPORT IN PATIENT JOSE CARLOS: No Home Medications: Home Meds Morphine 2 mg IVPUSH Q30M PRN #0 syringe 03/01/20 [Rx] Octreotide 100 mcg SUBCUT QID syringe 03/01/20 [Rx] Scopolamine [Transderm-Scop] 1.5 mg TRDERM Q72H patch 03/01/20 [Rx] Oxygen Therapy Mode: Nasal Cannula Oxygen Flow Rate (L/min): 2 Maintain SpO2% greater than: 90 (for comfort ) Patient Handouts: Ovarian Cancer, Sepsis, Diagnosis, Adult Referrals: Taqueria,Terrie W, MD [Primary Care Provider] - - Discharge Summary/Plan Comment DC Time >30 min.: Yes (60 minutes ) - General Info Date of Service: 03/01/20 Admission Dx/Problem (Free Text: Admission Diagnosis/Problem Admission Diagnosis/Problem Urinary tract infection 79 year old female admitted on 02/16/2020 with complaints of abdominal pain after she was hospitalized and had surgery to remove her uterus and colon lesions at [facility] on 02/08/2020 Functional Status: Reports: Pain Controlled, Urinating (clinton in place ). Denies: Tolerating Diet (NPO), Ambulating, New Symptoms - Review of Systems General: Reports: Weakness, Fatigue, Malaise. Denies: Fever, Chills HEENT: Reports: Sore Throat (2/2 NG tube ). Denies: Headaches Pulmonary: Reports: No Symptoms. Denies: Shortness of Breath, Pleuritic Chest Pain, Cough, Sputum Cardiovascular: Reports: No Symptoms. Denies: Chest Pain, Palpitations, Dyspnea on Exertion Gastrointestinal: Reports: No Symptoms. Denies: Abdominal Pain, Constipation, Diarrhea, Nausea, Vomiting Genitourinary: Reports: No Symptoms. Denies: Pain Musculoskeletal: Reports: No Symptoms Skin: Reports: No Symptoms. Denies: Cyanosis Neurological: Reports: No Symptoms. Denies: Confusion Psychiatric: Reports: No Symptoms - Patient Data Vitals - Most Recent: Last Vital Signs Temp 97.3 F 03/01/20 07:52 Pulse 84 03/01/20 07:52 Resp 16 03/01/20 07:52 BP 114/55 L 03/01/20 07:52 Pulse Ox 93 L 03/01/20 08:25 Weight - Most Recent: 248 lb 3.2 oz I&O - Last 24 hours: Intake & Output 02/29/20 03/01/20 03/01/20 22:59 06:59 14:59 Intake Total 270 290 Output Total 700 1000 Balance -430 -710 [place] Results - Last 24 hrs: Microbiology 02/26/20 13:48 Aerobic Blood Culture - Preliminary Blood - Venous - Lab Draw NO GROWTH AFTER 4 DAYS Anaerobic Blood Culture - Preliminary NO GROWTH AFTER 4 DAYS 02/26/20 14:03 Aerobic Blood Culture - Preliminary Blood - Venous NO GROWTH AFTER 4 DAYS Anaerobic Blood Culture - Preliminary NO GROWTH AFTER 4 DAYS Med Orders - Current: Current Medications Discontinued Medications Acetaminophen (Tylenol) 650 mg PO Q4H PRN PRN Reason: Pain (Mild 1-3)/fever Last Admin: 02/18/20 05:07 Dose: 650 mg Acetaminophen (Tylenol) 650 mg PO Q4H PRN PRN Reason: Pain/Fever Al Hydroxide/Mg Hydroxide (Mag-Al Plus) 30 ml PO ONETIME ONE Stop: 02/16/20 13:42 Last Admin: 02/16/20 13:47 Dose: 30 ml Albuterol (Proventil Neb Soln) 2.5 mg NEB Q15M PRN PRN Reason: Shortness of Breath Apixaban (Eliquis) 5 mg PO BID [facility] Last Admin: 02/19/20 08:45 Dose: 5 mg Artificial Tears (Refresh Liquigel 1%) 1 - 2 ml EYEBOTH QID PRN; Protocol PRN Reason: Dry Eyes Benzocaine (Hurricaine 20% [place]) 0 ml MUCMEM Q2H PRN PRN Reason: Sore Throat Last Admin: 02/21/20 15:19 Dose: 1 spray Benzocaine/Menthol (Cepacol Sore Throat) 1 lozenge MUCMEM Q2HR PRN PRN Reason: Sore Throat Benzocaine/Menthol (Cepacol Sore Throat) 1 lozenge MUCMEM Q2H PRN PRN Reason: Sore throat Bisacodyl (Dulcolax) 10 mg RECTAL ONETIME ONE Stop: 02/22/20 11:55 Last Admin: 02/22/20 16:35 Dose: Not Given Bisacodyl (Dulcolax) 10 mg RECTAL ONETIME ONE Stop: 02/23/20 08:18 Last Admin: 02/23/20 09:58 Dose: 10 mg Calcium Polycarbophil (Fibercon) 1,250 mg PO DAILY [facility] Last Admin: 02/20/20 11:01 Dose: Not Given Cefdinir (Omnicef) 300 mg PO BID [facility] Last Admin: 02/19/20 08:45 Dose: 300 mg Dexamethasone (Dexamethasone) 2 mg IVPUSH ONETIME ONE Stop: 02/26/20 21:10 Last Admin: 02/27/20 07:45 Dose: Not Given Dextrose/Water (Dextrose 50% In Water) 50 ml IVPUSH ASDIRECTED PRN PRN Reason: Hypoglycemia Enoxaparin Sodium (Lovenox) 110 mg SUBCUT Q12H [facility] Last Admin: 02/26/20 20:47 Dose: 110 mg Famotidine (Pepcid) 20 mg IVPUSH ONETIME ONE Stop: 02/16/20 14:33 Last Admin: 02/16/20 14:38 Dose: 20 mg Famotidine (Pepcid) 20 mg PO DAILY [facility] Last Admin: 02/18/20 08:14 Dose: 20 mg Famotidine (Pepcid) 20 mg PO BID [facility] Last Admin: 02/19/20 08:45 Dose: 20 mg Famotidine (Pepcid) 20 mg IVPUSH DAILY [facility] Famotidine (Pepcid) 20 mg IVPUSH DAILY [facility] Last Admin: 02/24/20 08:49 Dose: 20 mg Furosemide (Lasix) 20 mg IVPUSH NOW ONE Stop: 02/23/20 08:03 Last Admin: 02/23/20 08:34 Dose: 10 mg Furosemide (Lasix) 40 mg IVPUSH NOW ONE Stop: 02/24/20 10:16 Last Admin: 02/24/20 10:38 Dose: 40 mg Haloperidol (Haldol) 1 mg PO Q1H PRN PRN Reason: delirium or restlessness Haloperidol (Haldol) 1 mg PO Q1H PRN PRN Reason: delirium or restlessness Haloperidol Lactate (Haldol) 1 mg IVPUSH Q1H PRN PRN Reason: delirium or restlessness Last Admin: 03/01/20 03:20 Dose: 1 mg Sodium Chloride (Normal Saline) 1,000 mls @ 999 mls/hr IV ASDIRECTED [facility] Last Admin: 02/16/20 12:18 Dose: 150 mls/hr Ceftriaxone Sodium 1 gm/ (Sodium Chloride) 100 mls @ 200 mls/hr IV Q24H [facility] Last Admin: 02/17/20 14:58 Dose: 200 mls/hr Sodium Chloride (Normal Saline) 1,000 mls @ 75 mls/hr IV ASDIRECTED [facility] Stop: 02/17/20 05:49 Last Admin: 02/16/20 16:47 Dose: 75 mls/hr Promethazine HCl 25 mg/ Sodium (Chloride) 51 mls @ 100 mls/hr IV ONETIME ONE Stop: 02/16/20 18:09 Last Admin: 02/16/20 18:32 Dose: 100 mls/hr Promethazine HCl 25 mg/ Sodium (Chloride) 51 mls @ 100 mls/hr IV Q6H PRN PRN Reason: Nausea/Vomiting Sodium Chloride (Normal Saline) 1,000 mls @ 100 mls/hr IV ASDIRECTED [facility] Stop: 02/18/20 17:29 Last Admin: 02/17/20 17:44 Dose: 100 mls/hr Dextrose/Lactated Ringer's (Dextrose 5%-Lactated Ringers) 1,000 mls @ 150 mls/ hr IV ASDIRECTED [facility] Last Admin: 02/21/20 07:30 Dose: 150 mls/hr Ceftriaxone Sodium 1 gm/ (Sodium Chloride) 100 mls @ 200 mls/hr IV Q24H [facility] Last Admin: 02/20/20 11:40 Dose: 200 mls/hr Lactated Ringer's (Ringers, Lactated) 1,000 mls @ 150 mls/hr IV ASDIRECTED [facility] Last Admin: 02/21/20 17:32 Dose: 150 mls/hr Dextrose/Lactated Ringer's (Dextrose 5%-Lactated Ringers) 1,000 mls @ 150 mls/ hr IV ASDIRECTED [facility] Last Admin: 02/22/20 20:52 Dose: 150 mls/hr Dextrose/Lactated Ringer's (Dextrose 5%-Lactated Ringers) 1,000 mls @ 50 mls/ hr IV ASDIRECTED [facility] Last Admin: 02/25/20 02:56 Dose: 50 mls/hr Sodium Chloride 38.4 meq/ (Dextrose/Water) 509.6 mls @ 80 mls/hr IV ASDIRECTED [facility] Sodium Chloride 76.8 meq/Potassium Chloride 20 meq/Dextrose/Water 1,029.2 mls @ 100 mls/hr IV ASDIRECTED [facility] Sodium Chloride 76.8 meq/Potassium Chloride 20 meq/Dextrose/Water 1,029.2 mls @ 100 mls/hr IV .[id number] [facility] Last Admin: 02/26/20 10:27 Dose: 100 mls/hr Ceftriaxone Sodium 2 gm/ (Sodium Chloride) 100 mls @ 200 mls/hr IV Q24H [facility] Last Admin: 02/26/20 15:04 Dose: Not Given Ceftriaxone Sodium 2 gm/ (Sodium Chloride) 100 mls @ 200 mls/hr IV Q24H [facility] Last Admin: 02/26/20 14:53 Dose: 200 mls/hr Promethazine HCl 50 mg/ Sodium (Chloride) 52 mls @ 100 mls/hr IV Q6H [facility] Stop: 02/27/20 16:45 Last Admin: 02/26/20 17:04 Dose: 100 mls/hr Dextrose/Sodium Chloride (Dextrose 5%-1/2 Ns) 1,000 mls @ 150 mls/hr IV ASDIRECTED [facility] Last Admin: 02/27/20 08:58 Dose: 150 mls/hr Promethazine HCl 12.5 mg/ (Sodium Chloride) 50.5 mls @ 100 mls/hr IV Q4H PRN PRN Reason: Nausea Ceftriaxone Sodium 2 gm/ (Sodium Chloride) 100 mls @ 200 mls/hr IV Q24H [facility] Insulin Glargine (Lantus) 25 unit SUBCUT DAILY [facility] Last Admin: 02/26/20 12:00 Dose: 25 units Lorazepam (Ativan) 0.5 mg IVPUSH ONETIME ONE Stop: 02/26/20 18:04 Last Admin: 02/26/20 18:00 Dose: Not Given Lorazepam (Ativan) 0.5 mg IVPUSH ONETIME ONE Stop: 02/26/20 20:01 Last Admin: 02/26/20 20:50 Dose: 0.5 mg Lorazepam (Ativan) 0.5 mg IVPUSH Q4H PRN PRN Reason: restlessness Lorazepam (Ativan) 1 mg SUBCUT Q30M PRN PRN Reason: Anxiety Lorazepam (Ativan) 1 mg IVPUSH Q15M PRN PRN Reason: Anxiety Lorazepam (Ativan) 1 mg PO Q30M PRN PRN Reason: Anxiety Magnesium Hydroxide (Milk Of Magnesia) 30 ml PO BID PRN PRN Reason: Constipation Last Admin: 02/19/20 05:17 Dose: 30 ml Melatonin (Melatonin) 6 mg PO BEDTIME PRN PRN Reason: Sleep Last Admin: 02/25/20 20:38 Dose: 6 mg Metoclopramide HCl (Reglan) 10 mg IVPUSH Q6H [facility] Stop: 02/22/20 21:16 Last Admin: 02/22/20 12:12 Dose: Not Given Metoclopramide HCl (Reglan) 10 mg IVPUSH Q6H [facility] Stop: 02/22/20 23:01 Last Admin: 02/22/20 23:15 Dose: 10 mg Metoclopramide HCl (Reglan) 10 mg PO Q8H [facility] Last Admin: 02/26/20 14:52 Dose: 10 mg Metoclopramide HCl (Reglan) 10 mg PO Q6H PRN PRN Reason: Nausea Metoclopramide HCl (Reglan) 10 mg IVPUSH Q6H PRN PRN Reason: Nausea Miscellaneous Information (Remove Patch) 1 ea TRDERM Q72H [facility] Last Admin: 02/28/20 20:53 Dose: Not Given Morphine Sulfate (Morphine) 2 mg IVPUSH Q4H PRN PRN Reason: Pain Last Admin: 02/27/20 04:17 Dose: 2 mg Morphine Sulfate (Morphine) 2 mg SUBCUT Q30M PRN PRN Reason: Pain or Shortness of breath Last Admin: 03/01/20 01:10 Dose: 2 mg Morphine Sulfate (Morphine) 2 mg IVPUSH Q30M PRN PRN Reason: Pain or Shortness of breath Last Admin: 03/01/20 11:00 Dose: 2 mg Multivitamins (Thera) 1 each PO DAILY [facility] Last Admin: 02/19/20 08:46 Dose: Not Given Octreotide Acetate (Octreotide) 100 mcg SUBCUT TID [facility] Last Admin: 02/26/20 08:24 Dose: 100 mcg Octreotide Acetate (Octreotide) 100 mcg SUBCUT QID [facility] Last Admin: 02/26/20 20:49 Dose: 100 mcg Octreotide Acetate (Octreotide) 100 mcg SUBCUT QID [facility] Last Admin: 03/01/20 09:17 Dose: 100 mcg Ondansetron HCl (Zofran) 4 mg IVPUSH ONETIME ONE Stop: 02/16/20 12:09 Last Admin: 02/16/20 12:18 Dose: 4 mg Ondansetron HCl (Zofran) 4 mg IVPUSH ONETIME ONE Stop: 02/16/20 14:31 Last Admin: 02/16/20 14:38 Dose: 4 mg Ondansetron HCl (Zofran) 4 mg IV Q6H PRN PRN Reason: Nausea/Vomiting Last Admin: 02/26/20 12:10 Dose: 4 mg Ondansetron HCl (Zofran Odt) 4 mg PO Q12H [facility] Last Admin: 02/19/20 00:47 Dose: 4 mg Ondansetron HCl (Zofran) 4 mg IVPUSH ONETIME ONE Stop: 02/26/20 15:00 Last Admin: 02/26/20 15:13 Dose: 4 mg Pharmacy Consult (Consult To Pharmacy) 1 each .XX ASDIRECTED [facility] Scopolamine (Transderm-Scop) 1.5 mg TRDERM Q72H [facility] Last Admin: 02/28/20 20:52 Dose: 1.5 mg Senna/Docusate Sodium (Senna Plus) 1 tab PO BID PRN PRN Reason: Constipation Last Admin: 02/18/20 05:07 Dose: 1 tab Senna/Docusate Sodium (Senna Plus) 1 tab PO BID [facility] Last Admin: 02/27/20 07:44 Dose: Not Given Simethicone (Simethicone) 80 mg PO QID PRN PRN Reason: bloating Last Admin: 02/21/20 20:54 Dose: 80 mg Sodium Chloride (Saline Flush) 10 ml FLUSH ASDIRECTED PRN PRN Reason: Keep Vein Open Last Admin: 02/16/20 12:18 Dose: 10 ml Tramadol HCl (Ultram) 50 mg PO Q6H PRN PRN Reason: Pain Last Admin: 02/25/20 20:38 Dose: 50 mg - Exam Quality Assessment: Reports: Supplemental Oxygen, Urine Catheter, DVT Prophylaxis General: Reports: Alert, Oriented, Cooperative, No Acute Distress HEENT: Reports: Pupils Equal, Pupils Reactive, Mucous Membr. Moist/[place] Neck: Reports: Supple, Trachea Midline Lungs: Reports: Clear to Auscultation, Normal Respiratory Effort Cardiovascular: Reports: Regular Rate, Regular Rhythm GI/Abdominal Exam: Soft, Non-Tender, No Distention, Abnormal Bowel Sounds ( absent ) (Female) Exam: Deferred Rectal (Female) Exam: Deferred Extremities: Normal Inspection, Normal Range of Motion, Non-Tender, Normal Capillary Refill Skin: Reports: Warm, Dry, Intact Wound/Incisions: Reports: Healing Well. Denies: Erythema Neurological: Reports: No New Focal Deficit Psy/Mental Status: Reports: Alert
== END 2020-03-01 11:44 | disposition swing bed (61) | DRG 389 ==
LOC: JD.ED 11:28 → JD.MS 16:01
PROVIDERS: ADMIT Pediatrics; ATTEND Pediatrics
DX: K56.609 Unspecified intestinal obstruction, unspecified as to partial versus complete obstruction (principal); N39.0 Urinary tract infection, site not specified; E86.0 Dehydration; H91.90 Unspecified hearing loss, unspecified ear; C18.9 Malignant neoplasm of colon, unspecified; N17.9 Acute kidney failure, unspecified; E87.2 Acidosis; K92.1 Melena; C56.9 Malignant neoplasm of unspecified ovary; C19 Malignant neoplasm of rectosigmoid junction; Z85.43 Personal history of malignant neoplasm of ovary; Z90.722 Acquired absence of ovaries, bilateral; Z51.5 Encounter for palliative care; B96.1 Klebsiella pneumoniae [K. pneumoniae] as the cause of diseases classified elsewhere; R11.2 Nausea with vomiting, unspecified; E78.5 Hyperlipidemia, unspecified; K21.9 Gastro-esophageal reflux disease without esophagitis; E66.9 Obesity, unspecified; R31.9 Hematuria, unspecified; E86.9 Volume depletion, unspecified; K59.09 Other constipation; E78.00 Pure hypercholesterolemia, unspecified; Z86.718 Personal history of other venous thrombosis and embolism; Z79.01 Long term (current) use of anticoagulants; Z91.013 Allergy to seafood; Z79.899 Other long term (current) drug therapy
CPT/HCPCS: 36415; 71046; 80053; 81001; 83605; 84484; 85025; 86140; 87040 ×2; 87077; 87086; 87088; 87186; 96361; 96365; 96375; 96376; 99285; A9270; J0696; J2405 ×2; J3490; J7030; J7050; 51702; 71045; 71045-26; 74018; 74018-26; 80048; 82150; 82962; 83690; 83735; 84100; 93005; 94760; 97110-GP; 97116-GP; 97162-GP; 97165-GO; 97535-GO; 99232; 99239; 99284; J1630; J1650; J1815-GY; J1940; J2060; J2270; J2354; J2550; J2765; J3480; J7042; J7120; J7121; J7131